=== PATIENT | female | born 1970 | race Caucasian/White ===

== ENCOUNTER 2023-01-06 11:44 | Outpatient (OUT) | payer OTHER, SELFPAY ==
--- NOTE | 2023-01-06 11:52 | US_ITS ---
[place] [id number] Patient Name: DIANE MARSHALL MRN: [id number] date: 1970 Sex: F Assigned Patient Location: [facility] Current Patient Location: [facility] Accession/Order Number: [id number] Exam Date: 01/06/2023 11:52 Report Date: 01/06/2023 14:22 At the request of: ANH CANO Procedure: US venous doppler LE BI EXAMINATION: US venous doppler LE BI HISTORY: Edema R60.9 COMPARISON: No relevant comparison available. FINDINGS: REGION: Bilateral lower extremities THROMBI: None. COMPRESSIBILITY: Normal compressibility. FLOW: Normal waveform and antegrade flow between 5 and 20 cm/s. OTHER: None. IMPRESSION: 1. No deep vein thrombus within the right or left lower extremity. Electronically authenticated by: BRYAN ARTHUR Date: 01/06/2023 14:22
== END 2023-01-06 11:45 ==
PROVIDERS: PCP Family Medicine; Visit Provider Family Medicine
DX: R60.9 Edema, unspecified (principal)
CPT/HCPCS: 93970

== ENCOUNTER 2023-01-17 08:28 | Outpatient (OUT) | payer OTHER, SELFPAY ==
--- NOTE | 2023-01-17 08:29 | VEIN_ITS ---
Patient: DIANE MARSHALL Exam Date: 01/17/2023 : 1970 Gender:F Ordering : DR Kevin Granger . Admission #: [id number] Family : Order #: [id number] CLICK HERE TO VIEW EXAM RADIOLOGY REPORT PROCEDURE: VC EXT VENOUS REFLUX DAVID LMTD COMPARISON: None. INDICATIONS: Edema R60.0 TECHNIQUE: Duplex imaging of the lower extremity to assess the deep and superficial venous system for the presence of deep or superficial venous incompetence and to document the location and severity of disease. The study includes evaluation of the great saphenous vein (GSV), anterior accessory saphenous vein (AASV) and small saphenous vein (SSV). Patient scanned in reverse Trendelenburg and standing. FINDINGS: RIGHT LOWER EXTREMITY: Saphenofemoral Junction Reflux: Yes 8.0mm 1.0 sec GSV: Diam (mm) Reflux/ Time (sec) Proximal Thigh 7.2 No Mid Thigh 2.4 No Distal Thigh 2.8 No Prox Calf 2.1 Yes 0.4 Mid Calf 3.1 Yes 0.2 Saphenopopliteal Junction Reflux: 2.1mm No SSV: Proximal Calf 1.4 Yes 0.2 Mid Calf 2.5 Yes 0.8 AASV: Proximal Thigh 4.5 Yes 1.0 Mid Thigh 3.3 No Distal Thigh Thrombi: No acute or chronic thrombus. Compressibility: Normal. Flow: No significant deep venous reflux. Childcare Aide: Mid medial lower leg 3.6 mm with 4.1s reflux. Prox medial lower leg 2.9 mm, 1.6s reflux. Mid posterior lower leg 1.9 mm with 4.3s reflux. Tech Note: Large varicosity off of prox/mid thigh GSV that decompresses GSV measures 5.4 mm with 0.2s reflux. Medial knee varicose vein measures 4.5 mm with 1.1s reflux. Mid medial calf varicose vein measures 2.8 mm with 0.3s reflux. LEFT LOWER EXTREMITY: Saphenofemoral Junction Reflux: Yes 9.6 mm 0.6 sec GSV: Diam (mm) Reflux/Time (sec) Proximal Thigh 5.1 No Mid Thigh N/A Distal Thigh N/A Prox Calf 3.4 Yes 3.7 Mid Calf 3.1 Yes 0.7 Saphenopopliteal Junction Relux: 3.3 mm No SSV: Proximal Calf 3.0 No Mid Calf 3.4 Yes 3.1 AASV: Not present Proximal Thigh Mid Thigh Distal Thigh Thrombi: No acute or chronic thrombus. Compressibility: Normal. Flow: Mild deep venous reflux. Childcare Aide: Dist medial lower leg 4.9 mm with 4.9s reflux. Mid medial lower leg 3.9mm, 0.8s reflux. Prox medial lower leg 4.0 mm with 0.7s reflux. Tech Note: AASV and GSV previously treated. Incompetent varicose vein proximal medial calf measures 4.7 mm with 4.0s reflux. Mid medial lower leg varicosity measures 4.8 mm with 4.9s reflux. Varicose vein distal anterior lower leg measures 2.3 mm with 0.6s reflux. CONCLUSION: 1. Mild venous insufficiency right great saphenous vein with minimal dilatation 2. Mild right and moderate left small saphenous vein venous insufficiency without dilatation 3. Mild venous insufficiency right anterior accessory saphenous vein 4. Moderate venous insufficiency remit of the left great saphenous vein 5. Bilateral incompetent perforating veins 6. Bilateral incompetent varicose veins Dictated by: Edwar Quinn MD on 01/17/2023 at 11:06 Approved by: Edwar Quinn MD on 01/17/2023 at 11:08
== END 2023-01-17 08:29 ==
PROVIDERS: PCP Family Medicine; Visit Provider Family Medicine
DX: R60.0 Localized edema (principal); M79.604 Pain in right leg; M79.605 Pain in left leg
CPT/HCPCS: 93970

== ENCOUNTER 2023-01-18 06:56 | Outpatient (RCR) | payer OTHER, SELFPAY | END 2023-03-11 16:06 | disposition home or self-care (01) | LOC: PT 06:56 | PROVIDERS: PCP Family Medicine; Visit Provider Family Medicine | DX: M79.605 Pain in left leg (principal); M79.604 Pain in right leg | CPT/HCPCS: 97110; 97112; 97140; 97163 ==

== ENCOUNTER 2023-05-24 09:57 | Outpatient (OUT) | payer OTHER, SELFPAY ==
[2023-05-24 10:16] LABS: Basophils Absolute Auto 0.1 10^3/uL (0.0-0.1); Basophils Percent Auto 0.9 % (0.2-2.0); Eosinophils Absolute Auto 0.1 10^3/uL (0.0-0.7); Eosinophils Percent Auto 1.5 % (0.9-7.0); Hematocrit 37.6 % (36.0-48.0); Hemoglobin 11.8 g/dL (12.0-16.0); Immature Granulocytes Abs Auto 0.01 10^3/uL (0.00-0.03); Immature Granulocytes Pct Auto 0.2 % (0.0-0.5); Lymphocytes Absolute Auto 2.2 10^3/uL (1.2-3.8); Lymphocytes Percent Auto 40.5 % (20.5-60.0); Mean Corpuscular HGB Conc 31.4 g/dL (29.9-35.2); Mean Corpuscular Hemoglobin 28.4 pg (26.7-34.0); Mean Corpuscular Volume 90.4 fL (81.0-99.0); Mean Platelet Volume 10.1 fL (9.5-13.5); Monocytes Absolute Auto 0.5 10^3/uL (0.3-0.8); Monocytes Percent Auto 9.9 % (1.7-12.0); Neutrophils Absolute Auto 2.6 10^3/uL (1.4-6.5); Platelet Count 257 10^3/uL (150-450); Red Blood Count 4.16 10^6/uL (4.20-5.40); Red Cell Distribution Width 13.5 % (11.0-15.0); White Blood Count 5.5 10^3/uL (4.0-11.0)
[2023-05-24 11:46] LABS: Alanine Aminotransferase 20 U/L (14-59); Albumin Globulin Ratio 0.9; Albumin Level 3.3 g/dL (3.4-5.0); Alkaline Phosphatase 68 U/L (46-116); Anion Gap 10.3; Aspartate Amino Transferase 15 U/L (15-37); BUN Creatinine Ratio 13.1; Bilirubin Total 0.4 mg/dL (0.2-1.0); Calcium 8.2 mg/dL (8.5-10.1); Carbon Dioxide 27.8 mmol/L (21.0-32.0); Chloride 107 mmol/L (98-107); Estimated GFR (African America >60 (>=60); Estimated GFR (Non-African Ame >60 (>=60); Free T3 2.11 pg/mL (2.18-3.98); Globulin 3.6 g/dL; Glucose 86 mg/dL (74-106); Potassium 4.1 mmol/L (3.5-5.1); Sodium 141 mmol/L (136-145); Thyroid Stimulating Hormone 0.053 uIU/mL (0.358-3.740); Total Protein 6.9 g/dL (6.4-8.2)
[2023-05-24 12:05] LABS: Estimated Average Glucose 117 mg/dL; Glycohemoglobin A1C 5.7 % (4.5-6.2)
== END 2023-05-24 09:58 | disposition home or self-care (01) ==
LOC: LAB 09:58
PROVIDERS: PCP Family Medicine; Visit Provider Family Medicine
DX: G43.909 Migraine, unspecified, not intractable, without status migrainosus (principal); R73.09 Other abnormal glucose; D64.9 Anemia, unspecified; E55.9 Vitamin D deficiency, unspecified
CPT/HCPCS: 36415; 80053; 82306; 83036; 83540; 84436; 84443; 84481; 85025

== ENCOUNTER 2024-11-17 08:57 | Outpatient (OUT) | payer OTHER, SELFPAY ==
--- OUTSIDE RECORDS SUMMARY | 2024-11-17 09:01 | XMS_ITS | CCD ---
Author Organization [facility] Care Team Providers Care Supervisor Parking Lot Name Role Phone MAXIME, AHMAD Admitting Unavailable MAXIME, AHMAD Attending Unavailable RACHAEL, DR KAMARA Primary Care Unavailable MAXIME, ALEJA Consulting Unavailable RACHAEL, DR KAMARA Admitting Unavailable HOY, DR KAMARA Attending Unavailable HOY, DR KAMARA Primary Care Unavailable RACHAEL, DR KAMARA Consulting Unavailable ZIEBER, DR BRYAN Man Consulting Unavailable RACHAEL, DR KAMARA Admitting Unavailable RACHAEL, DR KAMARA Attending Unavailable RACHAEL, DR KAMARA Primary Care Unavailable RACHAEL, DR KAMARA Consulting Unavailable MAXIME, AHMAD Admitting Unavailable MAXIME, AHMAD Attending Unavailable RACHAEL, DR KAMARA Primary Care Unavailable MAXIME, ALEJA Consulting Unavailable MD Anh Granger Primary Care Provider DO Onel Hatch Attending Provider MD Anh Granger Primary Care Provider DO Onel Hatch Attending Provider Anh Granger MD Primary Care Provider [phone] MD Anh Granger Primary Care Provider DO Abdoulaye Esqueda Attending Provider MD Anh Granger Primary Care Provider DO Abdoulaye Esqueda Attending Provider DO Onel Hatch Attending Provider MD Anh Granger Primary Care Provider DO Abdoulaye Esqueda Attending Provider Anh Granger MD Primary Care Provider Onel Hatch DO Attending Provider [phone] Anh Granger Primary Care Unavailable Onel Hatch Admitting Unavailable Onel Hatch Attending Unavailable Anh Granger Primary Care Unavailable Abdoulaye Esqueda Admitting Unavailable Abdoulaye Esqueda Attending Unavailable Onel Hatch Admitting Unavailable Onel Hatch Attending Unavailable Anh Granger Primary Care Unavailable ONEL HATCH W Attending Unavailable ONEL HATCH W Attending Unavailable Allergies Allergy Classification Reported Allergen(s) Allergy Type Date of Onset Reaction(s) Facility (1 source) fentaNYL Drug Allergy 12-15-2015 [facility] (11 sources) fentaNYL Drug Allergy 05-01-2014 [facility] (11 sources) Povidone-Iodine Drug Allergy 07-19-2014 [facility] are Medications Current Medications Medication Drug Class(es) Dates Sig (Normalized) Sig (Original) amitriptyline hydrochloride 100 mg oral tablet (8 sources) Tricyclic Antidepressant take 1 tablet by mouth at bedtime amitriptyline (Elavil) 100 MG tablet Take 100 mg by mouth at bedtime Active aspirin 81 mg chewable tablet (11 sources) Platelet Aggregation Inhibitor, Nonsteroidal Anti-inflammatory Drug aspirin 81 MG chewable tablet Active 168 hr buprenorphine 0.01 mg/hr transdermal system (14 sources) Partial Opioid Agonist Start: 09-07-2023 apply 1 dose transdermal route every week Butrans 10 MCG/HR Place 1 patch on the skin 1 (one) time per week 09/07/2023 Active Start: 12-30-2020 apply 15 ug transder mal route every week Buprenorphine 15 mcg/hour Patch Weekly Active 1 PATCH TRANSDERML every week December 30, 2020 12:00am diclofenac sodium 75 mg delayed release oral tablet (2 sources) Nonsteroidal Anti-inflammatory Drug Start: 08-30-2024 take 1 tablet by mouth twice daily as needed diclofenac (Voltaren) 75 MG EC tablet Take 75 mg by mouth 2 (two) times a day as needed 08/30/2024 Active gabapentin 600 mg oral tablet (17 sources) Anti-epileptic Agent Start: 12-30-2020 take 2 tablets by mouth once daily at bedtime Gabapentin (Neurontin) 600 mg Tablet Active 600 MG PO Daily at bedtime December 30, 2020 12:00am 2 at HS for 30 days gabapentin (Neur ontin) 400 MG capsule Active levothyroxine sodium 0.2 mg oral tablet (20 sources) l-Thyroxine Start: 12-07-2023 End: 11-13-2025 take 1 tablet by mouth before mealtime levothyroxine (Synthroid) 200 MCG tablet Indications: Status post total thyroidectomy Take 1 tablet (200 mcg) by mouth in the morning. Take before meals. 30 tablet 11 11/13/2024 11/13/2025 Active Start: 03-16-2023 take 1 tablet by jama th before mealtime levothyroxine (Synthroid) 200 MCG tablet Indications: History of total thyroidectomy (CMS/HCC) Take 1 tablet (200 mcg) by mouth in the morning. Take before meals. 30 tablet 5 03/16/2023 Active Start: 03-16-2023 take 1 tablet by jama th before mealtime levothyroxine (Synthroid) 75 MCG tablet Indications: History of total thyroidectomy (CMS/HCC) Take 1 tablet (75 mcg) by mouth in the morning. Take before meals. 30 tablet 5 03/16/2023 Active Start: 01-05-2021 Levothyroxine 200 mcg tablet Active 275 MCG PO Daily January 05, 2021 12:00am Start: 01-05-2021 take 275 ug by mouth once cely y Levothyroxine Active 275 MCG PO Daily January 05, 2021 12:00am Start: 12-30-2020 End: 01-05-2021 take 1 tablet by mouth once daily Levothyroxine (Synthroid) 125 mcg Tablet Discontinued 125 MCG PO Daily December 30, 2020 12:00am January 05, 2021 3:40pm levothyroxine (S ynthroid, Levoxyl) 200 MCG tablet Take by mouth Daily before meals. Takes with 75mcg 0 Active levothyroxine (S ynthroid, Levoxyl) 75 MCG tablet Take by mouth Daily before meals. Takes with 200mcg 0 Active lisinopril 10 mg oral tablet (8 sources) Angiotensin Converting Enzyme Inhibitor Start: 09-05-2023 take 1 tablet by mouth once daily lisinopril 10 MG tablet Take 10 mg by mouth Daily 09/05/2023 Active 72 hr scopolamine 0.0139 mg/hr transdermal system (11 sources) Anticholinergic Start: 02-09-2023 scopolamine (Transderm-Scop) 1 mg/72 hr patch 72 hour patch 02/09/2023 Active Completed/Discontinued Medications Medication Drug Class(es) Dates Sig (Normalized) Sig (Original) cholecalciferol 0.125 mg oral tablet (6 sources) Vitamin D Start: 12-30-2020 End: 01-05-2021 take 1 tablet by mouth once daily Cholecalciferol (Vitamin D3) 125 mcg (5,000 unit) Tablet Discontinued 125 MCG PO Daily December 30, 2020 12:00am January 05, 2021 3:39pm citalopram 40 mg oral tablet (6 sources) Serotonin Reuptake Inhibitor Start: 12-30-2020 End: 01-05-2021 take 1 tablet by mouth once daily Citalopram (Celexa) 40 mg Tablet Discontinued 40 MG PO Daily December 30, 2020 12:00am January 05, 2021 3:39pm ferrous sulfate 325 mg oral tablet (6 sources) Start: 12-30-2020 End: 01-05-2021 take 1 tablet by mouth twice daily Ferrous Sulfate 325 mg (65 mg iron) Tablet Discontinued 325 MG PO Twice daily December 30, 2020 12:00am January 05, 2021 3:39pm fluocinonide 0.0005 mg/mg topical gel (6 sources) Corticosteroid Start: 12-30-2020 End: 01-05-2021 Fluocinonide 0.05 % Gel Discontinued 1 APPLIC TOPICAL Twice daily December 30, 2020 12:00am January 05, 2021 3:39pm ibuprofen 800 mg oral tablet (6 sources) Nonsteroidal Anti-inflammatory Drug Start: 12-30-2020 End: 01-05-2021 take 1 tablet by mouth every six hours Ibuprofen 800 mg Tablet Discontinued 800 MG PO Q6H December 30, 2020 12:00am January 05, 2021 3:40pm ondansetron 4 mg oral tablet (6 sources) Serotonin-3 Receptor Antagonist Start: 12-30-2020 End: 01-05-2021 take 1 tablet by mouth every six hours as needed for nausea Ondansetron Hcl (Zofran) 4 mg Tablet Discontinued 4 MG PO Q6H as needed for Nausea December 30, 2020 12:00am January 05, 2021 3:40pm Problems Active Problems Problem Classification Problem Date Documented Date Episodic/Chronic Cancer of thyroid (20 sources) Malignant neoplasm of thyroid gland; 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 EHR Cmte Complications of surgical procedures or medical care (13 sources) Postprocedural hypothyroidism; Translations: [History of total thyroidectomy] Onset: 01-01-2021 Resolved: 03-16-2023 Chronic Deficiency and other anemia (12 sources) Anemia; Translations: [Anemia, unspecified] 01-14-2021 Episodic Comment on above: Problem List clean-u p per request of Phys. EHR Cmte Headache; including migraine (1 source) Migraine without aura, not intractable, without status migrainosus; Translations: [MIGRAINE W/O AURA NOT INTRCT W/O SE] Onset: 01-02-2021 Chronic Menstrual disorders (1 source) Excessive and frequent menstruation with irregular cycle; Translations: [EXCESS AND FREQ MEN W/IRREG CYCLE] Onset: 01-02-2021 Chronic Thyroid disorders (20 sources) Hypothyroidism, unspecified; Translations: [Nontoxic multinodular goiter] Onset: 05-06-2014 Resolved: 03-16-2023 Chronic Past or Other Problems Problem Classification Problem Date Documented Date Episodic/Chronic Abdominal pain (11 sources) Flank pain; Translations: [Unspecified abdominal pain] Onset: 03-16-2023 Resolved: 03-16-2023 03-16-2023 Episodic Allergic reactions (11 sources) Eczema; Translations: [Dermatitis, unspecified] Onset: 03-16-2023 Resolved: 03-16-2023 03-16-2023 Episodic Deficiency and other anemia (1 source) Anemia, unspecified; Translations: [ANEMIA UNSPECIFIED] Onset: 01-02-2021 Episodic Fracture of upper limb (11 sources) Closed fracture of metacarpal bone; Translations: [Unspecified fracture of unspecified metacarpal bone, initial encounter for closed fracture] Onset: 04-09-2014 Resolved: 03-16-2023 03-16-2023 Episodic Genitourinary symptoms and ill-defined conditions (11 sources) Incontinence; Translations: [Unspecified urinary incontinence] Onset: 03-16-2023 Resolved: 03-16-2023 03-16-2023 Chronic Joint disorders and dislocations; trauma-related (11 sources) Tear of meniscus of knee; Translations: [Unspecified tear of unspecified meniscus, current injury, unspecified knee, initial encounter] Onset: 03-16-2023 Resolved: 03-16-2023 03-16-2023 Episodic Mood disorders (11 sources) Depressive disorder; Translations: [Depressive disorder] Onset: 03-16-2023 Resolved: 03-16-2023 03-16-2023 Chronic Nutritional deficiencies (12 sources) Vitamin D deficiency, unspecified; Translations: [Vitamin D deficiency] Onset: 01-02-2021 Resolved: 03-16-2023 03-16-2023 Chronic Other connective tissue disease (11 sources) Impingement syndrome of shoulder region; Translations: [Impingement syndrome of unspecified shoulder] Onset: 03-16-2023 Resolved: 03-16-2023 03-16-2023 Episodic Other connective tissue disease (11 sources) Muscle pain; Translations: [Myalgia, unspecified site] Onset: 03-16-2023 Resolved: 03-16-2023 03-16-2023 Episodic Other diseases of bladder and urethra (11 sources) Neurogenic bladder; Translations: [Neuromuscular dysfunction of bladder, unspecified] Onset: 05-28-2014 Resolved: 03-16-2023 03-16-2023 Chronic Other fractures (11 sources) Closed fracture of one rib; Translations: [Fracture of one rib, unspecified side, initial encounter for closed fracture] Onset: 03-16-2023 Resolved: 03-16-2023 03-16-2023 Episodic Other fractures (11 sources) Closed fracture thoracic vertebra; Translations: [Unspecified fracture of unspecified thoracic vertebra, initial encounter for closed fracture] Onset: 05-06-2014 Resolved: 03-16-2023 03-16-2023 Episodic Pulmonary heart disease (19 sources) Infarction of lung due to embolus; Translations: [Other pulmonary embolism without acute cor pulmonale] Onset: 03-01-2014 Resolved: 03-16-2023 03-16-2023 Episodic Residual codes; unclassified (1 source) Edema, unspecified; Translations: [EDEMA UNSPECIFIED] Onset: 01-02-2021 Episodic Residual codes; unclassified (3 sources) History of total thyroidectomy; Translations: [Other specified postprocedural states] Onset: 03-16-2023 Resolved: 03-16-2023 03-16-2023 Episodic Spondylosis; intervertebral disc disorders; other back problems (11 sources) Lumbar spondylosis with myelopathy; Translations: [Other spondylosis with myelopathy, lumbar region] Onset: 03-16-2023 Resolved: 03-16-2023 03-16-2023 Chronic Spondylosis; intervertebral disc disorders; other back problems (11 sources) Sacroiliac joint pain; Translations: [Sacrococcygeal disorders, not elsewhere classified] Onset: 03-16-2023 Resolved: 03-16-2023 03-16-2023 Episodic Results Test Name Value Interpretation Reference Range Facility Thyroid Stimulating Hormoneo n 11-05-2024 TSH Qn 0.74 m[IU]/L Normal 0.45-5.33 [facility] Comment on above: Order Comment: FASTI NG NON FASTING Result Comment: PERF ORMED BY: [facility] [address] [place] [address] PATHOLOGIST TALENT DEVELOPMENT DIRECTOR MANAV ESPINAL M.D. Performed By: #### T 3T, TSH3, T4T #### [facility] [address] Thyrotropin [Units/volume] i n Serum or PlasmaOrdered By: Onel Hatch on 11-05-2024 TSH Qn Thyrotropin [Units/volume] in Serum or Plasma 0.45-5.33 [facility] Thyroxine (T4) Totalon 11-05 T4 [Mass/Vol] 11.03 ug/dL Normal 5.39-11.82 [facility] Comment on above: Order Comment: FASTI NG NON FASTING Performed By: #### T 3T, TSH3, T4T #### [facility] [address] Thyroxine (T4) [Mass/volume] in Serum or PlasmaOrdered By: Onel Hatch on 11-05-2024 T4 [Mass/Vol] Thyroxine (T4) [Mass/volume] in Serum or Plasma 5.39-11.82 [facility] Triiodothyronine (T3) Totalo n 11-05-2024 Triiodothyronine (T3) Total 1.05 ng/mL Normal 0.87-1.78 [facility] Comment on above: Order Comment: FASTI NG NON FASTING Performed By: #### T 3T, TSH3, T4T #### [facility] [address] Triiodothyronine (T3) [Mass/ volume] in Serum or PlasmaOrdered By: Onel Hatch on 11-05-2024 T3 [Mass/Vol] Triiodothyronine (T3 ) [Mass/volume] in Serum or Plasma 0.87-1.78 [facility] Thyroglobulinon 05-19-2024 ANTITHYROGLOBULIN AB 20.3 High 0.0 - 0.9 [facility] Comment on above: Thyroglobulin Antibo dy measured by [employer] Method[employer] It should be noted that the presence of thyroglobulin antibodies may not be pathogenic nor diagnostic, especially at very low levels. The assay manager primary has found that four percent of individuals without evidence of thyroid disease or autoimmunity will have positive TgAb levels up to 4 IU/mL. Interpretation and review of laboratory results Abnormal [facility] THYROGLOBULIN, TG-MARISSA 4.2 ng/mL . [facility] Comment on above: This test was develo ped and its performance characteristics determined by [employer]. It has not been cleared or approved by the Food and Drug Administration. Reference Range: Pubertal Children and Adults: <40 According to the National Academy of Clinical Biochemistry, the reference interval for Thyroglobulin (TG) should be related to euthyroid patients and not for patients who underwent thyroidectomy. TG reference intervals for these patients depend on the residual mass of the thyroid tissue left after surgery. Establishing a post-operative baseline is recommended. The assay quantitation limit is 2.0 ng/mL. Performed at: [employer] [address] [id number] Cage Maker Machine: Jl Weems PhD, Phone: [phone] Performed at: [employer] [address] [place] [id number] Cage Maker Machine: Alvin Suazo MD, Phone: [phone] [facility] Thyroglobulin, Quant + Tg Ab on 04-26-2024 Antithyroglobulin Ab 20.3 High 0.0-0.9 [facility] Comment on above: Result Comment: Thyr oglobulin Antibody measured by Dara Johann Methodology It should be noted that the presence of thyroglobulin antibodies may not be pathogenic nor diagnostic, especially at very low levels. The assay manager primary has found that four percent of individuals without evidence of thyroid disease or autoimmunity will have positive TgAb levels up to 4 IU/mL. Performed By: #### L C T4, THYGLOB #### [facility] , Thyroglobulin, TG-MARISSA 4.2 ng/mL Normal . [facility] Comment on above: Result Comment: This test was developed and its performance characteristics determined by [employer]. It has not been cleared or approved by the Food and Drug Administration. Reference Range: Pubertal Children and Adults: <40 According to the National Academy of Clinical Biochemistry, the reference interval for Thyroglobulin (TG) should be related to euthyroid patients and not for patients who underwent thyroidectomy. TG reference intervals for these patients depend on the residual mass of the thyroid tissue left after surgery. Establishing a post-operative baseline is recommended. The assay quantitation limit is 2.0 ng/mL. Performed at: [employer] [address] [id number] Cage Maker Machine: Jl Weems PhD, Phone: [phone] Performed at: [employer] [address] [place] [id number] Cage Maker Machine: Alvin Suazo MD, Phone: [phone] PERFORMED BY: [address] [place] [address] PATHOLOGIST TALENT DEVELOPMENT DIRECTOR ANDRE WATTS M.D. Performed By: #### L C T4, THYGLOB #### [facility] , Thyrotropin [Units/volume] i n Serum or PlasmaOrdered By: Abdoulaye Esqueda on 04-26-2024 TSH Qn 1.64 m[IU]/L Normal 0.45-5.33 [facility] Comment on above: Result Comment: PERF ORMED BY: [address] [place] [address] PATHOLOGIST TALENT DEVELOPMENT DIRECTOR ANDRE WATTS M.D. Performed By: #### T 4T, TSH3, T3T #### [facility] [address] [place] [address] [place] #### THYGLOB #### [facility] , Thyroxine (T4) [Mass/volume] in Serum or PlasmaOrdered By: Abdoulaye Esqueda on 04-26-2024 T4 [Mass/Vol] 11.41 ug/dL Normal 5.39-11.82 [facility] Comment on above: Performed By: #### T 4T, TSH3, T3T #### [facility] [address] [place] [address] [place] #### THYGLOB #### [facility] , Triiodothyronine (T3) Totalo n 04-26-2024 Triiodothyronine (T3) Total 0.71 ng/mL Low 0.87-1.78 [facility] Comment on above: Performed By: #### T 4T, TSH3, T3T #### [facility] [address] [place] [address] #### THYGLOB #### [facility] , Triiodothyronine (T3) [Mass/ volume] in Serum or PlasmaOrdered By: Abdoulaye Esqueda on 04-26-2024 T3 [Mass/Vol] 0.71 ng/mL Low 0.87-1.78 [facility] Thyroxine (T4)on T4 [Mass/Vol] 11.5 ug/dL Normal 4.5-12.0 [facility] Comment on above: Result Comment: Perf ormed at: - [facility] [address] [id number] Cage Maker Machine: Jl Weems PhD, Phone: [phone] Performed By: #### L C T4, THYGLOB #### [facility] , Thyroglobulin, Quant + Tg Ab on 11-21-2023 Antithyroglobulin Ab 23.1 High 0.0-0.9 [facility] Comment on above: Result Comment: Thyr oglobulin Antibody measured by Dara Bellerose Methodology It should be noted that the presence of thyroglobulin antibodies may not be pathogenic nor diagnostic, especially at very low levels. The assay manager primary has found that four percent of individuals without evidence of thyroid disease or autoimmunity will have positive TgAb levels up to 4 IU/mL. Performed By: #### L C T4, THYGLOB #### [facility] , Thyroglobulin, TG-MARISSA 2.5 ng/mL Normal . [facility] Comment on above: Result Comment: This test was developed and its performance characteristics determined by [employer]. It has not been cleared or approved by the Food and Drug Administration. Reference Range: Pubertal Children and Adults: <40 According to the National Academy of Clinical Biochemistry, the reference interval for Thyroglobulin (TG) should be related to euthyroid patients and not for patients who underwent thyroidectomy. TG reference intervals for these patients depend on the residual mass of the thyroid tissue left after surgery. Establishing a post-operative baseline is recommended. The assay quantitation limit is 2.0 ng/mL. Performed at: [employer] [address] [id number] Cage Maker Machine: Jl Weems PhD, Phone: [phone] Performed at: [employer] [address] [place] [id number] Cage Maker Machine: Alvin Suazo MD, Phone: [phone] PERFORMED BY: [place] [address] PATHOLOGIST TALENT DEVELOPMENT DIRECTOR ANDRE WATTS M.D. Performed By: #### L C T4, THYGLOB #### [facility] , Thyrotropin [Units/volume] i n Serum or PlasmaOrdered By: Onel Hatch on 11-21-2023 TSH Qn 0.33 m[IU]/L Low 0.45-5.33 [facility] Comment on above: Result Comment: PERF ORMED BY: [place] [address] PATHOLOGIST TALENT DEVELOPMENT DIRECTOR ANDRE WATTS M.D. Performed By: #### T 3T, TSH3 #### [address] Triiodothyronine (T3) Totalo n 11-21-2023 Triiodothyronine (T3) Total 1.10 ng/mL Normal 0.87-1.78 [facility] Comment on above: Performed By: #### T 3T, TSH3 #### [facility] [address] Triiodothyronine (T3) [Mass/ volume] in Serum or PlasmaOrdered By: Onel Hatch on 11-21-2023 T3 [Mass/Vol] 1.10 ng/mL 0.87-1.78 [facility] TSH Qnon 09-14-2023 Interpretation and review of laboratory results Abnormal [facility] T4 [Mass/Vol] 13.2 ug/dL High 4.5 - 12.0 ug/dL [facility] Comment on above: Performed at: [employer] [address] [id number] Cage Maker Machine: Jl Weems PhD, Phone: [phone] [facility] Thyroglobulin Antibodyon ANTITHYROGLOBULIN AB 24.3 High 0.0 - 0.9 [facility] Comment on above: Thyroglobulin Antibo dy measured by [employer] It should be noted that the presence of thyroglobulin antibodies may not be pathogenic nor diagnostic, especially at very low levels. The assay manager primary has found that four percent of individuals without evidence of thyroid disease or autoimmunity will have positive TgAb levels up to 4 IU/mL. Performed at: [employer] [address] [id number] Cage Maker Machine: Jl Weems PhD, Phone: [phone] Interpretation and review of laboratory results Abnormal [facility] No Panel InformationOrdered By: Abdoulaye Esqueda on 09-13-2023 Free Thyroxine (T4) Direct 13.2 ug/dL 4.5-12.0 [facility] Comment on above: Performed at: [employer] [address] [id number] Director: Jl Weems PhD, Phone: [phone] Serum or plasma thyroglobuli n antibody assay (units/volume)Ordered By: Abdoulaye Esqueda on 09-13-2023 Thyroglobulin Ab Qn 24.3 [IU]/mL 0.0-0.9 [facility] Comment on above: Thyroglobulin Antibo dy measured by Dara CoulterMethodologyIt should be noted that the presence of thyroglobulinantibodies may not be pathogenic nor diagnostic, especiallyat very low levels. The assay manager primary has found thatfour percent of individuals without evidence of thyroiddisease or autoimmunity will have positive TgAb levels upto 4 IU/mL.Performed at: [employer] [id number] Director: Jl Weems PhD, Phone: [phone] Thyrotropin [Units/volume] i n Serum or PlasmaOrdered By: Abdoulaye Esqueda on 09-13-2023 TSH Qn 0.02 m[IU]/L 0.45-5.33 [facility] Triiodothyronine (T3) [Mass/ volume] in Serum or PlasmaOrdered By: Abdoulaye Esqueda on 09-13-2023 T3 [Mass/Vol] 0.71 ng/mL 0.87-1.78 [facility] Thyrotropin [Units/volume] i n Serum or PlasmaOrdered By: Onel Hatch on 03-10-2023 TSH Qn 0.01 m[IU]/L 0.45-5.33 [facility] Thyroxine (T4) [Mass/volume] in Serum or PlasmaOrdered By: Onel Hatch on 03-10-2023 T4 [Mass/Vol] 13.03 ug/dL 5.39-11.82 [facility] Triiodothyronine (T3) [Mass/ volume] in Serum or PlasmaOrdered By: Onel Hatch on 03-10-2023 T3 [Mass/Vol] 1.08 ng/mL 0.87-1.78 [facility] No Panel InformationOrdered By: Onel Hatch on 09-08-2022 Total Triiodothyronine 1.32 ng/mL 0.87-1.78 [facility] TSH DL <= 0.005 mIU/L QnOrde red By: Onel Hatch on 09-08-2022 TSH Qn 0.01 m[IU]/L 0.45-5.33 [facility] Thyroxine (T4) free [Mass/vo lume] in Serum or PlasmaOrdered By: Onel Hatch on 09-08-2022 Free T4 [Mass/Vol] 1.32 ng/dL 0.61-1.12 [facility] NECK [facility] W CONon CT NECK ST W CON EXAMINATION: CT NECK ST W CON HISTORY: Malignant tumor of thyroid gland ; 46 pound weight loss, complete thyroidectomy secondary to thyroid cancer in 2020 COMPARISON: Ultrasound thyroid 06/16/2020 TECHNIQUE: Axial, Coronal, and Sagittal CT images created with IV contrast. Dose reduction techniques were achieved by using automated exposure control and/or adjustment of mA and/or kV according to patient size and/or use of iterative reconstruction technique. FINDINGS: NASOPHARYNX: No asymmetry of the fossae of Rosenmuller and torus tubarius. ORAL CAVITY: No visible mass. OROPHARYNX: No asymmetry of the facial and lingual tonsils. HYPOPHARYNX: No mass or other visible lesion. LARYNX: No mass or asymmetry of the vocal cords. SINUSES: Mucosal thickening within left maxillary sinus; ostiomeatal complex is mildly narrowed. NECK GLADS: No visible abnormality of the parotid, submandibular, and thyroid glands. LYMPH NODES: No pathological-appearing or enlarged lymph nodes. VASCULATURE: No suspicious abnormality. BONES: C5-C6 and C6-C7 moderate degenerative disc disease with posterior disc-osteophyte complexes suspected cause mild-moderate central canal and foraminal narrowing. OTHER: No additional imaging findings. IMPRESSION: 1. No residual thyroid tissue. 2. No mass or lymphadenopathy. 3. Left maxillary mild chronic sinusitis. 4. Degenerative disc disease of the cervical spine. Electronically authenticated by: BRYAN ARTHUR Date: 2021-09-02 08:56 Normal [facility] US THYROIDon 09-02-2021 US THYROID EXAMINATION: US THYR OID HISTORY: Malignant tumor of thyroid gland ; thyroidectomy 2020 COMPARISON: Ultrasound thyroid 06/16/2020, CT neck soft tissue 09/02/2021 FINDINGS: RIGHT LOBE: Small 10 x 6 x 6 mm hypoechoic area within the inferior medial aspect of the right thyroid bed; post thyroidectomy changes versus residual thyroid tissue. LEFT LOBE: Thyroidectomy. No suspicious tissue. IMPRESSION: 1. Small amount nonspecific tissue within the right thyroid bed which is not appreciable on today's CT study; consider follow-up ultrasound evaluation in 3 months to document stability. 2. A few scattered lymph nodes, nonspecific. No overtly suspicious findings. Electronically authenticated by: BRYAN ARTHUR Date: 2021-09-02 09:02 Normal [facility] THYROGLOBULINon 01-08-2021 Thyroglobulin 7.5 ng/mL Normal [facility] Comment on above: Result Comment: This test was developed and its performance characteristics determined by [facility]. It has not been cleared or approved by the Food and Drug Administration. Reference Range: Pubertal Children and Adults: <40 According to the National Academy of Clinical Biochemistry, the reference interval for Thyroglobulin (TG) should be related to euthyroid patients and not for patients who underwent thyroidectomy. TG reference intervals for these patients depend on the residual mass of the thyroid tissue left after surgery. Establishing a post-operative baseline is recommended. The assay quantitation limit is 2.0 ng/mL. Performed By: #### T GRIA #### [facility] [address] [place] [address] Ilana Lambert FSHon 01-02-2021 FSH 3.8 mIU/mL Normal [facility] Comment on above: Result Comment: Adul t Female: Follicular phase 3.5 - 12.5 Ovulation phase 4.7 - 21.5 Luteal phase 1.7 - 7.7 Postmenopausal 25.8 - 134.8 Performed By: #### L BCFSH #### [facility] [address] [place], [place] [id number] Ilana Lambert THYROGLOBULIN ABon Thyroglobulin Antibody 29.0 IU/mL Critically high 0.0-0.9 [facility] Comment on above: Result Comment: Thyr oglobulin Antibody measured by [employer] Methodology Performed By: #### T HYGAB #### [facility] [address] [place], [place] [id number] Ilana Lambert CBC AUTO DIFFon 01-01-2021 BASO # 0.0 103/ul Normal 0.0-0.1 [facility] Comment on above: Performed By: #### F T4 #### [facility] [address] [place], [place] [id number] Ilana Petra Basophils/100 WBC (Bld) 0.4 % Normal 0.2-2.0 [facility] Comment on above: Performed By: #### F T4 #### [facility] [address] [place], [place] [id number] Ilana Petra EO # 0.1 103/ul Normal 0.0-0.7 [facility] Comment on above: Performed By: #### F T4 #### [facility] [address] [place] [address] Ilana Petra Eosinophils/100 WBC (Bld) 1.1 % Normal 0.9-7.0 [facility] Comment on above: Performed By: #### F T4 #### [facility] [address] [place] [address] Ilana Petra Erythrocyte distribution width (RBC) [Ratio] 12.0 % Normal 11.0-15.0 [facility] Comment on above: Performed By: #### F T4 #### [facility] [address] [place] [address] Ilana Petra Hematocrit (Bld) [Volume fraction] 39.1 % Normal 36.0-48.0 [facility] Comment on above: Performed By: #### F T4 #### [facility] [address] [place], [place] [id number] Ilana Petra Hemoglobin (Bld) [Mass/Vol] 13.0 g/dL Normal 12.0-16.0 [facility] Comment on above: Performed By: #### F T4 #### [facility] [address] [place] [address] Ilana Petra IG # 0.03 10e3/ul Normal 0.00-0.03 [facility] Comment on above: Performed By: #### F T4 #### [facility] [address] [place] [address] Ilana Petra IG % 0.3 % Normal 0.0-0.5 [facility] Comment on above: Performed By: #### F T4 #### [facility] [address] [place] [address] Ilana Petra LYMPH # 2.2 103/ul Normal 1.2-3.8 [facility] Comment on above: Performed By: #### F T4 #### [facility] [address] [place], [place] [id number] Ilana Petra Lymphocytes/100 WBC (Bld) 24.5 % Normal 20.5-60.0 [facility] Comment on above: Performed By: #### F T4 #### [facility] [address] [place], [place] [phone] Ilana Petra MANUAL DIFF REQ NO Normal [facility] Comment on above: Performed By: #### F T4 #### [facility] [address] [place] [address] Ilanayonny Lambert MCH (RBC) [Entitic mass] 30.0 pg Normal 26.7-34.0 [facility] Comment on above: Performed By: #### F T4 #### [facility] [address] [place] [address] Ilanayonny Yeageren MCHC (RBC) [Mass/Vol] 33.2 g/dL Normal 29.9-35.2 [facility] Comment on above: Performed By: #### F T4 #### [facility] [address] [place], [place] [phone] Ilana Petra MCV (RBC) [Entitic vol] 90.3 fL Normal 81.0-99.0 [facility] Comment on above: Performed By: #### F T4 #### [facility] [address] [place], [place] [phone] Ilana Petra MONO # 0.6 103/ul Normal 0.3-0.8 [facility] Comment on above: Performed By: #### F T4 #### [facility] [address] [place] [address] Ilana Petra Monocytes/100 WBC (Bld) 7.2 % Normal 1.7-12.0 [facility] Comment on above: Performed By: #### F T4 #### [facility] [address] [place] [address] Ilana Petra NEUT # 5.9 103/ul Normal 1.4-6.5 [facility] Comment on above: Performed By: #### F T4 #### [facility] [address] [place], [place] [address] Ilana Petra Neutrophils/100 WBC (Bld) 66.5 % Normal 43.0-75.0 [facility] Comment on above: Performed By: #### F T4 #### [facility] [address] [place] [phone] Ilana Petra Platelet mean volume (Bld) [Entitic vol] 9.7 fL Normal 9.5-13.5 [facility] Comment on above: Performed By: #### F T4 #### [facility] [address] [place] [address] Ilana Petra PLT 239 103/ul Normal 150-450 [facility] Comment on above: Performed By: #### F T4 #### [facility] [address] [place] [address] Ilana Petra RBC 4.33 106/ul Normal 4.20-5.40 [facility] Comment on above: Performed By: #### F T4 #### [facility] [address] [place] [address] Ilana Petra WBC 8.9 103/ul Normal 4.0-11.0 [facility] Comment on above: Performed By: #### F T4 #### [facility] [address] [place] [address] Ilana Petra FREE T3on 01-01-2021 FREE T3 1.09 pg/mlL Critically low 2.77-5.27 [facility] Comment on above: Performed By: #### F T4 #### [facility] [address] [place] [address] Ilana Petra FREE T4on 01-01-2021 Free T4 [Mass/Vol] 1.50 ng/dL Normal 0.78-2.19 [facility] [place] Comment on above: Performed By: #### F T4 #### [facility] [address] [place] [address] Ilana Petra IRONon 01-01-2021 Iron [Mass/Vol] 101.0 ug/dL Normal 37.0-170.0 [facility] Comment on above: Performed By: #### F T4 #### [facility] [address] [place], [place] [address] Ilana Lambert PROF 14(COMP METB)on 021 Albumin [Mass/Vol] 3.3 g/dL Critically low 3.5-5.0 [facility] Comment on above: Performed By: #### C MP #### [facility] [address] [place], [place] [phone] Ilana Petra Albumin/Globulin [Mass ratio] 0.9 {ratio} Normal [facility] Comment on above: Performed By: #### C MP #### [facility] [address] [place], [place] [phone] Ilana Petra ALP [Catalytic activity/Vol] 55 U/L Normal 38-126 [facility] Comment on above: Performed By: #### C MP #### [facility] [address] [place], [place] [address] Ilana Petra ALT [Catalytic activity/Vol] 18 U/L Normal 9-52 [facility] Comment on above: Performed By: #### C MP #### [facility] [address] [place] [address] Ilana Petra Anion gap [Moles/Vol] 8.8 mmol/L Normal [facility] Comment on above: Performed By: #### C MP #### [facility] [address] [place], [place] [address] Ilana Petra AST [Catalytic activity/Vol] 13 U/L Critically low 14-36 [facility] Comment on above: Performed By: #### C MP #### [facility] [address] [place] [address] Ilana Petra Bilirubin [Mass/Vol] 0.5 mg/dL Normal 0.2-1.3 [facility] Comment on above: Performed By: #### C MP #### [facility] [address] [place], [place] [address] Ilana Petra Calcium [Mass/Vol] 8.4 mg/dL Normal 8.4-10.2 [facility] Comment on above: Performed By: #### C MP #### [facility] [address] [place] [phone] Ilana Petra Chloride [Moles/Vol] 104 mmol/L Normal 98-107 [facility] Comment on above: Performed By: #### C MP #### [facility] [address] [place] [address] Ilana Petra CO2 [Moles/Vol] 29.8 mmol/L Normal 22.0-30.[address] [facility] Comment on above: Performed By: #### C MP #### [facility] [address] [place] [address] Ilana Petra Creatinine [Mass/Vol] 0.88 mg/dL Normal 0.52-1.04 [facility] Comment on above: Performed By: #### C MP #### [facility] [address] [place] [address] Ilana Petra EGFR-AF ZIMBABWEAN >60 Normal >=[address] [facility] Comment on above: Performed By: #### C MP #### [facility] [address] [place] [address] Ilana Petra EGFR-NON AF ZIMBABWEAN >60 Normal >=60 [facility] Comment on above: Performed By: #### C MP #### [facility] [address] [place] [phone] Ilana Petra Globulin (S) [Mass/Vol] 3.8 g/dL Normal [facility] Comment on above: Performed By: #### C MP #### [facility] [address] [place] [address] Ilana Petra Glucose [Mass/Vol] 90 mg/dL Normal 74-106 [facility] [place] Comment on above: Performed By: #### C MP #### [facility] [address] [place] [phone] Ilana Petra Potassium [Moles/Vol] 3.6 mmol/L Normal 3.4-5.0 [facility] Comment on above: Performed By: #### C MP #### [facility] [address] [place] [address] Ilana Petra Protein [Mass/Vol] 7.1 g/dL Normal 6.1-8.2 [facility] Comment on above: Performed By: #### C MP #### [facility] [address] [place] [address] Ilana Petra Sodium [Moles/Vol] 139 mmol/L Normal 137-145 [facility] [place] Comment on above: Performed By: #### C MP #### [facility] [address] [place], [place] [phone] Ilana Petra Urea nitrogen [Mass/Vol] 11.0 mg/dL Normal 7.0-17.0 [facility] Comment on above: Performed By: #### C MP #### [facility] [address] [place] [address] Ilana Petra Urea nitrogen/Creatinine [Mass ratio] 12.5 mg/mg Normal [facility] Comment on above: Performed By: #### C MP #### [facility] [address] [place] [address] Ilana Petra TSHon 01-01-2021 TSH 3.552 uIU/mL Normal 0.470-4.680 [facility] Comment on above: Performed By: #### F T4 #### [facility] [address] [place] [address] Ilana Petra TSH RANGE SEE BELOW Normal [facility] Comment on above: Result Comment: <0.3 4 UIU/ml HYPERTHYROID 0.34-5.60 UIU/ml EUTHYROID >5.60 UIU/ml HYPOTHYROID Performed By: #### F T4 #### [facility] [address] [place] [address] Ilana Petra VITAMIN D 25 OHon 01-01-2021 VIT D 25-OH 30.8 ng/mL Normal [facility] Comment on above: Performed By: #### F T4 #### [facility] [address] [place] [address] Ilana Petra VIT D RANGES SEE BELOW Normal [facility] Comment on above: Result Comment: <20 ng/mL Vit D deficient 20 - <30 ng/mL Vit D insufficient 30 - 100 ng/mL Vit D sufficient >100 ng/mL Potential Toxicity Performed By: #### F T4 #### [facility] [address] [place] [address] Ilana Lambert FREE T3on 10-03-2020 FREE T3 2.27 pg/mlL Critically low 2.77-5.27 [facility] Comment on above: Performed By: #### F T3, TSH #### [facility] [address] [place] [address] Ilana Lambert FREE T4on 10-03-2020 Free T4 [Mass/Vol] 1.27 ng/dL Normal 0.78-2.19 [facility] [place] Comment on above: Performed By: #### F T4 #### [facility] [address] [place] [address] Ilana Lambert TSHon 10-03-2020 TSH 17.604 uIU/mL Critically high 0.470-4.680 [facility] Comment on above: Performed By: #### F T3, TSH #### [facility] [address] [place] [address] [facility] RANGE SEE BELOW Normal [facility] Comment on above: Result Comment: <0.3 4 UIU/ml HYPERTHYROID 0.34-5.60 UIU/ml EUTHYROID >5.60 UIU/ml HYPOTHYROID Performed By: #### F T3, TSH #### [facility] [address] [place], [place] [phone] Ilana Lambert Provider Letteron 04-28-2020 Provider Letter (Inserted Image. Wilma ble to display) April 28, 2020 CONRAD AGUILAR [address] [place] [id number] CONRAD AGUILAR 1970 Dear Conrad , You missed your scheduled appointment on: [phone] the purpose of this letter is to inform you of our *No Show Policy*. Our appointment slots fill rapidly and when we have a no show appointment that time is lost. We could have used that time slot to care for a patient who needed to see one of our providers. Therefore, we ask that you call 24 hours in advance to cancel your appointment. After your second no show within a twelve (12) month period, you will be assessed a $30 charge. This policy is in place so that we can meet the needs of all of our patients and we do appreciate your understanding. Sincerely, [facility]/Dr Garcia [facility] Coding Summary.on 03-06-2020 Coding Summary. CODING DATE: 020 FINAL [facility] STATUS: Home (Routine DC) PAYOR: Medicaid EAPG DESCRIPTION 0999 UNASSIGNED ADMIT DX: REASON FOR VISIT DX: Z01.812 Encounter for preprocedural laboratory examination FINAL DX: PRINCIPAL: Z01.812 Encounter for preprocedural laboratory examination SECONDARY: Z11.59 Encounter for screening for other viral diseases PYMT PROC EAPG STAT DESCRIPTION DOCTOR NAME DATE NOTE: The code number assigned matches the documented diagnosis and / or procedure in the patient's chart. However, the narrative phrase printed from the coding software may appear abbreviated, or result in slightly different terminology. Coded By: Teri Mercado CphT Date Saved: 03/06/2020 11:33 am [facility] Formson 02-20-2020 Forms [id number]#1.00CD:12 7 [facility] Physician Orderon 02-13-2020 Physician Order [id number]#1.00CD:1 27 [facility] ECG 12-Leadon 01-29-2020 ECG 12-Lead [id number]#1.00CD:127 [facility] Lab Reportson 01-29-2020 Lab Reports [id number]#1.00CD:12 7 [facility] Lab Reports [id number]#1.00CD:12 7 [facility] RAD - MISCon 01-29-2020 RAD - MISC [id number]:12 7 [facility] Operative Reporton 0 Operative Report [id number]:127 Normal [facility] Reference Lab Reporton 01-23 Reference Lab Report [id number]#1.00CD:12 7 Normal [facility] Reminderson 10-29-2019 Reminders - From: Dolores Coronel MA To: EU - Clinical; Sent: 10/19/2019 14:42:45 EDT Show up: 10/26/2019 14:42:00 EDT Subject: Ambulatory Reminder Due Date/Time: 11/02/2019 14:42:00 EDT Reminder/Recall Cytology done 10/19/19 Results neg Normal [facility] 5 [facility] Department of Radiology [address] [place] [phone] Patient Name: CONRAD AGUILAR : 1970 Sex: F Age: Race: White Pt. 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 AP,Lateral,L5-S1 spot and Bilateral Oblique views were obtained. COMPARISON: Intraoperative fluoroscopy January 26, 2014. FINDINGS: Bones: Status post posterior spinal fusion T10-L2 for compression fracture of the T12 vertebral body. Comparison is limited given the differences in technique, however, no significant change in alignment is identified. Disk spaces: Moderate disc height loss present at L3-4 and mild disc height loss at L4-5. Facet joints: Mild hypertrophic facet changes noted at L4-5 and L5-S1. Alignment: Lumbar lordosis is maintained. Levoconvex lumbar curvature measures approximately 8 degrees from L2 to L4. No pathologic motion is seen on flexion or extension. Range of motion is limited. IVC filter redemonstrated. IMPRESSION: * Status post T10-L2 posterior spinal fusion for compression fracture of the T12 vertebral body. No apparent hardware complication is identified. No pathologic motion is seen on flexion or extension. * Mild degenerative changes of the lower lumbar spine as described above. Approved by:Antoni Cintron on 06/14/2018 8:09 PM EST. I, Jeovanny Mercer, have reviewed the images and report and concur with these findings. Electronically signed by:Jeovanny Mercer. Transcribed by: [email or web address], User Resident: ONEL CINTRON Electronically Signed by: JEOVANNY MERCER @ 06/15/2018 05:58 PM I personally read this/these film(s) with this resident Normal [facility] Comment on above: Order Comment: , Harriete ws (X-RAY, LUMBAR SPINE): AP, Lateral, L5- S1 Spot, Flexion, Extension , Views (X-RAY, LUMBAR SPINE): AP, Lateral, L5-S1 Spot, Flexion, Extension , , , Ordering Provider - WU CALLOWAY MD , Vital Signs Date Time Vital Sign Value Performing Clinician Faci lity 11-13-2024 09:06-0400 Body height 172.7 cm Onel Smallcek DO Work Phone: [facility] 11-13-2024 09:06-0400 Body mass index (BMI) [Ratio] 26.46 kg/m2 Onel Stacicek DO Work Phone: [facility] 11-13-2024 09:06-0400 Body weight 78.93 kg Onel Stacicek DO Work Phone: [facility] 05-08-2024 09:07-0400 Body height 172.7 cm Onel Smallcek DO Work Phone: [facility] 05-08-2024 09:07-0400 Body mass index (BMI) [Ratio] 26.46 kg/m2 Onel Stacicek DO Work Phone: [facility] 05-08-2024 09:07-0400 Body weight 78.93 kg Onel Smallcek DO Work Phone: [facility] Healthcare Encounters Encounter Date Encounter Type Care Provider Facility Start: 11-13-2024 End: 11-13-2024 Bamboo flowsheet Onel Magali Smallwalker DO Work Phone: [facility] Start: 11-13-2024 End: 11-13-2024 Bamboo flowsheet Onel Magali Smallwalker DO Work Phone: [facility] Start: 11-13-2024 End: 11-13-2024 Office outpatient visit 25 minutes Onel Hatch DO Work Phone: [facility] Comment on above: Status post total th yroidectomy (Primary Dx); Malignant neoplasm of thyroid gland (CMS/HCC) Start: 11-13-2024 End: 11-13-2024 ambulatory ONEL HATCH Not Available Start: 11-05-2024 End: 11-05-2024 Patient encounter procedure Anh Granger MD Work Phone: [facility] [place] Work Phone: Start: 11-05-2024 End: 11-05-2024 ambulatory Anh Granger MD Work Phone: [facility] Work Phone: Start: 05-08-2024 End: 05-08-2024 Bamboo flowsheet Onel Hatch DO Work Phone: [facility] Start: 05-08-2024 End: 05-08-2024 Bamboo flowsheet Onel Hatch DO Work Phone: [facility] Start: 05-08-2024 End: 05-08-2024 Office outpatient visit 25 minutes Onel Hatch DO Work Phone: [facility] Comment on above: Malignant neoplasm o f thyroid gland (CMS/HCC) (Primary Dx) Start: 05-08-2024 End: 05-08-2024 ambulatory ONEL Magali ANNELShital Not Available Start: 04-26-2024 End: 05-19-2024 External Result Encounter Abdoulaye Esqueda DO Work Phone: [facility] External Department Unsolicited Start: 04-26-2024 End: 05-19-2024 External Result Encounter Abdoulaye Esqueda DO Work Phone: [facility] External Department Unsolicited Start: 04-26-2024 End: 04-26-2024 Patient encounter procedure MD Anh Granger Work Phone: [facility] [place] Work Phone: Start: 04-26-2024 End: 04-26-2024 ambulatory MD Anh Granger Work Phone: [facility] Work Phone: Start: 11-21-2023 End: 11-21-2023 Patient encounter procedure MD Anh Granger Work Phone: [facility] [place] Work Phone: Start: 11-21-2023 End: 11-21-2023 ambulatory MD Anh Granger Work Phone: [facility] Work Phone: Start: 09-13-2023 External Result Encounter Abdoulaye Guo hDeeraj DO Work Phone: [facility] External Department Unsolicited Start: 09-13-2023 External Result Encounter Abdoulaye Guo Dheeraj DO Work Phone: [facility] External Department Unsolicited Start: 09-13-2023 End: 09-13-2023 ambulatory MD Anh Granger Work Phone: [facility] Work Phone: Start: 09-13-2023 End: 09-13-2023 Patient encounter procedure MD Anh Granger Work Phone: [facility] [place] Work Phone: Start: 03-10-2023 End: 03-10-2023 ambulatory MD Anh Granger Work Phone: [facility] Work Phone: Start: 03-10-2023 End: 03-10-2023 Patient encounter procedure MD Anh Granger Work Phone: [facility] [place] Work Phone: Start: 09-08-2022 End: 09-08-2022 ambulatory MD Anh Granger Work Phone: [facility] Work Phone: Start: 09-08-2022 End: 09-08-2022 Patient encounter procedure MD Anh Granger Work Phone: [facility] [place] Work Phone: Start: 09-02-2021 End: 09-03-[address] ANH GRANGER Facility:[facility]1 Start: 01-01-2021 End: 01-02-[address] ANH GRANGER Facility:[facility] Start: 10-03-2020 End: 10-04-2020 ambulatory ALEJA SWARTZ Facility:[facility] Procedures Date Procedure Procedure Detail Performing Clinician Start: 04-26-2024 Assay of thyroglobulin Abdoulaye Esqueda DO Work Phone: Start: 09-13-2023 Assay of thyroxine total Abdoulaye Campbell ch DO Work Phone: Start: 09-13-2023 Thyroglobulin antibody Abdoulaye Esqueda DO Work Phone: History of thyroidectomy Status post total thyroidectomy Onel Hatch DO Work Phone: Plan of Treatment Date Care Activity Detail Author Start: 10-28-2025 End: 11-13-2025 Thyroglobulin Thyroglobulin Lab Routine Malignant neoplasm of thyroid gland (CMS/HCC) Expected: 10/28/2025 (Approximate), Expires: 11/13/2025 [facility] Comment on above: Expected: 10/28/2025 (Approximate), Expires: 11/13/2025 Start: 10-28-2025 End: 11-13-2025 Thyrotropin [Units/volume] in Serum or Plasma [facility] Comment on above: Expected: 10/28/2025 (Approximate), Expires: 11/13/2025 Start: 10-28-2025 End: 11-13-2025 Triiodothyronine (T3) [Mass/volume] in Serum or Plasma T3 Lab Routine Malignant neoplasm of thyroid gland (CMS/HCC) Expected: 10/28/2025 (Approximate), Expires: 11/13/2025 [facility] Comment on above: Expected: 10/28/2025 (Approximate), Expires: 11/13/2025 Start: 05-15-2025 End: 11-13-2025 Thyroglobulin Thyroglobulin Lab Routine Malignant neoplasm of thyroid gland (CMS/HCC) Expected: 05/15/2025 (Approximate), Expires: 11/13/2025 [facility] Comment on above: Expected: 05/15/2025 (Approximate), Expires: 11/13/2025 Start: 05-15-2025 End: 11-13-2025 Thyrotropin [Units/volume] in Serum or Plasma [facility] Work Phone: Comment on above: Expected: 05/15/2025 (Approximate), Expires: 11/13/2025 Start: 05-15-2025 End: 11-13-2025 Triiodothyronine (T3) [Mass/volume] in Serum or Plasma T3 Lab Routine Malignant neoplasm of thyroid gland (CMS/HCC) Expected: 05/15/2025 (Approximate), Expires: 11/13/2025 [facility] Comment on above: Expected: 05/15/2025 (Approximate), Expires: 11/13/2025 Start: 04-01-2025 Influenza vaccination Influenz a Vaccine (Season Ended) [facility] Start: 11-13-2024 End: 11-13-2024 Patient encounter procedure [facility] Comment on above: Arrived Start: 11-05-2024 End: 05-08-2025 Thyrotropin [Units/volume] in Serum or Plasma [facility] Work Phone: Comment on above: Expected: 11/05/2024 (Approximate), Expires: 05/08/2025 Start: 11-05-2024 End: 05-08-2025 Triiodothyronine (T3) [Mass/volume] in Serum or Plasma T3 Lab Routine Malignant neoplasm of thyroid gland (CMS/HCC) Expected: 11/05/2024 (Approximate), Expires: 05/08/2025 [facility] Comment on above: Expected: 11/05/2024 (Approximate), Expires: 05/08/2025 Start: 05-08-2024 End: 05-08-2024 Patient encounter procedure [facility] Comment on above: Arrived Start: 04-26-2024 [facility] Start: 04-01-2024 Influenza vaccination Influenza Vacc ine (#1) [facility] Start: 11-21-2023 Thyroxine measurement [facility] Start: 09-20-2023 End: 09-20-2023 Patient encounter procedure 09/20/2023 8:30 AM EST Office Visit [facility] [address] [place] [address] Onel Hatch, [address] [place] [address] [facility] Start: 09-13-2023 Thyroxine measurement [facility] Start: 04-01-2023 Influenza vaccination Influenza Vacc ine (#1) [facility] Start: 2008 Screening for malign ant neoplasm of breast Mammogram [facility] Start: 1998 Screening for malign ant neoplasm of cervix [facility] Start: 1989 Screening for malign ant neoplasm of cervix Pap Smear [facility] Start: 1968 Screening for malign ant neoplasm of colon [facility] Thyroglobulin Ab [Units/volume] in Serum or Plasma [facility] Thyroglobulin Ab [Units/volume] in Serum or Plasma [facility] Thyroglobulin Ab [Units/volume] in Serum or Plasma [facility] Thyroglobulin Ab [Units/volume] in Serum or Plasma [facility] Thyrotropin [Units/v olume] in Serum or Plasma TSH Lab Routine 09/13/2023 9:13 AM EST [facility] Work Phone: Thyrotropin [Units/v olume] in Serum or Plasma TSH Lab Routine 04/26/2024 9:20 AM EDT [facility] Work Phone: Triiodothyronine (T3 ) [Mass/volume] in Serum or Plasma T3 Lab Routine 09/13/2023 9:13 AM EST [facility] Payers Date Payer Category Payer Self-pay [id number] 2014 Medicaid [employer] [place] [employer] [id number] 2014-Present [address] [place] [address] [id number] 2014 Medicaid (Managed Care) [facility] MEDICAID [id number] 1968 Unknown [id number] 1968 Unknown [id number] 593 1968 Unknown [id number] 593 1968 Unknown [id number] 593 1968 Unknown [id number] 1259 1968 Unknown [id number] 1259 1959 Unknown [id number] Unknown [id number] 531 Unknown [id number] 531 Unknown [id number] 531 Social History Date Type Detail Facility Start: 01-05-2021 End: 03-16-2023 Tobacco smoking status NHIS Never smoked tobacco (finding) [facility] Start: 1970 Sex Assigned At Female F [facility] Start: 03-16-2023 Tobacco use and exposure Smokeless tobacco non-user [facility] Start: 03-17-2023 End: 11-13-2024 Alcohol intake Ex-drinker (finding) [facility] Start: 03-17-2023 End: 11-13-2024 History of Social function [facility] Start: 03-17-2023 End: 11-13-2024 Tobacco use panel [facility] Start: 03-17-2023 Alcohol Comment caffeine intak e : 1-2 cups per day [facility] Start: 1970 Sex Assigned At Not on file [facility] Start: 11-06-2024 Sex Female (finding) [facility] History of Present illness Narrative 11-13-2024 Onel Hatch, DO - 11/13/2024 9:15 AM EDT Note Date & Type Note Facility 11-13-2024 History of Presen t illness Narrative Subjective Patient ID: HPI Patient presents today for follow-up. He is status post total thyroidectomy for a well-contained small papillary thyroid cancer. Recent lab work is within normal limits, her TSH is 0.76. She has a thyroglobulin antibody. I do not have a recent thyroglobulin. Review of Systems ROS The specialty specific review of systems is noncontributory except for that recorded in the intake questionnaire and /or described in the history of present illness. Objective ENT Physical Exam Physical Exam Constitutional: Appearance: Normal appearance. HENT: Head: Atraumatic. Ears: External ear shows no abnormality Bilateral ear canals are clear Tympanic membranes intact, no evidence of middle ear fluid or other pathology. Nose: External nose appears to be normal Nares patent. Septal deviation to the right No evidence of polyp, mass or pus bilaterally. Oral Cavity: No evidence of trismus Lips appear normal Dental good Tongue of normal size and configuration, floor of mouth mucosa clear. Buccal mucosa shows no evidence of ulceration, mass or other abnormality Hard palate soft palate mucosa intact with no evidence of mass, ulceration or other abnormality Uvula of normal size and configuration Oropharynx: Tonsils Posterior pharyngeal wall Neck: No evidence of palpable abnormality Thyroid without evidence of thyromegaly or mass. No cervical lymphadenopathy present. Cardiovascular: Rate and Rhythm: Normal rate and regular rhythm. . Skin: General: Skin is warm and dry. Neurological: General: No focal deficit present. Mental Status: alert and oriented to person, place, and time. THYROID ULTRASOUND EXAMINATION Indication: Thyroid nodule After informed consent was obtained the patient was placed supine on the examining table. Patient was asked to extend the neck. Topical ultrasound jelly was used. Bilateral neck ultrasound interrogation including the lower jugular chains and central compartment show no abnormal tissue deposits, no pathologic lymph nodes, etcetera. Assessment/Plan Conrad was seen today for thyroid cancer. Diagnoses and all orders for this visit: Status post total thyroidectomy (Primary) Comments: I will renew the patient's Synthroid, recheck lab work in 6 months and then see her back in 1 year with lab work and an ultrasound Malignant neoplasm of thyroid gland ([facility]/HCC) Comments: There is no biochemical clinical or ultrasound evidence of recurrence. Orders: - TSH; Future - T3; Future - T4; Future - Thyroglobulin; Future - TSH - T3 - T4 - Thyroglobulin - TSH; Future - T3; Future - T4; Future - Thyroglobulin; Future - TSH - T3 - T4 - Thyroglobulin documented in this encounter [facility] History of Present illness Narrative 05-08-2024 Onel Hatch DO - 05/08/2024 9:15 AM EDT Note Date & Type Note Facility 05-08-2024 History of Presen t illness Narrative Subjective Patient ID: HPI Patient presents today for follow-up. She is status post total thyroidectomy 2020 for a well contained papillary thyroid cancer. Continues to do well. I do not have a thyroglobulin back yet. She does have a thyroglobulin antibody however. Remainder of her lab work is within normal limits. She has no complaints. Review of Systems ROS The specialty specific review of systems is noncontributory except for that recorded in the intake questionnaire and /or described in the history of present illness. Objective ENT Physical Exam Physical Exam Constitutional: Appearance: Normal appearance. HENT: Head: Atraumatic. Ears: External ear shows no abnormality Bilateral ear canals are clear Tympanic membranes intact, no evidence of middle ear fluid or other pathology. Nose: External nose appears to be normal Nares patent. Septal deviation to the right No evidence of polyp, mass or pus bilaterally. Oral Cavity: No evidence of trismus Lips appear normal Dental good Tongue of normal size and configuration, floor of mouth mucosa clear. Buccal mucosa shows no evidence of ulceration, mass or other abnormality Hard palate soft palate mucosa intact with no evidence of mass, ulceration or other abnormality Uvula of normal size and configuration Oropharynx: Tonsils small Posterior pharyngeal wall normal Neck: No evidence of palpable abnormality Thyroid without evidence of thyromegaly or mass. No cervical lymphadenopathy present. Cardiovascular: Rate and Rhythm: Normal rate and regular rhythm. . Skin: General: Skin is warm and dry. Neurological: General: No focal deficit present. Mental Status: alert and oriented to person, place, and time. Assessment/Plan Conrad was seen today for thyroid cancer. Diagnoses and all orders for this visit: Malignant neoplasm of thyroid gland (CMS/HCC) Comments: There is no clinical or biochemical evidence of recurrent disease. Orders: - levothyroxine (Synthroid, Levoxyl) 200 MCG tablet; Take 1 tablet (200 mcg) by mouth in the morning. Take before meals. I will see her back in 6 months with lab work and perform a surveillance ultrasound at that time. documented in this encounter [facility] Evaluation note Note Date & Type Note Facility Evaluation note [facility] Evaluation note Note Date & Type Note Facility Evaluation note Diagnosis Malignant neoplasm of thyroid gland (CMS/HCC)- Primary Malignant neoplasm of thyroid gland documented in this encounter [facility] Evaluation note Note Date & Type Note Facility Evaluation note Diagnosis Status post total thyroidectomy- Primary Other postprocedural status Malignant neoplasm of thyroid gland (CMS/HCC) Malignant neoplasm of thyroid gland documented in this encounter [facility] Summary Purpose Family History No Family History Records Found Relationship Condition Age at Onset Recorded Date/T eyad Not Specified No pertinent family history Unknown Advance Directives No Advanced Directives Records Found Advance Directive Response Recorded Date/ Time Advance Directives No July 9:54am Advance Directive Response Recorded Date/ Time Advance Directives No July 10:54am Chief Complaint and Reason for Visit Chief Complaint labs Chief Complaint E89.0 Chief Complaint C73 E89.0 Chief Complaint C73 E89.0 C73 E89.0 Chief Complaint C73 Chief Complaint Admit Date c73 November 05, 2024 9:18 am Additional Source Comments INFORMATION SOURCE (unrecogn ized section and content) DATE CREATED AUTHOR 05/09/2019 [facility] DATE CREATED AUTHOR AUTHOR'S ORGANIZ ATION 04/29/2020 [facility] DATE CREATED AUTHOR AUTHOR'S ORGANIZ ATION 09/05/2021 [facility] DATE CREATED AUTHOR AUTHOR'S ORGANIZ ATION 11/06/2024 [facility] DATE CREATED AUTHOR AUTHOR'S ORGANIZ ATION 11/14/2024 [facility] EPIC Care Teams (unrecognized sec tion and content) Team Status: Active Member Role Status Dates Anh Granger MD Primary Care Provider Active Team Status: Inactive Member Role Status Dates Anh Granger MD Primary Care Provider Active Onel Hatch DO Attending Provider Active Supervisor Parking Lot Relationship Specialty Start Date End Date Anh Granger MD [address] [place] [address] PCP - General Family Medicine 03/16/23 Team Status: Inactive Member Role Status Dates Anh Granger MD Primary Care Provider Active Start: September 13, 2023 End: September 13, 2023 Abdoulaye Esqueda DO Attending Provider Active S tart: September 13, 2023 End: September 13, 2023 Supervisor Parking Lot Relationship Specialty Start Date End Date Anh Granger MD [address] [place] [address] PCP - General Family Medicine 03/16/23 Team Status: Inactive Member Role Status Dates Anh Grangre MD Primary Care Provider Active Start: November 21, 2023 End: November 21, 2023 Onel Hatch DO Attending Provider Active S tart: November 21, 2023 End: November 21, 2023 Team Status: Inactive Member Role Status Dates Anh Granger MD Primary Care Provider Active Start: April 26, 2024 End: April 26, 2024 Abdoulaye Esqueda DO Attending Provider Active S tart: April 26, 2024 End: April 26, 2024 Supervisor Parking Lot Relationship Specialty Start Date End Date Anh Granger MD [address] [place] [address] PCP - General Family Medicine 03/16/23 Supervisor Parking Lot Relationship Specialty Start Date End Date Anh Granger MD [address] [facility] [place] [address] PCP - General Family Medicine 03/16/23 Supervisor Parking Lot Relationship Specialty Start Date End Date Anh Granger MD [address] [facility] [place] [address] PCP - General Family Medicine 03/16/23 Team Status: Inactive Member Role Status Dates Anh Granger MD Primary Care Provider Active Start: November 05, 2024 End: November 05, 2024 Onel Hatch DO Attending Provider Active S tart: November 05, 2024 End: November 05, 2024 Supervisor Parking Lot Relationship Specialty Start Date End Date Anh Granger MD [address] [place] [address] PCP - General Family Medicine 03/16/23 Goals (unrecognized section and content) Goals may be documented in a n alternate sectionGoals may be documented in an alternate sectionGoals may be documented in an alternate sectionGoals may be documented in an alternate sectionGoals may be documented in an alternate sectionGoals may be documented in an alternate section Reason for Visit (unrecogniz ed section and content) Reason Comments Thyroid Cancer 6 month patrice with perez nath Reason Comments Thyroid Cancer 6 month US FOR RECORDS PERTAINING TO PATIENTS WHO ARE OR HAVE BEEN ENROLLED IN A CHEMICAL DEPENDENCY/SUBSTANCEABUSE PROGRAM, SOME INFORMATION MAY BE OMITTED. This clinical summary was aggregated from multiple sources. Caution should be exercised in using it in the provision of clinical care. This summary normalizes information from multiple sources, and as a consequence, information in this document may materially change the coding, format and clinical context of patient data. In addition, data may be omitted in some cases. CLINICAL DECISIONS SHOULD BE BASED ON THE PRIMARY CLINICAL RECORDS. [facility] [employer] [facility]. provides no warranty or guarantee of the accuracy or completeness of information in this document.
[2024-11-17 09:23] LABS: Basophils Absolute Auto 0.1 10^3/uL (0.0-0.1); Eosinophils Absolute Auto 0.1 10^3/uL (0.0-0.7); Eosinophils Percent Auto 1.9 % (0.9-7.0); Hemoglobin 9.9 g/dL (12.0-16.0); Immature Granulocytes Abs Auto 0.03 10^3/uL (0.00-0.03); Immature Granulocytes Pct Auto 0.4 % (0.0-0.5); Lymphocytes Absolute Auto 2.6 10^3/uL (1.2-3.8); Lymphocytes Percent Auto 36.5 % (20.5-60.0); Mean Corpuscular HGB Conc 30.9 g/dL (29.9-35.2); Mean Corpuscular Hemoglobin 24.8 pg (26.7-34.0); Mean Platelet Volume 9.8 fL (9.5-13.5); Monocytes Absolute Auto 0.7 10^3/uL (0.3-0.8); Neutrophils Absolute Auto 3.7 10^3/uL (1.4-6.5); Neutrophils Percent Auto 51.2 % (43.0-75.0); Platelet Count 356 10^3/uL (150-450); Red Cell Distribution Width 14.3 % (11.0-15.0); White Blood Count 7.2 10^3/uL (4.0-11.0)
[2024-11-17 09:41] LABS: Estimated Average Glucose 108 mg/dL; Glycohemoglobin A1C 5.4 % (4.5-6.2)
[2024-11-17 10:10] LABS: Alanine Aminotransferase 21 U/L (14-59); Albumin Globulin Ratio 0.9; Albumin Level 3.4 g/dL (3.4-5.0); Alkaline Phosphatase 59 U/L (46-116); Anion Gap 10.8; Aspartate Amino Transferase 18 U/L (15-37); BUN Creatinine Ratio 21.6; Bilirubin Total 0.3 mg/dL (0.2-1.0); Calcium 8.6 mg/dL (8.5-10.1); Carbon Dioxide 30.3 mmol/L (21.0-32.0); Chloride 104 mmol/L (98-107); Chol HDL Ratio 2.3; Cholesterol 187 mg/dL (<=200); Estimated GFR (African America >60 (>=60 mL/min/1.73m^2); Estimated GFR (Non-African Ame >60 (>=60 mL/min/1.73m^2); Free T3 1.69 pg/mL (2.18-3.98); Globulin 3.6 g/dL; Glucose 105 mg/dL (74-106); HDL Cholesterol 82 mg/dL (40-60); Potassium 4.1 mmol/L (3.5-5.1); Sodium 141 mmol/L (136-145); Thyroid Stimulating Hormone 2.577 uIU/mL (0.358-3.740); Triglycerides 54 mg/dL (<=150); VLDL CHOLESTEROL 10.8 mg/dL
[2024-11-19 12:08] LABS: Insulin 10.7 uIU/mL (2.6-24.9)
[2024-11-26 18:11] LABS: Summary Report (Summary) FINAL (.)
== END 2024-11-17 08:58 | disposition home or self-care (01) ==
LOC: LAB 08:59
PROVIDERS: PCP Family Medicine; Visit Provider Family Medicine
DX: Z00.00 Encounter for general adult medical examination without abnormal findings (principal); G62.9 Polyneuropathy, unspecified
CPT/HCPCS: 36415; 80053; 80061; 80326; 80331; 80334; 80337; 80338; 80341; 80344; 80347; 80348; 80353; 80354; 80355; 80357; 80358; 80359; 80360; 80361; 80364; 80365; 80366; 80367; 80368; 80370; 80371; 80372; 80373; 80377; 82570; 83036; 83525; 83540; 83992; 84436; 84443; 84481; 85025

== ENCOUNTER 2024-12-14 08:34 | Outpatient (OUT) | payer OTHER, SELFPAY ==
--- OUTSIDE RECORDS SUMMARY | 2024-12-14 08:32 | XMS_ITS | CCD ---
Author Organization [facility] Care Team Providers Care Video Control Operator Name Role Phone MAXIME, AHMAD Admitting Unavailable MAXIME, AHMAD Attending Unavailable RACHAEL, DR KAMARA Primary Care Unavailable MAXIME, AHBETSYD Consulting Unavailable RACHAEL, DR KAMARA Admitting Unavailable HOY, DR KAMARA Attending Unavailable ENRIKEY, DR KAMARA Primary Care Unavailable RACHAEL, DR [...] Provider Anh Granger MD Primary Care Provider MD Anh Granger Primary Care Provider DO Abdoulaye Esqueda Attending Provider MD Anh Granger Primary Care Provider DO Abdoulaye Esqueda Attending Provider DO Oenl Hatch Attending Provider MD Anh Granger Primary Care Provider DO Abdoulaye Esqueda Attending Provider Anh Granger MD Primary Care Provider [phone] Onel Hatch DO Attending Provider Anh Granger Primary Care Unavailable Onel Hatch Admitting Unavailable Onel Hatch Attending Unavailable Anh Granger Primary Care Unavailable Abdoulaye Esqueda Admitting Unavailable Abdoulaye Esqueda Attending Unavailable Onel Hatch Admitting Unavailable Onel Hatch Attending Unavailable Anh Granger Primary Care Unavailable ONEL HATCH W Attending Unavailable ONEL HATCH W Attending Unavailable Carter PARKER Attending Unavailable Anh Granger Referring Unavailable Allergies Allergy Classification Reported Allergen(s) Allergy Type Date of Onset Reaction(s) Facility (1 source) fentaNYL Drug Allergy 6 [facility] Repository (11 sources) fentaNYL Drug Allergy 4 Hives [facility] (11 sources) Povidone-Iodine Drug Allergy 4 Rash [facility] (1 source) No Known Medication Allergies; Translations: [No Known Medication Allergies] Propensity to adverse reactions (disorder) [facility] Repository Medications Current Medications Medication Drug Class(es) Dates [...] Test Name Value Interpretation Reference Range Facility Ambulatory Visit Summaryon 0 12-05-2024 Ambulatory Visit Summary Ambulatory Visit Summary CONRAD AGUILAR :1970 Visit Date:12/05/2024 Ambulatory Visit Instructions Your Care Team Attending Physician - Carter PARKER MD Primary Care Physician - Anh Granger MD Referring Physician - Anh Granger MD This Is Your Medications List Contact prescribing physician if questions or concerns buprenorphine (buprenorphine 10 mcg/hr transdermal film, extended release) ferrous sulfate (ferrous sulfate 325 mg oral enteric coated tablet) gabapentin (Neurontin 600 mg Tab) levothyroxine (Synthroid 200 mcg (0.2 mg) Tab) liothyronine (liothyronine 5 mcg Tab) lisinopril (lisinopril 10 mg Tab) Procedures Performed Arthroscopy of knee, Colonoscopy, EGD - esophagogastroduodenoscop y, History of lumbar spine surgery, IVC - [...] you for choosing us for your care. Normal [facility] Thyroid Stimulating Hormoneo n 11-05-2024 TSH Qn 0.74 m[IU]/L Normal 0.45-5.33 [facility] Comment on above: Order Comment: FASTI NG NON FASTING Result Comment: PERF ORMED BY: [place] [address] PATHOLOGIST WALLPAPER [employer] MANAV ESPINAL M.D. Performed By: #### T 3T, TSH3, T4T #### [address] Thyrotropin [Units/volume] i n Serum or PlasmaOrdered By: Onel Hatch on 11-05-2024 TSH Qn Thyrotropin [Units/volume] in Serum or Plasma 0.45-5.33 [facility] Thyroxine (T4) Totalon 11-05 T4 [Mass/Vol] 11.03 ug/dL Normal 5.39-11.82 [facility] Comment on above: Order Comment: FASTI NG NON FASTING Performed By: #### T 3T, TSH3, T4T #### [facility] [address] Thyroxine (T4) [Mass/volume] in Serum or PlasmaOrdered By: Onel Hatch on 11-05-2024 T4 [Mass/Vol] Thyroxine (T4) [Mass/volume] in Serum or Plasma 5.39-11.82 [facility] Triiodothyronine (T3) Totalo n 11-05-2024 Triiodothyronine (T3) Total 1.05 ng/mL Normal 0.87-1.78 [facility] Comment on above: Order Comment: FASTI NG NON FASTING Performed By: #### T 3T, TSH3, T4T #### [facility] [address] [id number] [facility] [[email or web address]] Triiodothyronine (T3) [Mass/ volume] in Serum or PlasmaOrdered By: Onel Hatch on 11-05-2024 T3 [Mass/Vol] Triiodothyronine (T3 ) [Mass/volume] in Serum or Plasma 0.87-1.78 [facility] Thyroglobulinon 05-19-2024 ANTITHYROGLOBULIN AB 20.3 High 0.0 - 0.9 [facility] Comment on above: Thyroglobulin Antibo dy measured by Dara Johann Methodology It should be noted that the presence of thyroglobulin antibodies may not be pathogenic nor diagnostic, especially at very low levels. The assay arresting gear operator has found that four percent of individuals without evidence of thyroid disease or autoimmunity will have positive TgAb levels up to 4 IU/mL. Interpretation and review of laboratory results Abnormal [facility] THYROGLOBULIN, TG-MARISSA 4.2 ng/mL . [facility] Comment on above: This test was develo edna and its performance characteristics determined by [employer]. It has not been cleared or approved [...] quantitation limit is 2.0 ng/mL. Performed at: [facility] [address] [id number] Oenologist: Jl Weems PhD, Phone: [phone] Performed at: [facility] [address] [place] [id number] Oenologist: Alvin Suazo MD, Phone: [phone] [facility] Thyroglobulin, Quant + Tg Ab on 04-26-2024 Antithyroglobulin Ab 20.3 High 0.0-0.9 [facility] Comment on above: Result Comment: Thyr oglobulin Antibody measured by [employer] Methodology It should be noted that the presence of thyroglobulin antibodies may not be pathogenic nor diagnostic, especially at very low levels. The assay arresting gear operator has found that four percent of individuals without evidence of thyroid disease or autoimmunity will have positive TgAb levels up to 4 IU/mL. Performed By: #### L C T4, THYGLOB #### [facility] , Thyroglobulin, TG-MARISSA 4.2 ng/mL Normal . [facility] Comment on above: Result Comment: This test was developed and its performance characteristics determined by [employer]. It has not been cleared or approved [...] quantitation limit is 2.0 ng/mL. Performed at: [facility] [address] [id number] Oenologist: Jl Weems PhD, Phone: [phone] Performed at: [facility] [address] [place] [id number] Oenologist: Alvin Suazo MD, Phone: [phone] PERFORMED BY: [address] [place] [address] PATHOLOGIST WALLP[employer]ER [employer] ANDRE WATTS M.D. Performed By: #### L C T4, THYGLOB #### [facility] , Thyrotropin [Units/volume] i n Serum or PlasmaOrdered By: Abdoulaye Esqueda on 04-26-2024 TSH Qn 1.64 m[IU]/L Normal 0.45-5.33 [facility] Comment on above: Result Comment: PERF ORMED BY: [place] [address] PATHOLOGIST W[employer] ANDRE WATTS M.D. Performed By: #### T 4T, TSH3, T3T #### [facility] [address] [place] [address] #### THYGLOB #### [facility] , Thyroxine (T4) [Mass/volume] in Serum or PlasmaOrdered By: Abdoulaye Esqueda on 04-26-2024 T4 [Mass/Vol] 11.41 ug/dL Normal 5.39-11.82 [facility] Comment on above: Performed By: #### T 4T, TSH3, T3T #### [facility] [address] [place] [address] #### THYGLOB #### [facility] , Triiodothyronine (T3) Totalo n 04-26-2024 Triiodothyronine (T3) Total 0.71 ng/mL Low 0.87-1.78 [facility] Comment on above: Performed By: #### T 4T, TSH3, T3T #### [facility] [address] [place] [address] [place] #### THYGLOB #### [facility] , Triiodothyronine (T3) [Mass/ volume] in Serum or PlasmaOrdered By: Abdoulaye Esqueda on 04-26-2024 T3 [Mass/Vol] 0.71 ng/mL Low 0.87-1.78 [facility] Thyroxine (T4)on T4 [Mass/Vol] 11.5 ug/dL Normal 4.5-12.0 [facility] Comment on above: Result Comment: Perf ormed at: [facility] [employer] [id number] Oenologist: Jl Weems PhD, Phone: [phone] Performed By: #### L C T4, THYGLOB #### [facility] , Thyroglobulin, Quant + Tg Ab on 11-21-2023 Antithyroglobulin Ab 23.1 High 0.0-0.9 [facility] Comment on above: Result Comment: Thyr oglobulin Antibody measured by [employer] Methodology It should be noted that the presence of thyroglobulin antibodies may not be pathogenic nor diagnostic, especially at very low levels. The assay arresting gear operator has found that four percent of individuals without evidence of thyroid disease or autoimmunity will have positive TgAb levels up to 4 IU/mL. Performed By: #### L C T4, THYGLOB #### [facility] , Thyroglobulin, TG-MARISSA 2.5 ng/mL Normal . [facility] Comment on above: Result Comment: This test was developed and its performance characteristics determined by [employer]. It has not been cleared or approved [...] quantitation limit is 2.0 ng/mL. Performed at: [facility] [address] [id number] Oenologist: Jl Weems PhD, Phone: [phone] Performed at: [facility] [address] [place] [id number] Oenologist: Alvin Suazo MD, Phone: [phone] PERFORMED BY: [place] [address] [place] [address] PATHOLOGIST WALLP[employer]ER [employer] ANDRE WATTS M.D. Performed By: #### L C T4, THYGLOB #### [facility] , Thyrotropin [Units/volume] i n Serum or PlasmaOrdered By: Onel Hatch on 11-21-2023 TSH Qn 0.33 m[IU]/L Low 0.45-5.33 [facility] Comment on above: Result Comment: PERF ORMED BY: [place] [address] PATHOLOGIST WALLPAPER [employer] ANDRE WATTS M.D. Performed By: #### T 3T, TSH3 #### [facility] [address] Triiodothyronine (T3) Totalo n 11-21-2023 Triiodothyronine (T3) Total 1.10 ng/mL Normal 0.87-1.78 [facility] Comment on above: Performed By: #### T 3T, TSH3 #### [facility] [address] [place] [address] Triiodothyronine (T3) [Mass/ volume] in Serum or PlasmaOrdered By: Onel Hatch on 11-21-2023 T3 [Mass/Vol] 1.10 ng/mL 0.87-1.78 [facility] TSH Qnon 09-14-2023 Interpretation and review of laboratory results Abnormal [facility] T4 [Mass/Vol] 13.2 ug/dL High 4.5 - 12.0 ug/dL [facility] Comment on above: Performed at: [facility] [id number] Oenologist: Jl Weems PhD, Phone: [phone] [facility] Thyroglobulin Antibodyon ANTITHYROGLOBULIN AB 24.3 High 0.0 - 0.9 [facility] Comment on above: Thyroglobulin Antibo dy measured by Dara Johann Methodology It should be noted that the presence of thyroglobulin antibodies may not be pathogenic nor diagnostic, especially at very low levels. The assay arresting gear operator has found that four percent of individuals without evidence of thyroid disease or autoimmunity will have positive TgAb levels up to 4 IU/mL. Performed at: [facility] [address] [id number] Oenologist: Jl Weems PhD, Phone: [phone] Interpretation and review of laboratory results Abnormal [facility] No Panel InformationOrdered By: Abdoulaye Esqueda on 09-13-2023 Free Thyroxine (T4) Direct 13.2 ug/dL 4.5-12.0 [facility] Comment on above: Performed at: [facility] [address] [id number] Director: Jl Weems PhD, Phone: [phone] Serum or plasma thyroglobuli n antibody assay (units/volume)Ordered By: Abdoulaye Esqueda on 09-13-2023 Thyroglobulin Ab Qn 24.3 [IU]/mL 0.0-0.9 [facility] Comment on above: Thyroglobulin Antibo dy measured by [employer] GroupMethodologyIt should be noted that the presence of thyroglobulinantibodies may not be pathogenic nor diagnostic, especiallyat very low levels. The assay arresting gear operator has found thatfour percent of individuals without evidence of thyroiddisease or autoimmunity will have positive TgAb levels upto 4 IU/mL.Performed at: [facility] [address] [id number] Director: Jl Weems PhD, Phone: [phone] Thyrotropin [Units/volume] i n Serum or PlasmaOrdered By: Abdoulaye Esqueda on 09-13-2023 TSH Qn 0.02 m[IU]/L 0.45-5.33 [facility] Triiodothyronine (T3) [Mass/ volume] in Serum or PlasmaOrdered By: Abdoulaye Esqueda on 09-13-2023 T3 [Mass/Vol] 0.71 ng/mL 0.87-1.78 [facility] Thyrotropin [Units/volume] i n Serum or PlasmaOrdered By: Onel Hatch on 03-10-2023 TSH Qn 0.01 m[IU]/L 0.45-5.33 [facility] Thyroxine (T4) [Mass/volume] in Serum or PlasmaOrdered By: Onel Hatch on 03-10-2023 T4 [Mass/Vol] 13.03 ug/dL 5.39-11.82 [facility] Triiodothyronine (T3) [Mass/ volume] in Serum or PlasmaOrdered By: Onel Hatch on 03-10-2023 T3 [Mass/Vol] 1.08 ng/mL 0.87-1.78 [facility] No Panel InformationOrdered By: Onel Hatch on 09-08-2022 Total Triiodothyronine 1.32 ng/mL 0.87-1.78 [facility] TSH DL <= 0.005 mIU/L QnOrde red By: Onel Hatch on 09-08-2022 TSH Qn 0.01 m[IU]/L 0.45-5.33 [facility] Thyroxine (T4) free [Mass/vo lume] in Serum or PlasmaOrdered By: Onel Hatch on 09-08-2022 Free T4 [Mass/Vol] 1.32 ng/dL 0.61-1.12 [facility] CT NECK [facility] W CONon CT NECK [...] by: BRYAN ARTHUR Date: 2021-09-02 08:56 Normal [facility] US THYROIDon 09-02-2021 US THYROID EXAMINATION: US [...] BRYAN ARTHUR Date: 2021-09-02 09:02 Normal [facility] THYROGLOBULINon 01-08-2021 Thyroglobulin 7.5 ng/mL Normal [facility] Comment on above: Result Comment: This test was developed and its performance characteristics determined by [employer]. It has not been cleared or approved [...] ng/mL. Performed By: #### T GRIA #### [facility] Laboratory [address] [address] Ilana Lambert FSHon 01-02-2021 FSH 3.8 mIU/mL Normal [facility] Comment on above: Result Comment: Adul t Female: Follicular phase 3.5 - 12.5 Ovulation phase 4.7 - 21.5 Luteal phase 1.7 - 7.7 Postmenopausal 25.8 - 134.8 Performed By: #### L BCFS #### [facility] Laboratory [address] [id number] Ilanayonny Lambert THYROGLOBULIN ABon Thyroglobulin Antibody 29.0 IU/mL Critically high 0.0-0.9 [facility] Comment on above: Result Comment: Thyr oglobulin Antibody measured by Dara Johann Methodology Performed By: #### T HYGAB #### [facility] Laboratory [address] [place], [place] [id number] Ilana Petra CBC AUTO DIFFon 01-01-2021 BASO # 0.0 103/ul Normal 0.0-0.1 [facility] Comment on above: Performed By: #### F T4 #### [facility] Laboratory [address] [place] [address] Ilana Petra Basophils/100 WBC (Bld) 0.4 % Normal 0.2-2.0 [facility] Comment on above: Performed By: #### F T4 #### [facility] Laboratory [address] [place] [address] Ilana Petra EO # 0.1 103/ul Normal 0.0-0.7 [facility] Comment on above: Performed By: #### F T4 #### [facility] [address] [place] [address] Ilana Petra Eosinophils/100 WBC (Bld) 1.1 % Normal 0.9-7.0 [facility] Comment on above: Performed By: #### F T4 #### [facility] Laboratory [address] [place] [address] Ilana Petra Erythrocyte distribution width (RBC) [Ratio] 12.0 % Normal 11.0-15.0 [facility] Comment on above: Performed By: #### F T4 #### [facility] Laboratory [address] [place] [address] Ilana Petra Hematocrit (Bld) [Volume fraction] 39.1 % Normal 36.0-48.0 [facility] Comment on above: Performed By: #### F T4 #### [facility] [address] [place], [place] [id number] Ilana Petra Hemoglobin (Bld) [Mass/Vol] 13.0 g/dL Normal 12.0-16.0 [facility] Comment on above: Performed By: #### F T4 #### [facility] [address] [place] [address] Ilanayonny Lambert IG # 0.03 10e3/ul Normal 0.00-0.03 [facility] Comment on above: Performed By: #### F T4 #### [facility] [address] [place] [address] Ilanayonny Lambert IG % 0.3 % Normal 0.0-0.5 [facility] Comment on above: Performed By: #### F T4 #### [facility] [address] [place] [address] Ilana Petra LYMPH # 2.2 103/ul Normal 1.2-3.8 [facility] Comment on above: Performed By: #### F T4 #### [facility] [address] [place] [address] Ilana Lambert Lymphocytes/100 WBC (Bld) 24.5 % Normal 20.5-60.0 [facility] Comment on above: Performed By: #### F T4 #### [facility] [address] [place] [address] Ilana Lambert MANUAL DIFF REQ NO Normal [facility] Comment on above: Performed By: #### F T4 #### [facility] [address] [place] [address] Ilanayonny Lambert MCH (RBC) [Entitic mass] 30.0 pg Normal 26.7-34.0 [facility] Comment on above: Performed By: #### F T4 #### [facility] [address] [place] [address] Ilana Petra MCHC (RBC) [Mass/Vol] 33.2 g/dL Normal 29.9-35.2 [facility] Comment on above: Performed By: #### F T4 #### [facility] [address] [place] [address] Ilanayonny Lambert MCV (RBC) [Entitic vol] 90.3 fL Normal 81.0-99.0 [facility] Comment on above: Performed By: #### F T4 #### [facility] Laboratory [address] [place] [address] Ilana Petra MONO # 0.6 103/ul Normal 0.3-0.8 [facility] Comment on above: Performed By: #### F T4 #### [facility] Laboratory [address] [place], [place] [id number] Ilana Petra Monocytes/100 WBC (Bld) 7.2 % Normal 1.7-12.0 [facility] Comment on above: Performed By: #### F T4 #### [facility] Laboratory [address] [place], [place] [address] Ilana Petra NEUT # 5.9 103/ul Normal 1.4-6.5 [facility] Comment on above: Performed By: #### F T4 #### [facility] Laboratory [address] [place], [place] [address] Ilana Petra Neutrophils/100 WBC (Bld) 66.5 % Normal 43.0-75.0 [facility] Comment on above: Performed By: #### F T4 #### [facility] Laboratory [address] [place], [place] [address] Ilanayonny Yeageren Platelet mean volume (Bld) [Entitic vol] 9.7 fL Normal 9.5-13.5 [facility] Comment on above: Performed By: #### F T4 #### [facility] [address] [place], [place] [address] Ilana Petra PLT 239 103/ul Normal 150-450 [facility] Comment on above: Performed By: #### F T4 #### [facility] Laboratory [address] [place], [place] [address] Ilana Petra RBC 4.33 106/ul Normal 4.20-5.40 [facility] Comment on above: Performed By: #### F T4 #### [facility] Laboratory [address] [place], [place] [address] Ilana Petra WBC 8.9 103/ul Normal 4.0-11.0 [facility] Comment on above: Performed By: #### F T4 #### [facility] Laboratory [address] [place], [place] [address] Ilana Eptra FREE T3on 01-01-2021 FREE T3 1.09 pg/mlL Critically low 2.77-5.27 [facility] Comment on above: Performed By: #### F T4 #### [facility] Laboratory [address] [place], [place] [address] Ilana Petra FREE T4on 01-01-2021 Free T4 [Mass/Vol] 1.50 ng/dL Normal 0.78-2.19 [facility] Comment on above: Performed By: #### F T4 #### [facility] [address] [place], [place] [address] Ilana Petra IRONon 01-01-2021 Iron [Mass/Vol] 101.0 ug/dL Normal 37.0-170.0 [facility] Comment on above: Performed By: #### F T4 #### [facility] Laboratory [address] [place], [place] [address] Ilana Lambert PROF 14(COMP METB)on 021 Albumin [Mass/Vol] 3.3 g/dL Critically low 3.5-5.0 [facility] Comment on above: Performed By: #### C MP #### [facility] Laboratory [address] [place], [place] [address] Ilana Petra Albumin/Globulin [Mass ratio] 0.9 {ratio} Normal [facility] Comment on above: Performed By: #### C MP #### [facility] Laboratory [address] [place], [place] [address] Ilana Petra ALP [Catalytic activity/Vol] 55 U/L Normal 38-126 [facility] Comment on above: Performed By: #### C MP #### [facility] [address] [place], [place] [address] Ilana Petra ALT [Catalytic activity/Vol] 18 U/L Normal 9-52 [facility] Comment on above: Performed By: #### C MP #### [facility] Laboratory [address] [place], [place] [address] Ilana Petra Anion gap [Moles/Vol] 8.8 mmol/L Normal [facility] Comment on above: Performed By: #### C MP #### [facility] Laboratory [address] [place] [address] Ilana Petra AST [Catalytic activity/Vol] 13 U/L Critically low 14-36 [facility] Comment on above: Performed By: #### C MP #### [facility] [address] [id number] Ilana Petra Bilirubin [Mass/Vol] 0.5 mg/dL Normal 0.2-1.3 [facility] Comment on above: Performed By: #### C MP #### [facility] [address] [address] Ilana Petra Calcium [Mass/Vol] 8.4 mg/dL Normal 8.4-10.2 [facility] Comment on above: Performed By: #### C MP #### [facility] Laboratory [address] [address] Ilana Petra Chloride [Moles/Vol] 104 mmol/L Normal 98-107 [facility] Comment on above: Performed By: #### C MP #### [facility] Laboratory [address] [place] [address] Ilana Petra CO2 [Moles/Vol] 29.8 mmol/L Normal 22.0-30.0 The [facility] Comment on above: Performed By: #### C MP #### [facility] [address] [id number] Ilana Petra Creatinine [Mass/Vol] 0.88 mg/dL Normal 0.52-1.04 [facility] Comment on above: Performed By: #### C MP #### [facility] [address] [address] Ilana Petra EGFR-AF WALLISIAN >60 Normal >=60 [facility] Comment on above: Performed By: #### C MP #### [facility] [address] [id number] Ilana Petra EGFR-NON AF WALLISIAN >60 Normal >=60 The [facility] Comment on above: Performed By: #### C MP #### [facility] [address] [id number] Ilana Petra Globulin (S) [Mass/Vol] 3.8 g/dL Normal The [facility] Comment on above: Performed By: #### C MP #### [facility] [address] [phone] Ilana Petra Glucose [Mass/Vol] 90 mg/dL Normal 74-106 The [facility] Comment on above: Performed By: #### C MP #### [facility] [address] [phone] Ilana Petra Potassium [Moles/Vol] 3.6 mmol/L Normal 3.4-5.0 [facility] Comment on above: Performed By: #### C MP #### [facility] [address] [phone] Ilana Petra Protein [Mass/Vol] 7.1 g/dL Normal 6.1-8.2 The [facility] Comment on above: Performed By: #### C MP #### [facility] [address] [place] [address] Ilana Petra Sodium [Moles/Vol] 139 mmol/L Normal 137-145 The [facility] Comment on above: Performed By: #### C MP #### [facility] [address] [place] [address] Ilana Petra Urea nitrogen [Mass/Vol] 11.0 mg/dL Normal 7.0-17.0 [facility] Comment on above: Performed By: #### C MP #### [facility] [address] [place], [place] [phone] Ilana Petra Urea nitrogen/Creatinine [Mass ratio] 12.5 mg/mg Normal [facility] Comment on above: Performed By: #### C MP #### [facility] [address] [place], [place] [phone] Ilana Petra TSHon 01-01-2021 TSH 3.552 uIU/mL Normal 0.470-4.680 The [facility] Comment on above: Performed By: #### F T4 #### [facility] [address] [place], [place] [phone] Ilana Petra TSH RANGE SEE BELOW Normal [facility] Comment on above: Result Comment: <0.3 4 UIU/ml HYPERTHYROID 0.34-5.60 UIU/ml EUTHYROID >5.60 UIU/ml HYPOTHYROID Performed By: #### F T4 #### [facility] [address] [phone] Ilana Yeageren VITAMIN D 25 OHon 01-01-2021 VIT D 25-OH 30.8 ng/mL Normal [facility] Comment on above: Performed By: #### F T4 #### [facility] [address] [place], [place] [phone] Ilana Petra VIT D RANGES SEE BELOW Normal [facility] Comment on above: Result Comment: <20 ng/mL Vit D deficient 20 - <30 ng/mL Vit D insufficient 30 - 100 ng/mL Vit D sufficient >100 ng/mL Potential Toxicity Performed By: #### F T4 #### [facility] [address] [phone] Ilana Petra FREE T3on 10-03-2020 FREE T3 2.27 pg/mlL Critically low 2.77-5.27 The [facility] Comment on above: Performed By: #### F T3, TSH #### [facility] [address] [place], [place] [phone] Ilana Petra FREE T4on 10-03-2020 Free T4 [Mass/Vol] 1.27 ng/dL Normal 0.78-2.19 [facility] Comment on above: Performed By: #### F T4 #### [facility] [address] [place], [place] [phone] Ilana Petra TSHon 10-03-2020 TSH 17.604 uIU/mL Critically high 0.470-4.680 [facility] Comment on above: Performed By: #### F T3, TSH #### [facility] [address] [place], [place] [phone] Ilana Petra TSH RANGE SEE BELOW Normal The [facility] Comment on above: Result Comment: <0.3 4 UIU/ml HYPERTHYROID 0.34-5.60 UIU/ml EUTHYROID >5.60 UIU/ml HYPOTHYROID Performed By: #### F T3, TSH #### [facility] [address] [place], [place] [phone] Ilana Petra LUMBAR SPINE 4 OR 5 [facility] LUMBAR SPINE 4 OR 5 [facility] Department of Radiology [address] [place] [phone] Patient Name: CONRAD AGUILAR : 1970 [...] 5 [facility] LUMBAR SPINE 4 OR 5 [facility] 06/14/2018 1:48 PM EST SIGNS AND SYMPTOMS: [...] findings. Electronically signed by:Jeovanny Mercer. Transcribed by: [email or web address], User Resident: ONEL CINTRON Electronically Signed by: JEOVANNY MERCER @ 06/15/2018 05:58 PM I personally read this/these film(s) with this resident Normal [facility] Comment on above: Order Comment: , Nathanael ws (X-RAY, LUMBAR SPINE): AP, Lateral, L5- S1 Spot, Flexion, Extension , Views (X-RAY, LUMBAR SPINE): AP, Lateral, L5-S1 Spot, Flexion, Extension , , , Ordering Provider - WU CALLOWAY MD , Vital Signs Date Time Vital Sign Value Performing Clinician Brook paulson 11-13-2024 09:06-0400 Body height 172.7 cm Onel Staciwalker DO Work Phone: [facility] 11-13-2024 09:06-0400 Body mass index (BMI) [Ratio] 26.46 kg/m2 Onel Hatch DO Work Phone: [facility] 11-13-2024 09:06-0400 Body weight 78.93 kg Onel Hatch DO Work Phone: [facility] 05-08-2024 09:07-0400 Body height 172.7 cm Onel Hatch DO Work Phone: [facility] 05-08-2024 09:07-0400 Body mass index (BMI) [Ratio] 26.46 kg/m2 Onel Hatch DO Work Phone: [facility] 05-08-2024 09:07-0400 Body weight 78.93 kg Onel Hatch DO Work Phone: [facility] Healthcare Encounters Encounter Date Encounter Type Care Provider Facility Start: 12-05-2024 End: 12-05-2024 ambulatory Carter PARKER Facility:[facility] Start: 11-20-2024 ambulatory Carter PARKER [facility] Start: 11-13-2024 End: 11-13-2024 Bamboo flowsheet Onel Smalltheodoradoron DO Work Phone: [facility] Start: 11-13-2024 End: 11-13-2024 Bamboo flowsheet Onel Hatch DO Work Phone: [facility] Start: 11-13-2024 End: 11-13-2024 Office outpatient visit 25 minutes Onel Magali Hatch DO [facility] Comment on above: Status post total th yroidectomy (Primary Dx); Malignant neoplasm of thyroid gland (CMS/HCC) Start: 11-13-2024 End: 11-13-2024 ambulatory ONEL HATCH Not Available Start: 11-05-2024 End: 11-05-2024 Patient encounter procedure Anh Granger MD Work Phone: [facility] [place] Work Phone: Start: 11-05-2024 End: 11-05-2024 ambulatory Anh Granger MD Work Phone: [facility] Work Phone: Start: 05-08-2024 End: 05-08-2024 Bamboo flowsheet Onel Hatch DO Work Phone: [facility] Start: 05-08-2024 End: 05-08-2024 Bamboo flowsheet Onel Hatch DO Work Phone: [facility] Start: 05-08-2024 End: 05-08-2024 Office outpatient visit 25 minutes Onel Hatch DO Work Phone: [facility] Comment on above: Malignant neoplasm o f thyroid gland (CMS/HCC) (Primary Dx) Start: 05-08-2024 End: 05-08-2024 ambulatory ONEL HATCH Not Available Start: 04-26-2024 End: 05-19-2024 External Result Encounter Abdoulaye Esqueda DO Work Phone: [facility] Unsolicited Start: 04-26-2024 End: 05-19-2024 External Result Encounter Abdoulaye Esqueda DO Work Phone: [facility] Unsolicited Start: 04-26-2024 End: 04-26-2024 Patient encounter procedure MD Anh Granger Work Phone: [facility] [place] Work Phone: Start: 04-26-2024 End: 04-26-2024 ambulatory MD Anh Granger Work Phone: [facility] Work Phone: Start: 11-21-2023 End: 11-21-2023 Patient encounter procedure MD Anh Granger Work Phone: [facility] [place] Work Phone: Start: 11-21-2023 End: 11-21-2023 ambulatory MD Anh Granger Work Phone: [facility] Work Phone: Start: 09-13-2023 External Result Encounter Abdoulaye Esqueda DO Work Phone: [facility] Unsolicited Start: 09-13-2023 External Result Encounter Abdoulaye Guo Dheeraj DO Work Phone: [facility] External [facility] Unsolicited Start: 09-13-2023 End: 09-13-2023 ambulatory MD Anh Granger Work Phone: [facility] Work Phone: Start: 09-13-2023 End: 09-13-2023 Patient encounter procedure MD Anh Granger Work Phone: [facility] [place] Work Phone: Start: 03-10-2023 End: 03-10-2023 ambulatory MD Anh Granger Work Phone: [facility] Work Phone: Start: 03-10-2023 End: 03-10-2023 Patient encounter procedure MD Anh Granger Work Phone: [facility] [place] Work Phone: Start: 09-08-2022 End: 09-08-2022 ambulatory MD Anh Granger Work Phone: [facility] Work Phone: Start: 09-08-2022 End: 09-08-2022 Patient encounter procedure MD Anh Granger Work Phone: [facility] [place] Work Phone: Start: 09-02-2021 End: 09-03-[address] ANH GRANGER Facility:[facility] Start: 01-01-2021 End: 01-02-[address] ANH GRANGER Facility:[facility] Start: 10-03-2020 End: 10-04-2020 ambulatory ALEJA SWARTZ Facility:[facility] Procedures Date Procedure Procedure Detail Performing Clinician Start: 04-26-2024 Assay of thyroglobulin Abdoulaye Esqueda DO Work Phone: Start: 02-13-2024 Assay of thyroxine total Abdoulaye Campbell ch DO Work Phone: Start: 09-13-2023 Thyroglobulin antibody Abdoulaye Esqueda DO Work Phone: History of thyroidectomy Status post total thyroidectomy Onel Hatch DO Work Phone: Plan of Treatment Date Care Activity Detail Author Start: 10-28-2025 End: 11-13-2025 Thyroglobulin Thyroglobulin Lab Routine Malignant neoplasm of thyroid gland (CMS/HCC) Expected: 10/28/2025 (Approximate), Expires: 11/13/2025 [facility] Comment on above: Expected: 10/28/2025 (Approximate), Expires: 11/13/2025 Start: 10-28-2025 End: 11-13-2025 Thyrotropin [Units/volume] in Serum or Plasma [facility] Comment on above: Expected: 10/28/2025 (Approximate), Expires: 11/13/2025 Start: 10-28-2025 End: 11-13-2025 Triiodothyronine (T3) [Mass/volume] in Serum or Plasma T3 Lab Routine Malignant neoplasm of thyroid gland (CMS/HCC) Expected: 10/28/2025 (Approximate), Expires: 11/13/2025 [facility] Comment on above: Expected: 10/28/2025 (Approximate), Expires: 11/13/2025 Start: 05-15-2025 End: 11-13-2025 Thyroglobulin Thyroglobulin Lab Routine Malignant neoplasm of thyroid gland (CMS/HCC) Expected: 05/15/2025 (Approximate), Expires: 11/13/2025 [facility] Comment on above: Expected: 05/15/2025 (Approximate), Expires: 11/13/2025 Start: 05-15-2025 End: 11-13-2025 Thyrotropin [Units/volume] in Serum or Plasma [facility] Work Phone: Comment on above: Expected: 05/15/2025 (Approximate), Expires: 11/13/2025 Start: 05-15-2025 End: 11-13-2025 Triiodothyronine (T3) [Mass/volume] in Serum or Plasma T3 Lab Routine Malignant neoplasm of thyroid gland (CMS/HCC) Expected: 05/15/2025 (Approximate), Expires: 11/13/2025 [facility] Comment on above: Expected: 05/15/2025 (Approximate), Expires: 11/13/2025 Start: 04-01-2025 Influenza vaccination Influenz a Vaccine (Season Ended) [facility] Start: 11-13-2024 End: 11-13-2024 Patient encounter procedure [facility] Comment on above: Arrived Start: 11-05-2024 End: 05-08-2025 Thyrotropin [Units/volume] in Serum or Plasma [facility] Work Phone: Comment on above: Expected: 11/05/2024 (Approximate), Expires: 05/08/2025 Start: 11-05-2024 End: 05-08-2025 Triiodothyronine (T3) [Mass/volume] in Serum or Plasma T3 Lab Routine Malignant neoplasm of thyroid gland (CMS/HCC) Expected: 11/05/2024 (Approximate), Expires: 05/08/2025 [facility] Comment on above: Expected: 11/05/2024 (Approximate), Expires: 05/08/2025 Start: 05-08-2024 End: 05-08-2024 [facility] Comment on above: Arrived Start: 04-26-2024 [facility] Start: 04-01-2024 Influenza vaccination Influenza Vacc ine (#1) [facility] Start: 11-21-2023 Thyroxine measurement [facility] Start: 09-20-2023 End: 09-20-2023 Patient encounter procedure 09/20/2023 8:30 AM EST [facility] [address] [place] [id number] Onel Hatch DO [address] [place] [address] [facility] Start: 09-13-2023 Thyroxine measurement [facility] Start: 04-01-2023 Influenza vaccination Influenza Vacc ine (#1) [facility] Start: 2008 Screening for malign ant neoplasm of breast Mammogram [facility] Start: 1998 Screening for malign ant neoplasm of cervix [facility] Start: 1989 Screening for malign ant neoplasm of cervix Pap Smear [facility] Start: 1968 Screening for malign ant neoplasm of colon [facility] Thyroglobulin Ab [Units/volume] in Serum or Plasma [facility] Thyroglobulin Ab [Units/volume] in Serum or Plasma [facility] Thyroglobulin Ab [Units/volume] in Serum or Plasma [facility] Thyroglobulin Ab [Units/volume] in Serum or Plasma [facility] Thyrotropin [Units/v olume] in Serum or Plasma TSH Lab Routine 09/13/2023 9:13 AM EST [facility] Work Phone: Thyrotropin [Units/v olume] in Serum or Plasma TSH Lab Routine 04/26/2024 9:20 AM EDT [facility] Work Phone: Triiodothyronine (T3 ) [Mass/volume] in Serum or Plasma T3 Lab Routine 09/13/2023 9:13 AM EST [facility] Payers Date Payer Category Payer Self-pay [id number] 2014 Medicaid [facility] MEDICAID [place] MEDICA[place] [id number] 2014-Present [address] [place] [id number] 2014 Medicaid (Managed Care) [facility] MEDICAID [id number] 1968 Unknown [id number] 1968 Unknown [id number] 593 1968 Unknown [id number] 593 1968 Unknown [id number] 593 1968 Unknown [id number] 1259 1968 Unknown [id number] 1259 1968 Unknown [id number] 727 1959 Unknown [id number] Unknown [id number] 531 Unknown [id number] 531 Unknown [id number] 531 Social History Date Type Detail Facility Start: 01-05-2021 End: 03-16-2023 Tobacco smoking status [facility] Never smoked tobacco (finding) [facility] Start: 1970 Sex Assigned At Female [facility] Start: 03-16-2023 Tobacco use and exposure Smokeless tobacco non-user [facility] Start: 03-17-2023 End: 11-13-2024 Alcohol intake Ex-drinker (finding) [facility] Start: 03-17-2023 End: 11-13-2024 History of Social function [facility] Start: 03-17-2023 End: 11-13-2024 Tobacco use panel [facility] Start: 03-17-2023 Alcohol Comment caffeine intak e : 1-2 cups per day [facility] Start: 1970 Sex Assigned At Not on file N [facility] Start: 11-06-2024 Sex Female (finding) [facility] Clinical Note 12-05-2024 Note Date & Type Note Facility 12-05-2024 Note General Surgery Offi ce/Clinic Note Chief Complaint consultation for anemia HPI [...] Tab, 10 mg= 1 tab(s), Oral, Daily N (more content not included)... [facility] Comment on above: Result Comment: Elec tronically Signed By: ELENA DOTY, Carter Brandon.juvenal\Date and Time Signed: 12/05/24 16:14 EDT History of Present illness Narrative 11-13-2024 Onel [...] an ultrasound Malignant neoplasm of thyroid gland (CMS/HCC) Comments: There is no biochemical clinical or [...] at that time. documented in this encounter [facility] Evaluation note Note Date & Type Note Facility Evaluation note [facility]: Evaluation note Note Date & Type Note Facility Evaluation note Diagnosis Malignant neoplasm of thyroid gland (CMS/HCC)- Primary Malignant neoplasm of thyroid gland documented in this encounter [facility] Evaluation note Note Date & Type Note Facility Evaluation note Diagnosis Status post total thyroidectomy- Primary Other postprocedural status Malignant neoplasm of thyroid gland (CMS/HCC) Malignant neoplasm of thyroid gland documented in this encounter [facility] Summary Purpose Family History No Family [...] Chief Complaint C73 Chief Complaint Admit Date c7November 05, 2024 9:18 am Additional Source Comments INFORMATION SOURCE (unrecogn ized section and content) DATE CREATED AUTHOR 05/09/2019 The [facility] DATE CREATED AUTHOR AUTHOR'S ORGANIZ ATION 09/05/2021 [facility] DATE CREATED AUTHOR AUTHOR'S ORGANIZ ATION 11/06/2024 [facility] DATE CREATED AUTHOR AUTHOR'S ORGANIZ ATION 11/14/2024 [facility] EPIC DATE CREATED AUTHOR AUTHOR'S ORGANIZ ATION 12/06/2024 [facility] Care Teams (unrecognized sec tion and content) Team Status: Active Member Role Status Dates Anh Granger MD Primary Care Provider Active Team Status: Inactive Member Role Status Dates Anh Granger MD Primary Care Provider Active Onel Hatch DO Attending Provider Active Video Control Operator Relationship Specialty Start Date End Date Anh Granger MD [address] [place] [phone] PCP - General Family Medicine 03/16/23 Team Status: Inactive Member Role Status Dates Anh Granger MD Primary Care Provider Active Start: September 13, 2023 End: September 13, 2023 Abdoulaye Esqueda DO Attending Provider Active S tart: September 13, 2023 End: September 13, 2023 Video Control Operator Relationship Specialty Start Date End Date Anh Granger MD [address] [place] [phone] PCP - General Family Medicine 03/16/23 Team [...] April 26, 2024 End: April 26, 2024 Video Control Operator Relationship Specialty Start Date End Date Anh Granger MD [address] [place] [phone] PCP - General Family Medicine 03/16/23 Video Control Operator Relationship Specialty Start Date End Date Anh Granger MD [address] [place] [address] PCP - General Family Medicine 03/16/23 Video Control Operator Relationship Specialty Start Date End Date Anh Granger MD [address] [place] [phone] PCP - General Family Medicine 03/16/23 Team Status: Inactive Member Role Status Dates Anh Granger MD Primary Care Provider Active Start: November 05, 2024 End: November 05, 2024 Onel Hatch DO Attending Provider Active S tart: November 05, 2024 End: November 05, 2024 Video Control Operator Relationship Specialty Start Date End Date Anh Granger MD [address] [place] [address] PCP - General Family Medicine 03/16/23 Goals [...] Thyroid Cancer 6 month patrice with perez bs Reason Comments Thyroid Cancer 6 month US [...] BE BASED ON THE PRIMARY CLINICAL RECORDS. [facility] [employer] [facility] provides no warranty or guarantee of the accuracy or completeness of information in this document.
--- OUTSIDE RECORDS SUMMARY | 2024-12-14 08:52 | XMS_ITS | CCD ---
Author Organization [facility] Care Team Providers Care Supervisor Blood Donor Recruiters Name Role Phone MAXIME, AHMAD Admitting Unavailable [...] Care Provider DO Onel Hatch Attending Provider [phone] MD Anh Granger Primary Care Provider DO Onel Hatch Attending Provider [phone] Anh Granger MD Primary Care Provider MD Anh Granger Primary Care Provider DO Abdoulaye Esqueda Attending Provider MD Anh Granger Primary Care Provider DO Abdoulaye Esqueda Attending Provider DO Onel Hatch Attending Provider MD Anh Granger Primary Care Provider DO Abdoulaye Esqueda Attending Provider Anh Granger MD Primary Care Provider [phone] Onel Hatch DO Attending Provider [phone] Anh Granger Primary Care Unavailable Onel Hatch [...] (1 source) fentaNYL Drug Allergy 6 [facility] Repository (11 sources) fentaNYL Drug Allergy 4 Hives [facility] (11 sources) Povidone-Iodine Drug Allergy 4 Rash [facility] (1 source) No Known Medication Allergies; Translations: [No Known Medication Allergies] Propensity to adverse reactions (disorder) [facility] Repository Medications Current Medications Medication Drug Class(es) [...] for choosing us for your care. Normal [facility] Thyroid Stimulating Hormoneo n 11-05-2024 TSH Qn 0.74 m[IU]/L Normal 0.45-5.33 [facility] Comment on above: Order Comment: FASTI NG NON FASTING Result Comment: PERF ORMED BY: [place] [address] PATHOLOGIST CAMPAIGN COORDINATOR MANAV ESPINAL M.D. Performed By: #### T 3T, TSH3, T4T #### [address] Thyrotropin [Units/volume] i n Serum or PlasmaOrdered By: Onel Hatch on 11-05-2024 TSH Qn Thyrotropin [Units/volume] in Serum or Plasma 0.45-5.33 [facility] Thyroxine (T4) Totalon 11-05 T4 [Mass/Vol] 11.03 ug/dL Normal 5.39-11.82 [facility] Comment on above: Order Comment: FASTI NG NON FASTING Performed By: #### T 3T, TSH3, T4T #### [facility] [address] Thyroxine (T4) [Mass/volume] in Serum or PlasmaOrdered By: Onel Hatch on 11-05-2024 T4 [Mass/Vol] Thyroxine (T4) [Mass/volume] in Serum or Plasma 5.39-11.82 [facility] Triiodothyronine (T3) Totalo n 11-05-2024 Triiodothyronine (T3) Total 1.05 ng/mL Normal 0.87-1.78 [facility] Comment on above: Order Comment: FASTI NG NON FASTING Performed By: #### T 3T, TSH3, T4T #### [facility] [address] [id number] [facility] Triiodothyronine (T3) [Mass/ volume] in Serum or PlasmaOrdered By: Onel aHtch on 11-05-2024 T3 [Mass/Vol] Triiodothyronine (T3 ) [Mass/volume] in Serum or Plasma 0.87-1.78 [facility] Thyroglobulinon 05-19-2024 ANTITHYROGLOBULIN AB 20.3 High 0.0 - 0.9 [facility] Comment on above: Thyroglobulin Antibo dy measured by Dara Johann Methodology It should be noted that the presence of thyroglobulin antibodies may not be pathogenic nor diagnostic, especially at very low levels. The assay steam and power supervisor has found that four percent of individuals without evidence of thyroid disease or autoimmunity will have positive TgAb levels up to 4 IU/mL. Interpretation and review of laboratory results Abnormal [facility] THYROGLOBULIN, TG-MARISSA 4.2 ng/mL . [facility] Comment on above: This test was develo edna and its performance characteristics determined by [employer]. It has not been cleared or approved [...] quantitation limit is 2.0 ng/mL. Performed at: [facility] [address] [id number] [employer] Employee: Jl Weems PhD, Phone: [phone] Performed at: [facility] [address] [place] [id number] [employer] Employee: Alvin Suazo MD, Phone: [phone] [facility] Thyroglobulin, Quant + Tg Ab on 04-26-2024 Antithyroglobulin Ab 20.3 High 0.0-0.9 [facility] Comment on above: Result Comment: Thyr oglobulin Antibody measured by [employer] Method[employer] It should be noted that the presence of thyroglobulin antibodies may not be pathogenic nor diagnostic, especially at very low levels. The assay steam and power supervisor has found that four percent of individuals without evidence of thyroid disease or autoimmunity will have positive TgAb levels up to 4 IU/mL. Performed By: #### L C T4, THYGLOB #### [facility] , Thyroglobulin, TG-MARISSA 4.2 ng/mL Normal . [facility] Comment on above: Result Comment: This test was developed and its performance characteristics determined by [employer]. It has not been cleared or approved [...] quantitation limit is 2.0 ng/mL. Performed at: [facility] [address] [id number] [employer] Employee: Jl Weems PhD, Phone: [phone] Performed at: [facility] [address] [place] [id number] [employer] Employee: Alvin Suazo MD, Phone: [phone] PERFORMED BY: [address] [place] [address] PATHOLOGIST CAMPAIGN COORDINATOR ANDRE WATTS M.D. Performed By: #### L C T4, THYGLOB #### [facility] , Thyrotropin [Units/volume] i n Serum or PlasmaOrdered By: Abdoulaye Esqueda on 04-26-2024 TSH Qn 1.64 m[IU]/L Normal 0.45-5.33 [facility] Comment on above: Result Comment: PERF ORMED BY: [place] [address] PATHOLOGIST CAMPAIGN COORDINATOR ANDRE WATTS M.D. Performed By: #### T 4T, TSH3, T3T #### [facility] [address] [place] [address] #### THYGLOB #### [facility] , Thyroxine (T4) [Mass/volume] in Serum or PlasmaOrdered By: Abdoulaye Esqueda on 04-26-2024 T4 [Mass/Vol] 11.41 ug/dL Normal 5.39-11.82 [facility] Comment on above: Performed By: #### T 4T, TSH3, T3T #### [facility] [address] [place] [address] #### THYGLOB #### [facility] , Triiodothyronine (T3) Totalo n 04-26-2024 Triiodothyronine (T3) Total 0.71 ng/mL Low 0.87-1.78 [facility] Comment on above: Performed By: #### T 4T, TSH3, T3T #### [facility] [address] [place] [address] [place] #### THYGLOB #### [facility] , Triiodothyronine (T3) [Mass/ volume] in Serum or PlasmaOrdered By: Abdoulaye Esqueda on 04-26-2024 T3 [Mass/Vol] 0.71 ng/mL Low 0.87-1.78 [facility] Thyroxine (T4)on T4 [Mass/Vol] 11.5 ug/dL Normal 4.5-12.0 [facility] Comment on above: Result Comment: Perf ormed at: [facility] [employer] [id number] [employer] Employee: Jl Weems PhD, Phone: [phone] Performed By: #### L C T4, THYGLOB #### [facility] , Thyroglobulin, Quant + Tg Ab on 11-21-2023 Antithyroglobulin Ab 23.1 High 0.0-0.9 [facility] Comment on above: Result Comment: Thyr oglobulin Antibody measured by [employer] It should be noted that the presence of thyroglobulin antibodies may not be pathogenic nor diagnostic, especially at very low levels. The assay steam and power supervisor has found that four percent of individuals without evidence of thyroid disease or autoimmunity will have positive TgAb levels up to 4 IU/mL. Performed By: #### L C T4, THYGLOB #### [facility] , Thyroglobulin, TG-MARISSA 2.5 ng/mL Normal . [facility] Comment on above: Result Comment: This test was developed and its performance characteristics determined by [employer]. It has not been cleared or approved [...] quantitation limit is 2.0 ng/mL. Performed at: [facility] [address] [id number] [employer] Employee: Jl Weems PhD, Phone: [phone] Performed at: [facility] [address] [place] [id number] [employer] Employee: Alvin Suazo MD, Phone: [phone] PERFORMED BY: [place] [address] [place] [address] PATHOLOGIST CAMPAIGN COORDINATOR ANDRE WATTS M.D. Performed By: #### L C T4, THYGLOB #### [facility] , Thyrotropin [Units/volume] i n Serum or PlasmaOrdered By: Onel Hatch on 11-21-2023 TSH Qn 0.33 m[IU]/L Low 0.45-5.33 [facility] Comment on above: Result Comment: PERF ORMED BY: [place] [address] PATHOLOGIST CAMPAIGN COORDINATOR ANDRE WATTS M.D. Performed By: #### T 3T, TSH3 #### [facility] [address] Triiodothyronine (T3) Totalo n 11-21-2023 Triiodothyronine (T3) Total 1.10 ng/mL Normal 0.87-1.78 [facility] Comment on above: Performed By: #### T 3T, TSH3 #### [facility] [address] [place] [address] Triiodothyronine (T3) [Mass/ volume] in Serum or PlasmaOrdered By: Onel Hatch on 11-21-2023 T3 [Mass/Vol] 1.10 ng/mL 0.87-1.78 [facility] TSH Qnon 09-14-2023 Interpretation and review of laboratory results Abnormal [facility] T4 [Mass/Vol] 13.2 ug/dL High 4.5 - 12.0 ug/dL [facility] Comment on above: Performed at: [facility] [id number] [employer] Employee: Jl Weems PhD, Phone: [phone] [facility] Thyroglobulin Antibodyon ANTITHYROGLOBULIN AB 24.3 High 0.0 - 0.9 [facility] Comment on above: Thyroglobulin Antibo dy measured by Dara Johann Methodology It should be noted that the presence of thyroglobulin antibodies may not be pathogenic nor diagnostic, especially at very low levels. The assay steam and power supervisor has found that four percent of individuals without evidence of thyroid disease or autoimmunity will have positive TgAb levels up to 4 IU/mL. Performed at: [facility] [address] [id number] [employer] Employee: Jl Weems PhD, Phone: [phone] Interpretation and review of laboratory results Abnormal [facility] No Panel InformationOrdered By: Abdoulaye Esqueda on 09-13-2023 Free Thyroxine (T4) Direct 13.2 ug/dL 4.5-12.0 [facility] Comment on above: Performed at: [facility] [address] [id number] Director: Jl Weems PhD, Phone: [phone] Serum or plasma thyroglobuli n antibody assay (units/volume)Ordered By: Abdoulaye Esqueda on 09-13-2023 Thyroglobulin Ab Qn 24.3 [IU]/mL 0.0-0.9 [facility] Comment on above: Thyroglobulin Antibo dy measured by [employer]ologyIt should be noted that the presence of thyroglobulinantibodies may not be pathogenic nor diagnostic, especiallyat very low levels. The assay steam and power supervisor has found thatfour percent of individuals without evidence of thyroiddisease or autoimmunity will have positive TgAb levels upto 4 IU/mL.Performed at: [facility] [address] [id number] Director: Jl Weems PhD, Phone: [phone] Thyrotropin [Units/volume] i n Serum or PlasmaOrdered By: Abdoulaye Esqueda on 09-13-2023 TSH Qn 0.02 m[IU]/L 0.45-5.33 [facility] Triiodothyronine (T3) [Mass/ volume] in Serum or PlasmaOrdered By: Abdoulaye Esqueda on 09-13-2023 T3 [Mass/Vol] 0.71 ng/mL 0.87-1.78 [facility] Thyrotropin [Units/volume] i n Serum or PlasmaOrdered By: Onel Hatch on 03-10-2023 TSH Qn 0.01 m[IU]/L 0.45-5.33 [facility] Thyroxine (T4) [Mass/volume] in Serum or PlasmaOrdered By: Onel Hatch on 03-10-2023 T4 [Mass/Vol] 13.03 ug/dL 5.39-11.82 [facility] Triiodothyronine (T3) [Mass/ volume] in Serum or PlasmaOrdered By: Onel Hatch on 03-10-2023 T3 [Mass/Vol] 1.08 ng/mL 0.87-1.78 [facility] No Panel InformationOrdered By: Onel Hatch on 09-08-2022 Total Triiodothyronine 1.32 ng/mL 0.87-1.78 [facility] TSH DL <= 0.005 mIU/L QnOrde red By: Onel Hatch on 09-08-2022 TSH Qn 0.01 m[IU]/L 0.45-5.33 [facility] Thyroxine (T4) free [Mass/vo lume] in Serum or PlasmaOrdered By: Onel Hatch on 09-08-2022 Free T4 [Mass/Vol] 1.32 ng/dL 0.61-1.12 [facility] [address] NECK [facility] W CONon CT NECK [...] BRYAN ARTHUR Date: 2021-09-02 08:56 Normal [facility] US THYROIDon 09-02-2021 US THYROID EXAMINATION: US [...] BRYAN ARTHUR Date: 2021-09-02 09:02 Normal [facility] THYROGLOBULINon 01-08-2021 Thyroglobulin 7.5 ng/mL Normal [facility] Comment on above: Result Comment: This test was developed and its performance characteristics determined by [employer]. It has not been cleared or approved [...] ng/mL. Performed By: #### T GRIA #### [facility] [address] [address] Ilana Lambert FSHon 01-02-2021 FSH 3.8 mIU/mL Normal [facility] Comment on above: Result Comment: Adul t Female: Follicular phase 3.5 - 12.5 Ovulation phase 4.7 - 21.5 Luteal phase 1.7 - 7.7 Postmenopausal 25.8 - 134.8 Performed By: #### L BCFS #### [facility] [address] [id number] Ilanayonny Lambert THYROGLOBULIN ABon Thyroglobulin Antibody 29.0 IU/mL Critically high 0.0-0.9 [facility] Comment on above: Result Comment: Thyr oglobulin Antibody measured by Dara Johann Methodology Performed By: #### T HYGAB #### [facility] [address] [place], [place] [id number] Ilana Petra CBC AUTO DIFFon 01-01-2021 BASO # 0.0 103/ul Normal 0.0-0.1 [facility] Comment on above: Performed By: #### F T4 #### [facility] [address] [place] [address] Ilana Petra Basophils/100 WBC (Bld) 0.4 % Normal 0.2-2.0 [facility] Comment on above: Performed By: #### F T4 #### [facility] [address] [place] [address] Ilana Petra EO # 0.1 103/ul Normal 0.0-0.7 [facility] Comment on above: Performed By: #### F T4 #### [facility] [address] [place] [address] Ilana Petra Eosinophils/100 WBC (Bld) 1.1 % Normal 0.9-7.0 [facility] Comment on above: Performed By: #### F T4 #### [facility] [address] [place] [address] Ilana Petra Erythrocyte distribution width (RBC) [Ratio] 12.0 % Normal 11.0-15.0 [facility] Comment on above: Performed By: #### F T4 #### [facility] [address] [place] [address] Ilana Petra Hematocrit (Bld) [Volume fraction] 39.1 % Normal 36.0-48.0 [facility] Comment on above: Performed By: #### F T4 #### [facility] [address] [place], [place] [id number] Ilana Petra Hemoglobin (Bld) [Mass/Vol] 13.0 g/dL Normal 12.0-16.0 [facility] Comment on above: Performed By: #### F T4 #### [facility] [address] [place] [address] Ilanayonny Lambert IG # 0.03 10e3/ul Normal 0.00-0.03 [facility] Comment on above: Performed By: #### F T4 #### [facility] [address] [place] [address] Ilanayonny Lambert IG % 0.3 % Normal 0.0-0.5 [facility] Comment on above: Performed By: #### F T4 #### [facility] [address] [place] [address] Ilana Petra LYMPH # 2.2 103/ul Normal 1.2-3.8 [facility] Comment on above: Performed By: #### F T4 #### [facility] [address] [place] [address] Ilana Lambert Lymphocytes/100 WBC (Bld) 24.5 % Normal 20.5-60.0 [facility] Comment on above: Performed By: #### F T4 #### [facility] [address] [place] [address] Ilana Lambert MANUAL DIFF REQ NO Normal [facility] Comment on above: Performed By: #### F T4 #### [facility] [address] [place] [address] Ilanayonny Lambert MCH (RBC) [Entitic mass] 30.0 pg Normal 26.7-34.0 [facility] Comment on above: Performed By: #### F T4 #### [facility] [address] [place] [address] Ilana Petra MCHC (RBC) [Mass/Vol] 33.2 g/dL Normal 29.9-35.2 [facility] Comment on above: Performed By: #### F T4 #### [facility] [address] [place] [address] Ilanayonny Lambert MCV (RBC) [Entitic vol] 90.3 fL Normal 81.0-99.0 [facility] Comment on above: Performed By: #### F T4 #### [facility] [address] [place] [address] Ilana Petra MONO # 0.6 103/ul Normal 0.3-0.8 [facility] Comment on above: Performed By: #### F T4 #### [facility] [address] [place], [place] [id number] Ilana Petra Monocytes/100 WBC (Bld) 7.2 % Normal 1.7-12.0 [facility] Comment on above: Performed By: #### F T4 #### [facility] [address] [place], [place] [address] Ilana Petra NEUT # 5.9 103/ul Normal 1.4-6.5 [facility] Comment on above: Performed By: #### F T4 #### [facility] [address] [place], [place] [address] Ilana Petra Neutrophils/100 WBC (Bld) 66.5 % Normal 43.0-75.0 [facility] Comment on above: Performed By: #### F T4 #### [facility] [address] [place], [place] [address] Ilanayonny Yeageren Platelet mean volume (Bld) [Entitic vol] 9.7 fL Normal 9.5-13.5 [facility] Comment on above: Performed By: #### F T4 #### [facility] [address] [place], [place] [address] Ilana Petra PLT 239 103/ul Normal 150-450 [facility] Comment on above: Performed By: #### F T4 #### [facility] [address] [place], [place] [address] Ilana Petra RBC 4.33 106/ul Normal 4.20-5.40 [facility] Comment on above: Performed By: #### F T4 #### [facility] [address] [place], [place] [address] Ilana Petra WBC 8.9 103/ul Normal 4.0-11.0 [facility] Comment on above: Performed By: #### F T4 #### [facility] [address] [place], [place] [address] Ilana Petra FREE T3on 01-01-2021 FREE T3 1.09 pg/mlL Critically low 2.77-5.27 [facility] Comment on above: Performed By: #### F T4 #### [facility] [address] [place], [place] [address] Ilana Petra FREE T4on 01-01-2021 Free T4 [Mass/Vol] 1.50 ng/dL Normal 0.78-2.19 [facility] Comment on above: Performed By: #### F T4 #### [facility] [address] [place], [place] [address] Ilana Petra IRONon 01-01-2021 Iron [Mass/Vol] 101.0 ug/dL Normal 37.0-170.0 [facility] Comment on above: Performed By: #### F T4 #### [facility] [address] [place], [place] [address] Ilana Lambert PROF 14(COMP METB)on 021 Albumin [Mass/Vol] 3.3 g/dL Critically low 3.5-5.0 [facility] Comment on above: Performed By: #### C MP #### [facility] [address] [place], [place] [address] Ilana Petra Albumin/Globulin [Mass ratio] 0.9 {ratio} Normal [facility] Comment on above: Performed By: #### C MP #### [facility] [address] [place], [place] [address] Ilana Petra ALP [Catalytic activity/Vol] 55 U/L Normal 38-126 [facility] Comment on above: Performed By: #### C MP #### [facility] [address] [place], [place] [address] Ilana Petra ALT [Catalytic activity/Vol] 18 U/L Normal 9-52 [facility] Comment on above: Performed By: #### C MP #### [facility] [address] [place], [place] [address] Ilana Petra Anion gap [Moles/Vol] 8.8 mmol/L Normal [facility] Comment on above: Performed By: #### C MP #### [facility] [address] [place] [address] Ilana Petra AST [Catalytic activity/Vol] 13 U/L Critically low 14-36 [facility] Comment on above: Performed By: #### C MP #### [facility] [address] [id number] Ilana Petra Bilirubin [Mass/Vol] 0.5 mg/dL Normal 0.2-1.3 [facility] Comment on above: Performed By: #### C MP #### [facility] [address] [address] Ilana Petra Calcium [Mass/Vol] 8.4 mg/dL Normal 8.4-10.2 [facility] Comment on above: Performed By: #### C MP #### [facility] [address] [address] Ilana Petra Chloride [Moles/Vol] 104 mmol/L Normal 98-107 [facility] Comment on above: Performed By: #### C MP #### [facility] [address] [address] Ilana Petra CO2 [Moles/Vol] 29.8 mmol/L Normal 22.0-30.0 [facility] Comment on above: Performed By: #### C MP #### [facility] [address] [id number] Ilana Petra Creatinine [Mass/Vol] 0.88 mg/dL Normal 0.52-1.04 [facility] Comment on above: Performed By: #### C MP #### [facility] [address] [address] Ilana Petra EGFR-AF KOSOVAN >60 Normal >=60 [facility] Comment on above: Performed By: #### C MP #### [facility] [address] [id number] Ilana Petra EGFR-NON AF KOSOVAN >60 Normal >=60 [facility] Comment on above: Performed By: #### C MP #### [facility] [address] [phone] Ilana Petra Globulin (S) [Mass/Vol] 3.8 g/dL Normal [facility] Comment on above: Performed By: #### C MP #### [facility] [address] [phone] Ilana Petra Glucose [Mass/Vol] 90 mg/dL Normal 74-106 [facility] Comment on above: Performed By: #### C MP #### [facility] [address] [phone] Ilana Petra Potassium [Moles/Vol] 3.6 mmol/L Normal 3.4-5.0 [facility] Comment on above: Performed By: #### C MP #### [facility] [address] [phone] Ilana Petra Protein [Mass/Vol] 7.1 g/dL Normal 6.1-8.2 [facility] Comment on above: Performed By: #### C MP #### [facility] [address] [place] [address] Ilana Petra Sodium [Moles/Vol] 139 mmol/L Normal 137-145 [facility] Comment on above: Performed By: #### C MP #### [facility] [address] [place] [address] Ilana Petra Urea nitrogen [Mass/Vol] 11.0 mg/dL Normal 7.0-17.0 [facility] Comment on above: Performed By: #### C MP #### [facility] [address] [place], [place] [address] Ilana Petra Urea nitrogen/Creatinine [Mass ratio] 12.5 mg/mg Normal [facility] Comment on above: Performed By: #### C MP #### [facility] [address] [place], [place] [address] Ilana Petra TSHon 01-01-2021 TSH 3.552 uIU/mL Normal 0.470-4.680 [facility] Comment on above: Performed By: #### F T4 #### [facility] [address] [place], [place] [id number] Ilana Petra TSH RANGE SEE BELOW Normal [facility] Comment on above: Result Comment: <0.3 4 UIU/ml HYPERTHYROID 0.34-5.60 UIU/ml EUTHYROID >5.60 UIU/ml HYPOTHYROID Performed By: #### F T4 #### [facility] [address] [id number] Ilana Yeageren VITAMIN D 25 OHon 01-01-2021 VIT D 25-OH 30.8 ng/mL Normal [facility] Comment on above: Performed By: #### F T4 #### [facility] [address] [place], [place] [id number] Ilana Petra VIT D RANGES SEE BELOW Normal [facility] Comment on above: Result Comment: <20 ng/mL Vit D deficient 20 - <30 ng/mL Vit D insufficient 30 - 100 ng/mL Vit D sufficient >100 ng/mL Potential Toxicity Performed By: #### F T4 #### [facility] [address] [id number] Ilana Petra FREE T3on 10-03-2020 FREE T3 2.27 pg/mlL Critically low 2.77-5.27 [facility] Comment on above: Performed By: #### F T3, TSH #### [facility] [address] [place], [place] [id number] Ilana Petra FREE T4on 10-03-2020 Free T4 [Mass/Vol] 1.27 ng/dL Normal 0.78-2.19 [facility] Comment on above: Performed By: #### F T4 #### [facility] [address] [place], [place] [address] Ilana Petra TSHon 10-03-2020 TSH 17.604 uIU/mL Critically high 0.470-4.680 [facility] Comment on above: Performed By: #### F T3, TSH #### [facility] [address] [place], [place] [id number] Ilana Petra TSH RANGE SEE BELOW Normal [facility] Comment on above: Result Comment: <0.3 4 UIU/ml HYPERTHYROID 0.34-5.60 UIU/ml EUTHYROID >5.60 UIU/ml HYPOTHYROID Performed By: #### F T3, TSH #### [facility] [address] [place], [place] [id number] Ilana Petra LUMBAR SPINE 4 OR 5 [facility] LUMBAR SPINE 4 OR 5 [facility] Department of Radiology [address] [place] [id number] Patient Name: CONRAD AGUILAR : 1970 [...] findings. Electronically signed by:Jeovanny Mercer. Transcribed by: [email or web address], User Resident: ONEL CINTRON Electronically Signed by: JEOVANNY MERCER @ 06/15/2018 05:58 PM I personally read this/these film(s) with this resident Normal [facility] Comment on above: Order Comment: , Nathanael ws (X-RAY, LUMBAR SPINE): AP, Lateral, L5- S1 Spot, Flexion, Extension , Views (X-RAY, LUMBAR SPINE): AP, Lateral, L5-S1 Spot, Flexion, Extension , , , Ordering Provider - WU CALLOWAY MD , Vital Signs Date Time Vital Sign Value Performing Clinician Brook paulson 11-13-2024 09:06-0400 Body height 172.7 cm Onel Staciwalker DO Work Phone: [facility] 11-13-2024 09:06-0400 Body mass index (BMI) [Ratio] 26.46 kg/m2 Onel Hatch DO Work Phone: [facility] 11-13-2024 09:06-0400 Body weight 78.93 kg Onel Hatch DO Work Phone: [facility] 05-08-2024 09:07-0400 Body height 172.7 cm Onel Hatch DO Work Phone: [facility] 05-08-2024 09:07-0400 Body mass index (BMI) [Ratio] 26.46 kg/m2 Onel Hatch DO Work Phone: [facility] 05-08-2024 09:07-0400 Body weight 78.93 kg Onel Hatch DO Work Phone: [facility] Healthcare Encounters Encounter Date Encounter Type Care Provider Facility Start: 12-05-2024 End: 12-05-2024 ambulatory Carter PARKER Facility:[facility] Start: 11-20-2024 ambulatory Carter PARKER Facility:[facility] Start: 11-13-2024 End: 11-13-2024 Bamboo flowsheet Onel Smalltheodoradoron DO Work Phone: [facility] Start: 11-13-2024 End: 11-13-2024 Bamboo flowsheet Onel Hatch DO Work Phone: [facility] Start: 11-13-2024 End: 11-13-2024 Office outpatient visit 25 minutes Onel Magali Hatch DO [facility] Comment on above: Status post total th yroidectomy (Primary Dx); Malignant neoplasm of thyroid gland (CMS/HCC) Start: 11-13-2024 End: 11-13-2024 ambulatory ONEL HATCH Not Available Start: 11-05-2024 End: 11-05-2024 Patient encounter procedure Anh Granger MD Work Phone: [facility] [place] Work Phone: Start: 11-05-2024 End: 11-05-2024 ambulatory Anh Granger MD Work Phone: [facility] Work Phone: Start: 05-08-2024 End: 05-08-2024 [...] encounter procedure MD Anh Granger Work Phone: [facility] [place] Work Phone: Start: 04-26-2024 End: 04-26-2024 ambulatory MD Anh Granger Work Phone: [facility] Work Phone: Start: 11-21-2023 End: 11-21-2023 Patient encounter procedure MD Anh Granger Work Phone: [facility] [place] Work Phone: Start: 11-21-2023 End: 11-21-2023 ambulatory MD Anh Granger Work Phone: [facility] Work Phone: Start: 09-13-2023 External Result Encounter Abdoulaye Esuqeda DO Work Phone: [facility] Unsolicited Start: 09-13-2023 External Result Encounter Abdoulaye Guo Dheeraj DO Work Phone: [facility] Unsolicited Start: 09-13-2023 End: 09-13-2023 ambulatory MD Anh Granger Work Phone: [facility] Work Phone: Start: 09-13-2023 End: 09-13-2023 Patient encounter procedure MD Anh Granger Work Phone: [facility] [place] Work Phone: Start: 03-10-2023 End: 03-10-2023 ambulatory MD Anh Granger Work Phone: [facility] Work Phone: Start: 03-10-2023 End: 03-10-2023 Patient encounter procedure MD Anh Granger Work Phone: [facility] [place] Work Phone: Start: 09-08-2022 End: 09-08-2022 ambulatory MD Anh Granger Work Phone: [facility] Work Phone: Start: 09-08-2022 End: 09-08-2022 Patient encounter procedure MD Anh Granger Work Phone: [facility] [place] Work Phone: Start: 09-02-2021 End: 09-03-2021 ambulatory [...] gland (CMS/HCC) Expected: 10/28/2025 (Approximate), Expires: 11/13/2025 [facility] Comment on above: Expected: 10/28/2025 (Approximate), Expires: 11/13/2025 Start: 10-28-2025 End: 11-13-2025 Thyrotropin [Units/volume] in Serum or Plasma [facility] Comment on above: Expected: 10/28/2025 (Approximate), Expires: 11/13/2025 Start: 10-28-2025 End: 11-13-2025 Triiodothyronine (T3) [Mass/volume] in Serum or Plasma T3 Lab Routine Malignant neoplasm of thyroid gland (CMS/HCC) Expected: 10/28/2025 (Approximate), Expires: 11/13/2025 [facility] Comment on above: Expected: 10/28/2025 (Approximate), Expires: 11/13/2025 Start: 05-15-2025 End: 11-13-2025 Thyroglobulin Thyroglobulin Lab Routine Malignant neoplasm of thyroid gland (CMS/HCC) Expected: 05/15/2025 (Approximate), Expires: 11/13/2025 [facility] Comment on above: Expected: 05/15/2025 (Approximate), Expires: 11/13/2025 Start: 05-15-2025 End: 11-13-2025 Thyrotropin [Units/volume] in Serum or Plasma [facility] Work Phone: Comment on above: Expected: 05/15/2025 (Approximate), Expires: 11/13/2025 Start: 05-15-2025 End: 11-13-2025 Triiodothyronine (T3) [Mass/volume] in Serum or Plasma T3 Lab Routine Malignant neoplasm of thyroid gland (CMS/HCC) Expected: 05/15/2025 (Approximate), Expires: 11/13/2025 [facility] Comment on above: Expected: 05/15/2025 (Approximate), Expires: 11/13/2025 Start: 04-01-2025 Influenza vaccination Influenz a Vaccine (Season Ended) [facility] Start: 11-13-2024 End: 11-13-2024 Patient encounter procedure [facility] Comment on above: Arrived Start: 11-05-2024 End: 05-08-2025 Thyrotropin [Units/volume] in Serum or Plasma [facility] Work Phone: Comment on above: Expected: 11/05/2024 (Approximate), Expires: 05/08/2025 Start: 11-05-2024 End: 05-08-2025 Triiodothyronine (T3) [Mass/volume] in Serum or Plasma T3 Lab Routine Malignant neoplasm of thyroid gland (CMS/HCC) Expected: 11/05/2024 (Approximate), Expires: 05/08/2025 [facility] Comment on above: Expected: 11/05/2024 (Approximate), Expires: 05/08/2025 Start: 05-08-2024 End: 05-08-2024 [facility] Comment on above: Arrived Start: 04-26-2024 [facility] Start: 04-01-2024 Influenza vaccination Influenza Vacc ine (#1) [facility] Start: 11-21-2023 Thyroxine measurement F [facility] Start: 09-20-2023 End: 09-20-2023 Patient encounter procedure 09/20/2023 8:30 AM EST [facility] [address] [place] [id number] Onel Hatch DO [address] [place] [address] [facility] Start: 09-13-2023 Thyroxine measurement F [facility] Start: 04-01-2023 Influenza vaccination Influenza Vacc ine (#1) [facility] Start: 2008 Screening for malign ant neoplasm of breast Mammogram [facility] Start: 1998 Screening for malign ant neoplasm of cervix [facility] Start: 1989 Screening for malign ant neoplasm of cervix Pap Smear [facility] Start: 1970 Screening for malign ant neoplasm of colon [facility] Thyroglobulin Ab [Units/volume] in Serum or Plasma [facility] Thyroglobulin Ab [Units/volume] in Serum or Plasma [facility] Thyroglobulin Ab [Units/volume] in Serum or Plasma [facility] Thyroglobulin Ab [Units/volume] in Serum or Plasma [facility] Thyrotropin [Units/v olume] in Serum or Plasma TSH Lab Routine 09/13/2023 9:13 AM EST [facility] Work Phone: Thyrotropin [Units/v olume] in Serum or Plasma TSH Lab Routine 04/26/2024 9:20 AM EDT [facility] Work Phone: Triiodothyronine (T3 ) [Mass/volume] in Serum or Plasma T3 Lab Routine 09/13/2023 9:13 AM EST [facility] Payers Date Payer Category Payer Self-pay [id number] 2014 Medicaid [facility] MEDICAID [employer] MEDICA[place] [id number] 2014-Present [address] [place] [id number] [id number] 2014 Medicaid (Managed Care) [facility] MEDICAID [id number] 1970 Unknown [id number] 593 1968 Unknown [id number]. 593 1968 Unknown [id number]. 593 1968 Unknown [id number]. 593 1968 Unknown [id number]. 1259 1968 Unknown [id number]. 1259 1968 Unknown [id number] [id number]. 727 1959 Unknown [id number] Unknown [id number] 531 Unknown [id number] 531 Unknown [id number] 531 Social History Date Type Detail Facility Start: 01-05-2021 End: 03-16-2023 Tobacco smoking status [facility] Never smoked tobacco (finding) [facility] Start: 1970 Sex Assigned At Female F [facility] Start: 03-16-2023 Tobacco use and exposure Smokeless tobacco non-user [facility] Start: 03-17-2023 End: 11-13-2024 Alcohol intake Ex-drinker (finding) [facility] Start: 03-17-2023 End: 11-13-2024 History of Social function [facility] Start: 03-17-2023 End: 11-13-2024 Tobacco use panel [facility] Start: 03-17-2023 Alcohol Comment caffeine intak e : 1-2 cups per day [facility] Start: 1970 Sex Assigned At Not on file [facility] Start: 11-06-2024 Sex Female (finding) [facility] Clinical Note 12-05-2024 Note Date & Type [...] Oral, Daily N (more content not included)... [facility] Comment on above: Result Comment: Elec tronically [...] Note Facility Evaluation note [facility] Work Phone: Evaluation note Note Date [...] DATE CREATED AUTHOR 05/09/2019 [facility] DATE CREATED AUTHOR AUTHOR'S ORGANIZ ATION 09/05/2021 [facility] DATE CREATED AUTHOR AUTHOR'S ORGANIZ ATION 11/06/2024 The [facility] y[facility] DATE CREATED AUTHOR AUTHOR'S ORGANIZ ATION 11/14/2024 [facility] EPIC DATE CREATED AUTHOR AUTHOR'S ORGANIZ ATION 12/06/[address] [facility] Care Teams (unrecognized sec tion and content) Team Status: Active Member Role Status Dates Anh Granger MD Primary Care Provider Active Team Status: Inactive Member Role Status Dates Anh Granger MD Primary Care Provider Active Onel Hatch DO Attending Provider Active Supervisor Blood Donor Recruiters Relationship Specialty Start Date End Date Anh Granger MD [address] [place] [address] PCP - General Family Medicine 03/16/23 Team Status: Inactive Member Role Status Dates Anh Granger MD Primary Care Provider Active Start: September 13, 2023 End: September 13, 2023 Abdoulaye Esqueda DO Attending Provider Active S tart: September 13, 2023 End: September 13, 2023 Supervisor Blood [employer] Recruiters Relationship Specialty Start Date End Date Anh Granger MD [address] [place] [address] PCP - General Family Medicine 03/16/23 Team [...] 26, 2024 End: April 26, 2024 Supervisor Blood [employer] Recruiters Relationship Specialty Start Date End Date Anh Granger MD [address] [place] [address] PCP - General Family Medicine 03/16/23 Supervisor Blood [employer] Relationship Specialty Start Date End Date Anh Granger MD [address] [place] [address] PCP - General Family Medicine 03/16/23 Supervisor Blood [employer] Recruiters Relationship Specialty Start Date End Date Anh Granger MD [address] [place] [address] PCP - General Family Medicine 03/16/23 Team Status: Inactive Member Role Status Dates Anh Granger MD Primary Care Provider Active Start: November 05, 2024 End: November 05, 2024 Onel Hatch DO Attending Provider Active S tart: November 05, 2024 End: November 05, 2024 Supervisor Blood [employer]or Recruiters Relationship Specialty Start Date End Date Anh Granger MD [address] [place] [address] PCP - General Family Medicine 03/16/23 Goals [...] BE BASED ON THE PRIMARY CLINICAL RECORDS. [email or web address]. provides no warranty or guarantee of the accuracy or completeness of information in this document.
[2024-12-14 09:03] LABS: Basophils Percent Auto 0.8 % (0.2-2.0); Eosinophils Absolute Auto 0.1 10^3/uL (0.0-0.7); Eosinophils Percent Auto 1.5 % (0.9-7.0); Hematocrit 32.9 % (36.0-48.0); Hemoglobin 10.3 g/dL (12.0-16.0); Immature Granulocytes Abs Auto 0.01 10^3/uL (0.00-0.03); Immature Granulocytes Pct Auto 0.2 % (0.0-0.5); Lymphocytes Absolute Auto 2.2 10^3/uL (1.2-3.8); Lymphocytes Percent Auto 42.8 % (20.5-60.0); Mean Corpuscular HGB Conc 31.3 g/dL (29.9-35.2); Mean Corpuscular Hemoglobin 25.4 pg (26.7-34.0); Mean Corpuscular Volume 81.2 fL (81.0-99.0); Mean Platelet Volume 10.4 fL (9.5-13.5); Monocytes Absolute Auto 0.5 10^3/uL (0.3-0.8); Monocytes Percent Auto 10.2 % (1.7-12.0); Neutrophils Absolute Auto 2.3 10^3/uL (1.4-6.5); Neutrophils Percent Auto 44.5 % (43.0-75.0); Platelet Count 308 10^3/uL (150-450); Red Blood Count 4.05 10^6/uL (4.20-5.40); White Blood Count 5.2 10^3/uL (4.0-11.0)
[2024-12-14 09:05] LABS: Estimated Average Glucose 126 mg/dL
--- NOTE | 2024-12-14 09:21 | MM_ITS ---
Patient Name: DIANE MARSHALL MR#: [id number] : 1970 Exam Date: 12/14/2024 Ordering Doctor: DR ANH CANO . RADIOLOGY REPORT PROCEDURE: MM TOMOSYNTHESIS SCREENING BI COMPARISON: MG MAMM SCREEN DAVID W CAD, 01/16/2019. MG MAMM SCREEN DAVID W CAD, 05/24/2017. INDICATIONS: Screening Calculator Name NCI Breast Cancer Risk Assessment Tool 5 Year Breast Cancer Risk 2.20% Lifetime Breast Cancer Risk 13.60% Personal Breast Cancer No Personal Ovarian Cancer No Treatments None Family Cancers Sister with breast cancer at age 58; Father with bladder & lung cancer at age 75. LOCATION: [facility] BREAST COMPOSITION: There are scattered areas of fibroglandular density. FINDINGS: DIAGNOSTIC CATEGORY 2--BENIGN FINDING: RECOMMENDATIONS: ROUTINE MAMMOGRAM AND CLINICAL EVALUATION IN 12 MONTHS. PLEASE NOTE: A NORMAL MAMMOGRAM DOES NOT EXCLUDE THE POSSIBILITY OF BREAST CANCER. A CLINICALLY SUSPICIOUS PALPABLE LUMP SHOULD BE BIOPSIED. RIGHT BREAST: No significant suspicious finding. LEFT BREAST: No significant suspicious finding. Similar focal asymmetries are noted. There are a few punctate benign-appearing calcifications. Dictated by: Artur Smiley MD on 12/14/2024 at 16:23 Approved by: Artur Smiley MD on 12/14/2024 at 16:30
[2024-12-14 11:46] LABS: Alanine Aminotransferase 24 U/L (14-59); Albumin Globulin Ratio 0.9; Albumin Level 3.3 g/dL (3.4-5.0); Alkaline Phosphatase 54 U/L (46-116); Anion Gap 9.8; Aspartate Amino Transferase 22 U/L (15-37); BUN Creatinine Ratio 17.2; Bilirubin Total 0.4 mg/dL (0.2-1.0); Calcium 8.4 mg/dL (8.5-10.1); Carbon Dioxide 29.5 mmol/L (21.0-32.0); Chloride 106 mmol/L (98-107); Estimated GFR (African America >60 (>=60 mL/min/1.73m^2); Estimated GFR (Non-African Ame >60 (>=60 mL/min/1.73m^2); Globulin 3.6 g/dL; Glucose 106 mg/dL (74-106); Potassium 4.3 mmol/L (3.5-5.1); Sodium 141 mmol/L (136-145); Total Protein 6.9 g/dL (6.4-8.2)
== END 2024-12-14 08:35 | disposition home or self-care (01) ==
PROVIDERS: PCP Family Medicine; Visit Provider Family Medicine
DX: Z00.00 Encounter for general adult medical examination without abnormal findings (principal); Z12.31 Encounter for screening mammogram for malignant neoplasm of breast; D64.9 Anemia, unspecified; Z80.3 Family history of malignant neoplasm of breast; Z80.52 Family history of malignant neoplasm of bladder; Z80.1 Family history of malignant neoplasm of trachea, bronchus and lung
CPT/HCPCS: 36415; 77063; 77067; 80053; 80061; 82728; 83036; 83525; 83540; 84436; 84443; 84481; 85025

== ENCOUNTER 2024-12-21 12:41 | Outpatient (OUT) | payer OTHER, SELFPAY ==
--- OUTSIDE RECORDS SUMMARY | 2024-11-29 10:52 | XMS_ITS ---
Author Organization [facility] [place] Address [address] [place] [address] Care Team Providers Care Program/Music Director Name Role Phone MIKE CANO MD Primary Care Provider Mike Cano Unavailable [phone] REASON FOR VISIT Appeal Medications Medication SIG (Take, Route, Fr equency, Duration) Notes Start Date End Date Status Buprenorphine 10 MCG/HR 1 patch to skin Transdermal dx M47.816 weekly for 28 days 11/30/2024 Active Encounters Encounter Location Date Provider Diagnosis [facility] [address] [place] [address] 11/29/2024 Mike Elkin Hip pain M25.559 Assessments Encounter Date Diagnosis (ICD Code) Assessment Notes Treatment Notes Treatment Clinical Notes Section Notes 11/29/2024 Hip pain (ICD-10 - M25.559) Plan Of Treatment Medication Medication Name Sig Start Date Stop Date Notes Buprenorphine 10 MCG/HR 1 patch to skin Transdermal dx M47.816 weekly for 28 days 11/30/2024 Progress Notes * Conrad MARSHALL LDOB:[birth year] (54 yo F)Acc No.[id number]:11/29/2024 Patient: Jerzy CAICEDOConrad :1970 A ge:54 Y S ex:Female Address:[address] [place] [address], [address] * Refills Refill Buprenorphine Patch Weekly, 10 MCG/HR, Transdermal dx M47.816, 4, 1 patch to skin, weekly, 28 days, Refills=0 * true * Date: Generated for Lara drew/Juliette/Gamaitting on: 0 12/21/2024 12:43 PM EDT
--- OUTSIDE RECORDS SUMMARY | 2024-12-05 15:26 | XMS_ITS ---
Author Name Auto Generated Organization [facility] Care Team Providers Care Shrink Pit Operator Name Role Phone ONEL HATCH Attending Unavailable ONEL HATCH Attending Unavailable Carter PARKER Attending Unavailable Kevin Granger Referring Unavailable Abdoulaye Esqueda Attending Unavailable Abdoulaye Esqueda Admitting Unavailable Kevin Granger Primary Care Unavailable Kevin Granger Primary Care Unavailable Onel Hatch Attending Unavailable Onel Hatch Admitting Unavailable PROBLEMS DATE TYPE CONDITION / CODE ATTENDING STATUS ISREAL RCE 04/26/2024 Unknown Malignant neopla sm of thyroid gland / C73(ICD-10) Abdoulaye Esqueda [facility] PROCEDURES No Procedure Records Found RESULTS AMBULATORY VISIT SUMMARY Observed: 12/05 3:26 PM Status: F Source: [facility] Ambulatory Visit Summary CONRAD AGUILAR :1970 Visit Date:12/05/2024 Ambulatory Visit Instructions Your Care Team Attending Physician - Carter PARKER MD Primary Care Physician - Kevin Granger MD Referring Physician - Kevin Granger MD This Is Your Medications List Contact prescribing physician if questions or concerns buprenorphine (buprenorphine 10 mcg/hr transdermal film, extended release) ferrous sulfate (ferrous sulfate 325 mg oral enteric coated tablet) gabapentin (Neurontin 600 mg Tab) levothyroxine (Synthroid 200 mcg (0.2 mg) Tab) liothyronine (liothyronine 5 mcg Tab) lisinopril (lisinopril 10 mg Tab) Procedures Performed Arthroscopy of knee, Colonoscopy, EGD - esophagogastroduodenoscopy, History of lumbar spine surgery, IVC - Insertion of inferior vena caval filter, Thyroidectomy, Tubal ligation. Discharge Vitals Heart Rate (Peripheral) 72 Respiratory Rate 16 Blood Pressure 124/80 Height 172.7 cm Height 68 in Weight 90.9 kg Weight 200.4 lb BMI 30.48 Medications What How Much When Instructions Unchanged buprenorphine (buprenorphine 10 mcg/ hr transdermal film, extended release) Topical Every week Contact prescribing physician if questions or concerns Unchanged ferrous sulfate (ferrous sulfate 325 mg oral enteric coated tablet) 1 Tablets By Mouth 2 times a day Contact prescribing physician if questions or concerns Unchanged gabapentin (Neurontin 600 mg Tab) 1 Tablets By Mouth 2 times a day Contact prescribing physician if questions or concerns Unchanged levothyroxine (Synthroid 200 mcg (0.2 mg) Tab) 1 Tablets By Mouth Every day Contact prescribing physician if questions or concerns Unchanged liothyronine (liothyronine 5 mcg Tab) 2 Tablets By Mouth Every day Contact prescribing physician if questions or concerns Unchanged lisinopril (lisinopril 10 mg Tab) 1 Tablets By Mouth Every day Contact prescribing physician if questions or concerns Allergies No Known Allergies No Known Medication Allergies Problems Ongoing - Any problem that you are currently receiving treatment for. BMI 30.0-30.9,adult Depression Eczema Follicular thyroid carcinoma Hypertension Hypothyroidism Iron deficiency anemia Migraine Obesity due to excess calories Peripheral neuropathy Pulmonary embolism and infarction Restless legs Spondylosis, lumbar, with myelopathy Vitamin D deficiency Historical - Any problem that you are no longer receiving treatment for. Acute cystitis Autoimmune thyroiditis Chronic cystitis Incomplete bladder emptying Microscopic hematuria Mixed stress and urge incontinence Nocturia Shingles Weak urinary stream Patient Survey You may receive a survey via text or e-mail asking about your office visit. Please share your experience with us by completing your survey. We appreciate your feedback and thank you for choosing us for your care. GENERAL SURGERY OFFICE/CLINI C NOTE Observed: 12/05/2024 3:26 PM Status: F Source: [facility] General Surgery Office/Clini c Note Chief Complaint consultation for anemia HPI Staff 54 year old female presents on consultation from Dr. Granger for anemia. Labs completed 11/17 with H/H 9.9 and 32.0, iron 21. Patient reports several year history of anemia. She had a work-up with hematology approximately 5-10 years ago. Verbalized EGD and colonoscopy were completed as part of this work-up and were unremarkable. Denies abdominal or rectal pain. No rectal bleeding or change in bowel habits. Denies nausea or vomiting. No unexplained weight loss. History of Present Illness 54 yo female with h/o htn, hypothyroidism, post surgical, follicular thyroid carcinoma, migraines, peripheral neuropathy, PE after trauma, lumbar spondylosis, referred for iron deficiency anemia; denies change in bms or blood in stools, no melena or GERD, no wt loss; no abd complaints; abd operations significant for tubal ligation; colonoscopy reportedly 9 years ago, with sigmoid diverticulosis;no EGD found; on baby asa daily, no NSAID use; no tobacco use; no fmhx of GI malignancy or IBD. Review of Systems PHQ Score Initial Depression Screen Score: 0 SCORE ROS - Provider Constitutional: no fever, no sweats, no weight loss. Eyes: yes glasses, no blurred vision, no visual loss. ENMT: no dentures, no hoarseness, no swallowing difficulties, no hearing loss, no ear infection(s), no nose bleeds. Cardiovascular: normal blood pressure, no chest pain, regular heartbeat, no heart murmur. Respiratory: no shortness of breath, no cough, no asthma, no wheezing. Gastrointestinal: no nausea, no vomiting, no diarrhea, no constipation, no blood in stool, no change in bowel habits, no abdominal pain, no hepatitis. Genitourinary: no kidney stones, no urine infection, no dysuria. Musculoskeletal: no pain, no weakness. Skin: no changing moles, no rash, no skin lumps. Neurologic: no seizures, no epilepsy, no headache. Psychiatric: no emotional or psychiatric problem. Heme/Lymph: no bleeding problems, no anemia, no blood clots, no transfusions. Allergy/Immunologic: no swollen lymph nodes/glands, no IV drug abuse. Other: Additional ROS info: Except as noted in the above Review of Systems and in the History of Present Illness, all other systems have been reviewed and are negative or noncontributory. Physical Exam Vitals & Measurements HR: 72(Peripheral) RR: 16 BP: 124/80 HT: 68 in HT: 172.7 cm WT: 200.4 lb WT: 90.9 kg BMI: 30.48 HEENT: normal conjunctiva, sclera clear, no scleral icterus, EOM intact, PERRLA, oral mucosa moist without lesions. Neck: trachea midline, no mass, symmetric, no thyromegaly or nodules, no adenopathy Respiratory: lungs CTA, respirations non labored. Cardiovascular: regular rate and rhythm, no murmur, no pedal edema or varicosities. Gastrointestinal: obese, soft, non distended, no tenderness, no masses, no palpable hernias, diastasis recti no, no hepatosplenomegaly; normal bs Lymphatic: no cervical adenopathy, no supraclavicular adenopathy. Musculoskeletal: normal gait, digits and nails without infection, nodes, cyanosis, clubbing. Skin: no rashes, no lesions, no ulcers, no subcutaneous nodules, induration. Psychiatric/Neuro: oriented to time, place, person, judgement normal, affect appropriate for age, insight intact, no focal deficits. Tests: labs reviewed, review of old records completed , Discussed surgical options, risks, and possible complications with patient. Assessment/Plan 1. Screening for malignant neoplasm of colon (Z12.11: Encounter for screening for malignant neoplasm of colon) plan EGD and colonoscopy under anesthesia for further evaluation, informed consent obtained. 2. Iron deficiency anemia (D50.9: Iron deficiency anemia, unspecified) see # 1; will refer back to hematology for evaluation, possible iron infusion. Follow-up No qualifying data available Problem List/Past Medical History Ongoing BMI 30.0-30.9,adult Depression Eczema Follicular thyroid carcinoma Hypertension Hypothyroidism Iron deficiency anemia Migraine Obesity due to excess calories Peripheral neuropathy Pulmonary embolism and infarction Restless legs Screening for malignant neoplasm of colon Spondylosis, lumbar, with myelopathy Vitamin D deficiency Historical Acute cystitis Autoimmune thyroiditis Chronic cystitis Incomplete bladder emptying Microscopic hematuria Mixed stress and urge incontinence Nocturia Shingles Weak urinary stream Procedure/Surgical History Arthroscopy of knee, Colonoscopy, EGD - esophagogastroduodenoscopy, History of lumbar spine surgery, IVC - Insertion of inferior vena caval filter, Thyroidectomy, Tubal ligation. Medications buprenorphine 10 mcg/hr transdermal film, extended release, Topical, qWeek ferrous sulfate 325 mg oral enteric coated tablet, 325 mg= 1 tab(s), Oral, BID liothyronine 5 mcg Tab, 10 mcg= 2 tab(s), Oral, Daily lisinopril 10 mg Tab, 10 mg= 1 tab(s), Oral, Daily Neurontin 600 mg Tab, 600 mg= 1 tab(s), Oral, BID Synthroid 200 mcg (0.2 mg) Tab, 200 mcg= 1 tab(s), Oral, Daily Allergies No Known Allergies No Known Medication Allergies Social History Alcohol - Denies Alcohol Use, 12/05/2024 Substance Abuse - Denies Substance Abuse, 12/05/2024 Tobacco Never (less than 100 in lifetime) Tobacco Use:. Never Smokeless Tobacco Use:., 12/05/2024 Family History Arthritis: Mother. Diabetes mellitus type 2: Sister and Brother. Hypertension: Mother, Father, Sister and Brother. Migraine: Sister. Primary malignant neoplasm of bladder: Father. Primary malignant neoplasm of lung: Mother. Seizure: Sister. Immunizations Vaccine Date Status SARSCoV2 mRNA(thwdsdaij-bfeb-uwsmir) vac 10/29/2021 Recorded SARS-CoV-2 (COVID-19) mRNA BNT-162b2 vax 03/16/2021 Recorded SARS-CoV-2 (COVID-19) mRNA BNT-162b2 vax 02/16/2021 Recorded Result Comment: Electronical ly Signed By: ELENA DOTY, Carter Ornelas\Date and Time Signed: 12/05/24 16:14 EDT THYROXINE (T4) TOTAL Collected: 11/05/2024 9:28 AM S tatus: F Source: [facility] Order Comment: FASTING NON FASTING TYPE CODE TESTS RESULT OUT OF RANGE REFERENCE UNITS LAB T4T Thyroxine (T4) Total 11.03 Normal 5.39-11.82 ug/dL Performed By: #### T4T, T3T, TSH3 #### [facility] [address] [place] [address] TRIIODOTHYRONINE (T3) TOTAL Collected: 11/05/2024 9:2 8 AM Status: F Source: [facility] Order Comment: FASTING NON FASTING TYPE CODE TESTS RESULT OUT OF RANGE REFERENCE UNITS LAB T3T Triiodothyronine (T3) Total 1.05 Normal 0.87-1.78 ng/mL Performed By: #### T4T, T3T, TSH3 #### [facility] [address] [place] [address] THYROID STIMULATING HORMONE Collected: 11/05/2024 9:2 8 AM Status: F Source: [facility] Order Comment: FASTING NON FASTING TYPE CODE TESTS RESULT OUT OF RANGE REFERENCE UNITS LAB TSH3 Thyroid Stimulating Hormone 0.74 Normal 0.45-5.33 u[iU]/mL Result Comment: PERFORMED BY : [place] [address] PATHOLOGIST MACHINERY REPAIR MAINTENANCE SUPERVISOR MANAV ESPINAL M.D. Performed By: #### T4T, T3T, TSH3 #### [facility] [address] [place] [address] THYROXINE (T4) TOTAL Collected: 04/26/2024 9:20 AM S tatus: F Source: [facility] TYPE CODE TESTS RESULT OUT OF RANGE REFERENCE UNITS LAB T4T Thyroxine (T4) Total 11.41 Normal 5.39-11.82 ug/dL Performed By: #### THYGLOB # ### [facility] , #### TSH3, T3T, T4T #### [facility] [address] [place] [address] TRIIODOTHYRONINE (T3) TOTAL Collected: 04/26/2024 9:2 0 AM Status: F Source: [facility] TYPE CODE TESTS RESULT OUT OF RANGE REFERENCE UNITS LAB T3T Triiodothyronine (T3) Total 0.71 Low 0.87-1.78 ng/mL Performed By: #### THYGLOB # ### [facility] , #### TSH3, T3T, T4T #### [facility] [address] [place], [place] [id number] [facility] THYROID STIMULATING HORMONE Collected: 04/26/2024 9:2 0 AM Status: F Source: [facility] TYPE CODE TESTS RESULT OUT OF RANGE REFERENCE UNITS LAB TSH3 Thyroid Stimulating Hormone 1.64 Normal 0.45-5.33 u[iU]/mL Result Comment: PERFORMED BY : [place] [id number] PATHOLOGIST MACHINERY REPAIR MAINTENANCE SUPERVISOR ANDRE WATTS M.D. Performed By: #### THYGLOB # ### [facility] , #### TSH3, T3T, T4T #### [address] THYROGLOBULIN, QUANT + TG AB Collected: 04/26/2024 9: 20 AM Status: F Source: [facility] TYPE CODE TESTS RESULT OUT OF RANGE REFERENCE UNITS LAB THYGLOB AB Antithyroglobulin Ab 20.3 High 0.0-0.9 Result Comment: Thyroglobuli n Antibody measured by [employer] Methodology It should be noted that the presence of thyroglobulin antibodies may not be pathogenic nor diagnostic, especially at very low levels. The assay biological engineer has found that four percent of individuals without evidence of thyroid disease or autoimmunity will have positive TgAb levels up to 4 IU/mL. LAB TG-MARISSA Thyroglobulin, TG-MARISSA 4.2 . ng/mL Result Comment: This test wa s developed and its performance characteristics determined by [employer]. It has not been cleared or approved [...] quantitation limit is 2.0 ng/mL. Performed at: [address] [id number] Darklight Inspector: Jl Weems PhD, Phone: [phone] Performed at: [facility] [address] [place] [id number] Darklight Inspector: Alvin Suazo MD, Phone: [phone] PERFORMED BY: [place] [address] PATHOLOGIST MACHINERY REPAIR MAINTENANCE SUPERVISOR ANDRE WATTS M.D. Performed By: #### THYGLOB # ### [facility] , #### TSH3, T3T, T4T #### [address] ALLERGIES DATE TYPE / CODE NAME / CODE REACTION SEVERITY SOURCE 01/14/2021 Drug Allergy/[id number] [id number](SNOMED CT) No Known Allergies/[id number]( RXNORM) Unknown [facility] [id number](SN OMED CT) No Known Allergies [facility] [id number](SN OMED CT) No Known Medication Allergies [facility] ENCOUNTERS ADMIT/DISCHARGE ACCOUNT NUMBER ADMITTING ENCOUNTER CLASS LOCATION SOURCE 12/05/2024/12/06/19 [id number] [facility] [facility] 1 [facility] 11/20/2024 [id number] [place] [facility] 11/13/2024/11/14/19 [id number] Ambulatory Building:[facility] 11/05/2024/11/06/19 25 [id number] [facility] 05/08/2024/05/08/20 24 [id number] Ambulatory Building:[facility] EPIC 04/26/2024/04/26/20 24 [id number] [facility]aye [facility]qu[facility] PAYERS ENCOUNTER GUARANTOR PAYER SUBSCRIBER SOURCE 12/05/2024 CONRAD LOPEZB[facility] ~~(4 1 (HP) Primary Insurance:[facility] Number: [id number] Date:[id number] [address]QX: CONRAD MOMIN [facility] 11/13/2024 CONRAD LOPEZB: [place] [address]Ptd: (HP) Primary Insurance:[employer] [employer] MEDICAIDPolicy Number: [id number] Date:2014-10-30 CONRAD LOPEZB: [id number] [place] [address] [facility] EPIC 11/05/2024 Conrad [address] [place] [address]Cxz: (HP) [place] Insurance:[place] Medicaid[place] Number: [id number] Date:[id number] [address]Att[place] [address]TH: Conrad Wood JeffDOB: [id number] [place] [address]Qha: (HP) [facility] 11/05/2024 Secondary Insurance:Self PayPolicy Number: Effective Date:2024-11-05 [facility] 05/08/2024 ANDREYMarisol Wood JESSICAB: [place] [address]Aro: (HP) [facility] Insurance:[facility] MEDICAIDPolicy Number: [id number] Date:2014-10-30 JANNIEYASMEEN Wood JEFFDOB: [id number] [place] [address] [facility] EPIC 04/26/2024 [address] [place] [address]Xem: (HP) [place] Insurance:[place] MedicaidPolicy Number: [id number] Date:[id number]Att[place] [address]XJ: Jannieyasmeen Wood JeffDOB: [id number] [place] [address]Fco: (HP) [facility] 04/26/2024 Secondary Insurance:Self PayPolicy Number: Effective Date:2024-04-[address] [facility]
--- OUTSIDE RECORDS SUMMARY | 2024-12-13 06:21 | XMS_ITS ---
Author Organization [facility] [place] Address [address] [place] [address] Care Team Providers Care Plumber Apprentice Name Role Phone MIKE CANO MD Primary Care Provider Mike Cano Unavailable [phone] Results Component Value Reference Range Notes FERRITIN Reviewed date:12/16/2024 10:27:53 PM Interpretation: Performing Lab: Notes/Report: [facility] , Ferritin 33.0 8.0-252.0 ng/mL Performing Lab: see note ML - [facility] LB IRON Reviewed date:12/16/2024 10:27:53 PM Interpretation: Performing Lab: Notes/Report: [facility] , Iron 30.0 50.0-170.0 ug/dL Performing Lab: see note ML - [facility] LB REASON FOR VISIT labs need ordered Problems Problem Type SNOMED Code ICD Code Onset Dates Problem Status W/U Status Risk Notes Problem Anemia (D64.9) Active confirmed Encounters Encounter Location Date Provider Diagnosis [facility] [address] [place] [address] 12/13/2024 Mike Elkin Anemia D64.9 Assessments Encounter Date Diagnosis (ICD Code) Assessment Notes Treatment Notes Treatment Clinical Notes Section Notes 12/13/2024 Anemia (ICD-10 - D64.9) Plan Of Treatment Pending Test Test Name Order Date CMP - Comprehensive Metabolic Panel 11/29 CBC W/AUTO DIFF 12/13/2024 Progress Notes * Conrad MARSHALL LDOB:[birth year] (54 yo F)Acc No.[id number]:12/13/2024 Patient: Conrad LUCERO :1970 A ge:54 Y S ex:Female Address:[address] [place] [id number] Subjective: * Chief Complaints: * L abs need ordered * Medical History: * Surgical History: * Hospitalization/Major Diagno stic Procedure: * Medications: Objective: * Vitals: * Physical Examination: Assessment: * Assessment: 1. A nemia - D64.9 (Primary) Plan: * Treatment: * Procedure Codes: * true * Date: Generated for Lara drew/Juliette/Gamaitting on: 0 12/21/2024 12:43 PM EDT
--- OUTSIDE RECORDS SUMMARY | 2024-12-16 18:24 | XMS_ITS ---
Author Organization [facility] in [employer] Address [address] [place] [address] Care Team Providers Care Sweatband Drummer Name Role Phone MIKE CANO MD Primary Care Provider [phone] Mike Cano Unavailable [phone] REASON FOR VISIT anemia Encounters Encounter Location Date Provider Diagnosis [facility] [address] [place] [address] 12/16/2024 Mike Cano Plan Of Treatment No Information Progress Notes * Conrad MARSHALL LDOB:[birth year] (54 yo F)Acc No.[id number]:12/16/2024 Patient: Jerzy CAICEDOConrad :1970 A ge:54 Y S ex:Female Address:[address] [place] [address], [phone] * true * Date: Generated for Shashanki ng/Famelchorg/eTransmitting on: 0 12/21/2024 12:43 PM EDT
--- OUTSIDE RECORDS SUMMARY | 2024-12-21 12:43 | XMS_ITS | Encounter Summary ---
Author Organization [facility] Address [address] [place] [address] Care Team Providers Care Java Software Developer Name Role Phone Kevin Granger MD Primary Care Provider [phone] Encounter Details Date Type Department Care Team (Late st Contact Info) Description 09/13/2023 Orders Only [facility] [place] [address] [place] [address] Onel Hatch W, DO [address] [address] Malignant neoplasm of thyroid gland (CMS/HCC) ; History of total thyroidectomy (CMS/HCC) Social History Tobacco Use Types Packs/Day Years Used Date Smoking Tobacco: Never Smokeless Tobacco: Never Alcohol Use Standard Drinks/Week Comments Not Currently 0 (1 standard drink = 0.6 oz pure alcohol) caffeine intake : 1-2 cups per day Comments Unknown Sex and Gender Information Value Date Recorded Sex Assigned at Not on file Legal Sex Female 11:07 PM EDT Gender Identity Not on file Sexual Orientation Not on file documented as of this encounter Plan of Treatment Scheduled Orders Name Type Priority Associated Diagnoses Orde r Schedule T4 Lab Routine Malignant neoplasm of thyroid gland (CMS/HCC) History of total thyroidectomy (CMS/HCC) Expected: 09/13/2023 (Approximate), Expires: 09/13/2024 T3 Lab Routine Malignant neoplasm of thyroid gland (CMS/HCC) History of total thyroidectomy (CMS/HCC) Expected: 09/13/2023 (Approximate), Expires: 09/13/2024 TSH Lab Routine Malignant neoplasm of thyroid gland (CMS/HCC) History of total thyroidectomy (CMS/HCC) Expected: 09/13/2023 (Approximate), Expires: 09/13/2024 Thyroglobulin Lab Routine Malignant neoplasm of thyroid gland (CMS/HCC) History of total thyroidectomy (CMS/HCC) Expected: 09/13/2023 (Approximate), Expires: 09/13/2024 documented as of this encounter Visit Diagnoses Diagnosis Malignant neoplasm of thyroid gland (CMS/HCC) Malignant neoplasm of thyroid gland History of total thyroidectomy documented in this encounter Care Teams Java Software Developer Relationship Specialty Start Date End Date Kevin Granger MD PCP - General Family Medicine 03/16/23 documented as of this encounter
--- OUTSIDE RECORDS SUMMARY | 2024-12-21 12:43 | XMS_ITS | Patient Health Record ---
Author Organization [facility] Address [address] [place] [address] Care Team Providers Care Vehicle Fuel Systems Converter Name Role Phone Elsie Santamary Primary Care Provider Reason For Referral No Information Medications Medication SIG (Take, Route, Fr equency, Duration) Notes Start Date End Date Status Ibuprofen 800 MG 1 tablet with food o r milk as needed Orally Three times a day 03/31/2022 Active Plan Of Treatment No Information Insurance Providers Payer Name Payer Address Payer Phone Subscriber Number Group Number Insured Name Patient Relationship to Insured Coverage Start Date Coverage End Date [employer] [place] Medicaid [address] [place] [address] [id number] DIANE MARSHALL Self - patient is the insured 3 [employer] [address] [place] [address] [phone] [id number] DIANE MARSHALL Self - patient is the insured 3 zDENTAL [employer] rmed [address] [address] [place] [address] [id number] DIANE MARSHALL Self - patient is the insured 2 3 zDental MEDICAID CF after [employer] [address] [place] [address] [phone] [id number] DIANE MARSHALL Self - patient is the insured 2 3 Dental [employer] [address] [address] [place] [address] [id number] DIANE MARSHALL Self - patient is the insured 3 Dental Wrap [facility] [employer] [address] [place] [address] [id number] DIANE MARSHALL Self - patient is the insured 3
--- OUTSIDE RECORDS SUMMARY | 2024-12-21 12:44 | XMS_ITS | Encounter Summary ---
Author Organization [facility] Address [address] [place] [address] Care Team Providers Care Packaging Line Operator Name Role Phone Kevin Granger MD Primary Care Provider [phone] Reason for Visit * Reason Comments Med Refill Encounter Details Date Type Department Care Team (Late st Contact Info) Description 06/18/2024 Refill [facility] [place] [address] [place] [address] Onel Hatch, DO [address] [place] [address] Malignant neoplasm of thyroid gland (CMS/HCC) Social History Tobacco Use Types Packs/Day [...] as of this encounter Plan of Treatment Not on file documented as of this encounter Visit Diagnoses Diagnosis Malignant neoplasm of thyroid gland (CMS/HCC) Malignant neoplasm of thyroid gland documented in this encounter Care Teams Packaging Line Operator Relationship Specialty Start Date End Date Kevin Granger MD PCP - General Family Medicine 03/16/23 documented as of this encounter
--- OUTSIDE RECORDS SUMMARY | 2024-12-21 12:44 | XMS_ITS | Encounter Summary ---
Author Organization [facility] Address [address] [place] [address] Care Team Providers Care Pedicurist Name Role Phone Kevin Granger MD Primary Care Provider [phone] Encounter Details Date Type Department Care Team (Late st Contact Info) Description 03/16/2023 Orders Only [facility] [place] [address] [facility] [place] [phone] Layla Armendariz MA Social History Tobacco Use Types Packs/Day Years Used Date Smoking Tobacco: Never Smokeless Tobacco: Never Alcohol Use Standard Drinks/Week Comments Not Currently 0 (1 standard drink = 0.6 oz pur e alcohol) Comments Unknown Sex and Gender Information Value Date Recorded Sex Assigned at Not on file Legal Sex Female 11:07 PM EDT Gender Identity Not on file Sexual Orientation Not on file documented as of this encounter Plan of Treatment Not on file documented as of this encounter Visit Diagnoses Not on filedocumented in this encounter Care Teams Pedicurist Relationship Specialty Start Date End Date Kevin Granger MD PCP - General Family Medicine 03/16/23 documented as of this encounter
--- OUTSIDE RECORDS SUMMARY | 2024-12-21 12:44 | XMS_ITS | Clinical Summary ---
Author Organization [facility] Address [address] [place] [address] Care Team Providers Care Parachute Inspector Name Role Phone Kevin Granger MD Primary Care Provider [phone] Allergies Active Allergy Reactions Criticality Noted Date Comments Fentanyl Hives Medium 05/01/2014 Povidone Iodine Rash Low 07/19/2014 Medications aspirin 81 MG chewable tablet Acti ve gabapentin (Neurontin) 400 MG capsule Active scopolamine (Transderm-Scop) 1 mg/72 hr patch 72 hour patch 3 Active amitriptyline (Elavil) 100 MG tablet Take 100 mg by mouth at bedtime Active Butrans 10 MCG/HR Place 1 patch on the skin 1 (one) time per week 4 Active lisinopril 10 MG tablet Take 10 mg by mouth Daily 4 Active levothyroxine (Synthroid, Levoxyl) 200 MCG tabletIndications: Malignant neoplasm of thyroid gland (CMS/HCC) TAKE 1 TABLET BY MOUTH IN THE MORNING BEFORE MEALS 90 tablet 1 4 Active diclofenac (Voltaren) 75 MG EC tablet Take 75 mg by mouth 2 (two) times a day as needed 5 Active levothyroxine (Synthroid) 200 MCG tabletIndications: Status post total thyroidectomy Take 1 tablet (200 mcg) by mouth in the morning. Take before meals. 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 Carcinoma of thyroid 03/16/2023 023 Closed fracture of one rib 03/16/2023 0 03/16/2023 Depressive disorder 03/16/2023 03/16/20 23 Eczema 03/16/2023 03/16/2023 Flank pain 03/16/2023 03/16/2023 History of total thyroidectomy 03/16/2023 03/16/2023 Impingement syndrome of shoulder region 03/16/2023 03/16/2023 Multinodular goiter 03/16/2023 03/16/20 23 Muscle pain 03/16/2023 03/16/2023 Incontinence 03/16/2023 03/16/2023 Nontoxic single thyroid nodule 03/16/2023 03/16/2023 Sacroiliac joint pain 03/16/20232022 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 03/16/2023 Tear of meniscus of knee 03/16/2023 Vitamin D deficiency 03/16/2023 023 Neurogenic bladder 05/28/2014 Closed fracture of thoracic vertebra 05/06/2014 03/16/2023 Overview (03/16/2023): T12 Hypothyroidism 05/06/2014 03/16/2023 Closed fracture of metacarpal bone 04/09/2014 03/16/2023 Pulmonary embolism with infarction 03/01/2014 03/16/2023 Encounters Date Type Department Care Team Description 11/13/2024 9:15 AM EDT Office Visit [facility] [address] [place] [address] Onel Hatch, DO Status post total thyroidectomy (Primary Dx); Malignant neoplasm of thyroid gland (CMS/HCC) 11/13/2024 Bamboo flowsheet [facility] [place] [address] [place] [address] Onel Hatch, DO 11/13/2024 Travel from Last 3 Months Family History Medical History Relation Name Comments Asthma Child Cancer Father Diabetes Father Cancer Maternal Grandmother Diabetes Paternal Grandfather Heart disease Paternal Grandfather Asthma Sibling Diabetes Sibling Relation Name Status Comments Child Alive Father Maternal Grandmother Paternal Grandfather Sibling Alive Social History Tobacco Use Types Packs/Day Years Used Date Smoking Tobacco: Never Smokeless Tobacco: Never Tobacco Cessation:Counseling Given: Not Answered Alcohol Use Standard Drinks/Week Comments Not Currently 0 (1 standard drink = 0.6 oz pure alcohol) caffeine intake : 1-2 cups per day Comments Unknown Sex and Gender Information Value Date Recorded Sex Assigned at Not on file Legal Sex Female 11:07 PM EDT Gender Identity Not on file Sexual Orientation Not on file Last Filed Vital Signs Vital Sign Reading Time Taken Comments Blood Pressure - - Pulse - - Temperature - - Respiratory Rate - - Oxygen Saturation - - Inhaled Oxygen Concentration - - Weight 78.9 kg (174 lb) 11/13/2024 9:06 AM EDT Height 172.7 cm (5' 8 ) 11/13/2024 9:06 AM EDT Body Mass Index 26.46 11/13/2024 9:06 AM EDT Plan of Treatment Health Maintenance Due Date Last Done Comments CT Colonography 1968 Colonoscopy 1968 Colorectal Cancer Screening 1968 FIT-DNA 1968 FIT 1968 FOBT 1968 Sigmoidoscopy 1968 Pap Smear 1989 Cervical Cancer Screening 1998 HPV/Cotest 1998 Mammogram 2008 Influenza Vaccine (Season Ended) 2025 Procedures Procedure Name Priority Date/Time Associated Diagnosis Comments TSH Routine 11/05/2024 9:28 AM EDT Malignant neoplasm of thyroid gland (CMS/HCC) T3, TOTAL Routine 11/05/2024 9:28 AM EDT Malignant neoplasm of thyroid gland (CMS/HCC) T4 (THYROXINE), TOTAL Routine 11/05/2024 9:28 AM EDT Malignant neoplasm of thyroid gland (CMS/HCC) from Last 3 Months Results * T3 (11/05/2024 9:28 AM EDT) TRIIODOTHYRONINE (T3) TOTAL 1.05 0.87 - 1.78 ng/mL 11/05/2024 11:43 AM EDT [facility] Other Topography unknown / Unknown 11/05/2024 9:28 AM EDT 11/05/2024 9:28 AM EDT [facility] - 11/05/2024 6:26 PM EDT FASTING NON FASTING Onel Hatch DO LAB BLOOD ORDERABLES Final Result Performing Organization Address City/[facility]/ZIP Co de Phone Number [address] [address], [place] [phone] * TSH (11/05/2024 9:28 AM EDT) THYROID STIMULATING HORMONE 0.74 0.45 - 5.33 u[iU]/mL 11/05/2024 11:36 AM EDT [facility] Other Topography unknown / Unknown 11/05/2024 9:28 AM EDT 11/05/2024 9:28 AM EDT [facility] - 11/05/2024 6:26 PM EDT FASTING NON FASTING Onel Hatch DO LAB BLOOD ORDERABLES Final Result Performing Organization Address City/[facility]/ZIP Co de Phone Number [address] [address], [address] [address] * T4 (11/05/2024 9:28 AM EDT) THYROXINE (T4) TOTAL 11.03 5.39 - 11.82 ug/dL 11/05/2024 6:26 PM EDT [facility] Other Topography unknown / Unknown 11/05/2024 9:28 AM EDT 11/05/2024 9:28 AM EDT [facility] - 11/05/2024 6:26 PM EDT FASTING NON FASTING Onel W Murcek DO LAB BLOOD ORDERABLES Final Result [facility] [address] [place] [address], [facility] [address] [place] [address] from Last 3 Months Insurance [employer] Care Teams Parachute Inspector Relationship Specialty Start Date End Date Kevin Granger MD PCP - General Family Medicine 03/16/23
--- OUTSIDE RECORDS SUMMARY | 2024-12-21 12:44 | XMS_ITS | Clinical Summary ---
Author Organization [facility] Address [id number] [address] [place] [address] Care Team Providers Care Buckle Frame Shaper Name Role Phone Unavailable Primary Care Provider Unavailabl e Social History Tobacco Use Types Packs/Day Years Used Date Smoking Tobacco: Never Assessed Childcare Answer Date Recorded Childcare Unknown 01/10/2019 Employment Answer Date Recorded Employment Unknown 01/10/2019 Comments Unknown Sex and Gender Information Value Date Recorded Sex Assigned at Not on file Legal Sex Female 11:29 AM EDT Gender Identity Not on file Sexual Orientation Not on file Plan of Treatment Health Maintenance Due Date Last Done Comments Depression Screening 1980 Tobacco Screening 1980 Adult BMI Screening 1986 DTaP,Tdap and Td Vaccines (1 - Tdap) 1987 Pap Smear 1989 Zoster (Shingles) Vaccine (1 of 2) 2018 COVID-19 Vaccine (2 - season) 2024 Influenza Vaccine 04/01/2025 Medical Devices Not on file Insurance [employer]
--- OUTSIDE RECORDS SUMMARY | 2024-12-21 12:44 | XMS_ITS | Patient Health Record ---
Author Organization [facility] in [place] Address [address] [place] [address] Care Team Providers Care Chief Concierge Name Role Phone MIKE CANO MD Primary Care Provider ANH CANO Unavailable [phone] Mike Cano Unavailable [phone] Allergies No Known Allergies Results Component Value Reference Range Notes INSULIN Reviewed date:11/19/2024 02:10:32 PM Interpretation: Performing Lab: Notes/Report: [facility] , Insulin 10.7 2.6-24.9 uIU/mL Performed at: - [facility] [address] [id number] Cylinder Inspector And Tester: Jl Weems PhD, Phone: [phone] Performing Lab: see note - [facility] LB Compliance Drug Analysis, Ur Reviewed date:11/26/2024 07:28:07 PM Interpretation: Performing Lab: Notes/Report: Specimen Comment: ToxAssure, ToxAssure FLEX or MAT drug testing: Specimen Comment: -Technical component - Data analysis performed at Specimen Comment: [address] [facility], [place] [address]. [facility] , Summary Report (Summary) FINAL . == TOXASSURE COMP DRUG ANALYSIS,UR == Test Result Flag Units Drug Present not Declared for Prescription Verification Gabapentin PRESENT UNEXPECTED Acetaminophen PRESENT UNEXPECTED Drug Absent but Declared for Prescription Verification Buprenorphine Not Detected UNEXPECTED ng/mg creat Transdermal buprenorphine, as indicated in the declared medication list, is not always detected even when used as directed. == Test Result Flag Units Ref Range Creatinine 106 mg/dL >=20 == Declared Medications: The flagging and interpretation on this report are based on the following declared medications. Unexpected results may arise from inaccuracies in the declared medications. Note: The testing scope of this panel does not include small to moderate amounts of these reported medications: Buprenorphine Patch (Butrans) == For clinical consultation, please call . == Performed at: [facility] [address] [id number] Cylinder Inspector And Tester: Gisselle Love, Phone: [phone] Performing Lab: see note LC - [facility] LB CBC AUTO DIFF Reviewed date:12/16/2024 10:27:52 PM Interpretation: Performing Lab: Notes/Report: [facility] , White Blood Count 5.2 4.0-11.0 10 3/uL Red Blood Count 4.05 4.20-5.40 10 6/uL Hemoglobin 10.3 12.0-16.0 g/dL Hematocrit 32.9 36.0-48.0 % Mean Corpuscular Volume 81.2 81.0-99.0 fL Mean Corpuscular Hemoglobin 25.4 26.7-34.0 pg Mean Corpuscular HGB Conc 31.3 29.9-35.2 g/dL Red Cell Distribution Width 17.0 11.0-15.0 % Platelet Count 308 150-450 10 3/uL Mean Platelet Volume 10.4 9.5-13.5 fL Neutrophils Percent Auto 44.5 43.0-75.0 % Lymphocytes Percent Auto 42.8 20.5-60.0 % Monocytes Percent Auto 10.2 1.7-12.0 % Eosinophils Percent Auto 1.5 0.9-7.0 % Basophils Percent Auto 0.8 0.2-2.0 % Immature Granulocytes Pct Auto 0.2 0.0-0.5 % Neutrophils Absolute Auto 2.3 1.4-6.5 10 3/uL Lymphocytes Absolute Auto 2.2 1.2-3.8 10 3/uL Monocytes Absolute Auto 0.5 0.3-0.8 10 3/uL Eosinophils Absolute Auto 0.1 0.0-0.7 10 3/uL Basophils Absolute Auto 0.0 0.0-0.1 10 3/uL Immature Granulocytes Abs Auto 0.01 0.00-0.03 10 3/uL Performing Lab: see note ML - [facility] LB GLYCOHEMOGLOBIN A1C Reviewed date:12/16/2024 10:27:52 PM Interpretation: Performing Lab: Notes/Report: [facility] , Glycohemoglobin A1C 6.0 4.5-6.2 % ADA RECOMMENDED LIMIT 4.0 - 6.0 ADA THERAPEUTIC TARGET < 7.0 ACTION SUGGESTED > 7.0 Estimated Average Glucose 126 Performing Lab: see note ML - [facility] LB MM tomosynthesis screening B I Reviewed date:12/16/2024 10:27:53 PM Interpretation: Performing Lab: Notes/Report: Source Facility: [place] [address] [address] [place] [id number] Mammography Report Signed Patient: CONRAD MARSHALL MR#: [id number] : 1970 Acct:[id number] Age/Sex: 54 / F ADM Date: 12/14/24 Loc: MAMMO Attending Dr: Anh Cano M.D. Ordering Physician: Anh Cano M.D. Results: Date of Service: 12/14/24 Follow Up: Procedure(s): MM tomosynthesis screening BI Accession Number(s): [id number] cc: Anh Cano M.D. Patient Name: CONRAD MARSHALL MR#: [id number] : 1970 Exam Date: 12/14/2024 Ordering Doctor: DR ANH CANO . RADIOLOGY REPORT PROCEDURE: MM TOMOSYNTHESIS SCREENING BI COMPARISON: MG MAMM SCREEN DAVID W CAD, 01/16/2019. MG MAMM SCREEN DAVID W CAD, 05/24/2017. INDICATIONS: Screening Calculator Name NCI Breast Cancer Risk Assessment Tool 5 Year Breast Cancer Risk 2.20% Lifetime Breast Cancer Risk 13.60% Personal Breast Cancer No Personal Ovarian Cancer No Treatments None Family Cancers Sister with breast cancer at age 58; Father with bladder lung cancer at age 75. LOCATION: [facility] BREAST COMPOSITION: There are scattered areas of fibroglandular density. FINDINGS: DIAGNOSTIC CATEGORY 2--BENIGN FINDING: RECOMMENDATIONS: ROUTINE MAMMOGRAM AND CLINICAL EVALUATION IN 12 MONTHS. PLEASE NOTE: A NORMAL MAMMOGRAM DOES NOT EXCLUDE THE POSSIBILITY OF BREAST CANCER. A CLINICALLY SUSPICIOUS PALPABLE LUMP SHOULD BE BIOPSIED. RIGHT BREAST: No significant suspicious finding. LEFT BREAST: No significant suspicious finding. Similar focal asymmetries are noted. There are a few punctate benign-appearing calcifications. Dictated by: Artur Smiley MD on 12/14/2024 at 16:23 Approved by: Artur Smiley MD on 12/14/2024 at 16:30 Dictated By: Artur Smiley M.D. 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 Ordering Physician: Anh Cano M.D. Results: Date of Service: 12/14/24 Follow Up: Procedure(s): MM tomosynthesis screening BI Accession Number(s): [id number] cc: Anh Cano M.D. Patient Name: CONRAD MARSHALL MR#: [id number] : 1970 Exam Date: 12/14/2024 Ordering Doctor: DR ANH CANO . RADIOLOGY REPORT PROCEDURE: MM TOMOSYNTHESIS SCREENING BI COMPARISON: MG MAMM SCREEN DAVID W CAD, 01/16/2019. MG MAMM SCREEN DAVID W CAD, 05/24/2017. INDICATIONS: Screening Calculator Name NCI Breast Cancer Risk Assessment Tool 5 Year Breast Cancer Risk 2.20% Lifetime Breast Canc er Risk 13.60% Personal Breast Canc er No Personal Ovarian Cancer No Treatments None Family Cancers Siste r with breast cancer at age 58; Father with bladder lung cancer at age 75. LOCATION: [facility] BREAST COMPOSITION: There are scattered areas of fibroglandular density. FINDINGS: DIAGNOSTIC CATEGORY 2--BENIGN FINDING: RECOMMENDATIONS: ROUTINE MAMMOGRAM AN D CLINICAL EVALUATION IN 12 MONTHS. PLEASE NOTE: A LIZ L MAMMOGRAM DOES NOT EXCLUDE THE POSSIBILITY OF BREAST CANCER. A CLINICALLY SUSPICIOUS PALPABLE LUMP SHOULD BE BIOPSIED. RIGHT BREAST: No significant suspicious finding. LEFT BREAST: No significant suspicious finding. Similar focal asymmetries are noted. There are a few punctate benign-appearing calcifications. Dictated by: Artur Smiley MD on 12/14/2024 at 16:23 Approved by: Artur Smiley MD on 12/14/2024 at 16:30 Dictated By: Artur Smiley M.D. 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 Reviewed date:11/17/2024 01:04:00 PM Interpretation: Performing Lab: Notes/Report: [facility] , Thyroid Stimulating Hormone 2.577 0.358-3.740 uIU/mL Performing Lab: see note ML - [facility] LB T4 Reviewed date:11/17/2024 01:04:00 PM Interpretation: Performing Lab: Notes/Report: [facility] , T4 Thyroxine 8.20 4.80-13.90 ug/dL Performing Lab: see note - [facility] LB PROF 14(COMP METB) Reviewed date:11/17/2024 01:04:00 PM Interpretation: Performing Lab: Notes/Report: [facility] , Sodium 141 136-145 mmol/L Potassium 4.1 3.5-5.1 mmol/L Chloride 104 98-107 mmol/L Carbon Dioxide 30.3 21.0-32.0 mmol/L Anion Gap 10.8 Glucose 105 74-106 mg/dL Blood Urea Nitrogen 16.0 7.0-18.0 mg/dL Creatinine 0.74 0.55-1.02 mg/dL Estimated GFR ( Regla >60 >=60 mL/min/1.73m 2 Estimated GFR (Non- Carmina >60 >=60 mL/min/1.73m 2 BUN Creatinine Ratio 21.6 Calcium 8.6 8.5-10.1 mg/dL Bilirubin Total 0.3 0.2-1.0 mg/dL Aspartate Amino Transferase 18 15-37 U/L Alanine Aminotransferase 21 14-59 U/L Alkaline Phosphatase 59 46-116 U/L Total Protein 7.0 6.4-8.2 g/dL Albumin Level 3.4 3.4-5.0 g/dL Globulin 3.6 Albumin Globulin Ratio 0.9 Performing Lab: see note ML - [facility] LB LIPID PROFILE Reviewed date:11/17/2024 01:04:00 PM Interpretation: Performing Lab: Notes/Report: [facility] , Triglycerides 54 <=150 mg/dL Cholesterol 187 <=200 mg/dL HDL Cholesterol 82 40-60 mg/dL > or =60 mg/dl - LOW CARDIOVASCULAR RISK <40 mg/dl - HIGH CARDIOVASCULAR RISK LDL Cholesterol Calculated 95.0 <100 mg/dl OPTIMAL 100-129 mg/dl NEAR OR ABOVE OPTIMAL 130-159 mg/dl BORDERLINE HIGH 160-189 mg/dl HIGH >190 mg/dl VERY HIGH VLDL CHOLESTEROL 10.8 Chol HDL Ratio 2.3 3.3 - 4.4 LOW RISK 4.4 - 7.1 AVERAGE RISK 7.1 - 11.0 MODERATE RISK >11.0 HIGH RISK Performing Lab: see note - [facility] IRON Reviewed date:11/17/2024 01:04:00 PM Interpretation: Performing Lab: Notes/Report: [facility] , Iron 21.0 50.0-170.0 ug/dL Performing Lab: see note - [facility] GLYCOHEMOGLOBIN A1C Reviewed date:11/17/2024 01:04:00 PM Interpretation: Performing Lab: Notes/Report: [facility] , Glycohemoglobin A1C 5.4 4.5-6.2 % ADA RECOMMENDED LIMIT 4.0 - 6.0 ADA THERAPEUTIC TARGET < 7.0 ACTION SUGGESTED > 7.0 Estimated Average Glucose 108 Performing Lab: see note - [facility] FREE T3 Reviewed date:11/17/2024 01:04:00 PM Interpretation: Performing Lab: Notes/Report: [facility] Free T3 1.69 2.18-3.98 pg/mL Performing Lab: see note - [facility] CBC AUTO DIFF Reviewed date:11/17/2024 01:04:00 PM Interpretation: Performing Lab: Notes/Report: [facility] , White Blood Count 7.2 4.0-11.0 10 3/uL Red Blood Count 4.00 4.20-5.40 10 6/uL Hemoglobin 9.9 12.0-16.0 g/dL Hematocrit 32.0 36.0-48.0 % Mean Corpuscular Volume 80.0 81.0-99.0 fL Mean Corpuscular Hemoglobin 24.8 26.7-34.0 pg Mean Corpuscular HGB Conc 30.9 29.9-35.2 g/dL Red Cell Distribution Width 14.3 11.0-15.0 % Platelet Count 356 150-450 10 3/uL Mean Platelet Volume 9.8 9.5-13.5 fL Neutrophils Percent Auto 51.2 43.0-75.0 % Lymphocytes Percent Auto 36.5 20.5-60.0 % Monocytes Percent Auto 9.0 1.7-12.0 % Eosinophils Percent Auto 1.9 0.9-7.0 % Basophils Percent Auto 1.0 0.2-2.0 % Immature Granulocytes Pct Auto 0.4 0.0-0.5 % Neutrophils Absolute Auto 3.7 1.4-6.5 10 3/uL Lymphocytes Absolute Auto 2.6 1.2-3.8 10 3/uL Monocytes Absolute Auto 0.7 0.3-0.8 10 3/uL Eosinophils Absolute Auto 0.1 0.0-0.7 10 3/uL Basophils Absolute Auto 0.1 0.0-0.1 10 3/uL Immature Granulocytes Abs Auto 0.03 0.00-0.03 10 3/uL Performing Lab: see note ML - [facility] LB IRON Reviewed date:12/16/2024 10:27:53 PM Interpretation: Performing Lab: Notes/Report: [facility] , Iron 30.0 50.0-170.0 ug/dL Performing Lab: see note ML - [facility] LB FERRITIN Reviewed date:12/16/2024 10:27:53 PM Interpretation: Performing Lab: Notes/Report: [facility] , Ferritin 33.0 8.0-252.0 ng/mL Performing Lab: see note ML - [facility] LB PROF 14(COMP METB) Reviewed date:12/16/2024 10:27:52 PM Interpretation: Performing Lab: Notes/Report: [facility] , Sodium 141 136-145 mmol/L Potassium 4.3 3.5-5.1 mmol/L Chloride 106 98-107 mmol/L Carbon Dioxide 29.5 21.0-32.0 mmol/L Anion Gap 9.8 Glucose 106 74-106 mg/dL Blood Urea Nitrogen 15.0 7.0-18.0 mg/dL Creatinine 0.87 0.55-1.02 mg/dL Estimated GFR ( Regla >60 >=60 mL/min/1.73m 2 Estimated GFR (Non- Carmina >60 >=60 mL/min/1.73m 2 BUN Creatinine Ratio 17.2 Calcium 8.4 8.5-10.1 mg/dL Bilirubin Total 0.4 0.2-1.0 mg/dL Aspartate Amino Transferase 22 15-37 U/L Alanine Aminotransferase 24 14-59 U/L Alkaline Phosphatase 54 46-116 U/L Total Protein 6.9 6.4-8.2 g/dL Albumin Level 3.3 3.4-5.0 g/dL Globulin 3.6 Albumin Globulin Ratio 0.9 Performing Lab: see note ML - [facility] LB Reason For Referral Diagnosis 1 Hypothyroidism (E03. 9) Referral Organization [facility] Referring Provider First Name Mike Referring Provider Last Name Frenchsammie Referring Provider Speciality Family Med vidal Referred Provider Carter Enrique Referred Provider Specialty General Surg cosme Referral Priority Routine Medications Medication SIG (Take, Route, Frequency, Duration) Notes Start Date End Date Status Ferrous Sulfate 325 (65 Fe) MG 1 tablet Orally bid for 30 days 11/19/2024 Active Diclofenac Sodium 75 MG 1 tablet as need ed Orally Twice a day for 30 days 05/14/2024 Active Buprenorphine 10 MCG/HR 1 patch to skin Transdermal dx M47.816 weekly for 28 days 11/30/2024 Active Compression Stocking Below Knee 20-30mmHg - Use one pair daily for 90 days 01/18/2023 Active Levothyroxine Sodium 200 MCG Oral for 90 Days Active Gabapentin 600 MG 1 in amd and two at hs Orally dx M47.816 bid for 30 days 11/25/2022 Active Ondansetron HCl 4 MG 1 tablet Orally fallon ry 6 hours as needed for 30 days Active Lisinopril 10 MG 1 tablet Orally Once a day for 30 days 05/25/2023 Active Liothyronine Sodium 5 MCG 2 tablet on an empty stomach Orally Once a day for 30 days 11/19/2024 Active Social History Tobacco Use: Social History Observation Description Date Details (start date - stop date) Never Smoker NA - NA Tobacco Use/Smoking Question Answer Notes Patient is a nonsmoker Alcohol Screen (Audit-C) Question Answer Notes Did you have a drink contain ing alcohol in the past year? Yes How many drinks did you have on a typical day when you were drinking in the past year? 1 or 2 drinks (0 point) How often did you have a dri nk containing alcohol in the past year? Less than monthly (1 point) Points 1 Interpretation Negative AUDIT-C (Standard) Question Answer Notes Did you have a drink containing alcohol in the p ast year? No Points 0 Interpretation Negative Problems Problem Type SNOMED Code ICD Code Onset Dates Problem Status W/U Status Risk Notes Problem 24918451 Essential (primary) hypertension (I10) Active confirmed Problem Hypothyroidism (20908411) Hypothyroidism (E03.9) Active confirmed Problem Restless legs (09575804) Restless leg (G25.81) Active confirmed Problem Anemia (259918849) Anemia (D64.9) Active confirmed Problem Peripheral neuropathy (909050782) Peripheral neuropathy (G62.9) Active confirmed Problem Migraine (35125126) Migraine (G43.909) Active confirmed Vital Signs Blood pressure diastolic 80 mm Hg 11/15/2024 Height 68 in 11/15/2024 Blood pressure systolic 126 mm Hg 11/15/2024 Weight 199.0 lbs 11/15/2024 BMI 30.25 kg/m2 11/15/2024 Encounters Encounter Location Date Provider Diagnosis [facility] [address] [place] [address] 12/29/2023 ANH HOY Restless leg G25.81 [facility] [address] [place] [address] 01/27/2024 ANH HOY Restless leg G25.81 [facility] [address] [place] [address] 02/24/2024 Mike Hoy Restless leg G25.81 [facility] [address] [place] [place] [address] 03/22/2024 Mike Hoy Restless leg G25.81 [facility] [address] [place] [place] [address] 04/23/2024 Mike Hoy Restless leg G25.81 [facility] [address] [place] [place] [address] 05/29/2024 Mike Hoy Essential (primary) hypertension I10 [facility] [address] [facility] [place] [address] 06/20/2024 Mike Hoy Hip pain M25.559 [facility] [address] [facility] [place] [address] 07/23/2024 Mike Hoy Hip pain M25.559 [facility] [address] [place] [place] [address] 2024 Mike Hoy Hip pain M25.559 [facility] [address] [place] [place] [address] 09/10/2024 Mike Hoy [facility] [address] [place] [address] 09/18/2024 Mike Hoy Hip pain M25.559 [facility] [address] [facility] [place] [address] 10/15/2024 Mike Hoy Hip pain M25.559 [facility] [address] [place] [facility] [place] [address] 10/29/2024 Mike Hoy [facility] [address] [place] [address] 10/30/2024 Mike Hoy [facility] [address] [place] [address] 11/15/2024 Mike Hoy [facility] [address] [place] [address] 11/15/2024 Mike Hoy [facility] [address] [place] [place] [address] 11/17/2024 Mike Hoy Hypothyroidism E03.9 and Anemia D64.9 [facility] [address] [place] [address] 11/23/2024 Mike Hoy [facility] [address] [place] [place] [address] 11/26/2024 Mike Hoy [facility] [address] [place] [place] [address] 11/26/2024 Mike Hoy [facility] [address] [place] [place] [address] 11/29/2024 Mike Hoy Hip pain M25.559 [facility] [address] [place] [address] 12/13/2024 Mike Hoy Anemia D64.9 [facility] [address] [place] [address] 12/16/2024 Mike Hoy [facility] [address] [place] [address] 05/14/2024 Mike Cano Hip pain M25.559 [facility] [address] [place] [address] 11/15/2024 Mike Cano Well adult Z00.00 an d Peripheral neuropathy G62.9 Assessments Encounter Date Diagnosis (ICD Code) Assessment Notes Treatment Notes Treatment Clinical Notes Section Notes 12/29/2023 Restless leg (ICD-10 - G25.81) 01/27/2024 Restless leg (ICD-10 - G25.81) 02/24/2024 Restless leg (ICD-10 - G25.81) 03/22/2024 Restless leg (ICD-10 - G25.81) 04/23/2024 Restless leg (ICD-10 - G25.81) 05/29/2024 Essential (primary) hypertension (ICD-10 - I10) 06/20/2024 Hip pain (ICD-10 - M25.559) 07/23/2024 Hip pain (ICD-10 - M25.559) 2024 Hip pain (ICD-10 - M25.559) 09/18/2024 Hip pain (ICD-10 - M25.559) 10/15/2024 Hip pain (ICD-10 - M25.559) 11/17/2024 Hypothyroidism (ICD-10 - E03.9) 11/17/2024 Anemia (ICD-10 - D64.9) 11/29/2024 Hip pain (ICD-10 - M25.559) 12/13/2024 Anemia (ICD-10 - D64.9) 05/14/2024 Hip pain (ICD-10 - M25.559) 11/15/2024 Well adult (ICD-10 - Z00.00) 11/15/2024 Peripheral neuropathy (ICD-10 - G62.9) needs random drug screens this will be neg - due to hold up in meds random drugs screen every 3 months Plan Of Treatment Pending Test Test Name Order Date CMP (COMPLETE METABOLIC PANEL) 3 HEMOGLOBIN A1C (GLYCO) 05/23/2023 HEMOGLOBIN A1C (GLYCO) 11/15/2024 IRON, TOTAL 11/15/2024 IRON, TOTAL 05/23/2023 LIPID PANEL (CHOL/TRIG/HDL/LDL) 11/16/19 25 CBC WITH DIFF 05/23/2023 VITAMIN D, 25 LEVEL (TOTAL) 05/23/2023 US Lower Extremity LT 01/06/2023 US Lower Extremity RT 01/06/2023 DRUG SCREEN, ABUSE, UR 11/15/2024 Sleep study - Diagnostic Polysonogram Insulin Level 11/15/2024 CMP - Comprehensive Metabolic Panel 11/29 CBC W/AUTO DIFF 12/13/2024 STOOL OCCULT BLOOD 11/15/2024 VC VENOUS REFLUX DAVID LMT 01/12/2023 THYROID PANEL (T4/TSH/FREE T3) 5 THYROID PANEL (T4/TSH/FREE T3) 5 THYROID PANEL (T4/TSH/FREE T3) 3 MM screening mammo BI 11/15/2024 CMP (COMP MET MCDONALD) w/eGFR CKD-EPI 2024 CBC WITH DIFF 11/15/2024 Insurance Providers Payer Name Payer Address Payer Phone Subscriber Number Group Number Insured Name Patient Relationship to Insured Coverage Start Date Coverage End Date [employer] [place] [employer] [address] [place] [address] [id number] Conrad Marshall Self - patient is the insured Medications Administered Medication Instructions Date of Administration Dosage Notes Ketorolac Tromethamine 05/23/2023 60 mg 60 Orphenadrine Citrate 05/23/2023 60 mg 60 Promethazine, 25 mg 05/23/2023 1 mL 25 Medical (General) History Medical History History ICD Code Sigmoid diverticulosis K57.30 Menometrorrhagia N92.1 Thyroid cancer C73 Vitamin D deficiency E55.9 Migraine G43.909 Shingles B02.9 Arthritis M19.90 Cystitis with hematuria N30.91 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
== END 2024-12-21 12:42 | disposition home or self-care (01) ==
LOC: PST 12:41
PROVIDERS: PCP Family Medicine; Visit Provider Surgery
DX: Z01.818 Encounter for other preprocedural examination (principal); D50.9 Iron deficiency anemia, unspecified; Z12.11 Encounter for screening for malignant neoplasm of colon

== ENCOUNTER 2024-12-26 06:28 | Day surgery (SDC) | payer OTHER, SELFPAY ==
--- NOTE | 2024-12-26 | OP_ITS ---
OPERATION DATE: 12/26/2024 PREOPERATIVE DIAGNOSIS: Iron deficiency anemia, colorectal screening. POSTOPERATIVE DIAGNOSIS: Normal EGD and normal colonoscopy to cecum. PROCEDURE: EGD and colonoscopy to cecum. SURGEON: Carter Enrique M.D. ANESTHESIA: Monitored anesthesia care. ESTIMATED BLOOD LOSS: Zero. INDICATIONS AND CONSENT: Patient is a 54-year-old female with history of iron deficiency anemia, who now presents for endoscopic evaluation, colorectal screening and EGD evaluation for the anemia. Indications, risks, benefits, alternatives of proceeding with EGD and colonoscopy were explained extensively to the patient, including the risks of bleeding, aspiration, esophageal/gastric/duodenal or colonic perforation or anesthetic complications. All of her questions were answered. Informed consent was obtained. PROCEDURE: Patient brought to the operating room, placed in the left lateral decubitus position. Monitored anesthesia care was provided. Bite block was placed in the patient?s mouth. Scope was inserted into the oropharynx. Under direct visualization, it was advanced into the esophagus, past the cricopharyngeus, down to the stomach. The stomach was insufflated with air. The pylorus was traversed down to the descending portion of the duodenum. There was no evidence of duodenitis or ulceration. There was no scarring within the pyloric channel. Scope was pulled back into the stomach and retroflexed. There was no significant hiatal hernia. The GE junction was noted at approximately 37 cm. There was no distal esophagitis or Parks?s changes. Remainder of the esophagus was unremarkable. The scope was then withdrawn. Patient tolerated procedure well, was positioned for colonoscopy. Rectal exam was performed, which showed no masses or blood. The scope was then inserted into the anal canal. Under direct visualization, it was advanced. With the aid of abdominal compression, it was advanced to the cecum where cecal markings were clearly identified. Upon withdrawal of the scope, mucosal surfaces were carefully examined. There were no mass lesions or polyps. No inflammatory changes or ulcerations. No significant diverticulosis. The scope was retroflexed in the anal canal. There was no significant hemorrhoidal disease. The scope was then withdrawn. The patient tolerated procedure well, was sent to recovery room in good condition. CC: Kevin Granger M.D. [facility] INSANED[facility]ino
--- OUTSIDE RECORDS SUMMARY | 2024-12-26 06:31 | XMS_ITS | CCD ---
Author Organization [facility] Care Team Providers Care Metal Hanging Helper Name Role Phone MAXIME, AHMAD Admitting Unavailable [...] Care Provider DO Abdoulaye Esqueda Attending Provider [phone] MD Anh Granger Primary Care Provider DO Abdoulaye Esqueda Attending Provider DO Onel Hatch Attending Provider [phone] MD Anh Granger Primary Care Provider DO [...] (1 source) fentaNYL Drug Allergy 6 [facility] Repository (11 sources) fentaNYL Drug Allergy 4 Hives [facility] (11 sources) Povidone-Iodine Drug Allergy 4 Rash [facility] (1 source) No Known Medication Allergies; Translations: [No Known Medication Allergies] Propensity to adverse reactions (disorder) [facility] Repository Medications Current Medications Medication Drug Class(es) [...] care. Normal [facility] Thyroid Stimulating Hormoneo n 11-05-2024 TSH Qn 0.74 m[IU]/L Normal 0.45-5.33 [facility] Comment on above: Order Comment: FASTI NG NON FASTING Result Comment: PERF ORMED BY: [place] [address] PATHOLOGIST EXCELLENCE COACH MANAV ESPINAL M.D. Performed By: #### T 3T, TSH3, T4T #### [address] Thyrotropin [Units/volume] i n Serum or PlasmaOrdered By: Onel Hatch on 11-05-2024 TSH Qn Thyrotropin [Units/volume] in Serum or Plasma 0.45-5.33 [facility] Thyroxine (T4) Totalon 11-05 T4 [Mass/Vol] 11.03 ug/dL Normal 5.39-11.82 [facility] Comment on above: Order Comment: FASTI NG NON FASTING Performed By: #### T 3T, TSH3, T4T #### [facility] [address] Thyroxine (T4) [Mass/volume] in Serum or PlasmaOrdered By: Onel Hatch on 11-05-2024 T4 [Mass/Vol] Thyroxine (T4) [Mass/volume] in Serum or Plasma 5.39-11.82 [facility] Triiodothyronine (T3) Totalo n 11-05-2024 Triiodothyronine (T3) Total 1.05 ng/mL Normal 0.87-1.78 [facility] Comment on above: Order Comment: FASTI NG NON FASTING Performed By: #### T 3T, TSH3, T4T #### [facility] [address] [id number] [facility] Triiodothyronine (T3) [Mass/ volume] in Serum or PlasmaOrdered By: Onel Hatch on 11-05-2024 T3 [Mass/Vol] Triiodothyronine (T3 ) [Mass/volume] in Serum or Plasma 0.87-1.78 [facility] Thyroglobulinon 05-19-2024 ANTITHYROGLOBULIN AB 20.3 High 0.0 - 0.9 [facility] Comment on above: Thyroglobulin Antibo dy measured by Dara Johann Methodology It should be noted that the presence of thyroglobulin antibodies may not be pathogenic nor diagnostic, especially at very low levels. The assay etl software engineer has found that four percent of individuals without evidence of thyroid disease or autoimmunity will have positive TgAb levels up to 4 IU/mL. Interpretation and review of laboratory results Abnormal [facility] THYROGLOBULIN, TG-MARISSA 4.2 ng/mL . [facility] Comment on above: This test was develo edna and its performance characteristics determined by [employer]. It has not been cleared or approved [...] quantitation limit is 2.0 ng/mL. Performed at: [facility] [address] [id number] Non Emergency Services Ambulance Driver: Jl Weems PhD, Phone: [phone] Performed at: [facility] [address] [place] [id number] Non Emergency Services Ambulance Driver: Alvin Suazo MD, Phone: [phone] [facility] Thyroglobulin, Quant + Tg Ab on 04-26-2024 Antithyroglobulin Ab 20.3 High 0.0-0.9 [facility] Comment on above: Result Comment: Thyr oglobulin Antibody measured by [employer] It should be noted that the presence of thyroglobulin antibodies may not be pathogenic nor diagnostic, especially at very low levels. The assay etl software engineer has found that four percent of individuals without evidence of thyroid disease or autoimmunity will have positive TgAb levels up to 4 IU/mL. Performed By: #### L C T4, THYGLOB #### [facility] , Thyroglobulin, TG-MARISSA 4.2 ng/mL Normal . [facility] Comment on above: Result Comment: This test was developed and its performance characteristics determined by [employer]. It has not been cleared or approved [...] quantitation limit is 2.0 ng/mL. Performed at: [facility] [address] [id number] Non Emergency Services Ambulance Driver: Jl Weems PhD, Phone: [phone] Performed at: [facility] [address] [place] [id number] Non Emergency Services Ambulance Driver: Alvin Suazo MD, Phone: [phone] PERFORMED BY: [address] [place] [address] PATHOLOGIST EXCELLENCE COACH ANDRE WATTS M.D. Performed By: #### L C T4, THYGLOB #### [facility] , Thyrotropin [Units/volume] i n Serum or PlasmaOrdered By: Abdoulaye Esqueda on 04-26-2024 TSH Qn 1.64 m[IU]/L Normal 0.45-5.33 [facility] Comment on above: Result Comment: PERF ORMED BY: [place] [address] PATHOLOGIST EXCELLENCE COACH ANDRE WATTS M.D. Performed By: #### T 4T, TSH3, T3T #### [facility] [address] [place] [address] #### THYGLOB #### [facility] , Thyroxine (T4) [Mass/volume] in Serum or PlasmaOrdered By: Abdoulaye Esqueda on 04-26-2024 T4 [Mass/Vol] 11.41 ug/dL Normal 5.39-11.82 [facility] Comment on above: Performed By: #### T 4T, TSH3, T3T #### [facility] [address] [place] [address] #### THYGLOB #### [facility] , Triiodothyronine (T3) Totalo n 04-26-2024 Triiodothyronine (T3) Total 0.71 ng/mL Low 0.87-1.78 [facility] Comment on above: Performed By: #### T 4T, TSH3, T3T #### [facility] [address] [place] [address] [place] #### THYGLOB #### [facility] , Triiodothyronine (T3) [Mass/ volume] in Serum or PlasmaOrdered By: Abdoulaye Esqueda on 04-26-2024 T3 [Mass/Vol] 0.71 ng/mL Low 0.87-1.78 [facility] Thyroxine (T4)on T4 [Mass/Vol] 11.5 ug/dL Normal 4.5-12.0 [facility] Comment on above: Result Comment: Perf ormed at: [facility] [id number] Non Emergency Services Ambulance Driver: Jl Weems PhD, Phone: [phone] Performed By: #### L C T4, THYGLOB #### [facility] , Thyroglobulin, Quant + Tg Ab on 11-21-2023 Antithyroglobulin Ab 23.1 High 0.0-0.9 [facility] Comment on above: Result Comment: Thyr oglobulin Antibody measured by [employer] It should be noted that the presence of thyroglobulin antibodies may not be pathogenic nor diagnostic, especially at very low levels. The assay etl software engineer has found that four percent of individuals without evidence of thyroid disease or autoimmunity will have positive TgAb levels up to 4 IU/mL. Performed By: #### L C T4, THYGLOB #### [facility] , Thyroglobulin, TG-MARISSA 2.5 ng/mL Normal . [facility] Comment on above: Result Comment: This test was developed and its performance characteristics determined by [employer]. It has not been cleared or approved [...] quantitation limit is 2.0 ng/mL. Performed at: [facility] [address] [id number] Non Emergency Services Ambulance Driver: Jl Weems PhD, Phone: [phone] Performed at: [facility] [address] [place] [id number] Non Emergency Services Ambulance Driver: Alvin Suazo MD, Phone: [phone] PERFORMED BY: [place] [address] [place] [address] PATHOLOGIST EXCELLENCE COACH ANDRE WATTS M.D. Performed By: #### L C T4, THYGLOB #### [facility] , Thyrotropin [Units/volume] i n Serum or PlasmaOrdered By: Onel Hatch on 11-21-2023 TSH Qn 0.33 m[IU]/L Low 0.45-5.33 [facility] Comment on above: Result Comment: PERF ORMED BY: [place] [address] PATHOLOGIST EXCELLENCE COACH ANDRE WATTS M.D. Performed By: #### T 3T, TSH3 #### [facility] [address] Triiodothyronine (T3) Totalo n 11-21-2023 Triiodothyronine (T3) Total 1.10 ng/mL Normal 0.87-1.78 [facility] Comment on above: Performed By: #### T 3T, TSH3 #### [facility] [address] [place] [address] Triiodothyronine (T3) [Mass/ volume] in Serum or PlasmaOrdered By: Onel Hatch on 11-21-2023 T3 [Mass/Vol] 1.10 ng/mL 0.87-1.78 [facility] TSH Qnon 09-14-2023 Interpretation and review of laboratory results Abnormal [facility] T4 [Mass/Vol] 13.2 ug/dL High 4.5 - 12.0 ug/dL [facility] Comment on above: Performed at: [facility] [id number] Non Emergency Services Ambulance Driver: Jl Weems PhD, Phone: [phone] [facility] Thyroglobulin Antibodyon ANTITHYROGLOBULIN AB 24.3 High 0.0 - 0.9 [facility] Comment on above: Thyroglobulin Antibo dy measured by Dara Johann Methodology It should be noted that the presence of thyroglobulin antibodies may not be pathogenic nor diagnostic, especially at very low levels. The assay etl software engineer has found that four percent of individuals without evidence of thyroid disease or autoimmunity will have positive TgAb levels up to 4 IU/mL. Performed at: [facility] [address] [id number] Non Emergency Services Ambulance Driver: Jl Weems PhD, Phone: [phone] Interpretation and review of laboratory results Abnormal [facility] No Panel InformationOrdered By: Abdoulaye Esqueda on 09-13-2023 Free Thyroxine (T4) Direct 13.2 ug/dL 4.5-12.0 [facility] Comment on above: Performed at: [employer] [facility] [address] [id number] Director: Jl Weems PhD, Phone: [phone] Serum or plasma thyroglobuli n antibody assay (units/volume)Ordered By: Abdoulaye Esqueda on 09-13-2023 Thyroglobulin Ab Qn 24.3 [IU]/mL 0.0-0.9 [facility] Comment on above: Thyroglobulin Antibo dy measured by [employer] YardMethodologyIt should be noted that the presence of thyroglobulinantibodies may not be pathogenic nor diagnostic, especiallyat very low levels. The assay etl software engineer has found thatfour percent of individuals without evidence of thyroiddisease or autoimmunity will have positive TgAb levels upto 4 IU/mL.Performed at: [employer] [facility] [address] [id number] Director: Jl Weems PhD, Phone: [phone] Thyrotropin [Units/volume] i n Serum or PlasmaOrdered By: Abdoulaye Esqueda on 09-13-2023 TSH Qn 0.02 m[IU]/L 0.45-5.33 [facility] Triiodothyronine (T3) [Mass/ volume] in Serum or PlasmaOrdered By: Abdoulaye Esqueda on 09-13-2023 T3 [Mass/Vol] 0.71 ng/mL 0.87-1.78 [facility] Thyrotropin [Units/volume] i n Serum or PlasmaOrdered By: Onel Hatch on 03-10-2023 TSH Qn 0.01 m[IU]/L 0.45-5.33 [facility] Thyroxine (T4) [Mass/volume] in Serum or PlasmaOrdered By: Onel Hatch on 03-10-2023 T4 [Mass/Vol] 13.03 ug/dL 5.39-11.82 [facility] Triiodothyronine (T3) [Mass/ volume] in Serum or PlasmaOrdered By: Onel Hatch on 03-10-2023 T3 [Mass/Vol] 1.08 ng/mL 0.87-1.78 [facility] No Panel InformationOrdered By: Onel Hatch on 09-08-2022 Total Triiodothyronine 1.32 ng/mL 0.87-1.78 [facility] TSH DL <= 0.005 mIU/L QnOrde red By: Onel Hatch on 09-08-2022 TSH Qn 0.01 m[IU]/L 0.45-5.33 [facility] Thyroxine (T4) free [Mass/vo lume] in Serum or PlasmaOrdered By: Onel Hatch on 09-08-2022 Free T4 [Mass/Vol] 1.32 ng/dL 0.61-1.12 [facility] [address] NECK [facility] W CONon CT [...] BRYAN ARTHUR Date: 2021-09-02 08:56 Normal [facility] US THYROIDon 09-02-2021 US THYROID EXAMINATION: [...] BRYAN ARTHUR Date: 2021-09-02 09:02 Normal [facility] THYROGLOBULINon 01-08-2021 Thyroglobulin 7.5 ng/mL Normal [facility] Comment on above: Result Comment: This test was developed and its performance characteristics determined by [employer]. It has not been cleared or approved [...] ng/mL. Performed By: #### T GRIA #### [facility] [address] [address] Ilana Lambert FSHon 01-02-2021 FSH 3.8 mIU/mL Normal [facility] Comment on above: Result Comment: Adul t Female: Follicular phase 3.5 - 12.5 Ovulation phase 4.7 - 21.5 Luteal phase 1.7 - 7.7 Postmenopausal 25.8 - 134.8 Performed By: #### L BCFS #### [facility] [address] [id number] Ilanayonny Lambert THYROGLOBULIN ABon Thyroglobulin Antibody 29.0 IU/mL Critically high 0.0-0.9 [facility] Comment on above: Result Comment: Thyr oglobulin Antibody measured by Dara Johann Methodology Performed By: #### T HYGAB #### [facility] [address] [place], [place] [id number] Ilana Petra CBC AUTO DIFFon 01-01-2021 BASO # 0.0 103/ul Normal 0.0-0.1 [facility] Comment on above: Performed By: #### F T4 #### [facility] [address] [place] [address] Ilana Petra Basophils/100 WBC (Bld) 0.4 % Normal 0.2-2.0 [facility] Comment on above: Performed By: #### F T4 #### [facility] [address] [place] [address] Ilana Petra EO # 0.1 103/ul Normal 0.0-0.7 [facility] Comment on above: Performed By: #### F T4 #### [facility] [address] [place] [address] Ilana Petra Eosinophils/100 WBC (Bld) 1.1 % Normal 0.9-7.0 [facility] Comment on above: Performed By: #### F T4 #### [facility] [address] [place] [address] Ilana Petra Erythrocyte distribution width (RBC) [Ratio] 12.0 % Normal 11.0-15.0 [facility] Comment on above: Performed By: #### F T4 #### [facility] [address] [place] [address] Ilana Petra Hematocrit (Bld) [Volume fraction] 39.1 % Normal 36.0-48.0 [facility] Comment on above: Performed By: #### F T4 #### [facility] [address] [place], [place] [id number] Ilana Petra Hemoglobin (Bld) [Mass/Vol] 13.0 g/dL Normal 12.0-16.0 [facility] Comment on above: Performed By: #### F T4 #### [facility] [address] [place] [address] Ilanayonny Lambert IG # 0.03 10e3/ul Normal 0.00-0.03 [facility] Comment on above: Performed By: #### F T4 #### [facility] [address] [place] [address] Lianayonny Lambert IG % 0.3 % Normal 0.0-0.5 [facility] Comment on above: Performed By: #### F T4 #### [facility] [address] [place] [address] Ilana Petra LYMPH # 2.2 103/ul Normal 1.2-3.8 [facility] Comment on above: Performed By: #### F T4 #### [facility] [address] [place] [address] Ilana Lambert Lymphocytes/100 WBC (Bld) 24.5 % Normal 20.5-60.0 [facility] Comment on above: Performed By: #### F T4 #### [facility] [address] [place] [address] Ilana Lambert MANUAL DIFF REQ NO Normal [facility] Comment on above: Performed By: #### F T4 #### [facility] [address] [place] [address] Ilanayonny Lambert MCH (RBC) [Entitic mass] 30.0 pg Normal 26.7-34.0 [facility] Comment on above: Performed By: #### F T4 #### [facility] [address] [place] [address] Ilana Petra MCHC (RBC) [Mass/Vol] 33.2 g/dL Normal 29.9-35.2 [facility] Comment on above: Performed By: #### F T4 #### [facility] [address] [place] [address] Ilanayonny Lambert MCV (RBC) [Entitic vol] 90.3 fL Normal 81.0-99.0 [facility] Comment on above: Performed By: #### F T4 #### [facility] [address] [place] [address] Ilana Petra MONO # 0.6 103/ul Normal 0.3-0.8 [facility] Comment on above: Performed By: #### F T4 #### [facility] [address] [place], [place] [address] Ilana Petra Monocytes/100 WBC (Bld) 7.2 % Normal 1.7-12.0 [facility] Comment on above: Performed By: #### F T4 #### [facility] [address] [place], [place] [address] Ilana Petra NEUT # 5.9 103/ul Normal 1.4-6.5 [facility] Comment on above: Performed By: #### F T4 #### [facility] [address] [place], [place] [address] Ilana Petra Neutrophils/100 WBC (Bld) 66.5 % Normal 43.0-75.0 [facility] Comment on above: Performed By: #### F T4 #### [facility] [address] [place], [place] [id number] Ilanayonny Yeageren Platelet mean volume (Bld) [Entitic vol] 9.7 fL Normal 9.5-13.5 [facility] Comment on above: Performed By: #### F T4 #### [facility] [address] [place], [place] [address] Ilana Petra PLT 239 103/ul Normal 150-450 [facility] Comment on above: Performed By: #### F T4 #### [facility] [address] [place], [place] [address] Ilana Petra RBC 4.33 106/ul Normal 4.20-5.40 [facility] Comment on above: Performed By: #### F T4 #### [facility] [address] [place], [place] [address] Ilana Petra WBC 8.9 103/ul Normal 4.0-11.0 [facility] Comment on above: Performed By: #### F T4 #### [facility] [address] [place], [place] [address] Ilana Petra FREE T3on 01-01-2021 FREE T3 1.09 pg/mlL Critically low 2.77-5.27 [facility] Comment on above: Performed By: #### F T4 #### [facility] [address] [place], [place] [address] Ilana Petra FREE T4on 01-01-2021 Free T4 [Mass/Vol] 1.50 ng/dL Normal 0.78-2.19 [facility] Comment on above: Performed By: #### F T4 #### [facility] [address] [place], [place] [address] Ilana Petra IRONon 01-01-2021 Iron [Mass/Vol] 101.0 ug/dL Normal 37.0-170.0 [facility] Comment on above: Performed By: #### F T4 #### [facility] [address] [place], [place] [address] Ilana Lambert PROF 14(COMP METB)on 021 Albumin [Mass/Vol] 3.3 g/dL Critically low 3.5-5.0 [facility] Comment on above: Performed By: #### C MP #### [facility] [address] [place], [place] [address] Ilana Petra Albumin/Globulin [Mass ratio] 0.9 {ratio} Normal [facility] Comment on above: Performed By: #### C MP #### [facility] [address] [place], [place] [address] Ilana Petra ALP [Catalytic activity/Vol] 55 U/L Normal 38-126 [facility] Comment on above: Performed By: #### C MP #### [facility] [address] [place], [place] [address] Ilana Petra ALT [Catalytic activity/Vol] 18 U/L Normal 9-52 [facility] Comment on above: Performed By: #### C MP #### [facility] [address] [place], [place] [address] Ilana Petra Anion gap [Moles/Vol] 8.8 mmol/L Normal [facility] Comment on above: Performed By: #### C MP #### [facility] [address] [place] [address] Ilana Petra AST [Catalytic activity/Vol] 13 U/L Critically low 14-36 [facility] Comment on above: Performed By: #### C MP #### [facility] [address] [id number] Ilana Petra Bilirubin [Mass/Vol] 0.5 mg/dL Normal 0.2-1.3 [facility] Comment on above: Performed By: #### C MP #### [facility] [address] [address] Ilana Petra Calcium [Mass/Vol] 8.4 mg/dL Normal 8.4-10.2 [facility] Comment on above: Performed By: #### C MP #### [facility] [address] [address] Ilana Petra Chloride [Moles/Vol] 104 mmol/L Normal 98-107 [facility] Comment on above: Performed By: #### C MP #### [facility] [address] [address] Ilana Petra CO2 [Moles/Vol] 29.8 mmol/L Normal 22.0-30.0 [facility] Comment on above: Performed By: #### C MP #### [facility] [address] [id number] Ilana Petra Creatinine [Mass/Vol] 0.88 mg/dL Normal 0.52-1.04 [facility] Comment on above: Performed By: #### C MP #### [facility] [address] [address] Ilana Petra EGFR-AF CITIZEN OF [place] >60 Normal >=60 [facility] Comment on above: Performed By: #### C MP #### [facility] [address] [id number] Ilana Petra EGFR-NON AF CITIZEN OF [place] >60 Normal >=60 [facility] Comment on above: Performed By: #### C MP #### [facility] [address] [id number] Ilana Petra Globulin (S) [Mass/Vol] 3.8 g/dL Normal [facility] Comment on above: Performed By: #### C MP #### [facility] [address] [id number] Ilana Petra Glucose [Mass/Vol] 90 mg/dL Normal 74-[address] [facility] Comment on above: Performed By: #### C MP #### [facility] [address] [id number] Ilana Petra Potassium [Moles/Vol] 3.6 mmol/L Normal 3.4-5.0 [facility] Comment on above: Performed By: #### C MP #### [facility] [address] [id number] Ilana Petra Protein [Mass/Vol] 7.1 g/dL Normal 6.1-8.[address] [facility] Comment on above: Performed By: #### C MP #### [facility] [address] [place] [address] Ilana Petra Sodium [Moles/Vol] 139 mmol/L Normal 137-[address] [facility] Comment on above: Performed By: #### C MP #### [facility] [address] [place] [address] Ilana Petra Urea nitrogen [Mass/Vol] 11.0 mg/dL Normal 7.0-17.0 [facility] Comment on above: Performed By: #### C MP #### [facility] [address] [place], [place] [address] Ilana Petra Urea nitrogen/Creatinine [Mass ratio] 12.5 mg/mg Normal [facility] Comment on above: Performed By: #### C MP #### [facility] [address] [place], [place] [address] Ilana Petra TSHon 01-01-2021 TSH 3.552 uIU/mL Normal 0.470-4.680 [facility] Comment on above: Performed By: #### F T4 #### [facility] [address] [place], [place] [address] Ilana Petra TSH RANGE SEE BELOW Normal [facility] Comment on above: Result Comment: <0.3 4 UIU/ml HYPERTHYROID 0.34-5.60 UIU/ml EUTHYROID >5.60 UIU/ml HYPOTHYROID Performed By: #### F T4 #### [facility] [address] [id number] Ilana Yeageren VITAMIN D 25 OHon 01-01-2021 VIT D 25-OH 30.8 ng/mL Normal [facility] Comment on above: Performed By: #### F T4 #### [facility] [address] [place], [place] [address] Ilana Petra VIT D RANGES SEE BELOW Normal [facility] Comment on above: Result Comment: <20 ng/mL Vit D deficient 20 - <30 ng/mL Vit D insufficient 30 - 100 ng/mL Vit D sufficient >100 ng/mL Potential Toxicity Performed By: #### F T4 #### [facility] [address] [id number] Ilana Petra FREE T3on 10-03-2020 FREE T3 2.27 pg/mlL Critically low 2.77-5.27 [facility] Comment on above: Performed By: #### F T3, TSH #### [facility] [address] [place], [place] [id number] Ilana Petra FREE T4on 10-03-2020 Free T4 [Mass/Vol] 1.27 ng/dL Normal 0.78-2.19 [facility] Comment on above: Performed By: #### F T4 #### [facility] [address] [place], [place] [id number] Ilana Petra TSHon 10-03-2020 TSH 17.604 uIU/mL Critically high 0.470-4.680 [facility] Comment on above: Performed By: #### F T3, TSH #### [facility] [address] [place], [place] [id number] Ilana Petra TSH RANGE SEE BELOW Normal [facility] Comment on above: Result Comment: <0.3 4 UIU/ml HYPERTHYROID 0.34-5.60 UIU/ml EUTHYROID >5.60 UIU/ml HYPOTHYROID Performed By: #### F T3, TSH #### [facility] [address] [place], [place] [id number] Ilana Petra LUMBAR SPINE 4 OR 5 [facility] LUMBAR SPINE 4 OR 5 [facility] Department of Radiology [address] [place] [phone] Patient Name: CONRAD AGUILAR : 1970 [...] findings. Electronically signed by:Jeovanny Mercer. Transcribed by: [email or web address], User Resident: ONEL CINTRON Electronically Signed by: JEOVANNY MERCER @ 06/15/2018 05:58 PM I personally read this/these film(s) with this resident Normal [facility] Comment on above: Order Comment: , Nathanael ws (X-RAY, LUMBAR SPINE): AP, Lateral, L5- S1 Spot, Flexion, Extension , Views (X-RAY, LUMBAR SPINE): AP, Lateral, L5-S1 Spot, Flexion, Extension , , , Ordering Provider - WU CALLOWAY MD , Vital Signs Date Time Vital Sign Value Performing Clinician Brook paulson 11-13-2024 09:06-0400 Body height 172.7 cm Onel Staciwalker DO Work Phone: [facility] 11-13-2024 09:06-0400 Body mass index (BMI) [Ratio] 26.46 kg/m2 Onel Hatch DO Work Phone: [facility] 11-13-2024 09:06-0400 Body weight 78.93 kg Onel Hatch DO Work Phone: [facility] 05-08-2024 09:07-0400 Body height 172.7 cm Onel Hatch DO Work Phone: [facility] 05-08-2024 09:07-0400 Body mass index (BMI) [Ratio] 26.46 kg/m2 Onel Hatch DO Work Phone: [facility] 05-08-2024 09:07-0400 Body weight 78.93 kg Onel Hatch DO Work Phone: [facility] Healthcare Encounters Encounter Date Encounter Type Care Provider Facility Start: 12-05-2024 End: 12-05-2024 ambulatory Carter PARKER Facility:[facility] Start: 11-20-2024 ambulatory Carter PARKER Facility:[facility] Start: 11-13-2024 End: 11-13-2024 Bamboo flowsheet Onel Smalltheodoradoron DO Work Phone: [facility] Start: 11-13-2024 End: 11-13-2024 Bamboo flowsheet Onel Hatch DO Work Phone: [facility] Start: 11-13-2024 End: 11-13-2024 Office outpatient visit 25 minutes Onel Magali Hatch DO [facility] Comment on above: Status post total th yroidectomy (Primary Dx); Malignant neoplasm of thyroid gland (CMS/HCC) Start: 11-13-2024 End: 11-13-2024 ambulatory ONEL HATCH Not Available Start: 11-05-2024 End: 11-05-2024 Patient encounter procedure Anh Granger MD Work Phone: [facility] Work Phone: Start: 11-05-2024 End: 11-05-2024 ambulatory Anh Granger MD Work Phone: [facility] Work Phone: Start: 05-08-2024 End: 05-08-2024 [...] encounter procedure MD Anh Granger Work Phone: [facility] Work Phone: Start: 04-26-2024 End: 04-26-2024 ambulatory MD Anh Granger Work Phone: [facility] Work Phone: Start: 11-21-2023 End: 11-21-2023 Patient encounter procedure MD Anh Granger Work Phone: [facility] Work Phone: Start: 11-21-2023 End: 11-21-2023 ambulatory MD Anh Granger Work Phone: [facility] Work Phone: Start: 09-13-2023 External Result Encounter Abdoulaye Esqueda DO Work Phone: [facility] Unsolicited Start: 09-13-2023 External Result Encounter Abdoulaye Guo Dheeraj DO Work Phone: [facility] Unsolicited Start: 09-13-2023 End: 09-13-2023 ambulatory MD Anh Granger Work Phone: [facility] Work Phone: Start: 09-13-2023 End: 09-13-2023 Patient encounter procedure MD Anh Granger Work Phone: [facility] Work Phone: Start: 03-10-2023 End: 03-10-2023 ambulatory MD Anh Granger Work Phone: [facility] Work Phone: Start: 03-10-2023 End: 03-10-2023 Patient encounter procedure MD Anh Granger Work Phone: [facility] Work Phone: Start: 09-08-2022 End: 09-08-2022 ambulatory MD Anh Granger Work Phone: [facility] Work Phone: Start: 09-08-2022 End: 09-08-2022 Patient encounter procedure MD Anh Granger Work Phone: [facility] Work Phone: Start: 09-02-2021 End: 09-03-2021 ambulatory [...] gland (CMS/HCC) Expected: 10/28/2025 (Approximate), Expires: 11/13/2025 [facility] Comment on above: Expected: 10/28/2025 (Approximate), Expires: 11/13/2025 Start: 10-28-2025 End: 11-13-2025 Thyrotropin [Units/volume] in Serum or Plasma [facility] Comment on above: Expected: 10/28/2025 (Approximate), Expires: 11/13/2025 Start: 10-28-2025 End: 11-13-2025 Triiodothyronine (T3) [Mass/volume] in Serum or Plasma T3 Lab Routine Malignant neoplasm of thyroid gland (CMS/HCC) Expected: 10/28/2025 (Approximate), Expires: 11/13/2025 [facility] Comment on above: Expected: 10/28/2025 (Approximate), Expires: 11/13/2025 Start: 05-15-2025 End: 11-13-2025 Thyroglobulin Thyroglobulin Lab Routine Malignant neoplasm of thyroid gland (CMS/HCC) Expected: 05/15/2025 (Approximate), Expires: 11/13/2025 [facility] Comment on above: Expected: 05/15/2025 (Approximate), Expires: 11/13/2025 Start: 05-15-2025 End: 11-13-2025 Thyrotropin [Units/volume] in Serum or Plasma [facility] Work Phone: Comment on above: Expected: 05/15/2025 (Approximate), Expires: 11/13/2025 Start: 05-15-2025 End: 11-13-2025 Triiodothyronine (T3) [Mass/volume] in Serum or Plasma T3 Lab Routine Malignant neoplasm of thyroid gland (CMS/HCC) Expected: 05/15/2025 (Approximate), Expires: 11/13/2025 [facility] Comment on above: Expected: 05/15/2025 (Approximate), Expires: 11/13/2025 Start: 04-01-2025 Influenza vaccination Influenz a Vaccine (Season Ended) [facility] Start: 11-13-2024 End: 11-13-2024 Patient encounter procedure [facility] Comment on above: Arrived Start: 11-05-2024 End: 05-08-2025 Thyrotropin [Units/volume] in Serum or Plasma [facility] Work Phone: Comment on above: Expected: 11/05/2024 (Approximate), Expires: 05/08/2025 Start: 11-05-2024 End: 05-08-2025 Triiodothyronine (T3) [Mass/volume] in Serum or Plasma T3 Lab Routine Malignant neoplasm of thyroid gland (CMS/HCC) Expected: 11/05/2024 (Approximate), Expires: 05/08/2025 [facility] Comment on above: Expected: 11/05/2024 (Approximate), Expires: 05/08/2025 Start: 05-08-2024 End: 05-08-2024 [facility] Comment on above: Arrived Start: 04-26-2024 [facility] Start: 04-01-2024 Influenza vaccination Influenza Vacc ine (#1) [facility] Start: 11-21-2023 Thyroxine measurement F [facility] Start: 09-20-2023 End: 09-20-2023 Patient encounter procedure 09/20/2023 8:30 AM EST [facility] [address] [place] [id number] Onel Hatch DO [address] [place] [address] [facility] Start: 09-13-2023 Thyroxine measurement F [facility] Start: 04-01-2023 Influenza vaccination Influenza Vacc ine (#1) [facility] Start: 2008 Screening for malign ant neoplasm of breast Mammogram [facility] Start: 1998 Screening for malign ant neoplasm of cervix [facility] Start: 1989 Screening for malign ant neoplasm of cervix Pap Smear [facility] Start: 1968 Screening for malign ant neoplasm of colon [facility] Thyroglobulin Ab [Units/volume] in Serum or Plasma [facility] Thyroglobulin Ab [Units/volume] in Serum or Plasma [facility] Thyroglobulin Ab [Units/volume] in Serum or Plasma [facility] Thyroglobulin Ab [Units/volume] in Serum or Plasma [facility] Thyrotropin [Units/v olume] in Serum or Plasma TSH Lab Routine 09/13/2023 9:13 AM EST [facility] Work Phone: Thyrotropin [Units/v olume] in Serum or Plasma TSH Lab Routine 04/26/2024 9:20 AM EDT [facility] Work Phone: Triiodothyronine (T3 ) [Mass/volume] in Serum or Plasma T3 Lab Routine 09/13/2023 9:13 AM EST [facility] Payers Date Payer Category Payer Self-pay [id number] 2014 Medicaid [facility] MEDICAID [place] MEDICA[place] [id number] 2014-Present [address] [place] [id number] 2014 Medicaid (Managed Care) [facility] MEDICAID [id number] 1970 Unknown [id number] 1970 Unknown [id number] 593 1968 Unknown [id number] 593 1968 Unknown [id number] 593 1968 Unknown [id number] 1259 1968 Unknown [id number] 1259 1968 Unknown [id number] 727 1959 Unknown [id number] Unknown [id number] 531 Unknown [id number] 531 Unknown [id number] 531 Social History Date Type Detail Facility Start: 01-05-2021 End: 03-16-2023 Tobacco smoking status [facility] Never smoked tobacco (finding) [facility] Start: 1970 Sex Assigned At Female F [facility] Start: 03-16-2023 Tobacco use and exposure Smokeless tobacco non-user [facility] Start: 03-17-2023 End: 11-13-2024 Alcohol intake Ex-drinker (finding) [facility] Start: 03-17-2023 End: 11-13-2024 History of Social function [facility] Start: 03-17-2023 End: 11-13-2024 Tobacco use panel [facility] Start: 03-17-2023 Alcohol Comment caffeine intak e : 1-2 cups per day [facility] Start: 1970 Sex Assigned At Not on file [facility] Start: 11-06-2024 Sex Female (finding) [facility] Clinical Note 12-05-2024 Note Date & Type [...] not included)... [facility] Comment on above: Result Comment: Elec tronically [...] Note Facility [facility] note [facility]: Evaluation [facility] Note [...] and content) DATE CREATED AUTHOR 05/09/2019 [facility] DATE CREATED AUTHOR AUTHOR'S ORGANIZ ATION 09/05/2021 [facility] DATE CREATED AUTHOR AUTHOR'S ORGANIZ ATION 11/06/2024 [facility] DATE CREATED AUTHOR AUTHOR'S ORGANIZ ATION 11/14/2024 [facility] EPIC DATE CREATED AUTHOR AUTHOR'S ORGANIZ ATION 12/06/2024 [facility] Care Teams (unrecognized sec tion and content) Team Status: Active Member Role Status Dates Anh Granger MD Primary Care Provider Active Team Status: Inactive Member Role Status Dates Anh Granger MD Primary Care Provider Active Onel Hatch DO Attending Provider Active Metal Hanging Helper Relationship Specialty Start Date End Date Anh Granger MD [address] [place] [address] PCP - General Family Medicine 03/16/23 Team Status: Inactive Member Role Status Dates Anh Granger MD Primary Care Provider Active Start: September 13, 2023 End: September 13, 2023 Abdoulaye Esqueda DO Attending Provider Active S tart: September 13, 2023 End: September 13, 2023 Metal Hanging Helper Relationship Specialty Start Date End Date Anh Granger MD [address] [place] [address] PCP - General Family Medicine 03/16/23 Team [...] April 26, 2024 End: April 26, 2024 Metal Hanging Helper Relationship Specialty Start Date End Date Anh Granger MD [address] [place] [address] PCP - General Family Medicine 03/16/23 Metal Hanging Helper Relationship Specialty Start Date End Date Anh Granger MD [address] [place] [address] PCP - General Family Medicine 03/16/23 Metal Hanging Helper Relationship Specialty Start Date End Date Anh Granger MD [address] [place] [address] PCP - General Family Medicine 03/16/23 Team Status: Inactive Member Role Status Dates Anh Granger MD Primary Care Provider Active Start: November 05, 2024 End: November 05, 2024 Onel Hatch DO Attending Provider Active S tart: November 05, 2024 End: November 05, 2024 Metal Hanging Helper Relationship Specialty Start Date End Date Anh Granger MD [address] [place] [address] PCP - General Family Medicine 03/16/23 Goals [...] BE BASED ON THE PRIMARY CLINICAL RECORDS. [facility]. provides no warranty or guarantee of the accuracy or completeness of information in this document.
[2024-12-26 06:35] VITALS: BP 126/85; PULSE 75; TEMP 36.2; O2SAT 100; BMI 29.4
[2024-12-26 06:57] LABS: HCG Qualitative NEGATIVE (NEGATIVE); Internal Control Within Normal Limits
[2024-12-26] MEDS: 0.9 % SODIUM CHLORIDE 500 ML 50 ML IV (07:03)
[2024-12-26 07:56] VITALS: BP 112/66; PULSE 65; O2SAT 100
[2024-12-26 08:12] VITALS: BP 119/74; PULSE 58; O2SAT 100
== END 2024-12-26 08:36 | disposition home or self-care (01) ==
PROVIDERS: PCP Family Medicine; Visit Provider Surgery
PROC: (CPT 813; principal; 2024-12-26 07:30)
DX: D50.9 Iron deficiency anemia, unspecified (principal); Z12.11 Encounter for screening for malignant neoplasm of colon; I10 Essential (primary) hypertension; E03.9 Hypothyroidism, unspecified; G62.9 Polyneuropathy, unspecified; Z86.711 Personal history of pulmonary embolism; M47.816 Spondylosis without myelopathy or radiculopathy, lumbar region
CPT/HCPCS: 43235; 45378; 36415; 84703; J2704

== ENCOUNTER 2025-04-25 12:00 | Outpatient (OUT) | payer OTHER, SELFPAY ==
--- OUTSIDE RECORDS SUMMARY | 2025-04-25 12:03 | XMS_ITS | Encounter Summary ---
Author Organization [facility] Address [address] [place] [address] Care Team Providers Care Shake Cutter Name Role Phone Kevin Granger MD Primary Care Provider [phone] Encounter Details Date Type Department Care Team (Late st Contact Info) Description 09/13/2023 Orders Only [facility] [address] [place] [address] Onel Hatch, DO [address] [place] [address] Malignant neoplasm of thyroid gland (HCC); History of total thyroidectomy (CMS/HCC) Social History [...] Lab Routine Malignant neoplasm of thyroid gland (HCC) History of total thyroidectomy (CMS/HCC) Expected: 09/13/2023 (Approximate), Expires: 09/13/2024 T3 Lab Routine Malignant neoplasm of thyroid gland (HCC) History of total thyroidectomy (CMS/HCC) Expected: 09/13/2023 (Approximate), Expires: 09/13/2024 TSH Lab Routine Malignant neoplasm of thyroid gland (HCC) History of total thyroidectomy (CMS/HCC) Expected: 09/13/2023 (Approximate), Expires: 09/13/2024 Thyroglobulin Lab Routine Malignant neoplasm of thyroid gland (HCC) History of total thyroidectomy (CMS/HCC) Expected: 09/13/2023 (Approximate), Expires: 09/13/2024 documented as of this encounter Visit Diagnoses Diagnosis Malignant neoplasm of thyroid gland (HCC) Malignant neoplasm of thyroid gland History of total thyroidectomy documented in this encounter Care Teams Shake Cutter Relationship Specialty Start Date End Date Kevin Granger MD PCP - General Family Medicine 03/16/23 documented as of this encounter
--- OUTSIDE RECORDS SUMMARY | 2025-04-25 12:04 | XMS_ITS | Encounter Summary ---
Author Organization [facility] Address [address] [place] [address] Care Team Providers Care Student Services Representative Name Role Phone Kevin Granger MD Primary Care Provider [phone] Encounter Details Date Type Department Care Team (Late st Contact Info) Description 03/16/2023 Orders Only [facility] [address] [place] [phone] Layla Armendariz MA Social History Tobacco Use [...] on filedocumented in this encounter Care Teams Student Services Representative Relationship Specialty Start Date End Date Kevin Granger MD PCP - General Family Medicine 03/16/23 documented as of this encounter
--- OUTSIDE RECORDS SUMMARY | 2025-04-25 12:04 | XMS_ITS | Patient Health Record ---
Author Organization [facility] Address [address] [place] [address] Care Team Providers Care Adon Name Role Phone MIKE CANO MD Primary Care Provider Mike Cano Unavailable [phone] Allergies No Known Allergies Results Component Value Reference Range Notes CBC AUTO DIFF Reviewed date:11/17/2024 01:04:00 PM Interpretation: Performing Lab: Notes/Report: [facility] , White Blood Count 7.2 4.0-11.0 [...] 0.00-0.03 10 3/uL Performing Lab: see note - [facility] FREE T3 Reviewed date:11/17/2024 01:04:00 PM Interpretation: Performing Lab: Notes/Report: [facility] Free T3 1.69 2.18-3.98 pg/mL Performing Lab: see note [facility] GLYCOHEMOGLOBIN A1C Reviewed date:11/17/2024 01:04:00 PM Interpretation: Performing Lab: Notes/Report: [facility] , Glycohemoglobin A1C 5.4 4.5-6.2 % ADA RECOMMENDED LIMIT 4.0 - 6.0 ADA THERAPEUTIC TARGET < 7.0 ACTION SUGGESTED > 7.0 Estimated Average Glucose 108 Performing Lab: see note [facility] INSULIN Reviewed date:11/19/2024 02:10:32 PM Interpretation: Performing Lab: Notes/Report: [facility] , Insulin 10.7 2.6-24.9 uIU/mL Performed at: [facility] [address] [id number] Retail Marketing Coordinator: Jl Weems PhD, Phone: [phone] Performing Lab: see note - [facility] LB IRON Reviewed date:11/17/2024 01:04:00 PM Interpretation: Performing Lab: Notes/Report: [facility] , Iron 21.0 50.0-170.0 ug/dL Performing Lab: see note - [facility] LIPID PROFILE Reviewed date:11/17/2024 01:04:00 PM Interpretation: Performing Lab: Notes/Report: [facility] , Triglycerides 54 <=150 mg/dL Cholesterol [...] >11.0 HIGH RISK Performing Lab: see note ML - [facility] PROF 14(COMP METB) Reviewed date:11/17/2024 01:04:00 PM Interpretation: Performing Lab: Notes/Report: [facility] , Sodium 141 136-145 mmol/L Potassium [...] Performing Lab: see note ML - [facility] LB T4 Reviewed date:11/17/2024 01:04:00 PM Interpretation: Performing Lab: Notes/Report: [facility] , T4 Thyroxine 8.20 4.80-13.90 ug/dL Performing Lab: see note ML - [facility] LB TSH Reviewed date:11/17/2024 01:04:00 PM Interpretation: Performing Lab: Notes/Report: [facility] , Thyroid Stimulating Hormone 2.577 0.358-3.740 u IU/mL Performing Lab: see note ML - [facility] Compliance Drug Analysis, Ur Reviewed date:11/26/2024 07:28:07 PM Interpretation: Performing Lab: Notes/Report: Specimen Comment: ToxAssure, ToxAssure FLEX or MAT drug testing: Specimen Comment: -Technical component - Data analysis performed at Specimen Comment: [address] , [place] [address]. [facility] , Summary Report (Summary) FINAL . TOXASSURE COMP DRUG ANALYSIS,UR Test Result Flag Units Drug Present not Declared for Prescription Verification Gabapentin PRESENT UNEXPECTED Acetaminophen PRESENT UNEXPECTED Drug Absent but Declared for Prescription Verification Buprenorphine Not Detected UNEXPECTED ng/mg creat Transdermal buprenorphine, as indicated in the declared medication list, is not always detected even when used as directed. Test Result Flag Units Ref Range Creatinine 106 mg/dL >=20 Declared Medications: The flagging and interpretation on this report are based on the following declared medications. Unexpected results may arise from inaccuracies in the declared medications. Note: The testing scope of this panel does not include small to moderate amounts of these reported medications: Buprenorphine Patch (Butrans) For clinical consultation, please call . Performed at: [facility] [address] [place] [id number] Retail Marketing Coordinator: Gisselle Dodson [facility], Phone: [phone] Performing Lab: see note LC - [facility] LB HCG Qualitative* Reviewed date:12/26/2024 07:47:50 PM Interpretation: Performing Lab: Notes/Report: [facility] , HCG Qualitative NEGATIVE NEGATIVE Performing Lab: see note ML - [facility] LB PROF 14(COMP METB) Reviewed date:12/16/2024 10:27:52 PM Interpretation: Performing Lab: Notes/Report: [facility] , Sodium 141 136-145 mmol/L Potassium [...] Performing Lab: see note ML - [facility] LB GLYCOHEMOGLOBIN A1C Reviewed date:12/16/2024 10:27:52 PM Interpretation: Performing Lab: Notes/Report: [facility] , Glycohemoglobin A1C 6.0 4.5-6.2 % ADA RECOMMENDED LIMIT 4.0 - 6.0 ADA THERAPEUTIC TARGET < 7.0 ACTION SUGGESTED > 7.0 Estimated Average Glucose 126 Performing Lab: see note ML - [facility] LB CBC AUTO DIFF Reviewed date:12/16/2024 10:27:52 PM Interpretation: Performing Lab: Notes/Report: [facility] , White Blood Count 5.2 4.0-11.0 [...] Performing Lab: see note ML - [facility] LB IRON Reviewed date:12/16/2024 10:27:53 PM Interpretation: Performing Lab: Notes/Report: [facility] , Iron 30.0 50.0-170.0 ug/dL Performing Lab: see note ML - [facility] LB FERRITIN Reviewed date:12/16/2024 10:27:53 PM Interpretation: Performing Lab: Notes/Report: [facility] , Ferritin 33.0 8.0-252.0 ng/mL Performing Lab: see note ML - [facility] LB MM tomosynthesis screening B I Reviewed date:12/16/2024 10:27:53 PM Interpretation: Performing Lab: Notes/Report: Source Facility: [facility]-[address] [place] [address] [place] [address] Mammography Report Signed Patient: CONRAD MARSHALL MR#: [id number] : 1970 Acct:[id number] Age/Sex: 54 / F ADM Date: 12/14/24 Loc: MAMMO Attending Dr: Anh Cano M.D. Ordering Physician: Anh Cano M.D. Results: Date of Service: 12/14/24 Follow Up: Procedure(s): MM tomosynthesis screening BI Accession Number(s): [id number] cc: Anh Cano M.D. Patient Name: CONRAD MARSHALL MR#: [id number] : 1970 Exam Date: 12/14/2024 Ordering Doctor: [...] lung cancer at age 73. LOCATION: [facility] BREAST COMPOSITION: There are scattered areas [...] Smiley M.D. Signed By: 12/14/24 1631 DD/ 1630 TD/TT: Associate Director Of Nursing: Reason For Referral Diagnosis 1 Hypothyroidism (E03. 9) Referral Organization [facility] Referring Provider First Name Mike Referring Provider Last Name Elkin Referring Provider Speciality Family Med vidal Referred Provider Carter Enrique Referred Provider Specialty General Surg cosme Referral Priority Routine Medications Medication SIG (Take, Route, Frequency, Duration) Notes Start Date End Date Status Ondansetron 4 MG 1 tablet on the tong ue and allow to dissolve Orally qid 04/02/2025 Active Buprenorphine 10 MCG/HR 1 patch to skin Transdermal dx M47.816 weekly; Duration: 28 days 04/25/2025 Active Lisinopril 10 MG 1 tablet Orally Once a day; Duration: 30 days 05/25/2023 Active Liothyronine Sodium 5 MCG 2 tablet on an empty stomach Orally Once a day; Duration: 30 days 11/19/2024 Active Levothyroxine Sodium 200 MCG Oral; Duration: 90 Days Acti ve Gabapentin 600 MG 1 in amd and two at hs Orally dx M47.816 bid; Duration: 30 days Active Ferrous Sulfate 325 (65 Fe) MG 1 tablet Orally bid; Duration: 30 days 11/19/2024 Active Diclofenac Sodium 75 MG 1 tablet as need ed Orally Twice a day; Duration: 30 days 05/14/2024 Active Compression Stocking Below Knee 20-30mmHg - Use one pair daily; Duration: 90 days 01/18/2023 Active Butrans 10 MCG/HR 1 patch to skin Transdermal weekly; Duration: 28 days JUAN M JUAN M 03/01/2025 Active tiZANidine HCl 4 MG 2 tabs Orally qhs; Duration: 30 days 04/25/2025 Active Meloxicam 15 MG 1 tablet Orally Once a day; Duration: 30 days 04/25/2025 Active Ondansetron HCl 4 MG 1 tablet Orally fallon ry 6 hours as needed; Duration: 30 days Active Social History Tobacco Use: Social History [...] Problem Status W/U Status Risk Notes Problem Essential hypertension (16429738) Essential (primary) hypertension (I10) Active confirmed Problem Hypothyroidism (07300353) Hypothyroidism (E03.9) Active confirmed Problem Restless legs (21677130) Restless leg (G25.81) Active confirmed Problem Anemia (833705046) Anemia (D64.9) Active confirmed Problem Peripheral neuropathy (116830091) Peripheral neuropathy (G62.9) Active confirmed Problem Migraine (38620322) Migraine (G43.909) Active confirmed Problem Arthralgia of the pelvic region and thigh (209466155) Hip pain, acute, left (M25.552) Active confirmed Problem Arthralgia of the pelvic region and thigh (101112136) Hip pain, acute, right (M25.551) Active confirmed Vital Signs Blood pressure diastolic 94 mm Hg 04/25/2025 Height 68 in 04/25/2025 Blood pressure systolic 150 mm Hg 04/25/2025 Weight 182.0 lbs 04/25/2025 BMI 27.67 kg/m2 04/25/2025 Encounters Encounter Location Date Provider Diagnosis [facility] [address] [place] [address] 12/31/2024 Mike Hoy Hip pain M25.559 [facility] [address] [place] [address] 01/29/2025 Mike Hoy Hip pain M25.559 [facility] [address] [facility] [place] [address] 02/27/2025 Mike Hoy Hip pain M25.559 [facility] [address] [place] [address] 03/01/2025 Mike Hoy [facility] [address] [facility] [place] [address] 04/02/2025 Mike Hoy Hip pain M25.559 [facility] [address] [facility] [place] [address] 11/23/2024 Mike Hoy [facility] [address] [facility] [place] [address] 11/26/2024 Mike Hoy [facility] [address] [facility] [place] [address] 11/26/2024 Mike Hoy [facility] [address] [facility] [place] [place] [address] 11/29/2024 Mike Hoy Hip pain M25.559 [facility] [address] [facility] [place] [address] 12/13/2024 Mike Hoy Anemia D64.9 [facility] [address] [facility] [place] [address] 12/16/2024 Mike Hoy [facility] [address] [facility] [place] [address] 10/15/2024 Mike Hoy Hip pain M25.559 [facility] [address] [facility] [place] [address] 10/29/2024 Mike Hoy [facility] [address] [facility] [place] [address] 10/30/2024 Mike Hoy [facility] [address] [place] [address] 11/15/2024 Mike Hoy [facility] [address] [facility] [place] [place] [address] 11/15/2024 Mike Hoy [facility] [address] [place] [facility] [place] [address] 11/17/2024 Mike Hoy Hypothyroidism E03.9 and Anemia D64.9 [facility] [address] [place] [facility] [place] [address] 05/29/2024 Mike Hoy Essential (primary) hypertension I10 [facility] [address] [place] [facility] [place] [place] [address] 06/20/2024 Mike Hoy Hip pain M25.559 [facility] [address] [place] [place] [address] 07/23/2024 Mike Hoy Hip pain M25.559 [facility] [address] [place] [facility] [place] [address] 2024 Mike Hoy Hip pain M25.559 [place] [address] [place] [place] [address] 09/10/2024 Mike Hoy [place] [address] [place] [facility] [place] [address] 09/18/2024 Mike Hoy Hip pain M25.559 [place] [address] [place] [place] [address] 05/14/2024 Mike Hoy Hip pain M25.559 [place] [address] [place] [place] [address] 11/15/2024 Mike Hoy Well adult Z00.00 an d Peripheral neuropathy G62.9 [place] [address] [place] [facility] [place] [address] 04/25/2025 Mike Hoy Peripheral neuropath y G62.9 ; Hip pain, acute, left M25.552 and Hip pain, acute, right M25.551 Assessments Encounter Date Diagnosis (ICD Code) Assessment Notes Treatment Notes Treatment Clinical Notes Section Notes 05/29/2024 Essential (primary) hypertension (ICD-10 - I10) 06/20/2024 Hip pain (ICD-10 - M25.559) 07/23/2024 Hip pain (ICD-10 - M25.559) 2024 Hip pain (ICD-10 - M25.559) 09/18/2024 Hip pain (ICD-10 - M25.559) 10/15/2024 Hip pain (ICD-10 - M25.559) 11/17/2024 Hypothyroidism (ICD-10 - E03.9) 11/17/2024 Anemia (ICD-10 - D64.9) 11/29/2024 Hip pain (ICD-10 - M25.559) 12/13/2024 Anemia (ICD-10 - D64.9) 12/31/2024 Hip pain (ICD-10 - M25.559) 01/29/2025 Hip pain (ICD-10 - M25.559) 02/27/2025 Hip pain (ICD-10 - M25.559) 04/02/2025 Hip pain (ICD-10 - M25.559) 05/14/2024 Hip pain (ICD-10 - M25.559) 11/15/2024 Well adult (ICD-10 - Z00.00) 11/15/2024 Peripheral neuropathy (ICD-10 - G62.9) needs random drug screens this will be neg - due to hold up in meds random drugs screen every 3 months 04/25/2025 Peripheral neuropathy (ICD-10 - G62.9) 04/25/2025 Hip pain, acute, left (ICD-10 - M25.552) 04/25/2025 Hip pain, acute, right (ICD-10 - M25.551) Plan Of Treatment Pending Test Test Name Order Date CMP (COMPLETE METABOLIC PANEL) HEMOGLOBIN A1C (GLYCO) 05/23/2023 HEMOGLOBIN A1C (GLYCO) [...] W/AUTO DIFF 12/13/2024 STOOL OCCULT BLOOD 11/15/2024 CBC AUTO DIFF 04/25/2025 FERRITIN 04/25/2025 IRON 04/25/2025 VC VENOUS REFLUX DAVID LMT 01/12/2023 XR HIP LT 2 3V W PELVIS 04/25/2025 XR LSPINE MIN 4 VIEWS 04/25/2025 THYROID PANEL (T4/TSH/FREE T3) 5 THYROID PANEL (T4/TSH/FREE T3) THYROID PANEL (T4/TSH/FREE T3) 5 THYROID PANEL (T4/TSH/FREE T3) 3 XR HIP RT 2 3V W PELVIS 04/25/2025 MM screening mammo BI 11/15/2024 CMP (COMP MET MCDONALD) w/eGFR CKD-EPI 2024 CBC WITH DIFF 11/15/2024 Insurance Providers Payer Name Payer Address Payer Phone Subscriber Number Group Number Insured Name Patient Relationship to Insured Coverage Start Date Coverage End Date [employer] [place] [employer] [address] [place] [address] [id number] Conrad Marshall Self - patient is the insured Medications Administered Medication Instructions Date of Administration Dosage Notes Ketorolac Tromethamine 05/23/2023 60 mg 60 Ketorolac Tromethamine 04/25/2025 60 mg Orphenadrine Citrate 05/23/2023 60 mg 60 Orphenadrine Citrate 04/25/2025 60 mg Promethazine, 25 mg 05/23/2023 1 mL 25 Triamcinolone 40 mg/ml 04/25/2025 120 mg Medical (General) History Medical History History ICD [...] E06.3 Depressed F32.9 Surgical History Surgery Date(Month/Year) Thyroidectomy Back Surgery 2013 Right Knee scope Green tree filter placement Colonscopy and EGD- Dr Enrique 12/26/2024
--- OUTSIDE RECORDS SUMMARY | 2025-04-25 12:04 | XMS_ITS | Clinical Summary ---
[facility] Address [facility] [id number] [address] [place] [address] Care Team Providers Care Janitor Name Role Phone Unavailable Primary Care Provider [...] 2) 2018 COVID-19 Vaccine (2 - season) 2025 Influenza Vaccine 04/01/2025 Medical Devices Not on file Insurance [employer]
--- OUTSIDE RECORDS SUMMARY | 2025-04-25 12:04 | XMS_ITS | Encounter Summary ---
Author Organization [facility] Address [address] [place] [address] Care Team Providers Care Service Line Coordinator Name Role Phone Kevin Granger MD Primary Care Provider [phone] Reason for Visit * Reason Comments Med Refill Encounter Details Date Type Department Care Team (Late st Contact Info) Description 06/18/2024 Refill PRAMOD Diaz Otolaryngology [address] [place] [id number] Onel Hatch, DO [address] [place] [address] Malignant neoplasm of thyroid gland (HCC) Social History Tobacco Use Types Packs/Day Years [...] gland (HCC) Malignant neoplasm of thyroid gland documented in this encounter Care Teams Service Line Coordinator Relationship Specialty Start Date End Date Kevin Granger MD PCP - General Family Medicine 03/16/23 documented as of this encounter
--- OUTSIDE RECORDS SUMMARY | 2025-04-25 12:04 | XMS_ITS | Clinical Summary ---
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
--- OUTSIDE RECORDS SUMMARY | 2025-04-25 12:10 | XMS_ITS | CCD ---
Author Organization [facility] Care Team Providers Care Shoes Hand Sewer Name Role Phone MAXIME, AHMAD Admitting Unavailable [...] Attending Provider DO Onel Hatch Attending Provider [phone] MD Anh Granger Primary Care Provider DO Abdoulaye Esqueda Attending Provider [phone] Anh Granger MD Primary Care Provider [phone] Onel Hatch DO Attending Provider Anh Granger Primary Care Unavailable Onel Hatch Admitting Unavailable Onel Hatch Attending Unavailable Anh Granger Primary Care Unavailable Abdoulaye Esqueda Admitting Unavailable Abdoulaye Esqueda Attending Unavailable Onel Hatch Admitting Unavailable Onel Hatch Attending Unavailable Anh Granger Primary Care Unavailable ONEL HATCH W Attending Unavailable ONEL HATCH W Attending Unavailable Anh Granger Referring Unavailable NILCarter Wood Attending Unavailable NILL, Carter Man Attending Unavailable Allergies Allergy Classification Reported Allergen(s) Allergy Type Date of Onset Reaction(s) Facility (1 source) [facility] Drug Allergy 6 [facility] Repository (11 sources) [facility]enta[facility] Drug Allergy 4 Hives [facility] (11 sources) Povidone-Iodine Drug Allergy 4 Rash [facility] (1 source) No Known Medication Allergies; Translations: [No Known Medication Allergies] Propensity to adverse reactions (disorder) [facility] Repository Medications Current Medications Medication Drug [...] Test Name Value Interpretation Reference Range Facility Reminderson 12-28-2024 Reminders Reminders From: Barbara Sykes LPN To: N - Clinical; Sent: 12/28/2024 08:08:15 EDT Show up: 11/26/2034 07:00:00 EDT Subject: colonoscopy recall Due Date/Time: 12/26/2034 07:00:00 EDT Reminder/Recall Patient due for screening colonoscopy 12/26/2034. Normal [facility] Ambulatory Visit Summaryon 0 12-05-2024 Ambulatory Visit [...] for choosing us for your care. Normal [facility] Thyroid Stimulating Hormoneo n 11-05-2024 TSH Qn 0.74 m[IU]/L Normal 0.45-5.33 [facility] Comment on above: Order Comment: FASTI NG NON FASTING Result Comment: PERF ORMED BY: [facility] [address] [place] [address] PATHOLOGIST SWIMMING POOL SERVICE TECHNICIAN MANAV ESPINAL M.D. Performed By: #### T 3T, TSH3, T4T #### [address] Thyrotropin [Units/volume] i n Serum or PlasmaOrdered By: Onel Hatch on 11-05-2024 TSH Qn Thyrotropin [Units/volume] in Serum or Plasma 0.45-5.33 [facility] Thyroxine (T4) Totalon 11-05 T4 [Mass/Vol] 11.03 ug/dL Normal 5.39-11.82 [facility] Comment on above: Order Comment: FASTI NG NON FASTING Performed By: #### T 3T, TSH3, T4T #### [address] Thyroxine (T4) [Mass/volume] in Serum or PlasmaOrdered By: Onel Hatch on 11-05-2024 T4 [Mass/Vol] Thyroxine (T4) [Mass/volume] in Serum or Plasma 5.39-11.82 [facility] Triiodothyronine (T3) Totalo n 11-05-2024 Triiodothyronine (T3) Total 1.05 ng/mL Normal 0.87-1.78 [facility] Comment on above: Order Comment: FASTI NG NON FASTING Performed By: #### T 3T, TSH3, T4T #### [address] Triiodothyronine (T3) [Mass/ volume] in Serum or PlasmaOrdered By: Onel Hatch on 11-05-2024 T3 [Mass/Vol] Triiodothyronine (T3 ) [Mass/volume] in Serum or Plasma 0.87-1.78 [facility] Thyroglobulinon 05-19-2024 ANTITHYROGLOBULIN AB 20.3 High 0.0 - 0.9 [facility] Comment on above: Thyroglobulin Antibo dy measured by Dara Doyle Methodology It should be noted that the presence of thyroglobulin antibodies may not be pathogenic nor diagnostic, especially at very low levels. The assay mail carrier has found that four percent of individuals without evidence of thyroid disease or autoimmunity will have positive TgAb levels up to 4 IU/mL. Interpretation and review of laboratory results Abnormal [facility] THYROGLOBULIN, TG-MARISSA 4.2 ng/mL . [facility] Comment on above: This test was develo ped and its performance characteristics determined by [employer]. It has not been cleared or approved [...] quantitation limit is 2.0 ng/mL. Performed at: [facility] [address] [id number] Wearing Apparel Shaker: Jl Weems PhD, Phone: [phone] Performed at: [facility] [address] [place] [id number] Wearing Apparel Shaker: Alvin Suazo MD, Phone: [phone] [facility] Thyroglobulin, Quant + Tg Ab on 04-26-2024 Antithyroglobulin Ab 20.3 High 0.0-0.9 [facility] Comment on above: Result Comment: Thyr oglobulin Antibody measured by [employer] Johann Methodology It should be noted that the presence of thyroglobulin antibodies may not be pathogenic nor diagnostic, especially at very low levels. The assay mail carrier has found that four percent of individuals without evidence of thyroid disease or autoimmunity will have positive TgAb levels up to 4 IU/mL. Performed By: #### L C T4, THYGLOB #### [facility] , Thyroglobulin, TG-MARISSA 4.2 ng/mL Normal . [facility] Comment on above: Result Comment: This test was developed and its performance characteristics determined by [employer]. It has not been cleared or approved [...] quantitation limit is 2.0 ng/mL. Performed at: [facility] [id number] Wearing Apparel Shaker: Jl Weems PhD, Phone: [phone] Performed at: [facility] [employer] [facility] [address] [place] [id number] Wearing Apparel Shaker: Alvin Suazo MD, Phone: [phone] PERFORMED BY: [place] [address] PATHOLOGIST SWIMMING POOL SERVICE TECHNICIAN ANDRE WATTS M.D. Performed By: #### L C T4, THYGLOB #### [facility] , Thyrotropin [Units/volume] i n Serum or PlasmaOrdered By: Abdoulaye Esqueda on 04-26-2024 TSH Qn 1.64 m[IU]/L Normal 0.45-5.33 [facility] Comment on above: Result Comment: PERF ORMED BY: [place] [address] PATHOLOGIST SWIMMING POOL SERVICE TECHNICIAN ANDRE WATTS M.D. Performed By: #### T 4T, TSH3, T3T #### [address] #### THYGLOB #### [facility] , Thyroxine (T4) [Mass/volume] in Serum or PlasmaOrdered By: Abdoulaye Esqueda on 04-26-2024 T4 [Mass/Vol] 11.41 ug/dL Normal 5.39-11.82 [facility] Comment on above: Performed By: #### T 4T, TSH3, T3T #### [facility] [address] [place] [address] #### THYGLOB #### [facility] , Triiodothyronine (T3) Totalo n 04-26-2024 Triiodothyronine (T3) Total 0.71 ng/mL Low 0.87-1.78 [facility] Comment on above: Performed By: #### T 4T, TSH3, T3T #### [place] [address] [id number] [facility] #### THYGLOB #### [facility] , Triiodothyronine (T3) [Mass/ volume] in Serum or PlasmaOrdered By: Abdoulaye Esqueda on 04-26-2024 T3 [Mass/Vol] 0.71 ng/mL Low 0.87-1.78 [facility] Thyroxine (T4)on T4 [Mass/Vol] 11.5 ug/dL Normal 4.5-12.0 [facility] Comment on above: Result Comment: Perf ormed at: [facility] [facility] [id number] Wearing Apparel Shaker: Jl Weems PhD, Phone: [phone] Performed By: #### L C T4, THYGLOB #### [facility] , Thyroglobulin, Quant + Tg Ab on 11-21-2023 Antithyroglobulin Ab 23.1 High 0.0-0.9 [facility] Comment on above: Result Comment: Thyr oglobulin Antibody measured by Dara Pole Star Methodology It should be noted that the presence of thyroglobulin antibodies may not be pathogenic nor diagnostic, especially at very low levels. The assay mail carrier has found that four percent of individuals without evidence of thyroid disease or autoimmunity will have positive TgAb levels up to 4 IU/mL. Performed By: #### L C T4, THYGLOB #### [facility] , Thyroglobulin, TG-MARISSA 2.5 ng/mL Normal . [facility] Comment on above: Result Comment: This test was developed and its performance characteristics determined by [employer]. It has not been cleared or approved [...] quantitation limit is 2.0 ng/mL. Performed at: [facility] [address] [id number] Wearing Apparel Shaker: Jl Weems PhD, Phone: [phone] Performed at: [facility] [employer] [address] [place] [id number] W[employer] Apparel Shaker: Alvin Suazo MD, Phone: [phone] PERFORMED BY: [place] [address] PATHOLOGIST SWIMMING POOL SERVICE TECHNICIAN ANDRE WATTS M.D. Performed By: #### L C T4, THYGLOB #### [facility] , Thyrotropin [Units/volume] i n Serum or PlasmaOrdered By: Onel Hatch on 11-21-2023 TSH Qn 0.33 m[IU]/L Low 0.45-5.33 [facility] Comment on above: Result Comment: PERF ORMED BY: [place] [address] PATHOLOGIST SWIMMING POOL SERVICE TECHNICIAN ANDRE WATTS M.D. Performed By: #### T 3T, TSH3 #### [facility] [address] [place] [address] Triiodothyronine (T3) Totalo n 11-21-2023 Triiodothyronine (T3) Total 1.10 ng/mL Normal 0.87-1.78 [facility] Comment on above: Performed By: #### T 3T, TSH3 #### [facility] [address] [place] [address] [place] Triiodothyronine (T3) [Mass/ volume] in Serum or PlasmaOrdered By: Onel Hatch on 11-21-2023 T3 [Mass/Vol] 1.10 ng/mL 0.87-1.78 [facility] TSH Qnon 09-14-2023 Interpretation and review of laboratory results Abnormal [facility] T4 [Mass/Vol] 13.2 ug/dL High 4.5 - 12.0 ug/dL [facility] Comment on above: Performed at: [facility] [address] [id number] Wearing Apparel Shaker: Jl Weems PhD, Phone: [phone] [facility] Thyroglobulin Antibodyon ANTITHYROGLOBULIN AB 24.3 High 0.0 - 0.9 [facility] Comment on above: Thyroglobulin Antibo dy measured by Dara Johann Methodology It should be noted that the presence of thyroglobulin antibodies may not be pathogenic nor diagnostic, especially at very low levels. The assay mail carrier has found that four percent of individuals without evidence of thyroid disease or autoimmunity will have positive TgAb levels up to 4 IU/mL. Performed at: [facility] [id number] [place], [place] [id number] Wearing Apparel Shaker: Jl Weems PhD, Phone: [phone] Interpretation and review of laboratory results Abnormal [facility] No Panel InformationOrdered By: Abdoulaye Esqueda on 09-13-2023 Free Thyroxine (T4) Direct 13.2 ug/dL 4.5-12.0 [facility] Comment on above: Performed at: [facility] [address] [id number] Director: Jl Weems PhD, Phone: [phone] Serum or plasma thyroglobuli n antibody assay (units/volume)Ordered By: Abdoulaye Esqueda on 09-13-2023 Thyroglobulin Ab Qn 24.3 [IU]/mL 0.0-0.9 [facility] Comment on above: Thyroglobulin Antibo dy measured by Dara CoulterMethodologyIt should be noted that the presence of thyroglobulinantibodies may not be pathogenic nor diagnostic, especiallyat very low levels. The assay mail carrier has found thatfour percent of individuals without evidence of thyroiddisease or autoimmunity will have positive TgAb levels upto 4 IU/mL.Performed at: [facility] [address] [id number] Director: Jl Weems PhD, Phone: [phone] Thyrotropin [Units/volume] i n Serum or PlasmaOrdered By: Abdoulaye Esqueda on 09-13-2023 TSH Qn 0.02 m[IU]/L 0.45-5.33 [facility] Triiodothyronine (T3) [Mass/ volume] in Serum or PlasmaOrdered By: Abdoulaye Esqueda on 09-13-2023 T3 [Mass/Vol] 0.71 ng/mL 0.87-1.78 [facility] Thyrotropin [Units/volume] i n Serum or PlasmaOrdered By: Onel Hatch on 03-10-2023 TSH Qn 0.01 m[IU]/L 0.45-5.33 [facility] Thyroxine (T4) [Mass/volume] in Serum or PlasmaOrdered By: Onel Hatch on 03-10-2023 T4 [Mass/Vol] 13.03 ug/dL 5.39-11.82 [facility] Triiodothyronine (T3) [Mass/ volume] in Serum or PlasmaOrdered By: Onel Hatch on 03-10-2023 T3 [Mass/Vol] 1.08 ng/mL 0.87-1.78 [facility] No Panel InformationOrdered By: Onel Hatch on 09-08-2022 Total Triiodothyronine 1.32 ng/mL 0.87-1.78 [facility] TSH DL <= 0.005 mIU/L QnOrde red By: Onel Hatch on 09-08-2022 TSH Qn 0.01 m[IU]/L 0.45-5.33 [facility] Thyroxine (T4) free [Mass/vo lume] in Serum or PlasmaOrdered By: Onel Hatch on 09-08-2022 Free T4 [Mass/Vol] 1.32 ng/dL 0.61-1.12 [facility] [address] NECK [facility] W CONon [address] W CON EXAMINATION: CT [...] BRYAN ARTHUR Date: 2021-09-02 08:56 Normal [facility] US THYROIDon 09-02-2021 US THYROID EXAMINATION: [...] BRYAN ARTHUR Date: 2021-09-02 09:02 Normal [facility] THYROGLOBULINon 01-08-2021 Thyroglobulin 7.5 ng/mL Normal [facility] Comment on above: Result Comment: This test was developed and its performance characteristics determined by [employer]. It has not been cleared or approved [...] is 2.0 ng/mL. Performed By: #### T ADILENE #### [facility] [address] [place] [address] Ilana Lambert FSHon 01-02-2021 FSH 3.8 mIU/mL Normal [facility] Comment on above: Result Comment: Adul t Female: Follicular phase 3.5 - 12.5 Ovulation phase 4.7 - 21.5 Luteal phase 1.7 - 7.7 Postmenopausal 25.8 - 134.8 Performed By: #### L BCFS #### [facility] [address] [place] [address] Ilana Lambert THYROGLOBULIN ABon Thyroglobulin Antibody 29.0 IU/mL Critically high 0.0-0.9 [facility] Comment on above: Result Comment: Thyr oglobulin Antibody measured by [employer] Method[employer] Performed By: #### T HYGAB #### [facility] [address] [place] [address] Ilana Petra CBC AUTO DIFFon 01-01-2021 BASO # 0.0 103/ul Normal 0.0-0.1 [facility] Comment on above: Performed By: #### F T4 #### [facility] [address] [place], [place] [id number] Ilana Lambert Basophils/100 WBC (Bld) 0.4 % Normal 0.2-2.0 [facility] Comment on above: Performed By: #### F T4 #### [facility] [address] [place], [place] [address] Ilanayonny Lambert EO # 0.1 103/ul Normal 0.0-0.7 [facility] Comment on above: Performed By: #### F T4 #### [facility] [address] [place], [place] [address] Ilana Lambert Eosinophils/100 WBC (Bld) 1.1 % Normal 0.9-7.0 [facility] Comment on above: Performed By: #### F T4 #### [facility] [address] [place], [place] [address] Ilanayonny Lambert Erythrocyte distribution width (RBC) [Ratio] 12.0 % Normal 11.0-15.0 [facility] Comment on above: Performed By: #### F T4 #### [facility] [address] [place] [address] Ilanayonny Lambert Hematocrit (Bld) [Volume fraction] 39.1 % Normal 36.0-48.0 [facility] Comment on above: Performed By: #### F T4 #### [facility] [address] [place] [address] Ilana Petra Hemoglobin (Bld) [Mass/Vol] 13.0 g/dL Normal 12.0-16.0 [facility] Comment on above: Performed By: #### F T4 #### [facility] [address] [place] [address] Ilana Petra IG # 0.03 10e3/ul Normal 0.00-0.03 [facility] Comment on above: Performed By: #### F T4 #### [facility] [address] [place] [address] Ilana Petra IG % 0.3 % Normal 0.0-0.5 [facility] Comment on above: Performed By: #### F T4 #### [facility] [address] [place] [address] Ilana Petra LYMPH # 2.2 103/ul Normal 1.2-3.8 [facility] Comment on above: Performed By: #### F T4 #### [facility] [address] [place] [address] Ilana Lambert Lymphocytes/100 WBC (Bld) 24.5 % Normal 20.5-60.0 [facility] Comment on above: Performed By: #### F T4 #### [facility] [address] [place] [address] Ilana Lambert MANUAL DIFF REQ NO Normal [facility] Comment on above: Performed By: #### F T4 #### [facility] [address] [place], [place] [address] Ilana Lambert MCH (RBC) [Entitic mass] 30.0 pg Normal 26.7-34.0 [facility] Comment on above: Performed By: #### F T4 #### [facility] [address] [place] [address] Ilanayonny Lambert MCHC (RBC) [Mass/Vol] 33.2 g/dL Normal 29.9-35.2 [facility] Comment on above: Performed By: #### F T4 #### [facility] [address] [place], [place] [address] Ilana Lambert MCV (RBC) [Entitic vol] 90.3 fL Normal 81.0-99.0 [facility] Comment on above: Performed By: #### F T4 #### [facility] [address] [place], [place] [address] Ilana Lambert MONO # 0.6 103/ul Normal 0.3-0.8 [facility] Comment on above: Performed By: #### F T4 #### [facility] [address] [place] [address] Ilana Lambert Monocytes/100 WBC (Bld) 7.2 % Normal 1.7-12.0 [facility] Comment on above: Performed By: #### F T4 #### [facility] [address] [place] [address] Ilana Yeageren NEUT # 5.9 103/ul Normal 1.4-6.5 [facility] Comment on above: Performed By: #### F T4 #### [facility] [address] [place] [address] Ilana Lambert Neutrophils/100 WBC (Bld) 66.5 % Normal 43.0-75.0 [facility] Comment on above: Performed By: #### F T4 #### [facility] [address] [place], [place] [address] Ilanayonny Lambert Platelet mean volume (Bld) [Entitic vol] 9.7 fL Normal 9.5-13.5 [facility] Comment on above: Performed By: #### F T4 #### [facility] [address] [place], [place] [address] Ilana Petra PLT 239 103/ul Normal 150-450 [facility] Comment on above: Performed By: #### F T4 #### [facility] [address] [place] [address] Ilana Petra RBC 4.33 106/ul Normal 4.20-5.40 [facility] Comment on above: Performed By: #### F T4 #### [facility] [address] [place], [place] [address] Ilana Petra WBC 8.9 103/ul Normal 4.0-11.0 [facility] Comment on above: Performed By: #### F T4 #### [facility] [address] [place], [place] [address] Ilana Petra FREE T3on 01-01-2021 FREE T3 1.09 pg/mlL Critically low 2.77-5.27 [facility] Comment on above: Performed By: #### F T4 #### [facility] [address] [place] [address] Ilana Petra FREE T4on 01-01-2021 Free T4 [Mass/Vol] 1.50 ng/dL Normal 0.78-2.19 [facility] Comment on above: Performed By: #### F T4 #### [facility] [address] [place], [place] [address] Ilana Petra IRONon 01-01-2021 Iron [Mass/Vol] 101.0 ug/dL Normal 37.0-170.0 [facility] Comment on above: Performed By: #### F T4 #### [facility] [address] [place], [place] [address] Ilana Lambert PROF 14(COMP METB)on 021 Albumin [Mass/Vol] 3.3 g/dL Critically low 3.5-5.0 [facility] Comment on above: Performed By: #### C MP #### [facility] [address] [place], [place] [address] Ilana Petra Albumin/Globulin [Mass ratio] 0.9 {ratio} Normal [facility] Comment on above: Performed By: #### C MP #### [facility] [address] [place], [place] [address] Ilana Petra ALP [Catalytic activity/Vol] 55 U/L Normal 38-126 [facility] Comment on above: Performed By: #### C MP #### [facility] [address] [place], [place] [address] Ilana Petra ALT [Catalytic activity/Vol] 18 U/L Normal 9-52 [facility] Comment on above: Performed By: #### C MP #### [facility] [address] [place], [place] [address] Ilana Petra Anion gap [Moles/Vol] 8.8 mmol/L Normal [facility] Comment on above: Performed By: #### C MP #### [facility] [address] [place], [place] [address] Ilana Petra AST [Catalytic activity/Vol] 13 U/L Critically low 14-36 [facility] Comment on above: Performed By: #### C MP #### [facility] [address] [place] [id number] Ilana Petra Bilirubin [Mass/Vol] 0.5 mg/dL Normal 0.2-1.3 [facility] Comment on above: Performed By: #### C MP #### [facility] [address] [place], [place] [address] Ilana Petra Calcium [Mass/Vol] 8.4 mg/dL Normal 8.4-10.2 [facility] Comment on above: Performed By: #### C MP #### [facility] [address] [id number] Ilana Petra Chloride [Moles/Vol] 104 mmol/L Normal 98-107 [facility] Comment on above: Performed By: #### C MP #### [facility] [address] [place], [place] [address] Ilana Petra CO2 [Moles/Vol] 29.8 mmol/L Normal 22.0-30.0 [facility] Comment on above: Performed By: #### C MP #### [facility] [address] [place], [place] [address] Ilana Petra Creatinine [Mass/Vol] 0.88 mg/dL Normal 0.52-1.04 [facility] Comment on above: Performed By: #### C MP #### [facility] [address] [place], [place] [address] Ilana Petra EGFR-AF VINCENTIAN >60 Normal >=60 [facility] Comment on above: Performed By: #### C MP #### [facility] [address] [id number] Ilana Petra EGFR-NON AF VINCENTIAN >60 Normal >=60 [facility] Comment on above: Performed By: #### C MP #### [facility] [address] [id number] Ilana Petra Globulin (S) [Mass/Vol] 3.8 g/dL Normal [facility] Comment on above: Performed By: #### C MP #### [facility] [address] [place] [address] Ilana Petra Glucose [Mass/Vol] 90 mg/dL Normal 74-106 [facility] Comment on above: Performed By: #### C MP #### [facility] [address] [place] [address] Ilana Petra Potassium [Moles/Vol] 3.6 mmol/L Normal 3.4-5.0 [facility] Comment on above: Performed By: #### C MP #### [facility] [address] [place] [address] Ilana Petra Protein [Mass/Vol] 7.1 g/dL Normal 6.1-8.2 [facility] Comment on above: Performed By: #### C MP #### [facility] [address] [place] [address] Ilana Petra Sodium [Moles/Vol] 139 mmol/L Normal 137-145 [facility] Comment on above: Performed By: #### C MP #### [facility] [address] [place] [address] Ilana Petra Urea nitrogen [Mass/Vol] 11.0 mg/dL Normal 7.0-17.0 [facility] Comment on above: Performed By: #### C MP #### [facility] [address] [place], [place] [address] Ilana Petra Urea nitrogen/Creatinine [Mass ratio] 12.5 mg/mg Normal [facility] Comment on above: Performed By: #### C MP #### [facility] [address] [place], [place] [address] Ilana Petra TSHon 01-01-2021 TSH 3.552 uIU/mL Normal 0.470-4.680 [facility] Comment on above: Performed By: #### F T4 #### [facility] [address] [place], [place] [address] Ilana Petra TSH RANGE SEE BELOW Normal [facility] Comment on above: Result Comment: <0.3 4 UIU/ml HYPERTHYROID 0.34-5.60 UIU/ml EUTHYROID >5.60 UIU/ml HYPOTHYROID Performed By: #### F T4 #### [facility] [address] [place], [place] [address] Ilana Petra VITAMIN D 25 OHon 01-01-2021 VIT D 25-OH 30.8 ng/mL Normal [facility] Comment on above: Performed By: #### F T4 #### [facility] [address] [place], [place] [address] Ilana Petra VIT D RANGES SEE BELOW Normal [facility] [facility] Comment on above: Result Comment: <20 ng/mL Vit D deficient 20 - <30 ng/mL Vit D insufficient 30 - 100 ng/mL Vit D sufficient >100 ng/mL Potential Toxicity Performed By: #### F T4 #### [facility] [address] [place], [place] [id number] Ilana Petra FREE T3on 10-03-2020 FREE T3 2.27 pg/mlL Critically low 2.77-5.27 [facility] Comment on above: Performed By: #### F T3, TSH #### [facility] [address] [place], [place] [id number] Ilana Petra FREE T4on 10-03-2020 Free T4 [Mass/Vol] 1.27 ng/dL Normal 0.78-2.19 [facility] Comment on above: Performed By: #### F T4 #### [facility] [address] [place], [place] [id number] Ilana Petra TSHon 10-03-2020 TSH 17.604 uIU/mL Critically high 0.470-4.680 [facility] Comment on above: Performed By: #### F T3, TSH #### [facility] [address] [place], [place] [address] Ilana Lambert TSH RANGE SEE BELOW Normal [facility] Comment on above: Result Comment: <0.3 4 UIU/ml HYPERTHYROID 0.34-5.60 UIU/ml EUTHYROID >5.60 UIU/ml HYPOTHYROID Performed By: #### F T3, TSH #### [facility] [address] [place] [id number] Ilana Lambert LUMBAR SPINE 4 OR 5 Son LUMBAR SPINE 4 OR 5 S [facility] Department of Radiology [address] [place] [phone] Patient Name: CONRAD AGUILAR : 1970 [...] findings. Electronically signed by:Jeovanny Mercer. Transcribed by: [email or web address], User Resident: ONEL CINTRON Electronically Signed by: JEOVANNY MERCER @ 06/15/2018 05:58 PM I personally read this/these film(s) with this resident Normal The [facility] Comment on above: Order Comment: , Nathanael ws (X-RAY, LUMBAR SPINE): AP, Lateral, L5- S1 Spot, Flexion, Extension , Views (X-RAY, LUMBAR SPINE): AP, Lateral, L5-S1 Spot, Flexion, Extension , , , Ordering Provider - [facility] MD , Vital Signs Date Time Vital Sign Value Performing Clinician Brook paulson 11-13-2024 09:06-0400 Body height 172.7 cm Onel Smallcek DO Work Phone: [facility] 11-13-2024 09:06-0400 Body mass index (BMI) [Ratio] 26.46 kg/m2 Onel Murcek DO Work Phone: [facility] [employer] 11-13-2024 09:06-0400 Body weight 78.93 kg Onel Smallcek DO Work Phone: [facility] 05-08-2024 09:07-0400 Body height 172.7 cm Onel Smallcek DO Work Phone: [facility] 05-08-2024 09:07-0400 Body mass index (BMI) [Ratio] 26.46 kg/m2 Onel Stacicek DO Work Phone: [facility] 05-08-2024 09:07-0400 Body weight 78.93 kg Onel Smallcek DO Work Phone: [facility] Healthcare Encounters Encounter Date Encounter Type Care Provider Facility Start: 12-26-2024 End: 12-26-2024 ambulatory Carter R RASHAUNL Facility:CD:[id number] Start: 12-05-2024 End: 12-05-2024 ambulatory Anh Hoy Facility:[facility] [place] Start: 11-20-2024 ambulatory Anh Hoy Facility:[facility] [place] Start: 11-13-2024 End: 11-13-2024 Bamboo flowsheet Onel De Los Santos Stacitheodorak DO [facility] Start: 11-13-2024 End: 11-13-2024 Bamboo flowsheet Onel De Los Santos Stacicek DO Work Phone: [facility] [place] Start: 11-13-2024 End: 11-13-2024 Office outpatient visit 25 minutes Onel De Los Santos Christopherk DO Work Phone: [facility] Comment on above: Status post total th yroidectomy (Primary Dx); Malignant neoplasm of thyroid gland (CMS/HCC) Start: 11-13-2024 End: 11-13-2024 ambulatory ONEL HATCH Not Available Start: 11-05-2024 End: 11-05-2024 Patient encounter procedure Anh Granger MD Work Phone: [facility] [place] Work Phone: Start: 11-05-2024 End: 11-05-2024 ambulatory Anh Granger MD Work Phone: [place] Work Phone: Start: 05-08-2024 End: 05-08-2024 Bamboo flowsheet Onel Hatch DO Work Phone: [facility] Start: 05-08-2024 End: 05-08-2024 Bamboo flowsheet Onel Hatch DO Work Phone: [facility] Start: 05-08-2024 End: 05-08-2024 Office outpatient visit 25 minutes Onel Hatch DO Work Phone: [facility] Comment on above: Malignant neoplasm o [...] encounter procedure MD Anh Granger Work Phone: [facility] [place] Work Phone: Start: 04-26-2024 End: 04-26-2024 ambulatory MD Anh Granger Work Phone: [facility] Work Phone: Start: 11-21-2023 End: 11-21-2023 Patient encounter procedure MD Anh Granger Work Phone: [facility] [place] Work Phone: Start: 11-21-2023 End: 11-21-2023 ambulatory MD Anh Granger Work Phone: [facility] Work Phone: Start: 09-13-2023 External Result Encounter Abdoulaye Esqueda DO Work Phone: [facility] Unsolicited Start: 09-13-2023 External Result Encounter Abdoulaye Esqueda DO Work Phone: [facility] Unsolicited Start: 09-13-2023 End: 09-13-2023 ambulatory MD Anh Granger Work Phone: [facility] Work Phone: Start: 09-13-2023 End: 09-13-2023 Patient encounter procedure MD Anh Granger Work Phone: [facility] [place] Work Phone: Start: 03-10-2023 End: 03-10-2023 ambulatory MD Anh Granger Work Phone: [facility] Work Phone: Start: 03-10-2023 End: 03-10-2023 Patient encounter procedure MD Anh Granger Work Phone: [facility] [place] Work Phone: Start: 09-08-2022 End: 09-08-2022 ambulatory MD Anh Granger Work Phone: [facility] Work Phone: Start: 09-08-2022 End: 09-08-2022 Patient encounter procedure MD Anh Granger Work Phone: [facility] [place] Work Phone: Start: 09-02-2021 End: 09-03-[address] ANH GRANGER Facility:[facility] Start: 01-01-2021 End: 01-02-[address] ANH GRANGER Facility:[facility] Start: 10-03-2020 End: 10-04-2020 ambulatory ALEJA MAXIME Facility:[facility] Procedures Date Procedure Procedure Detail Performing Clinician Start: 04-26-2024 Assay of thyroglobulin Abdoulaye Esqueda DO Work Phone: Start: 09-13-2023 Assay of thyroxine total Abdoulaye Campbell ch DO Work Phone: Start: 09-13-2023 Thyroglobulin antibody Abdoulaye Esqueda DO Work Phone: History of thyroidectomy Status post total thyroidectomy Onel Magali Mamie DO Work Phone: Plan of Treatment Date Care Activity Detail Author Start: 10-28-2025 End: 11-13-2025 Thyroglobulin Thyroglobulin Lab Routine Malignant neoplasm of thyroid gland (CMS/HCC) Expected: 10/28/2025 (Approximate), Expires: 11/13/2025 [facility] Comment on above: Expected: 10/28/2025 (Approximate), Expires: 11/13/2025 Start: 10-28-2025 End: 11-13-2025 Thyrotropin [Units/volume] in Serum or Plasma [facility] Comment on above: Expected: 10/28/2025 (Approximate), Expires: 11/13/2025 Start: 10-28-2025 End: 11-13-2025 Triiodothyronine (T3) [Mass/volume] in Serum or Plasma T3 Lab Routine Malignant neoplasm of thyroid gland (CMS/HCC) Expected: 10/28/2025 (Approximate), Expires: 11/13/2025 [facility] Comment on above: Expected: 10/28/2025 (Approximate), Expires: 11/13/2025 Start: 05-15-2025 End: 11-13-2025 Thyroglobulin Thyroglobulin Lab Routine Malignant neoplasm of thyroid gland (CMS/HCC) Expected: 05/15/2025 (Approximate), Expires: 11/13/2025 [facility] Comment on above: Expected: 05/15/2025 (Approximate), Expires: 11/13/2025 Start: 05-15-2025 End: 11-13-2025 Thyrotropin [Units/volume] in Serum or Plasma [facility] Work Phone: Comment on above: Expected: 05/15/2025 (Approximate), Expires: 11/13/2025 Start: 05-15-2025 End: 11-13-2025 Triiodothyronine (T3) [Mass/volume] in Serum or Plasma T3 Lab Routine Malignant neoplasm of thyroid gland (CMS/HCC) Expected: 05/15/2025 (Approximate), Expires: 11/13/2025 [facility] Comment on above: Expected: 05/15/2025 (Approximate), Expires: 11/13/2025 Start: 04-01-2025 Influenza vaccination Influenz a Vaccine (Season Ended) [facility] Start: 11-13-2024 End: 11-13-2024 Patient encounter procedure [facility] Comment on above: Arrived Start: 11-05-2024 End: 05-08-2025 Thyrotropin [Units/volume] in Serum or Plasma [facility] Work Phone: Comment on above: Expected: 11/05/2024 (Approximate), Expires: 05/08/2025 Start: 11-05-2024 End: 05-08-2025 Triiodothyronine (T3) [Mass/volume] in Serum or Plasma T3 Lab Routine Malignant neoplasm of thyroid gland (CMS/HCC) Expected: 11/05/2024 (Approximate), Expires: 05/08/2025 [facility] Comment on above: Expected: 11/05/2024 (Approximate), Expires: 05/08/2025 Start: 05-08-2024 End: 05-08-2024 Patient encounter procedure [facility] Comment on above: Arrived Start: 04-26-2024 [facility] Start: 04-01-2024 Influenza vaccination Influenza Vacc ine (#1) [facility] Start: 11-21-2023 Thyroxine measurement F [facility] Start: 09-20-2023 End: 09-20-2023 Patient encounter procedure 09/20/2023 8:30 AM EST Office Visit [facility] [place] [address] [place] [phone] Onel Hatch, [address] [place] [address] [facility] Start: 09-13-2023 Thyroxine measurement F [facility] Start: 04-01-2023 Influenza vaccination Influenza Vacc ine (#1) [facility] Start: 2008 Screening for malign ant neoplasm of breast Mammogram [facility] Start: 1998 Screening for malign ant neoplasm of cervix [facility] Start: 1989 Screening for malign ant neoplasm of cervix Pap Smear [facility] Start: 1968 Screening for malign ant neoplasm of colon [facility] Thyroglobulin Ab [Units/volume] in Serum or Plasma [facility] Thyroglobulin Ab [Units/volume] in Serum or Plasma [facility] Thyroglobulin Ab [Units/volume] in Serum or Plasma [facility] Thyroglobulin Ab [Units/volume] in Serum or Plasma [facility] Thyrotropin [Units/v olume] in Serum or Plasma TSH Lab Routine 09/13/2023 9:13 AM EST [facility] Work Phone: Thyrotropin [Units/v olume] in Serum or Plasma TSH Lab Routine 04/26/2024 9:20 AM EDT [facility] Work Phone: Triiodothyronine (T3 ) [Mass/volume] in Serum or Plasma T3 Lab Routine 09/13/2023 9:13 AM EST [facility] Payers Date Payer Category Payer Self-pay [id number] 2014 Medicaid [employer] [place] [employer] [id number] 2014-Present [address] [place] [id number] 2014 Medicaid (Managed Care) [employer] [id number] 1968 Unknown [id number]. 593 1970 Unknown [id number]. 593 1968 Unknown [id number] [id number]. 593 1968 Unknown [id number] [id number]. 593 1968 Unknown [id number] [id number]. 1259 1968 Unknown [id number] [id number]. 1259 1968 Unknown [id number] [id number]. 727 1968 Unknown [id number] [id number]. 727 1959 Unknown [id number] Unknown [id number] [id number]. 531 Unknown [id number] [id number]. 531 Unknown [id number]. 531 Social History Date Type Detail Facility Start: 01-05-2021 End: 03-16-2023 Tobacco smoking status NHIS Never smoked tobacco (finding) [facility] Start: 1970 Sex Assigned At Female F [facility] Start: 03-16-2023 Tobacco use and exposure Smokeless tobacco non-user [facility] Start: 03-17-2023 End: 11-13-2024 Alcohol intake Ex-drinker (finding) [facility] Start: 03-17-2023 End: 11-13-2024 History of Social function [facility] Start: 03-17-2023 End: 11-13-2024 Tobacco use panel [facility] Start: 03-17-2023 Alcohol Comment caffeine intak e : 1-2 cups per day [facility] Start: 1970 Sex Assigned At Not on file N [facility] Start: 11-06-2024 Sex Female (finding) [facility] Clinical Note 12-05-2024 Note Date & [...] Oral, Daily N (more content not included)... [facility] Comment on above: Result Comment: Elec tronically Signed By: ELENA DOTY, Carter Ornelas\Date and Time Signed: 12/05/24 16:14 EDT History [...] [facility] History of Present illness Narrative 10-08-2024 Onel Hatch DO - 05/08/2024 9:15 AM [...] Note Facility Evaluation note No assessment information availa [facility] Work Phone: Evaluation note Note Date & [...] section and content) DATE CREATED AUTHOR 05/09/2019 [facility] DATE CREATED AUTHOR AUTHOR'S ORGANIZ ATION 09/05/2021 [facility]ital DATE CREATED AUTHOR AUTHOR'S ORGANIZ ATION 11/06/2024 [facility] DATE CREATED AUTHOR AUTHOR'S ORGANIZ ATION 11/14/2024 [facility] EPIC DATE CREATED AUTHOR AUTHOR'S ORGANIZ ATION 01/22/2025 [facility] Care Teams (unrecognized sec tion and content) Team Status: Active Member Role Status Dates Anh Granger MD Primary Care Provider Active Team Status: Inactive Member Role Status Dates Anh Granger MD Primary Care Provider Active Onel Hatch DO Attending Provider Active Shoes Hand Sewer Relationship Specialty Start Date End Date Anh Granger MD [address] [place] [phone] PCP - General Family Medicine 8/16/23 Team Status: Inactive Member Role Status Dates Anh Granger MD Primary Care Provider Active Start: September 13, 2023 End: September 13, 2023 Abdoulaye Esqueda DO Attending Provider Active S tart: September 13, 2023 End: September 13, 2023 Shoes Hand Sewer Relationship Specialty Start Date End Date Anh Granger MD [address] [place] [address] PCP - General Family Medicine 03/16/23 Team [...] April 26, 2024 End: April 26, 2024 Shoes Hand Sewer Relationship Specialty Start Date End Date Anh Granger MD [address] [place] [address] PCP - General Family Medicine 03/16/23 Shoes Hand Sewer Relationship Specialty Start Date End Date Anh Granger MD [address] [place] [address] PCP - General Family Medicine 03/16/23 Shoes Hand Sewer Relationship Specialty Start Date End Date Anh Granger MD [address] [place] [address] PCP - General Family Medicine 03/16/23 Team Status: Inactive Member Role Status Dates Anh Granger MD Primary Care Provider Active Start: November 05, 2024 End: November 05, 2024 Onel Hatch DO Attending Provider Active S tart: November 05, 2024 End: November 05, 2024 Shoes Hand Sewer Relationship Specialty Start Date End Date Anh Granger MD [address] [facility] [place] [address] PCP - General Family Medicine 03/16/23 Goals [...] nath Reason Comments Thyroid Cancer 6 month FOR RECORDS PERTAINING TO PATIENTS WHO ARE [...] BE BASED ON THE PRIMARY CLINICAL RECORDS. [employer] provides no warranty or guarantee of the accuracy or completeness of information in this document.
--- NOTE | 2025-04-25 12:21 | XR_ITS ---
The [address] [address] Patient Name: DIANE MARSHALL MRN: [id number] date: 1970 Sex: F Assigned Patient Location: LAB Current Patient Location: LAB Accession/Order Number: [id number] Exam Date: 04/25/2025 12:45 Report Date: 04/25/2025 13:45 At the request of: ANH CANO MD Procedure: XR lumbar spine min 4V BILATERAL HIP - 2 views each: , Lumbar spine 4 views CLINICAL HISTORY: peripheral neuropathy COMPARISON: None FINDINGS: Lumbar spine: Partially visualized hardware fixation involving the lower thoracic spine as well as L1 and L2 without hardware complication. Vertebral body heights appear maintained. Scattered endplate and facet joint degenerative changes with moderate disc space narrowing L3-L4. SI joints also demonstrate degenerative change. IVC filter is in place. Right hip: Mild degenerative changes involving the hips without acute bony process. XR/XR hip BI w PEL 1V IMPRESSION: DEGENERATIVE CHANGES INVOLVING THE LUMBAR SPINE WITH MODERATE DISC SPACE NARROWING AT L3-L4. MILD DEGENERATIVE CHANGES INVOLVING THE HIPS.. Impression dictated by: Colten Carney Jr., D.O. 04/25/2025 1:45 PM Dictation Location: [place] [address] Electronically authenticated by: [id number] Y Date: 04/25/2025 13:45
--- NOTE | 2025-04-25 12:22 | XR_ITS ---
The [address] [address] Patient Name: DIANE MARSHALL MRN: [id number] date: 1970 Sex: F Assigned Patient Location: LAB Current Patient Location: LAB Accession/Order Number: [id number] Exam Date: 04/25/2025 12:45 Report Date: 04/25/2025 13:45 At the request of: ANH CANO MD Procedure: XR lumbar spine min 4V BILATERAL HIP - 2 views each: , Lumbar spine 4 views CLINICAL HISTORY: peripheral neuropathy COMPARISON: None FINDINGS: Lumbar spine: Partially visualized hardware fixation involving the lower thoracic spine as well as L1 and L2 without hardware complication. Vertebral body heights appear maintained. Scattered endplate and facet joint degenerative changes with moderate disc space narrowing L3-L4. SI joints also demonstrate degenerative change. IVC filter is in place. Right hip: Mild degenerative changes involving the hips without acute bony process. XR/XR lumbar spine min 4V IMPRESSION: DEGENERATIVE CHANGES INVOLVING THE LUMBAR SPINE WITH MODERATE DISC SPACE NARROWING AT L3-L4. MILD DEGENERATIVE CHANGES INVOLVING THE HIPS.. Impression dictated by: Colten Carney Jr., D.O. 04/25/2025 1:45 PM Dictation Location: [place] [address] Electronically authenticated by: [id number] Y Date: 04/25/2025 13:45
[2025-04-25 12:30] LABS: Hematocrit 36.4 % (36.0-48.0); Hemoglobin 11.5 g/dL (12.0-16.0); Immature Granulocytes Abs Auto 0.02 10^3/uL (0.00-0.03); Immature Granulocytes Pct Auto 0.4 % (0.0-0.5); Lymphocytes Absolute Auto 2.6 10^3/uL (1.2-3.8); Mean Corpuscular HGB Conc 31.6 g/dL (29.9-35.2); Mean Corpuscular Hemoglobin 26.4 pg (26.7-34.0); Mean Corpuscular Volume 83.5 fL (81.0-99.0); Platelet Count 286 10^3/uL (150-450); Red Blood Count 4.36 10^6/uL (4.20-5.40); White Blood Count 5.2 10^3/uL (4.0-11.0)
[2025-04-25 13:02] LABS: Iron 48.0 ug/dL (50.0-170.0)
[2025-04-25 13:17] LABS: Ferritin 17.0 ng/mL (8.0-252.0)
[2025-04-25 13:20] LABS: Free T3 2.69 pg/mL (2.18-3.98); Thyroid Stimulating Hormone 5.822 uIU/mL (0.358-3.740)
== END 2025-04-25 12:01 | disposition home or self-care (01) ==
LOC: LAB 12:01
PROVIDERS: PCP Family Medicine; Visit Provider Family Medicine
DX: G62.9 Polyneuropathy, unspecified (principal); R53.83 Other fatigue; D64.9 Anemia, unspecified; M51.369 Other intervertebral disc degeneration, lumbar region without mention of lumbar back pain or lower extremity pain
CPT/HCPCS: 36415; 72110; 73523; 82728; 83540; 84436; 84443; 84481; 85025

== ENCOUNTER 2025-05-07 08:57 | Outpatient (OUT) | payer OTHER, SELFPAY ==
--- OUTSIDE RECORDS SUMMARY | 2025-05-07 09:00 | XMS_ITS | Clinical Summary ---
[facility] tem Address [id number] [address] [place] [address] Care Team Providers Care Multiple Coil Winder Name Role Phone Unavailable Primary Care Provider [...]
--- OUTSIDE RECORDS SUMMARY | 2025-05-07 09:00 | XMS_ITS | Encounter Summary ---
Author Organization [facility] Address [address] [place] [address] Care Team Providers Care Hr Administrative Assistant Name Role Phone Kevin Granger MD Primary Care Provider [phone] Encounter Details Date Type Department Care Team (Late st Contact Info) Description 03/16/2023 Orders Only [facility] [address] [place] [phone] Layla Armendariz MA Social History Tobacco Use [...] on filedocumented in this encounter Care Teams Hr Administrative Assistant Relationship Specialty Start Date End Date Kevin Granger MD PCP - General Family Medicine 03/16/23 documented as of this encounter
--- OUTSIDE RECORDS SUMMARY | 2025-05-07 09:00 | XMS_ITS | Clinical Summary ---
Author Organization [facility] Address [address] [place] [address] Care Team Providers Care Seaman Officer Name Role Phone Kevin Granger MD Primary Care Provider [phone] Allergies Active Allergy Reactions Criticality Noted Date [...] 2025 Insurance [employer] Care Teams Seaman Officer Relationship Specialty Start Date End Date Kevin Granger MD PCP - General Family Medicine 03/16/23
--- OUTSIDE RECORDS SUMMARY | 2025-05-07 09:00 | XMS_ITS | Encounter Summary ---
Author Organization [facility] Address [address] [place] [address] Care Team Providers Care Ict Sales Representative Name Role Phone Kevin Granger MD Primary Care Provider [phone] Reason for Visit * Reason Comments Med Refill Encounter Details Date Type Department Care Team (Late st Contact Info) Description 06/18/2024 Refill [facility] [address] [place] [phone] Onel Hatch, DO [address] [place] [address] Malignant neoplasm of thyroid gland (HCC) Social [...] gland documented in this encounter Care Teams Ict Sales Representative Relationship Specialty Start Date End Date Kevin Granger MD PCP - General Family Medicine 03/16/23 documented as of this encounter
--- OUTSIDE RECORDS SUMMARY | 2025-05-07 09:03 | XMS_ITS | CCD ---
Author Organization [facility] Care Team Providers Care Ward Service Supervisor Name Role Phone MAXIME, AHMAD Admitting Unavailable MAXIME, AHMAD Attending Unavailable RACHAEL, DR KAMARA Primary Care Unavailable MAXIME, AHTIFFANY Consulting Unavailable RACHAEL, DR KAMARA Admitting Unavailable [...] Care Provider DO Abdoulaye Esqueda Attending Provider [phone] Anh Granger MD Primary Care Provider [phone] [...] Facility (1 source) [facility] Drug Allergy 6 [facility] Repository (11 sources) fenta[facility]L Drug Allergy 4 Hives [facility] (11 sources) Povidone-Iodine Drug Allergy 4 Rash [facility] (1 source) No Known Medication Allergies; Translations: [No Known Medication Allergies] Propensity to adverse reactions (disorder) [facility] Repository Medications Current Medications Medication Drug Class(es) [...] Patient due for screening colonoscopy 12/26/2034. Normal [facility] Ambulatory Visit Summaryon 0 12-05-2024 Ambulatory Visit [...] for choosing us for your care. Normal [facility] Thyroid Stimulating Hormoneo n 11-05-2024 TSH Qn 0.74 m[IU]/L Normal 0.45-5.33 [facility] Comment on above: Order Comment: FASTI NG NON FASTING Result Comment: PERF ORMED BY: [facility] [address] [place] [address] PATHOLOGIST AUDIT CLERK MANAV ESPINAL M.D. Performed By: #### T 3T, TSH3, T4T #### [address] Thyrotropin [Units/volume] i n Serum or PlasmaOrdered By: Onel Hatch on 11-05-2024 TSH Qn Thyrotropin [Units/volume] in Serum or Plasma 0.45-5.33 [facility] Thyroxine (T4) Totalon 11-05 T4 [Mass/Vol] 11.03 ug/dL Normal 5.39-11.82 [facility] Comment on above: Order Comment: FASTI NG NON FASTING Performed By: #### T 3T, TSH3, T4T #### [address] Thyroxine (T4) [Mass/volume] in Serum or PlasmaOrdered By: Onel Hatch on 11-05-2024 T4 [Mass/Vol] Thyroxine (T4) [Mass/volume] in Serum or Plasma 5.39-11.82 [facility] Triiodothyronine (T3) Totalo n 11-05-2024 Triiodothyronine (T3) Total 1.05 ng/mL Normal 0.87-1.78 [facility] Comment on above: Order Comment: FASTI NG NON FASTING Performed By: #### T 3T, TSH3, T4T #### [address] Triiodothyronine (T3) [Mass/ volume] in Serum or PlasmaOrdered By: Onel Hatch on 11-05-2024 T3 [Mass/Vol] Triiodothyronine (T3 ) [Mass/volume] in Serum or Plasma 0.87-1.78 [facility] Thyroglobulinon 05-19-2024 ANTITHYROGLOBULIN AB 20.3 High 0.0 - 0.9 [facility] Comment on above: Thyroglobulin Antibo dy measured by [facility] Methodology It should be noted that the presence of thyroglobulin antibodies may not be pathogenic nor diagnostic, especially at very low levels. The assay county administrator has found that four percent of individuals without evidence of thyroid disease or autoimmunity will have positive TgAb levels up to 4 IU/mL. Interpretation and review of laboratory results Abnormal [facility] THYROGLOBULIN, TG-MARISSA 4.2 ng/mL . [facility] Comment on above: This test was develo ped and its performance characteristics determined by [employer]. It has not been cleared or approved [...] quantitation limit is 2.0 ng/mL. Performed at: [facility] [address] [id number] Counter Stacker: Jl Weems PhD, Phone: [phone] Performed at: [facility] [employer] [address] [place] [id number] Counter Stacker: Alvin Suazo MD, Phone: [phone] [facility] Thyroglobulin, Quant + Tg Ab on 04-26-2024 Antithyroglobulin Ab 20.3 High 0.0-0.9 [facility] Comment on above: Result Comment: Thyr oglobulin Antibody measured by [email or web address] [place] Methodology It should be noted that the presence of thyroglobulin antibodies may not be pathogenic nor diagnostic, especially at very low levels. The assay county administrator has found that four percent of individuals without evidence of thyroid disease or autoimmunity will have positive TgAb levels up to 4 IU/mL. Performed By: #### L C T4, THYGLOB #### [facility] , Thyroglobulin, TG-MARISSA 4.2 ng/mL Normal . [facility] Comment on above: Result Comment: This test was developed and its performance characteristics determined by [employer]. It has not been cleared or approved [...] quantitation limit is 2.0 ng/mL. Performed at: [facility] [id number] Counter Stacker: Jl Weems PhD, Phone: [phone] Performed at: [facility] [employer] [address] [place] [id number] Counter Stacker: Alvin Suazo MD, Phone: [phone] PERFORMED BY: [place] [address] PATHOLOGIST AUDIT CLERK ANDRE WATTS M.D. Performed By: #### L C T4, THYGLOB #### [facility] , Thyrotropin [Units/volume] i n Serum or PlasmaOrdered By: Abdoulaye Esqueda on 04-26-2024 TSH Qn 1.64 m[IU]/L Normal 0.45-5.33 [facility] Comment on above: Result Comment: PERF ORMED BY: [place] [address] PATHOLOGIST AUDIT CLERK ANDRE WATTS M.D. Performed By: #### T 4T, TSH3, T3T #### [address] #### THYGLOB #### [facility] , Thyroxine (T4) [Mass/volume] in Serum or PlasmaOrdered By: Abdoulaye Esqueda on 04-26-2024 T4 [Mass/Vol] 11.41 ug/dL Normal 5.39-11.82 [facility] Comment on above: Performed By: #### T 4T, TSH3, T3T #### [facility] [address] [place] [address] #### THYGLOB #### [facility] , Triiodothyronine (T3) Totalo n 04-26-2024 Triiodothyronine (T3) Total 0.71 ng/mL Low 0.87-1.78 [facility] Comment on above: Performed By: #### T 4T, TSH3, T3T #### [facility] [address] [id number] [facility] #### THYGLOB #### [facility] , Triiodothyronine (T3) [Mass/ volume] in Serum or PlasmaOrdered By: Abdoulaye Esqueda on 04-26-2024 T3 [Mass/Vol] 0.71 ng/mL Low 0.87-1.78 [facility] Thyroxine (T4)on T4 [Mass/Vol] 11.5 ug/dL Normal 4.5-12.0 [facility] Comment on above: Result Comment: Perf ormed at: [facility] [id number] Counter Stacker: Jl Weems PhD, Phone: [phone] Performed By: #### L C T4, THYGLOB #### [facility] , Thyroglobulin, Quant + Tg Ab on 11-21-2023 Antithyroglobulin Ab 23.1 High 0.0-0.9 [facility] Comment on above: Result Comment: Thyr oglobulin Antibody measured by [facility] Methodology It should be noted that the presence of thyroglobulin antibodies may not be pathogenic nor diagnostic, especially at very low levels. The assay county administrator has found that four percent of individuals without evidence of thyroid disease or autoimmunity will have positive TgAb levels up to 4 IU/mL. Performed By: #### L C T4, THYGLOB #### [facility] , Thyroglobulin, TG-MARISSA 2.5 ng/mL Normal . [facility] Comment on above: Result Comment: This test was developed and its performance characteristics determined by [employer]. It has not been cleared or approved [...] quantitation limit is 2.0 ng/mL. Performed at: [facility] [address] [id number] Counter Stacker: Jl Weems PhD, Phone: [phone] Performed at: [facility] [employer] [address] [place] [id number] Counter Stacker: Alvin Suazo MD, Phone: [phone] PERFORMED BY: [place] [address] PATHOLOGIST AUDIT CLERK ANDRE WATTS M.D. Performed By: #### L C T4, THYGLOB #### [facility] , Thyrotropin [Units/volume] i n Serum or PlasmaOrdered By: Onel Hatch on 11-21-2023 TSH Qn 0.33 m[IU]/L Low 0.45-5.33 [facility] Comment on above: Result Comment: PERF ORMED BY: [place] [address] PATHOLOGIST AUDIT CLERK ANDRE WATTS M.D. Performed By: #### T 3T, TSH3 #### [facility] [address] [place] [address] Triiodothyronine (T3) Totalo n 11-21-2023 Triiodothyronine (T3) Total 1.10 ng/mL Normal 0.87-1.78 [facility] Comment on above: Performed By: #### T 3T, TSH3 #### [facility] [address] [place] [address] [place] Triiodothyronine (T3) [Mass/ volume] in Serum or PlasmaOrdered By: Onel Hatch on 11-21-2023 T3 [Mass/Vol] 1.10 ng/mL 0.87-1.78 [facility] TSH Qnon 09-14-2023 Interpretation and review of laboratory results Abnormal [facility] T4 [Mass/Vol] 13.2 ug/dL High 4.5 - 12.0 ug/dL [facility] Comment on above: Performed at: [facility] [address] [id number] Counter Stacker: Jl Weems PhD, Phone: [phone] [facility] Thyroglobulin Antibodyon ANTITHYROGLOBULIN AB 24.3 High 0.0 - 0.9 [facility] Comment on above: Thyroglobulin Antibo dy measured by [facility] Johann Methodology It should be noted that the presence of thyroglobulin antibodies may not be pathogenic nor diagnostic, especially at very low levels. The assay county administrator has found that four percent of individuals without evidence of thyroid disease or autoimmunity will have positive TgAb levels up to 4 IU/mL. Performed at: [facility] [id number] [place], [place] [id number] Counter Stacker: Jl Weems PhD, Phone: [phone] Interpretation and review of laboratory results Abnormal [facility] No Panel InformationOrdered By: Abdoulaye Esqueda on 09-13-2023 Free Thyroxine (T4) Direct 13.2 ug/dL 4.5-12.0 [facility] Comment on above: Performed at: [facility] [address] [id number] Director: Jl Weems PhD, Phone: [phone] Serum or plasma thyroglobuli n antibody assay (units/volume)Ordered By: Abdoulaye Esqueda on 09-13-2023 Thyroglobulin Ab Qn 24.3 [IU]/mL 0.0-0.9 [facility] Comment on above: Thyroglobulin Antibo dy measured by [employer]ara CoulterMethodologyIt should be noted that the presence of thyroglobulinantibodies may not be pathogenic nor diagnostic, especiallyat very low levels. The assay county administrator has found thatfour percent of individuals without evidence of thyroiddisease or autoimmunity will have positive TgAb levels upto 4 IU/mL.Performed at: [facility] [address] [id number] Director: Jl Weems PhD, Phone: [phone] Thyrotropin [Units/volume] i n Serum or PlasmaOrdered By: Abdoulaye Esqueda on 09-13-2023 TSH Qn 0.02 m[IU]/L 0.45-5.33 [facility] Triiodothyronine (T3) [Mass/ volume] in Serum or PlasmaOrdered By: Abdoulaye Esqueda on 09-13-2023 T3 [Mass/Vol] 0.71 ng/mL 0.87-1.78 [facility] Thyrotropin [Units/volume] i n Serum or PlasmaOrdered By: Onel Hatch on 03-10-2023 TSH Qn 0.01 m[IU]/L 0.45-5.33 [facility] Thyroxine (T4) [Mass/volume] in Serum or PlasmaOrdered By: Onel Hatch on 03-10-2023 T4 [Mass/Vol] 13.03 ug/dL 5.39-11.82 [facility] Triiodothyronine (T3) [Mass/ volume] in Serum or PlasmaOrdered By: Onel Hatch on 03-10-2023 T3 [Mass/Vol] 1.08 ng/mL 0.87-1.78 [facility] No Panel InformationOrdered By: Onel Hatch on 09-08-2022 Total Triiodothyronine 1.32 ng/mL 0.87-1.78 [facility] TSH DL <= 0.005 mIU/L QnOrde red By: Onel Hatch on 09-08-2022 TSH Qn 0.01 m[IU]/L 0.45-5.33 [facility] Thyroxine (T4) free [Mass/vo lume] in Serum or PlasmaOrdered By: Onel Hatch on 09-08-2022 Free T4 [Mass/Vol] 1.32 ng/dL 0.61-1.[address] [facility] [address] NECK [address] W CONon 2 CT [...] Date: 2021-09-02 08:56 Normal [facility] US THYROIDon 09-02-2021 US THYROID EXAMINATION: US [...] Date: 2021-09-02 09:02 Normal [facility] THYROGLOBULINon 01-08-2021 Thyroglobulin 7.5 ng/mL Normal [facility] Comment on above: Result Comment: This test was developed and its performance characteristics determined by [employer]. It has not been cleared or approved [...] ng/mL. Performed By: #### T ADILENE #### [facility] Laboratory [address] [place] [address] Ilana Lambert FSHon 01-02-2021 FSH 3.8 mIU/mL Normal [facility] Comment on above: Result Comment: Adul t Female: Follicular phase 3.5 - 12.5 Ovulation phase 4.7 - 21.5 Luteal phase 1.7 - 7.7 Postmenopausal 25.8 - 134.8 Performed By: #### L BCFS #### [facility] [address] [place] [address] Ilana Lambert THYROGLOBULIN ABon Thyroglobulin Antibody 29.0 IU/mL Critically high 0.0-0.9 [facility] Comment on above: Result Comment: Thyr oglobulin Antibody measured by [employer] Method[employer] Performed By: #### T HYGAB #### [facility] [address] [place] [address] Ilana Petra CBC AUTO DIFFon 01-01-2021 BASO # 0.0 103/ul Normal 0.0-0.1 [facility] Comment on above: Performed By: #### F T4 #### [facility] [address] [place], [place] [id number] Ilana Lambert Basophils/100 WBC (Bld) 0.4 % Normal 0.2-2.0 [facility] Comment on above: Performed By: #### F T4 #### [facility] [address] [place], [place] [id number] Ilanayonny Lambert EO # 0.1 103/ul Normal 0.0-0.7 [facility] Comment on above: Performed By: #### F T4 #### [facility] [address] [place], [place] [id number] Ilana Lambert Eosinophils/100 WBC (Bld) 1.1 % Normal 0.9-7.0 [facility] Comment on above: Performed By: #### F T4 #### [facility] [address] [place], [place] [id number] Ilanayonny Lambert Erythrocyte distribution width (RBC) [Ratio] 12.0 % Normal 11.0-15.0 [facility] Comment on above: Performed By: #### F T4 #### [facility] [address] [place] [address] Ilanayonny Lambert Hematocrit (Bld) [Volume fraction] 39.1 % Normal 36.0-48.0 [facility] Comment on above: Performed By: #### F T4 #### [facility] [address] [place] [address] Ilana Petra Hemoglobin (Bld) [Mass/Vol] 13.0 g/dL Normal 12.0-16.0 [facility] Comment on above: Performed By: #### F T4 #### [facility] [address] [place] [address] Ilana Petra IG # 0.03 10e3/ul Normal 0.00-0.03 [facility] Comment on above: Performed By: #### F T4 #### [facility] [address] [place] [address] Ilana Petra IG % 0.3 % Normal 0.0-0.5 [facility] Comment on above: Performed By: #### F T4 #### [facility] [address] [place] [address] Ilana Petra LYMPH # 2.2 103/ul Normal 1.2-3.8 [facility] Comment on above: Performed By: #### F T4 #### [facility] [address] [place] [address] Ilana Lambert Lymphocytes/100 WBC (Bld) 24.5 % Normal 20.5-60.0 [facility] Comment on above: Performed By: #### F T4 #### [facility] [address] [place] [address] Ilana Lambert MANUAL DIFF REQ NO Normal The [facility] Comment on above: Performed By: #### F T4 #### [facility] [address] [place], [place] [id number] Ilana Lambert MCH (RBC) [Entitic mass] 30.0 pg Normal 26.7-34.0 [facility] Comment on above: Performed By: #### F T4 #### [facility] [address] [place] [address] Ilanayonny Lambert MCHC (RBC) [Mass/Vol] 33.2 g/dL Normal 29.9-35.2 [facility] Comment on above: Performed By: #### F T4 #### [facility] [address] [place], [place] [address] Ilana Lambert MCV (RBC) [Entitic vol] 90.3 fL Normal 81.0-99.0 [facility] Comment on above: Performed By: #### F T4 #### [facility] [address] [place], [place] [address] Ilana Lambert MONO # 0.6 103/ul Normal 0.3-0.8 [facility] Comment on above: Performed By: #### F T4 #### [facility] [address] [place] [address] Ilana Lambert Monocytes/100 WBC (Bld) 7.2 % Normal 1.7-12.0 [facility] Comment on above: Performed By: #### F T4 #### [facility] [address] [place] [address] Ilana Yeageren NEUT # 5.9 103/ul Normal 1.4-6.5 [facility] Comment on above: Performed By: #### F T4 #### [facility] [address] [place] [address] Ilana Lambert Neutrophils/100 WBC (Bld) 66.5 % Normal 43.0-75.0 [facility] Comment on above: Performed By: #### F T4 #### [facility] [address] [place], [place] [address] Ilanayonny Lambert Platelet mean volume (Bld) [Entitic vol] 9.7 fL Normal 9.5-13.5 [facility] Comment on above: Performed By: #### F T4 #### [facility] [address] [place], [place] [address] Ilana Petra PLT 239 103/ul Normal 150-450 [facility] Comment on above: Performed By: #### F T4 #### [facility] [address] [place] [address] Ilana Petra RBC 4.33 106/ul Normal 4.20-5.40 [facility] Comment on above: Performed By: #### F T4 #### [facility] [address] [place], [place] [address] Ilana Petra WBC 8.9 103/ul Normal 4.0-11.0 [facility] Comment on above: Performed By: #### F T4 #### [facility] [address] [place], [place] [address] Ilana Petra FREE T3on 01-01-2021 FREE T3 1.09 pg/mlL Critically low 2.77-5.27 [facility] Comment on above: Performed By: #### F T4 #### [facility] [address] [place] [address] Ilana Petra FREE T4on 01-01-2021 Free T4 [Mass/Vol] 1.50 ng/dL Normal 0.78-2.19 [facility] Comment on above: Performed By: #### F T4 #### [facility] [address] [place], [place] [address] Ilana Petra IRONon 01-01-2021 Iron [Mass/Vol] 101.0 ug/dL Normal 37.0-170.0 [facility] Comment on above: Performed By: #### F T4 #### [facility] [address] [place], [place] [address] Ilana Lambert PROF 14(COMP METB)on 021 Albumin [Mass/Vol] 3.3 g/dL Critically low 3.5-5.0 [facility] [place] Comment on above: Performed By: #### C MP #### [facility] [address] [place], [place] [address] Ilana Petra Albumin/Globulin [Mass ratio] 0.9 {ratio} Normal [facility] Comment on above: Performed By: #### C MP #### [facility] [address] [place], [place] [address] Ilana Petra ALP [Catalytic activity/Vol] 55 U/L Normal 38-126 [facility] Comment on above: Performed By: #### C MP #### [facility] [address] [place], [place] [address] Ilana Petra ALT [Catalytic activity/Vol] 18 U/L Normal 9-52 [facility] Comment on above: Performed By: #### C MP #### [facility] [address] [place], [place] [address] Ilana Petra Anion gap [Moles/Vol] 8.8 mmol/L Normal [facility] Comment on above: Performed By: #### C MP #### [facility] [address] [place], [place] [address] Ilana Petra AST [Catalytic activity/Vol] 13 U/L Critically low 14-36 [facility] Comment on above: Performed By: #### C MP #### [facility] [address] [id number] Ilana Petra Bilirubin [Mass/Vol] 0.5 mg/dL Normal 0.2-1.3 [facility] Comment on above: Performed By: #### C MP #### [facility] [address] [place], [place] [address] Ilana Petra Calcium [Mass/Vol] 8.4 mg/dL Normal 8.4-10.2 [facility] Comment on above: Performed By: #### C MP #### [facility] [address] [phone] Ilana Petra Chloride [Moles/Vol] 104 mmol/L Normal 98-107 [facility] Comment on above: Performed By: #### C MP #### [facility] [address] [place], [place] [address] Ilana Petra CO2 [Moles/Vol] 29.8 mmol/L Normal 22.0-30.0 [facility] Comment on above: Performed By: #### C MP #### [facility] [address] [place], [place] [address] Ilana Petra Creatinine [Mass/Vol] 0.88 mg/dL Normal 0.52-1.04 [facility] Comment on above: Performed By: #### C MP #### [facility] [address] [place], [place] [address] Ilana Petra EGFR-AF DOMINICAN >60 Normal >=60 [facility] Comment on above: Performed By: #### C MP #### [facility] [address] [id number] Ilana Petra EGFR-NON AF DOMINICAN >60 Normal >=60 [facility] Comment on above: Performed By: #### C MP #### [facility] [address] [id number] Ilana Petra Globulin (S) [Mass/Vol] 3.8 g/dL Normal [facility] Comment on above: Performed By: #### C MP #### [facility] [address] [address] Ilana Petra Glucose [Mass/Vol] 90 mg/dL Normal 74-106 [facility] Comment on above: Performed By: #### C MP #### [facility] [address] [address] Ilana Petra Potassium [Moles/Vol] 3.6 mmol/L Normal 3.4-5.0 [facility] Comment on above: Performed By: #### C MP #### [facility] [address] [place] [address] Ilana Petra Protein [Mass/Vol] 7.1 g/dL Normal 6.1-8.2 [facility] Comment on above: Performed By: #### C MP #### [facility] [address] [place] [address] Ilana Petra Sodium [Moles/Vol] 139 mmol/L Normal 137-145 [facility] Comment on above: Performed By: #### C MP #### [facility] [address] [address] Ilana Petra Urea nitrogen [Mass/Vol] 11.0 mg/dL Normal 7.0-17.0 [facility] Comment on above: Performed By: #### C MP #### [facility] [address] [place], [place] [address] Ilana Petra Urea nitrogen/Creatinine [Mass ratio] 12.5 mg/mg Normal [facility] Comment on above: Performed By: #### C MP #### [facility] [address] [place], [place] [address] Ilana Petra TSHon 01-01-2021 TSH 3.552 uIU/mL Normal 0.470-4.680 [place] Comment on above: Performed By: #### F T4 #### [facility] [address] [address] [place], [place] [id number] Ilana Petra TSH RANGE SEE BELOW Normal [facility] Comment on above: Result Comment: <0.3 4 UIU/ml HYPERTHYROID 0.34-5.60 UIU/ml EUTHYROID >5.60 UIU/ml HYPOTHYROID Performed By: #### F T4 #### [facility] [address] [place], [place] [id number] Ilana Petra VITAMIN D 25 OHon 01-01-2021 VIT D 25-OH 30.8 ng/mL Normal [facility] Comment on above: Performed By: #### F T4 #### [facility] [address] [place], [place] [id number] Ilana Petra VIT D RANGES SEE BELOW Normal [facility] Comment on above: Result Comment: <20 ng/mL Vit D deficient 20 - <30 ng/mL Vit D insufficient 30 - 100 ng/mL Vit D sufficient >100 ng/mL Potential Toxicity Performed By: #### F T4 #### [facility] [address] [place], [place] [id number] Ilana Petra FREE T3on 10-03-2020 FREE T3 2.27 pg/mlL Critically low 2.77-5.27 [facility] Comment on above: Performed By: #### F T3, TSH #### [facility] [address] [place], [place] [id number] Ilana Petra FREE T4on 10-03-2020 Free T4 [Mass/Vol] 1.27 ng/dL Normal 0.78-2.19 [facility] Comment on above: Performed By: #### F T4 #### [facility] [address] [place], [place] [id number] Ilana Petra TSHon 10-03-2020 TSH 17.604 uIU/mL Critically high 0.470-4.680 [facility] Comment on above: Performed By: #### F T3, TSH #### [facility] [address] [place], [place] [address] Ilana Lambert TSH RANGE SEE BELOW Normal [facility] Comment on above: Result Comment: <0.3 4 UIU/ml HYPERTHYROID 0.34-5.60 UIU/ml EUTHYROID >5.60 UIU/ml HYPOTHYROID Performed By: #### F T3, TSH #### [facility] [address] [place] [id number] Ilana Lambert LUMBAR SPINE 4 OR 5 Son LUMBAR SPINE 4 OR 5 S [facility] Department of Radiology [address] [place] [phone] Patient Name: CONRAD AGUILAR : 1970 [...] findings. Electronically signed by:Jeovanny Mercer. Transcribed by: [email or web address], User Resident: ONEL ICNTRON Electronically Signed by: JEOVANNY MERCER @ 06/15/2018 05:58 PM I personally read this/these film(s) with this resident Normal [facility] Comment on above: Order Comment: , Nathanael ws (X-RAY, LUMBAR SPINE): AP, Lateral, L5- S1 Spot, Flexion, Extension , Views (X-RAY, LUMBAR SPINE): AP, Lateral, L5-S1 Spot, Flexion, Extension , , , Ordering Provider - [facility] MD , Vital Signs Date Time Vital Sign Value Performing Clinician Brook paulson 11-13-2024 09:06-0400 Body height 172.7 cm Onel Smallcek DO Work Phone: [facility] 11-13-2024 09:06-0400 Body mass index (BMI) [Ratio] 26.46 kg/m2 Onel Murcek DO Work Phone: [facility] [employer] 11-13-2024 09:06-0400 Body weight 78.93 kg Onel Smallcek DO Work Phone: [facility] 05-08-2024 09:07-0400 Body height 172.7 cm Onel Smallcek DO Work Phone: [facility] 05-08-2024 09:07-0400 Body mass index (BMI) [Ratio] 26.46 kg/m2 Onel Stacicek DO Work Phone: [facility] 05-08-2024 09:07-0400 Body weight 78.93 kg Onel Smallcek DO Work Phone: [facility] Healthcare Encounters Encounter Date Encounter Type Care Provider Facility Start: 12-26-2024 End: 12-26-2024 ambulatory Carter R RASHAUNL Facility:CD:[id number] Start: 12-05-2024 End: 12-05-2024 ambulatory Anh Hoy Facility:[facility] Start: 11-20-2024 ambulatory Anh Hoy Facility:[facility] Start: 11-13-2024 End: 11-13-2024 Bamboo flowsheet Onel De Los Santos Stacitheodorak DO [facility] Start: 11-13-2024 End: 11-13-2024 Bamboo flowsheet Onel De Los Santos Stacicek DO Work Phone: [facility] [place] [place] Start: 11-13-2024 End: 11-13-2024 Office outpatient visit 25 minutes Onel De Los Santos Christopherk DO Work Phone: [facility] Comment on above: Status post total th yroidectomy (Primary Dx); Malignant neoplasm of thyroid gland (CMS/HCC) Start: 11-13-2024 End: 11-13-2024 ambulatory ONEL HATCH Not Available Start: 11-05-2024 End: 11-05-2024 Patient encounter procedure Anh Granger MD Work Phone: [facility] Work Phone: Start: 11-05-2024 End: 11-05-2024 ambulatory Anh Granger MD Work Phone: [facility] Work Phone: Start: 05-08-2024 End: 05-08-2024 Bamboo [...] encounter procedure MD Anh Granger Work Phone: [facility] Work Phone: Start: 04-26-2024 End: 04-26-2024 ambulatory MD Anh Granger Work Phone: [facility] Work Phone: Start: 11-21-2023 End: 11-21-2023 Patient encounter procedure MD Anh Granger Work Phone: [facility] Work Phone: Start: 11-21-2023 End: 11-21-2023 ambulatory MD Anh Granger Work Phone: [facility] Work Phone: Start: 09-13-2023 External Result Encounter Abdoulaye Esqueda DO Work Phone: [facility] External [facility] Unsolicited Start: 09-13-2023 External Result Encounter Abdoulaye Esqueda DO Work Phone: [facility] External Department Unsolicited Start: 09-13-2023 End: 09-13-2023 ambulatory MD Anh Granger Work Phone: [facility] Work Phone: Start: 09-13-2023 End: 09-13-2023 Patient encounter procedure MD Anh Granger Work Phone: [facility] Work Phone: Start: 03-10-2023 End: 03-10-2023 ambulatory MD Anh Granger Work Phone: [facility] Work Phone: Start: 03-10-2023 End: 03-10-2023 Patient encounter procedure MD Anh Granger Work Phone: [facility] Work Phone: Start: 09-08-2022 End: 09-08-2022 ambulatory MD Anh Granger Work Phone: [facility] Work Phone: Start: 09-08-2022 End: 09-08-2022 Patient encounter procedure MD Anh Granger Work Phone: [facility] Work Phone: Start: 09-02-2021 End: 09-03-2021 ambulatory [...] gland (CMS/HCC) Expected: 10/28/2025 (Approximate), Expires: 11/13/2025 [facility] Comment on above: Expected: 10/28/2025 (Approximate), Expires: 11/13/2025 Start: 10-28-2025 End: 11-13-2025 Thyrotropin [Units/volume] in Serum or Plasma [facility] Comment on above: Expected: 10/28/2025 (Approximate), Expires: 11/13/2025 Start: 10-28-2025 End: 11-13-2025 Triiodothyronine (T3) [Mass/volume] in Serum or Plasma T3 Lab Routine Malignant neoplasm of thyroid gland (CMS/HCC) Expected: 10/28/2025 (Approximate), Expires: 11/13/2025 [facility] Comment on above: Expected: 10/28/2025 (Approximate), Expires: 11/13/2025 Start: 05-15-2025 End: 11-13-2025 Thyroglobulin Thyroglobulin Lab Routine Malignant neoplasm of thyroid gland (CMS/HCC) Expected: 05/15/2025 (Approximate), Expires: 11/13/2025 [facility] Comment on above: Expected: 05/15/2025 (Approximate), Expires: 11/13/2025 Start: 05-15-2025 End: 11-13-2025 Thyrotropin [Units/volume] in Serum or Plasma [facility] Work Phone: Comment on above: Expected: 05/15/2025 (Approximate), Expires: 11/13/2025 Start: 05-15-2025 End: 11-13-2025 Triiodothyronine (T3) [Mass/volume] in Serum or Plasma T3 Lab Routine Malignant neoplasm of thyroid gland (CMS/HCC) Expected: 05/15/2025 (Approximate), Expires: 11/13/2025 [facility] Comment on above: Expected: 05/15/2025 (Approximate), Expires: 11/13/2025 Start: 04-01-2025 Influenza vaccination Influenz a Vaccine (Season Ended) [facility] Start: 11-13-2024 End: 11-13-2024 Patient encounter procedure [facility] Comment on above: Arrived Start: 11-05-2024 End: 05-08-2025 Thyrotropin [Units/volume] in Serum or Plasma [facility] Work Phone: Comment on above: Expected: 11/05/2024 (Approximate), Expires: 05/08/2025 Start: 11-05-2024 End: 05-08-2025 Triiodothyronine (T3) [Mass/volume] in Serum or Plasma T3 Lab Routine Malignant neoplasm of thyroid gland (CMS/HCC) Expected: 11/05/2024 (Approximate), Expires: 05/08/2025 [facility] Comment on above: Expected: 11/05/2024 (Approximate), Expires: 05/08/2025 Start: 05-08-2024 End: 05-08-2024 Patient encounter procedure [facility] Comment on above: Arrived Start: 04-26-2024 [facility] Start: 04-01-2024 Influenza vaccination Influenza Vacc ine (#1) [facility] Start: 11-21-2023 Thyroxine measurement F [facility] Start: 09-20-2023 End: 09-20-2023 Patient encounter procedure 09/20/2023 8:30 AM EST Office Visit [facility] [place] [place] [address] [place] [phone] Onel Hatch, [address] [place] [address] [facility] Start: 09-13-2023 Thyroxine measurement F [facility] Start: 04-01-2023 Influenza vaccination Influenza Vacc ine (#1) [facility] Start: 2008 Screening for malign ant neoplasm of breast Mammogram [facility] Start: 1998 Screening for malign ant neoplasm of cervix [facility] Start: 1989 Screening for malign ant neoplasm of cervix Pap Smear [facility] Start: 1968 Screening for malign ant neoplasm of colon [facility] Thyroglobulin Ab [Units/volume] in Serum or Plasma [facility] Thyroglobulin Ab [Units/volume] in Serum or Plasma [facility] Thyroglobulin Ab [Units/volume] in Serum or Plasma [facility] Thyroglobulin Ab [Units/volume] in Serum or Plasma [facility] Thyrotropin [Units/v olume] in Serum or Plasma TSH Lab Routine 09/13/2023 9:13 AM EST [facility] Work Phone: Thyrotropin [Units/v olume] in Serum or Plasma TSH Lab Routine 04/26/2024 9:20 AM EDT [facility] Work Phone: Triiodothyronine (T3 ) [Mass/volume] in Serum or Plasma T3 Lab Routine 09/13/2023 9:13 AM EST [facility] Payers Date Payer Category Payer Self-pay [id number] 2014 Medicaid [employer] [place] [employer] [id number] 2014-Present [address] [place] [id number] 2014 Medicaid (Managed Care) [employer] [id number] 1970 Unknown [id number]. 593 1968 Unknown [id number] [id number]. 593 1968 Unknown [id number] [id number]. 593 1968 Unknown [id number] [id number]. 593 1968 Unknown [id number] [id number]. 1259 1968 Unknown [id number] 2.16.840.1.155419.3.579.2. 1259 1968 Unknown [id number] [id number]. 727 1968 Unknown [id number] [id number]. 727 1959 Unknown [id number] Unknown [id number]. 531 Unknown [id number] [id number]. 531 Unknown [id number]. 531 Social History Date Type Detail Facility Start: 01-05-2021 End: 03-16-2023 Tobacco smoking status NHIS Never smoked tobacco (finding) [facility] Start: 1970 Sex Assigned At Female F [facility] Start: 03-16-2023 Tobacco use and exposure Smokeless tobacco non-user [facility] Start: 03-17-2023 End: 11-13-2024 Alcohol intake Ex-drinker (finding) [facility] Start: 03-17-2023 End: 11-13-2024 History of Social function [facility] Start: 03-17-2023 End: 11-13-2024 Tobacco use panel [facility] Start: 03-17-2023 Alcohol Comment caffeine intak e : 1-2 cups per day [facility] Start: 1970 Sex Assigned At Not on file N [facility] Start: 11-06-2024 Sex Female (finding) [facility] Clinical Note 12-05-2024 Note Date & Type [...] Oral, Daily N (more content not included)... [facility] Comment on above: Result Comment: Elec tronically [...] Facility Evaluation note No assessment information availa [facility] Work Phone: Evaluation note Note Date & [...] section and content) DATE CREATED AUTHOR 05/09/2019 [facility] DATE CREATED AUTHOR AUTHOR'S ORGANIZ ATION 09/05/2021 [facility] DATE CREATED AUTHOR AUTHOR'S ORGANIZ ATION 11/06/2024 [facility] DATE CREATED AUTHOR AUTHOR'S ORGANIZ ATION 11/14/2024 [facility] EPIC DATE CREATED AUTHOR AUTHOR'S ORGANIZ ATION 01/22/2025 [facility] Care Teams (unrecognized sec tion and content) Team Status: Active Member Role Status Dates Anh Granger MD Primary Care Provider Active Team Status: Inactive Member Role Status Dates Anh Granger MD Primary Care Provider Active Onel Hatch DO Attending Provider Active Ward Service Supervisor Relationship Specialty Start Date End Date Anh Granger MD [address] [place] [phone] PCP - General Family Medicine 8/16/23 Team Status: Inactive Member Role Status Dates Anh Granger MD Primary Care Provider Active Start: September 13, 2023 End: September 13, 2023 Abdoulaye Esqueda DO Attending Provider Active S tart: September 13, 2023 End: September 13, 2023 Ward Service Supervisor Relationship Specialty Start Date End Date Anh Granger MD [address] [place] [phone] PCP - General Family Medicine 03/16/23 Team [...] April 26, 2024 End: April 26, 2024 Ward Service Supervisor Relationship Specialty Start Date End Date Anh Granger MD [address] [place] [phone] PCP - General Family Medicine 03/16/23 Ward Service Supervisor Relationship Specialty Start Date End Date Anh Granger MD [address] [place] [address] PCP - General Family Medicine 03/16/23 Ward Service Supervisor Relationship Specialty Start Date End Date Anh Granger MD [address] [place] [phone] PCP - General Family Medicine 03/16/23 Team Status: Inactive Member Role Status Dates Anh Granger MD Primary Care Provider Active Start: November 05, 2024 End: November 05, 2024 Onel Hatch DO Attending Provider Active S tart: November 05, 2024 End: November 05, 2024 Ward Service Supervisor Relationship Specialty Start Date End Date Anh Granger MD [address] [facility] [place] [address] PCP - General Family Medicine 03/16/23 Goals [...] content) Reason Comments Thyroid Cancer 6 month aptrice with perez nath Reason Comments Thyroid Cancer [...] BE BASED ON THE PRIMARY CLINICAL RECORDS. [employer] provides no warranty or guarantee of the accuracy or completeness of information in this document.
[2025-05-07 09:29] LABS: Hematocrit 35.0 % (36.0-48.0); Hemoglobin 11.0 g/dL (12.0-16.0); Immature Granulocytes Abs Auto 0.01 10^3/uL (0.00-0.03); Immature Granulocytes Pct Auto 0.2 % (0.0-0.5); Lymphocytes Absolute Auto 2.1 10^3/uL (1.2-3.8); Mean Corpuscular HGB Conc 31.4 g/dL (29.9-35.2); Mean Corpuscular Hemoglobin 26.0 pg (26.7-34.0); Mean Corpuscular Volume 82.7 fL (81.0-99.0); Platelet Count 277 10^3/uL (150-450); Red Blood Count 4.23 10^6/uL (4.20-5.40); White Blood Count 6.0 10^3/uL (4.0-11.0)
[2025-05-07 10:02] LABS: Free T3 2.18 pg/mL (2.18-3.98); Thyroid Stimulating Hormone 2.056 uIU/mL (0.358-3.740)
[2025-05-07 10:15] LABS: Iron 31.0 ug/dL (50.0-170.0)
[2025-05-07 10:36] LABS: Ferritin 13.0 ng/mL (8.0-252.0)
== END 2025-05-07 08:58 | disposition home or self-care (01) ==
LOC: LAB 08:58
PROVIDERS: PCP Family Medicine; Visit Provider Family Medicine
DX: D64.9 Anemia, unspecified (principal); E03.9 Hypothyroidism, unspecified
CPT/HCPCS: 36415; 82728; 83540; 84436; 84443; 84481; 85025

== ENCOUNTER 2025-06-10 09:26 | Outpatient (OUT) | payer OTHER, SELFPAY ==
--- OUTSIDE RECORDS SUMMARY | 2025-06-10 09:31 | XMS_ITS | CCD ---
Author Organization [facility] Care Team Providers Care Ham Doctor Name Role Phone MAXIME, AHMAD Admitting Unavailable [...] Care Provider DO Abdoulaye Esqueda Attending Provider [phone] Anh Granger MD Primary Care Provider [phone] Onel Hatch DO Attending Provider [phone] Anh Granger Primary Care Unavailable Onel Hatch Admitting Unavailable Onel Hatch Attending Unavailable Anh Granger Primary Care Unavailable Abdoulaye Esqueda Admitting Unavailable Abdoulaye Esqueda Attending Unavailable Onel Hatch Admitting Unavailable Onel Hatch Attending Unavailable Anh Granger Primary Care Unavailable ONEL HATCH W Attending Unavailable ONEL HATCH W Attending Unavailable Anh Granger Referring Unavailable NILLCarter R Attending Unavailable NILL, Carter Man Attending Unavailable Allergies Allergy ClassificationReported Allergen(s)Allergy TypeDate of OnsetReaction(s) Facility (1 source)[facility]enta[facility]LD[facility] Fintqtr31-64-4971[facility] (11 sources)fentaNYLDrug Zoiwmqj65-83-8144S[facility]ofFPC[facility] (11 sources)Povidone-IodineDrug Rgbsmnf89-12-1089QljsUQLO Healthcare (1 source)No Known Medication Allergies; Translations: [No Known Medication Allergies]Propensity to adverse reactions (disorder)[facility] Repository Medications Current Medications MedicationDrug Class(es)DatesSig (Normalized)Sig (Original)amitriptyline hydrochloride 100 mg oral tablet (8 sources)Tricyclic Antidepressanttake 1 tablet by mouth at bedtime amitriptyline (Elavil) 100 MG tablet Take 100 mg by mouth at bedtime Active aspirin 81 mg chewable tablet (11 sources)Platelet Aggregation Inhibitor, Nonsteroidal Anti-inflammatory Drug aspirin 81 MG chewable tablet Whywbg551 hr buprenorphine 0.01 mg/hr transdermal system (14 sources)Partial Opioid AgonistStart: 56-64-8281qcngc 1 dose transdermal route every weekButrans 10 MCG/HR Place 1 patch on the skin 1 (one) time per week 09/07/2023 ActiveStart: 30-58-3072zkopr 15 ug transdermal route every week Buprenorphine 15 mcg/hour Patch Weekly Active 1 PATCH TRANSDERML every week December 30, 2020 12:00amdiclofenac sodium 75 mg delayed release oral tablet (2 sources)Nonsteroidal Anti-inflammatory DrugStart: 53-18-3738kasq 1 tablet by mouth twice daily as neededdiclofenac (Voltaren) 75 MG EC tablet Take 75 mg by mouth 2 (two) times a day as needed 08/30/2024 Activegabapentin 600 mg oral tablet (17 sources)Anti-epileptic AgentStart: 64-94-0345vycl 2 tablets by mouth once daily at bedtimeGabapentin (Neurontin) 600 mg Tablet Active 600 MG PO Daily at bedtime December 30, 2020 12:00am 2 at HS for 30 daysgabapentin (Neurontin) 400 MG capsule Activelevothyroxine sodium 0.2 mg oral tablet (20 sources)l-ThyroxineStart: 12-07-2023 End: 37-82-8064vxqg 1 tablet by mouth before mealtimelevothyroxine (Synthroid) 200 MCG tablet Indications: Status post total thyroidectomy Take 1 tablet(200 mcg) by mouth in the morning. Take before meals. 30 tablet 11 11/13/2024 11/13/2025 ActiveStart: 56-60-6215ueng 1 tablet by mouth before mealtime levothyroxine (Synthroid) 200 MCG tablet Indications: History of total thyroidectomy (CMS/HCC) Take1 tablet (200 mcg) by mouth in the morning. Take before meals. 30 tablet 5 03/16/2023 ActiveStart: 64-90-0081nqhc 1 tablet by mouth before mealtimelevothyroxine (Synthroid) 75 MCG tablet Indications: History of total thyroidectomy (CMS/HCC) Take 1 tablet (75 mcg) by mouth in the morning. Take before meals. 30 tablet 5 03/16/2023 ActiveStart: 01-05-2021 Levothyroxine 200 mcg tablet Active 275 MCG PO Daily January 05, 2021 12:00am Start: 99-37-9389uesm 275 ug by mouth once dailyLevothyroxine Active 275 MCG PO Daily January 05, 2021 12:00amStart: 12-30-2020 End: 85-19-9724dkat 1 tablet by mouth once dailyLevothyroxine (Synthroid) 125 mcg Tablet Discontinued 125 MCG PO Daily December 30, 2020 12:00am January 05, 2021 3:40pmlevothyroxine (Synthroid, Levoxyl) 200 MCG tablet Take by mouth Daily before meals. Takes with 75mcg 0 Activelevothyroxine (Synthroid, Levoxyl) 75 MCG tablet Take by mouth Daily before meals. Takes with 200mcg 0 Activelisinopril 10 mg oral tablet (8 sources)Angiotensin Converting Enzyme InhibitorStart: 99-11-9051shhl 1 tablet by mouth once dailylisinopril 10 MG tablet Take 10 mg by mouth Daily 09/05/2023 Iobmxr30 hr scopolamine 0.0139 mg/hr transdermal system (11 sources)AnticholinergicStart: 27-68-8096xncyiwtnhre (Transderm-Scop) 1 mg/72 hr patch 72 hour patch 02/09/2023 Active Completed/Discontinued Medications MedicationDrug Class(es)DatesSig (Normalized)Sig (Original)cholecalciferol 0.125 mg oral tablet (6 sources)Vitamin DStart: 12-30-2020 End: 38-54-0449jcad 1 tablet by mouth once dailyCholecalciferol (Vitamin D3) 125 mcg (5,000 unit) Tablet Discontinued 125 MCG PO Daily December 30, 2020 12:00am January 05, 2021 3:39pmcitalopram 40 mg oral tablet (6 sources)Serotonin Reuptake InhibitorStart: 12-30-2020 End: 11-89-6552drzu 1 tablet by mouth once dailyCitalopram (Celexa) 40 mg Tablet Discontinued 40 MG PO Daily December 30, 2020 12:00am January 05, 2021 3:39pmferrous sulfate 325 mg oral tablet (6 sources)Start: 12-30-2020 End: 01-38-7503wktw 1 tablet by mouth twice dailyFerrous Sulfate 325 mg (65 mg iron) Tablet Discontinued 325 MG PO Twice daily December 30, 2020 12:00am January 05, 2021 3:39pmfluocinonide 0.0005 mg/mg topical gel (6 sources)CorticosteroidStart: 12-30-2020 End: 64-39-8438Deyctdprzioh 0.05 % Gel Discontinued 1 APPLIC TOPICAL Twice daily December 30, 2020 12:00am January 05, 2021 3:39pmibuprofen 800 mg oral tablet (6 sources)Nonsteroidal Anti-inflammatory DrugStart: 12-30-2020 End: 90-32-6430pvpk 1 tablet by mouth every six hoursIbuprofen 800 mg Tablet Discontinued 800 MG PO Q6H December 30, 2020 12:00am January 05, 2021 3:40pm ondansetron 4 mg oral tablet (6 sources)Serotonin-3 Receptor AntagonistStart: 12-30-2020 End: 00-43-3893dhop 1 tablet by mouth every six hours as needed for nausea Ondansetron Hcl (Zofran) 4 mg Tablet Discontinued 4 MG PO Q6H as needed for Nausea December 30, 2020 12:00am January 05, 2021 3:40pm Problems Active Problems Problem ClassificationProblemDateDocumented DateEpisodic/ChronicCancer of thyroid (20 sources)Malignant neoplasm of thyroid gland; 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 EHR CmteComplications of surgical procedures or medical care (13 sources)Postprocedural hypothyroidism; Translations: [History of total thyroidectomy]Onset: 01-01-2021 Resolved: 74-83-4280GlejicvUxyoatzpzg and other anemia (12 sources)Anemia; Translations: [Anemia, unspecified]54-54-5158PyayaccaChznlzq on above:Problem List clean-up per request of Phys. EHR CmteHeadache; including migraine (1 source)Migraine without aura, not intractable, without status migrainosus; Translations: [MIGRAINE W/O AURA NOT INTRCT W/O SE]Onset: 04-97-1810Yexkdte Menstrual disorders (1 source)Excessive and frequent menstruation with irregular cycle; Translations: [EXCESS AND FREQ MEN W/IRREG CYCLE]Onset: 57-74-0154ImnomthEgdxkar disorders (20 sources)Hypothyroidism, unspecified; Translations: [Nontoxic multinodular goiter]Onset: 05-06-2014 Resolved: 19-56-3512Czznheh Past or Other Problems Problem ClassificationProblemDateDocumented DateEpisodic/ChronicAbdominal pain (11 sources)Flank pain; Translations: [Unspecified abdominal pain]Onset: 03-16-2023 Resolved: 540379-87-1297NsmevnhpSwhanjuf reactions (11 sources)Eczema; Translations: [Dermatitis, unspecified]Onset: 03-16-2023 Resolved: 692711-55-8094TrnzdjrbNfrxvjppae and other anemia (1 source)Anemia, unspecified; Translations: [ANEMIA UNSPECIFIED]Onset: 44-42-7398OzeqdeuwGhnaabay of upper limb (11 sources)Closed fracture of metacarpal bone; Translations: [Unspecified fracture of unspecified metacarpal bone, initial encounter for closed fracture] Onset: 04-09-2014 Resolved: 745197-40-2440YfcqjndnFqscnyfmsonot symptoms and ill-defined conditions (11 sources)Incontinence; Translations: [Unspecified urinary incontinence]Onset: 03-16-2023 Resolved: 951653-13-0218BikdnbwRyiix disorders and dislocations; trauma-related (11 sources)Tear of meniscus of knee; Translations: [Unspecified tear of unspecified meniscus, current injury, unspecified knee, initial encounter]Onset: 03-16-2023 Resolved: 734518-60-6643IikmmhomDnsb disorders (11 sources)Depressive disorder; Translations: [Depressive disorder]Onset: 03-16-2023 Resolved: 647855-35-1521GrwvqwlAimpymeirzd deficiencies (12 sources)Vitamin D deficiency, unspecified; Translations: [Vitamin D deficiency]Onset: 01-02-2021 Resolved: 448686-04-1406DqvgxupMdcjm connective tissue disease (11 sources)Impingement syndrome of shoulder region; Translations: [Impingement syndrome of unspecified shoulder]Onset: 03-16-2023 Resolved: 802396-50-8563HvqqynbjNgzws connective tissue disease (11 sources)Muscle pain; Translations: [Myalgia, unspecified site]Onset: 03-16-2023 Resolved: 972308-72-9925BnhsrhduNjrya diseases of bladder and urethra (11 sources)Neurogenic bladder; Translations: [Neuromuscular dysfunction of bladder, unspecified]Onset: 05-28-2014 Resolved: 497172-99-9398NynbtgtRmcae fractures (11 sources)Closed fracture of one rib; Translations: [Fracture of one rib, unspecified side, initial encounterfor closed fracture]Onset: 03-16-2023 Resolved: 495043-94-8220BhrhyfdfKkimv fractures (11 sources)Closed fracture thoracic vertebra; Translations: [Unspecified fracture of unspecified thoracic vertebra, initial encounter for closed fracture]Onset: 05-06-2014 Resolved: 074173-15-1807DcugkwraQcwonvnlt heart disease (19 sources)Infarction of lung due to embolus; Translations: [Other pulmonary embolism without acute cor pulmonale]Onset: 03-01-2014 Resolved: 654306-36-7448RzjsxpzqTpkyxgaa codes; unclassified (1 source)Edema, unspecified; Translations: [EDEMA UNSPECIFIED]Onset: 01-02-2021 EpisodicResidual codes; unclassified (3 sources)History of total thyroidectomy; Translations: [Other specified postprocedural states]Onset: 03-16-2023 Resolved: 019784-87-0660ZmsljncvFiujgspoere; intervertebral disc disorders; other back problems (11 sources)Lumbar spondylosis with myelopathy; Translations: [Other spondylosis with myelopathy, lumbar region]Onset: 03-16-2023 Resolved: 578723-98-7371XqciuugWuiurrboqzx; intervertebral disc disorders; other back problems (11 sources)Sacroiliac joint pain; Translations: [Sacrococcygeal disorders, not elsewhere classified]Onset: 03-16-2023 Resolved: 501850-98-4576Bwujcljr Results Test NameValueInterpretationReference RangeFacilityReminderson 12-28-2024 RemindersReminders From: Barbara Sykes LPN To: GSN - Clinical; Sent: 12/28/2024 08:08:15 EDT Show up: 11/26/2034 07:00:00 EDT Subject: colonoscopy recall Due Date/Time: 12/26/2034 07:00:00 EDT Reminder/Recall Patient due for screening colonoscopy 12/26/2034.[facility] HospitalAmbulatory Visit Summaryon 97-57-8561Agqpuftgft Visit SummaryAmbulatory Visit Summary CONRAD AGUILAR :1970 Visit Date:12/05/2024 Ambulatory Visit Instructions Your Care Team Attending Physician - ELENA DOTY, Carter Man Primary Care Physician - Anh Granger MD [...] mcg/ hr transdermal film, extended release) Topical Everyweek Contact prescribing physician if questions or concerns [...] you for choosing us for your care. [facility] HospitalThyroid Stimulating Hormoneon 53-03-6512TGW Qn0.74 m[IU]/LNormal0.45-5.33[facility] Physician GroupComment on above:Order Comment: FASTING NON FASTINGResult Comment: PERFORMED BY: [place] [id number] PATHOLOGIST RUN BOAT OPERATOR MANAV ESPINAL M.D.Performed By: #### T3T, TSH3, T4T #### [place] [id number] USAThyrotropin [Units/volume] in Serum or PlasmaOrdered By: Onel Hatch on 97-72-7082MHW QnThyrotropin [Units/volume] in Serum or Plasma 0.45-5.33[facility] HospitalThyroxine (T4) Totalon 68-13-4246E4 [Mass/Vol]11.03 ug/dLNormal5.39-11.82[facility] Physician GroupComment on above:Order Comment: FASTING NON FASTINGPerformed By: #### T3T, TSH3, T4T #### [place] [id number] USAThyroxine (T4) [Mass/volume] in Serum or PlasmaOrdered By: Onel Hatch on 11-08-3186U2 [Mass/Vol]Thyroxine (T4) [Mass/volume] in Serum or Plasma5.39-11.82[facility] HospitalTriiodothyronine (T3) Total on 61-04-3616Vcupnaovihoynxvt (T3) Total1.05 ng/mLNormal0.87-1.78[facility] Physician GroupComment on above:Order Comment: FASTING NON FASTINGPerformed By: #### T3T, TSH3, T4T #### [place] [id number] USATriiodothyronine (T3) [Mass/volume] in Serum or Plasma Ordered By: Onel Hatch on 14-62-8027G0 [Mass/Vol]Triiodothyronine (T3) [Mass/volume] in Serum or Plasma0.87-1.78[facility] Thyroglobulinon 29-06-1692FSURSZQZYEHXBTHCN AB20.3High0.0 - 0.9[facility] Comment on above:Thyroglobulin Antibody measured by Dara Citra Methodology It should be noted that the presence of thyroglobulin antibodies may not be pathogenic nor diagnostic, especially at very low levels. The assay nuclear cardiology technologist has found that four percent of individuals without evidence of thyroid disease or autoimmunity will have positive TgAb levels up to 4 IU/mL. Interpretation and review of laboratory resultsAbnormBelmont Behavioral Hospital THYROGLOBULIN, TG-RIA4.2 ng/mL.[facility] RevinateComment on above:This test was developed and its performance characteristics determined by [employer]. It has not been cleared or approved [...] quantitation limit is 2.0 ng/mL. Performed at: [facility] [address] [id number] Medical Information Officer: Jl Weems PhD, Phone: [phone] Performed at: [facility] [address] [place] [id number] Medical Information Officer: Alvin Suazo MD, Phone: [phone] [facility] CenterThyroglobulin, Quant + Tg Abon 76-11-6430Fiqhanhqtgjoyjwbu Ab20.3 High0.0-0.9[facility] Physician GroupComment on above:Result Comment: Thyroglobulin Antibody measured by Dara NewHive Methodology It should be noted that the presence of thyroglobulin antibodies may not be pathogenic nor diagnostic, especially at very low levels. The assay nuclear cardiology technologist has found that four percent of individuals without evidence of thyroid disease or autoimmunity will have positive TgAb levels up to 4 IU/mL.Performed By: #### LC T4, THYGLOB #### [facility] ,Thyroglobulin, TG-RIA4.2 ng/mLNormal.[facility] Physician GroupComment on above:Result Comment: This test was developed and its performance characteristics determined by [employer]. It has not been cleared or approved [...] quantitation limit is 2.0 ng/mL. Performed at: [facility] [address] [id number] Medical Information Officer: Jl Weems PhD, Phone: [phone] Performed at: [facility] [address] [place] [id number] Medical Information Officer: Alvin Suazo MD, Phone: [phone] PERFORMED BY: [place] [address] PATHOLOGIST RUN BOAT OPERATOR ANDRE WATTS M.D.Performed By: #### LC T4, THYGLOB #### [facility] ,Thyrotropin [Units/volume] in Serum or PlasmaOrdered By: Abdoulaye Esqueda on 89-21-4737XEI Qn1.64 m[IU]/LNormal0.45-5.33[facility] Comment on above:Result Comment: PERFORMED BY: [place] [address] PATHOLOGIST RUN BOAT OPERATOR ANDRE WATTS M.D.Performed By: #### T4T, TSH3, T3T #### [place] [address] [place] #### THYGLOB #### [facility] ,Thyroxine (T4) [Mass/volume] in Serum or PlasmaOrdered By: Abdoulaye Esqueda on 57-99-4268J5 [Mass/Vol]11.41 ug/dLNormal5.39-11.82[facility] CenterComment on above:Performed By: #### T4T, TSH3, T3T #### [facility] [address] [place] [address] [place] #### THYGLOB #### [facility] ,Triiodothyronine (T3) Totalon 98-90-9628Mtljfopzfffddlgb (T3) Total0.71 ng/mL Low0.87-1.78[facility] Physician GroupComment on above:Performed By: #### T4T, TSH3, T3T #### [facility] [address] #### THYGLOB #### [facility] ,Triiodothyronine (T3) [Mass/volume] in Serum or PlasmaOrdered By: Abdoulaye Esqueda on 31-85-3003I5 [Mass/Vol]0.71 ng/mLLow0.87-1.78[facility] HospitalLab Laura Thyroxine (T4)on 88-62-3759H0 [Mass/Vol]11.5 ug/dLNormal 4.5-12.0[facility] GroupComment on above:Result Comment: Performed at: [facility] [employer] [id number] Medical Information Officer: Jl Weems PhD, Phone: [phone] By: #### LC T4, THYGLOB #### [facility] ,Thyroglobulin, Quant + Tg Abon 23-21-0576Jtmcfeneiwpolrohj Ab23.1High0.0-0.9[facility] GroupComment on above:Result Comment: Thyroglobulin Antibody measured by Dara Johann Methodology It should be noted that the presence of thyroglobulin antibodies may not be pathogenic nor diagnostic, especially at very low levels. The assay nuclear cardiology technologist has found that four percent of individuals without evidence of thyroid disease or autoimmunity will have positive TgAb levels up to 4 IU/mL.Performed By: #### LC T4, THYGLOB #### [facility] ,Thyroglobulin, TG-RIA2.5 ng/mLNormal.[facility] Physician GroupComment on above:Result Comment: This test was developed and its performance characteristics determined by [employer]. It has not been cleared or approved [...] quantitation limit is 2.0 ng/mL. Performed at: [facility] [address] [id number] Medical Information Officer: Jl Weems PhD, Phone: [phone] Performed at: [facility] [address] [place] [id number] Medical Information Officer: Alvin Suazo MD, Phone: [phone] PERFORMED BY: [address] [address] PATHOLOGIST RUN BOAT OPERATOR ANDRE WATTS M.D.Performed By: #### LC T4, THYGLOB #### [facility] ,Thyrotropin [Units/volume] in Serum or PlasmaOrdered By: Onel Hatch on 39-18-7114KFS Qn0.33 m[IU]/LLow0.45-5.33[facility] HospitalComment on above:Result Comment: PERFORMED BY: [address] [address] PATHOLOGIST RUN BOAT OPERATOR ANDRE WATTS M.D.Performed By: #### T3T, TSH3 #### [address] [address] USATriiodothyronine (T3) Totalon 06-77-3264Xwrihzbvwgttzqcy (T3) Total1.10 ng/mLNormal0.87-1.78[facility] Physician GroupComment on above:Performed By: #### T3T, TSH3 #### [address] [address] USATriiodothyronine (T3) [Mass/volume] in Serum or Plasma Ordered By: Onel Hatch on 82-89-7253O5 [Mass/Vol]1.10 ng/mL0.87-1.78 [facility] HospitalTSH Qnon 77-14-1555Gjofiqyzennyyg and review of laboratory resultsAbHenry Ford HospitalT4 [Mass/Vol]13.2 ug/dLHigh4.5 - 12.0 ug/dLNOAZ HealthcareComment on above:Performed at: [facility] [address] [id number] Medical Information Officer: Jl Weems PhD, Phone: [phone] [facility] HealthcareThyroglobulin Antibodyon 06-30-1233GPOBCGEULMXGTJANT AB24.3High 0.0 - 0.9NOAZ HealthcareComment on above:Thyroglobulin Antibody measured by Dara Johann Methodology It should be noted that the presence of thyroglobulin antibodies may not be pathogenic nor diagnostic, especially at very low levels. The assay nuclear cardiology technologist has found that four percent of individuals without evidence of thyroid disease or autoimmunity will have positive TgAb levels up to 4 IU/mL. Performed at: [facility] [address] [id number] Medical Information Officer: Jl Weems PhD, Phone: [phone] Interpretation and review of laboratory resultsAbnoPsychiatric hospital, demolished 2001No Panel InformationOrdered By: Abdoulaye Esqueda on 09-99-4358Degs Thyroxine (T4) Jujliq83.2 ug/dL4.5-12.0[facility] HospitalComment on above:Performed at: [facility] [address] [id number] Director: Jl Weems PhD, Phone: [phone] or plasma thyroglobulin antibody assay (units/volume)Ordered By: Abdoulaye Esqueda on 11-08-5563Xagesnxxwudpx Ab Qn24.3 [IU]/mL0.0-0.9[facility] HospitalComment on above:Thyroglobulin Antibody measured by Dara CoulterMethodologyIt should be noted that the presence of thyroglobulinantibodies may not be pathogenic nor diagnostic, especiallyat very low levels. The assay nuclear cardiology technologist has found thatfour percent of individuals without evidence of thyroiddisease or autoimmunity will have positive TgAb levels upto 4 IU/mL.Performed at: - [facility] [id number] [place], [place] [id number] Director: Jl Weems PhD, Phone: [phone] [Units/volume] in Serum or PlasmaOrdered By: Abdoulaye Esqueda on 30-42-4545INV Qn 0.02 m[IU]/L0.45-5.33[facility] HospitalTriiodothyronine (T3) [Mass/volume] in Serum or PlasmaOrdered By: Abdoulaye Esqueda on 82-01-7692F3 [Mass/Vol]0.71 ng/mL0.87-1.78[facility] HospitalThyrotropin [Units/volume] in Serum or PlasmaOrdered By: Onel Hatch on 38-94-7642QTY Qn 0.01 m[IU]/L0.45-5.33[facility] HospitalThyroxine (T4) [Mass/volume] in Serum or PlasmaOrdered By: Onel Hatch on 37-73-6206Z4 [Mass/Vol]13.03 ug/dL5.39-11.82[facility] HospitalTriiodothyronine (T3) [Mass/volume] in Serum or PlasmaOrdered By: Onel Hatch on 03-10-2023 T3 [Mass/Vol]1.08 ng/mL0.87-1.78[facility] HospitalNo Panel InformationOrdered By: Onel Hatch on 47-65-5286E[place]ua Triiodothyronine1.32 ng/mL0.87-1.78[facility] <= 0.005 mIU/L QnOrdered By: Onel Hatch on 23-88-2995EXT Qn0.01 m[IU]/L0.45-5.33[facility] HospitalThyroxine (T4) free [Mass/volume] in Serum or PlasmaOrdered By: Onel Hatch on 33-32-1259Qqfh T4 [Mass/Vol]1.32 ng/dL0.61-1.12[facility] HospitalCT [facility]K [facility] W CONon 93-63-0679FY NECK ST W CONEXAMINATION: CT NECK ST W CON HISTORY: Malignant [...] Electronically authenticated by: BRYAN ARTHUR Date: 2021-09-02 08:56[facility] THY[facility]IDon 52-46-5301GC THYROIDEXAMINATION: US THYROID HISTORY: Malignant tumor of thyroid gland ; [...] Electronically authenticated by: BRYAN ARTHUR Date: 2021-09-02 09:02[facility] CenterTHYROGLOBULINon 05-04-0374Zhbcxekvasnmq0.5 ng/mLNormalGalion Community HospitalComment on above:Result Comment: This test was developed and its performance characteristics determined by [employer]. It has not been cleared or approved [...] recommended. The assay quantitation limit is 2.0 ng/mL.Performed By: #### TGRIA #### [facility] [address] [place] [address] Ilana KarenFSHon 47-48-3033CPV4.8 mIU/mLNormalGalion Community HospitalComment on above:Result Comment: Adult Female: Follicular phase 3.5 - 12.5 Ovulation phase 4.7 - 21.5 Luteal phase 1.7 - 7.7 Postmenopausal 25.8 - 134.8Performed By: #### LBCFSH #### [facility] [address] [place] [address] Ilana KarenTHYROGLOBULIN ABon 06-61-4745Ftvpuluzflzev Apmkliye83.0 IU/mL Critically high0.0-0.9The [facility] Health SystemComment on above:Result Comment: Thyroglobulin Antibody measured by Dara Citra MethodologyPerformed By: #### THYGAB #### [facility] [address] [place] [address] Ilana KarenCBC AUTO DIFFon 61-40-2814QGMN #0.0 103/ulNormal0.0-0.1The [facility] Health SystemComment on above:Performed By: #### FT4 #### [facility] [address] [place], [place] [id number] Ilana KarenBasophils/100 WBC (Bld)0.4 %Normal0.2-2.0[facility] Comment on above:Performed By: #### FT4 #### [facility] [address] [place] [address] Ilana KarenEO #0.1 103/ulNormal0.0-0.7The [facility] SystemComment on above: Performed By: #### FT4 #### [facility] [address] [place] [address] Ilana KarenEosinophils/100 WBC (Bld)1.1 %Normal0.9-7.0[facility] Comment on above:Performed By: #### FT4 #### [facility] [address] [place] [address] Ilana KarenErythrocyte distribution width (RBC) [Ratio]12.0 %Lchefz72.0-15.0The [facility] SystemComment on above:Performed By: #### FT4 #### [facility] [address] [place] [address] Ilana KarenHematocrit (Bld) [Volume fraction]39.1 %Yzzpal82.0-48.0The [facility] SystemComment on above:Performed By: #### FT4 #### [facility] [address] [place] [address] Ilana KarenHemoglobin (Bld) [Mass/Vol]13.0 g/uZIuknxh09.0-16.0The Trinity Health SystemComment on above:Performed By: #### FT4 #### [facility] [address] [place] [address] Ilana KarenIG #0.03 10e3/ulNormal0.00-0.03The [facility] Health SystemComment on above:Performed By: #### FT4 #### [facility] [address] [place] [address] Ilana KarenIG %0.3 %Normal0.0-0.5The [facility] Health SystemComment on above: Performed By: #### FT4 #### [facility] [address] [place] [address] Ilana KarenLYMPH #2.2 103/ulNormal1.2-3.8The [facility] Health SystemComment on above: Performed By: #### FT4 #### [facility] [address] [place] [address] Ilana KarenLymphocytes/100 WBC (Bld)24.5 %Ctgyxz46.5-60.0[facility] Comment on above:Performed By: #### FT4 #### [facility] [address] [place] [address] Ilana LambertMANUAL DIFF REQNONormalThe Trinity Health SystemComment on above: Performed By: #### FT4 #### [facility] [address] [place] [address] Ilana LambertH (RBC) [Entitic mass]30.0 vvBaaksp63.7-34.0[facility] Comment on above:Performed By: #### FT4 #### [facility] [address] [place] [address] Ilana LambertMOHA[facility] (RBC) [Mass/Vol]33.2 g/hWHfdkdx94.9-35.2[facility] Comment on above:Performed By: #### FT4 #### [facility] [address] [place] [address] Ilana LambertV (RBC) [Entitic vol]90.3 aNIcbbbo56.0-99.0[facility] Comment on above:Performed By: #### FT4 #### [facility] [address] [place] [address] Ilana LambertJASMINO #0.6 103/ulNormal0.3-0.8The [facility] Health SystemComment on above: Performed By: #### FT4 #### [facility] [address] [place] [address] Ilana KarenMonocytes/100 WBC (Bld)7.2 %Normal1.7-12.0[facility] Comment on above:Performed By: #### FT4 #### [facility] [address] [place] [address] Ilana YeagerFreddieUT #5.9 103/ulNormal1.4-6.5The [facility] Health SystemComment on above: Performed By: #### FT4 #### [facility] [address] [place] [address] Ilana KarenNeutrophils/100 WBC (Bld)66.5 %Saztap51.0-75.0[facility] Comment on above:Performed By: #### FT4 #### [facility] [address] [place] [address] Ilana KarenPlatelet mean volume (Bld) [Entitic vol]9.7 fLNormal9.5-13.5The [facility] Health SystemComment on above:Performed By: #### FT4 #### [facility] [address] [place] [address] Ilana KebpfIQO947 103/htKgucfw953-292Nks [facility] Health SystemComment on above: Performed By: #### FT4 #### [facility] [address] [place] [address] Ilana KarenRBC4.33 106/ulNormal4.20-5.40The [facility] Health SystemComment on above: Performed By: #### FT4 #### [facility] [address] [place] [address] Ilana YeagerenWBC8.9 103/ulNormal4.0-11.0The [facility] Health SystemComment on above: Performed By: #### FT4 #### [facility] [address] [place] [address] Ilana KarenFREE T3on 45-44-7266UXNV T31.09 pg/mlLCritically low2.77-5.27The [facility] Health SystemComment on above:Performed By: #### FT4 #### [facility] [address] [place] [address] Ilana KarenFREE T4on 00-81-1905Umsp T4 [Mass/Vol]1.50 ng/dLNormal0.78-2.19The [facility] Health SystemComment on above:Performed By: #### FT4 #### [facility] [address] [place] [address] Ilana KarenIRONon 07-25-8827Uzsf [Mass/Vol]101.0 ug/sEOmfsoo48.0-170.0The [facility] Health SystemComment on above:Performed By: #### FT4 #### [facility] [address] [address] Ilana KarenPROF 14(COMP METB)on 89-21-0068Jdoakeb [Mass/Vol]3.3 g/dLCritically low3.5-5.0[facility] HospitalComment on above:Performed By: #### CMP #### [facility] [address] [place] [address] Ilana KarenAlbumin/Globulin [Mass ratio]0.9 {ratio}NormalGalion [facility] Hospital Comment on above:Performed By: #### CMP #### [facility] [address] [place] [address] Ilana KarenALP [Catalytic activity/Vol]55 U/RKzhcmf57-127AlhGal[facility] Hospital Comment on above:Performed By: #### CMP #### [facility] [address] [place] [address] Ilana KarenALT [Catalytic activity/Vol]18 U/LNormal9-52[facility] Comment on above:Performed By: #### CMP #### [facility] [address] [place] [address] Ilana KarenAnion gap [Moles/Vol]8.8 mmol/LNormalGalion Community HospitalComment on above:Performed By: #### CMP #### [facility] [address] [place] [address] Ilana KarenAST [Catalytic activity/Vol]13 U/LCritically gfq25-07Wks [facility] Health SystemComment on above:Performed By: #### CMP #### [facility] [address] [place] [address] Ilana KarenBilirubin [Mass/Vol]0.5 mg/dLNormal0.2-1.3TLake[facility] Comment on above:Performed By: #### CMP #### [facility] [address] [place] [address] Ilana KarenCalcium [Mass/Vol]8.4 mg/dLNormal8.4-10.2[facility] Comment on above:Performed By: #### CMP #### [facility] [address] [address] Ilana KarenChloride [Moles/Vol]104 mmol/NArszgz79-020Tyu [facility] Comment on above:Performed By: #### CMP #### [facility] [address] [place] [address] Ilana KarenCO2 [Moles/Vol]29.8 mmol/UMehcqi74.0-30.0[facility] Comment on above:Performed By: #### CMP #### [facility] [address] [place] [address] Ilana KarenCreatinine [Mass/Vol]0.88 mg/dLNormal0.52-1.04[facility] Comment on above:Performed By: #### CMP #### [facility] [address] [place] [address] Ilana KarenEGFR-AF TUNISIAN>60Normal>=60The [facility] Health SystemComment on above: Performed By: #### CMP #### [facility] [address] [place] [address] Ilana KarenEGFR-NON AF TUNISIAN>60Normal>=60[facility] HospitalComment on above:Performed By: #### CMP #### [facility] [address] [place] [address] Ilana KarenGlobulin (S) [Mass/Vol]3.8 g/dLNormalThe [facility] Health SystemComment on above:Performed By: #### CMP #### [facility] [address] [place] [address] Ilana KarenGlucose [Mass/Vol]90 mg/eCLfdivg88-437ZzbGalion Community HospitalComment on above:Performed By: #### CMP #### [facility] [address] [place] [address] Ilana KarenPotassium [Moles/Vol]3.6 mmol/LNormal3.4-5.0[facility] Comment on above:Performed By: #### CMP #### [facility] [address] [place] [address] Ilana KarenProtein [Mass/Vol]7.1 g/dLNormal6.1-8.2The [facility] Health SystemComment on above:Performed By: #### CMP #### [facility] [address] [place] [address] Ilana KarenSodium [Moles/Vol]139 mmol/VRlfxut659-474Ohy [facility] Comment on above:Performed By: #### CMP #### [facility] [address] [place] [address] Ilana KarenUrea nitrogen [Mass/Vol]11.0 mg/dLNormal7.0-17.0The [facility] Health SystemComment on above:Performed By: #### CMP #### [facility] [address] [place] [address] Ilana KarenUrea nitrogen/Creatinine [Mass ratio]12.5 mg/mgNoDayton VA Medical CenterComment on above:Performed By: #### CMP #### [facility] [address] [place] [address] Ilana KarenTSHon 88-15-6803JFT5.552 uIU/mLNormal0.470-4.680The [facility] Health SystemComment on above:Performed By: #### FT4 #### [facility] [address] [place] [address] Ilana KarenTSH RANGESEE BELOWUC Medical CenterComment on above:Result Comment: <0.34 UIU/ml HYPERTHYROID 0.34-5.60 UIU/ml EUTHYROID >5.60 UIU/ml HYPOTHYROIDPerformed By: #### FT4 #### [facility] [address] [place] [address] Ilana KarenVITAMIN D 25 OHon 36-84-8544MKR D 25-OH30.8 ng/mLNormalGalion Community HospitalComment on above:Performed By: #### FT4 #### [facility] [address] [place] [address] Ilana KarenVIT D RANGESSEE [facility] Health SystemComment on above: Result Comment: <20 ng/mL Vit D deficient 20 - <30 ng/mL Vit D insufficient 30 - 100 ng/mL Vit D sufficient >100 ng/mL Potential ToxicityPerformed By: #### FT4 #### [facility] [address] [place] [address] Ilana Alegre T3on 97-74-6106QDAZ T32.27 pg/mlLCritically low2.77-5.27[facility] HospitalComment on above:Performed By: #### FT3, TSH #### [facility] [address] [place] [address] Ilana Alegre T4on 84-47-4753Yddq T4 [Mass/Vol]1.27 ng/dLNormal0.78-2.19The [facility] Health SystemComment on above:Performed By: #### FT4 #### [facility] [address] [place] [address] Ilana DeanHon 81-80-7675DZR76.604 uIU/mLCritically high0.470-4.680The [facility] Health SystemComment on above:Performed By: #### FT3, TSH #### [facility] [address] [place] [address] Ilana Carrasco RANGESEE BELOWNormalThe [facility] Health SystemComtrinity health [facility] on above:Result Comment: <0.34 UIU/ml HYPERTHYROID 0.34-5.60 UIU/ml EUTHYROID >5.60 UIU/ml HYPOTHYROIDPerformed By: #### FT3, TSH #### [facility] [address] [place] [address] Ilana YeagerenLUMBAR SPINE 4 OR 5 [facility] 29-31-7348RPDJKR SPINE 4 OR 5 [facility] Department of Radiology [address] [place] [id number] Patient Name: CONRAD AGUILAR : 1970 Sex: F Age: Race: White Pt. Location: 82 Patient Status: D Ordered Date: 06/14/2018 1:35:00 [...] findings. Electronically signed by:Jeovanny Mercer. Transcribed by: [id number], User Resident: ONEL CINTRON Electronically Signed by: JEOVANNY MERCER @ 06/15/2018 05:58 PM I personally read this/these film(s) with this residentOhio State Harding HospitalComment on above:Order Comment: , Views (X-RAY, LUMBAR SPINE): AP, Lateral, L5-S1 Spot, Flexion, Extension , Views (X-RAY, LUMBAR SPINE): AP, Lateral, L5-S1 Spot, Flexion, Extension , , , Ordering Provider- WU CALLOWAY MD , Vital Signs Date TimeVital SignValuePerforming IyvrhxrbkIlyatfbi55-57-9657 09:06-0400Body wmoypm161.7 cmBekaela Ubiquity Global ServicestheodoraMoya Okruga DO Work Phone: [facility] CenterTtbmbfihwp30-84-1222 09:06-0400Body mass index (BMI) [Ratio]26.46 kg/q9Uyugqstv Murcek DO Work Phone: [facility] CenterHmqwrcnzkj97-42-0238 09:06-0400Body azjmko12.93 kgBenjagdish Smallcek DO Work Phone: [facility] CenterWoqiiucslh72-25-2075 09:07-0400Body fukfdh993.7 cmBekaela Smallcek DO Work Phone: [facility] CenterQdlmcirnvf71-92-0547 09:07-0400Body mass index (BMI) [Ratio]26.46 kg/u2Cahntwpl Murcek DO Work Phone: [facility] Eqliefxbjz07-46-3863 09:07-0400Body hujodo43.93 kgBenjagdish Murcek DO Work Phone: [facility] Encounters Encounter DateEncounter TypeCare ProviderFacilityStart: 12-26-2024 End: 42-42-8286xqjflabvusLvajund R NILLFacility:CD:[id number]: 12-05-2024 End: 19-10-3748ychzwvpuvwHyyxjzl HoyFacility: [place]vueStart: 11-20-2024 ambulatoryDoandrade GrangerFacility:SASHA BellevueStart: 11-13-2024 End: 44-17-8533Jkovlu flowsheetBenjamin W Murcek DO Work Phone: [facility] ENT SANDUSKYStart: 11-13-2024 End: 02-86-9883Lzkhzg flowsheetBenjamin W Murcek DO Work Phone: [facility] E[facility] SANDUSKYStart: 11-13-2024 End: 06-29-9431Buzjwx outpatient visit 25 minutesBenjamin W Murcek DO Work Phone: [facility] ENT SANDUSKYComment on above:Status post total thyroidectomy (Primary Dx); Malignant neoplasm of thyroid gland (CMS/HCC)Start: 11-13-2024 End: 60-74-0540zxgktejbroFMRBUSKU W MURCEKNot AvailableStart: 11-05-2024 End: 12-83-6016Btypsmb encounter Glen Granger MD Work Phone: [facility] [place] Work Phone: Start: 11-05-2024 End: 85-17-9951jydvgbcivrXstvwdj M Hoy MD Work Phone: [facility] Work Phone: Start: 05-08-2024 End: 46-06-5643Patmgi flowsheetBenjamin W Murcek DO Work Phone: [facility] E[facility] SANDUSKYStart: 05-08-2024 End: 96-69-9932Dmyyjo flowsheetBenjimenamin W Murcek DO Work Phone: [facility] E[facility] SANDUSKYStart: 05-08-2024 End: 55-10-4624Wfqjso outpatient visit 25 minutesBenjimenamin W Murcek DO Work Phone: [facility] ENT SANDUSKYComment on above:Malignant neoplasm of thyroid gland (CMS/HCC) (Primary Dx)Start: 05-08-2024 End: 75-32-6787lmnnokvspmTCQWTROI W REBECAot AvailableStart: 04-26-2024 End: 52-53-8873Dhompiin Result EncounterPaul S Biedenbach DO Work Phone: [facility] External Department UnsolicitedStart: 04-26-2024 End: 67-42-0403Pnlxyhif Result EncounterPaul S Biedenbach DO Work Phone: [facility] External Department UnsolicitedStart: 04-26-2024 End: 87-99-6768Cdtmaol encounter procedureMD Anh Hoy Work Phone: [facility] [place] Work Phone: Start: 04-26-2024 End: 05-13-7733zuhvhxinzbKR Anh M Hoy Work Phone: [facility] Work Phone: Start: 11-21-2023 End: 34-81-0295Jgjubhy encounter procedureMD Anh Hoy Work Phone: [facility] [place] Work Phone: Start: 11-21-2023 End: 05-61-1970znkmqcikyyNC Anh M Hoy Work Phone: [facility] Work Phone: Start: 44-54-3806Qzzqgcks Result EncounterPaul S Biedenbach DO Work Phone: [facility] External Department UnsolicitedStart: 09-13-2023 External Result EncounterPaul S Biedenbach DO Work Phone: [facility] External Department UnsolicitedStart: 09-13-2023 End: 13-24-3377cjykihaatvIS Anh M Hoy Work Phone: [facility] Work Phone: Start: 09-13-2023 End: 15-61-5277Ftchidx encounter procedureMD Anh Hoy Work Phone: [facility] [place] Work Phone: Start: 03-10-2023 End: 24-10-5828qwydvolstzHE Anh M Hoy Work Phone: [facility] Work Phone: Start: 03-10-2023 End: 97-28-8353Ajjouzv encounter procedureMD Anh Hoy Work Phone: [facility] [place] Work Phone: Start: 09-08-2022 End: 48-97-1852paqrtxxuoaUT Anh M Hoy Work Phone: [facility] Work Phone: Start: 09-08-2022 End: 55-27-0378Xfayxvs encounter procedureMD Anh Hoy Work Phone: [facility] [place] Work Phone: Start: 09-02-2021 End: 11-23-3641kbcpfvdzaqPX ANH HOYFacility:J7Rhpin: 01-01-2021 End: 51-87-5740txqvdszpftOO ANH HOYFacility:O8Dsiyh: 10-03-2020 End: 38-25-5199qfxrlksuguCGWJF SABTEMPE ST. LUKE'S HOSPITALFacility:H1 Procedures DateProcedureProcedure DetailPerforming ClinicianStart: 99-78-4100Vdxyj of thyroglobulinPaul S Biedenbach DO Work Phone: start: 45-81-4393Wjlxl of thyroxine totalPaul S Biedenbach DO Work Phone: start: 25-39-0174Dsbixiyaubxvu antibodyPaul S Biedenbach DO Work Phone: History of thyroidectomyStatus post total thyroidectomyBenjamin W Murcek DO Work Phone: Plan of Treatment DateCare ActivityDetailAuthorStart: 10-28-2025 End: 94-82-5605OgmpettaxsgjrCkddnhmenhmju Lab Routine Malignant neoplasm of thyroid gland (CMS/HCC) Expected: 10/28/2025 (Approximate), Expires: 11/13/2025 [facility] HealthcareComment on above:Expected: 10/28/2025 (Approximate), Expires: 11/13/2025Start: 10-28-2025 End: 04-21-2179Jbmoildkvyf [Units/volume] in Serum or PlasmaNOMS Healthcare Comment on above:Expected: 10/28/2025 (Approximate), Expires: 11/13/2025Start: 10-28-2025 End: 35-83-8018Qdskhqrdsezrvopw (T3) [Mass/volume] in Serum or PlasmaT3 Lab Routine Malignant neoplasm of thyroid gland (CMS/HCC) Expected: 10/28/2025 (Approximate), Expires: 11/13/2025NOM[facility] HealthcareComment on above:Expected: 10/28/2025 (Approximate), Expires: 11/13/2025Start: 05-15-2025 End: 34-88-3770HtbpabwtgiyxhTuyzdgipkcsws Lab Routine Malignant neoplasm of thyroid gland (CMS/HCC) Expected: 05/15/2025 (Approximate), Expires: 11/13/2025 [facility] HealthcareComment on above:Expected: 05/15/2025 (Approximate), Expires: 11/13/2025Start: 05-15-2025 End: 69-68-6876Khpqdpnlglx [Units/volume] in Serum or PlasmaNOMS Healthcare Work Phone: comment on above:Expected: 05/15/2025 (Approximate), Expires: 11/13/2025Start: 05-15-2025 End: 50-75-0727Ukcdfoumgicfpmxu (T3) [Mass/volume] in Serum or PlasmaT3 Lab Routine Malignant neoplasm of thyroid gland (CMS/HCC) Expected: 05/15/2025 (Approximate), Expires: 11/13/2025N[facility] HealthcareComment on above:Expected: 05/15/2025 (Approximate), Expires: 11/13/2025Start: 52-77-3843Pgutccyco vaccinationInfluenza Vaccine (Season Ended)[facility] HealthcareStart: 11-13-2024 End: 43-29-0988Gtltjde encounter procedureNOMS ENT SANDUSKYComment on above: ArrivedStart: 11-05-2024 End: 35-01-2749Ejxwfxqajnv [Units/volume] in Serum or PlasmaNOMS Healthcare Work Phone: comment on above:Expected: 11/05/2024 (Approximate), Expires: 05/08/2025Start: 11-05-2024 End: 36-42-3861Nocqbmhjymiihokg (T3) [Mass/volume] in Serum or PlasmaT3 Lab Routine Malignant neoplasm of thyroid gland (CMS/HCC) Expected: 11/05/2024 (Approximate), Expires: 05/08/2025N[facility] HealthcareComment on above:Expected: 11/05/2024 (Approximate), Expires: 05/08/2025Start: 05-08-2024 End: 75-04-6859Bazblyx encounter procedureNOMS ENT SANDUSKYComment on above: ArrivedStart: 30-23-0166XbsobswyaFairfield Medical Centertart: 04-01-2024 Influenza vaccinationInfluenza Vaccine (#1)[facility] HealthcareStart: 11-21-2023 Thyroxine measurementFairfield Medical Centertart: 09-20-2023 End: 43-89-4464Willjlo encounter xuumhqvnm48/20/2024 8:30 AM EST Office Visit [facility] [place] [address] [place] [phone] Onel Hatch DO [address] [place] [address] [facility] C[facility]ERYStart: 71-98-1623Jvxdppzun measurement [facility] Centertart: 13-05-0132Dzolzgdgo vaccinationInfluenza Vaccine (#1)[facility] HealthcareStart: 00-43-8151Jsppryoyt for malignant neoplasm of breastMammogramNOMS HealthcareStart: 36-06-3168Zvvkixcnd for malignant neoplasm of cervixNOMS HealthcareStart: 17-46-6869Mrdjxdaik for malignant neoplasm of cervixPap SmearNOMS HealthcareStart: 05-53-3248Lmopvlbva for malignant neoplasm of colonNOMS HealthcareThyroglobulin Ab [Units/volume] in Serum or Plasma [facility] HospitalThyroglobulin Ab [Units/volume] in Serum or PlasmaOhio State East HospitalThyroglobulin Ab [Units/volume] in Serum or PlasmaOhio State East HospitalThyroglobulin Ab [Units/volume] in Serum or PlasmaOhio State East HospitalThyrotropin [Units/volume] in Serum or PlasmaTSH Lab Routine 09/13/2023 9:13 AM [facility] Work Phone: Thyrotropin [Units/volume] in Serum or PlasmaTSH Lab Routine 04/26/2024 9:20 AM [facility] Work Phone: Triiodothyronine (T3) [Mass/volume] in Serum or Plasma T3 Lab Routine 09/13/2023 9:13 AM [facility] Payers DatePayer CategoryPayerPolicy [id number] 2015[employer]icaid[place] [employer] [place] [id number] 2014-Present [address] [place] [id number] 2015Medicaid (Managed Care)[employer] [employer] Member Subscriber Plan / Payer (Effective 2014-Present) Name: AguilarConrad Relation to Subscriber: Self Name: Conrad Aguilar Payer ID: Not on file Group ID: Not on file Type: Not on file Address: [facility] [address] [id number] 2..1.991353.3.57[id number] 2..1.750783.3.57[id number] 2..1.501434.3.57[id number] 2..1.179315.3.57[id number] 2..1.288774.3.57[id number] 2..1.376283.3.57[id number] 2..1.411466.3.57[id number] 2..1.206505.3.57[id number] 2..1.9[id number] 2..1.856996.3.579.2.531 [id number] 2.16.840.1.201661.3.579.2.531 Social History DateTypeDetailFacilityStart: 01-05-2021 End: 01-99-4072Ycpmjrd smoking status NHISNever smoked tobacco (finding) [facility] Centertart: 00-66-3996Yie Assigned At BirthFemalUniversity Hospitals Health Systemtart: 15-55-0892Epwdezd use and exposure Smokeless tobacco non-userNOMS HealthcareStart: 03-17-2023 End: 24-36-0272Knncxii intakeEx-drinker (finding)[facility] HealthcareStart: 03-17-2023 End: 72-88-3297Zidingt of Social functionNOMS HealthcareStart: 03-17-2023 End: 24-59-6377Wdrbpjp use panelNOMS HealthcareStart: 64-28-4726Snpwdjq Comment caffeine intake : 1-2 cups per dayNOAZ HealthcareStart: 04-14-5999Kyh Assigned At BirthNot on fileNOAZ HealthcareStart: 79-97-1559CkcNjcykg (finding)[facility] Clinical Note 12-05-2024 Note Date & ZlyrJfjcBrtrugjx23-30-4198 NoteGeneral Surgery Office/Clinic Note Chief Complaint consultation for anemia HPI [...] swallowing difficulties, no hearing loss, no ear infection(s),no nose bleeds. Cardiovascular: normal blood pressure, no [...] tab(s), Oral, Daily N (more content not included)...[facility] CenterComment on above: Result Comment: Electronically Signed By: ELENA DOTY, Carter Ornelas\Date and Time Signed: 12/05/24 16:14 EDT History of Present illness Narrative 11-13-2024 Note Date & LzsxRticBrfzbdyr35-52-7418 History of Present illness Narrative* Onel Hatch, - 11/13/2024 9:15 AM EDT Subjective Patient ID: HPI Patient presents today [...] - T4 - Thyroglobulin documented in this encounterNOAZ Healthcare History of Present illness Narrative 05-08-2024 Note Date & BmxiQcfsKgynzlam36-22-0075 History of Present illness Narrative* Onel Hatch DO - 05/08/2024 9:15 AM EDT Subjective Patient ID: HPI Patient presents today for follow-up. 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 Continues to do [...] ultrasound at that time. [facility] Evaluation note Note Date & TypeNoteFacilityEvaluation noteNo assessment information available [facility] Work Phone: Evaluation note Note Date & TypeNoteFacilityEvaluation note* Diagnosis Malignant neoplasm of thyroid gland (CMS/HCC)- Primary Malignant neoplasm of thyroid gland documented in this encounter [facility] Healthcare Evaluation note Note Date & TypeNoteFacilityEvaluation note* Diagnosis Status post total thyroidectomy- Primary Other postprocedural status Malignant neoplasm of thyroid gland (CMS/HCC) Malignant neoplasm of thyroid gland documented in this encounter [facility] Healthcare Summary Purpose Family History No Family [...] and content) DATE CREATED AUTHOR 05/09/[address] [facility] DATE CREATED AUTHOR AUTHOR'S ORGANIZ ATION 09/05/2021 [facility] DATE CREATED AUTHOR AUTHOR'S ORGANIZ ATION 11/06/2024 [facility] DATE CREATED AUTHOR AUTHOR'S ORGANIZ ATION 11/14/2024 [facility] DATE CREATED AUTHOR AUTHOR'S ORGANIZ ATION 01/22/2025 [facility] Care Teams (unrecognized sec tion and content) Team Status: Active Member Role Status Dates Anh Granger MD Primary Care Provider Active Team Status: Inactive Member Role Status Dates Anh Granger MD Primary Care Provider Active Onel Hatch DOAttending ProviderActiveTeam MemberRelationshipSpecialty Start DateEnd Date Anh Granger MD [address] [place] [address] PCP - [facility]03/16/23 Team Status: Inactive Member Role Status Dates Anh Granger MD Primary Care Provider Active Start: September 13, 2023 End: September 13auantonieta Esqueda , DOAttending ProviderActiveStart: September 13, 2023 End: September 13, 2023Team MemberRelationshipSpecialtyStart DateEnd Date Anh Granger MD [address] [place] [address] PCP - [facility]03/16/23 Team Status: Inactive Member Role Status Dates Anh Granger MD Primary Care Provider Active Start: November 21, 2023 End: November 20colt Hatch , DOAttending ProviderActiveStart: November 21, 2023 End: November 21, 2023 Team Status: Inactive Member Role Status Dates Anh Granger MD Primary Care Provider Active Start: April 26, 2024 End: April 26aul Dheeraj , DOAttending ProviderActiveStart: April 26, 2024 End: April 26, 2024Team MemberRelationshipSpecialtyStart DateEnd Date Anh Granger MD [address] [place] [address] [facility] MemberRelationshipSpecialtyStart DateEnd Date Anh Granger MD [address] [place] [address] [facility] - [facility]Team MemberRelationshipSpecialtyStart DateEnd Date Anh Granger MD [address] [place] [address] [facility] Team Status: Inactive Member Role Status Dates Anh Granger MD Primary Care Provider Active Start: November 05, 2024 End: November 05enjajacquie Hatch , DOAttending ProviderActiveStart: November 05, 2024 End: November 05, 2024Team MemberRelationshipSpecialtyStart DateEnd Date Anh Granger MD [address] [place] [phone] [facility] Goals (unrecognized section and content) Goals may be documented in a n alternate sectionGoals may be documented in an alternate sectionGoals may be documented in an alternate sectionGoals may be documented in an alternate sectionGoals may be documented in an alternate sectionGoals may be documented in an alternate section Reason for Visit (unrecogniz ed section and content) ReasonCommentsThyroid Cancer6 month patrice with labsReasonCommentsThyroid Cancer6 month US FOR RECORDS PERTAINING TO PATIENTS [...] BE BASED ON THE PRIMARY CLINICAL RECORDS. [facility]. provides no warranty or guarantee of the accuracy or completeness of information in this document.
--- OUTSIDE RECORDS SUMMARY | 2025-06-10 09:31 | XMS_ITS | Clinical Summary ---
Author Organization [facility] tem Address [id number] [place] [address] Care Team Providers Care Motor Boss Name Role Phone Unavailable Primary Care Provider Unavailabl e Social History Tobacco UseTypesPacks/DayYears UsedDateSmoking Tobacco: Never AssessedChildcare AnswerDate NthpuyxiOtfqcdejoEmfqopj93/12/2019EmploymentAnswerDate Recorded XzedkfrljsMvmlnzi23/12/2019CommentsUnknownSex and Gender Information ValueDate RecordedSex Assigned at BirthNot on fileLegal MreRloweq31/06/2015 11:29 AM EDTGender IdentityNot on fileSexual OrientationNot on file Plan of Treatment Health MaintenanceDue DateLast DoneCommentsDepression Dormciikg98/20/1981Tobacco Uweoeqfeq82/20/1981Adult BMI Rwamhehga29/20/1987DTaP,Tdap and Td Vaccines (1 - Tdap)1987Pap Smear1989Zoster (Shingles) Vaccine (1 of 2)2018 COVID-19 Vaccine (2 - season)507/Influenza Vaccine 04/01/2025 Medical Devices Not on file [place] [phone]
--- NOTE | 2025-06-10 09:44 | XR_ITS ---
The [address] [address] Patient Name: DIANE MARSHALL MRN: [id number] date: 1970 Sex: F Assigned Patient Location: LAB Current Patient Location: LAB Accession/Order Number: [id number] Exam Date: 06/10/2025 10:40 Report Date: 06/10/2025 11:40 At the request of: NAH CANO MD Procedure: XR chest 2V PA AND LATERAL CHEST: CLINICAL HISTORY: Shortness of breath and cough COMPARISON: 01/24/2020 There is no focal parenchymal consolidation, effusion or pneumothorax. The cardiac, hilar and mediastinal silhouettes are within normal limits. There is no vascular congestion. The visualized bony thorax is intact. There is dextroscoliotic curvature. Thoracolumbar spinal rods are present. XR/XR chest 2V IMPRESSION: NO ACUTE CARDIOPULMONARY ABNORMALITY. Impression dictated by: Petra Montesinos M.D. 06/10/2025 11:40 AM Dictation Location: [place] [address] Electronically authenticated by: [id number] Date: 06/10/2025 11:40
[2025-06-10 09:52] LABS: Hematocrit 37.0 % (36.0-48.0); Hemoglobin 11.7 g/dL (12.0-16.0); Immature Granulocytes Abs Auto 0.02 10^3/uL (0.00-0.03); Immature Granulocytes Pct Auto 0.3 % (0.0-0.5); Lymphocytes Absolute Auto 2.1 10^3/uL (1.2-3.8); Mean Corpuscular HGB Conc 31.6 g/dL (29.9-35.2); Mean Corpuscular Hemoglobin 26.5 pg (26.7-34.0); Mean Corpuscular Volume 83.7 fL (81.0-99.0); Platelet Count 297 10^3/uL (150-450); Red Blood Count 4.42 10^6/uL (4.20-5.40); White Blood Count 6.9 10^3/uL (4.0-11.0)
[2025-06-10 11:31] LABS: Iron 26.0 ug/dL (50.0-170.0)
[2025-06-10 11:43] LABS: Ferritin 13.0 ng/mL (8.0-252.0)
[2025-06-10 12:21] LABS: Alanine Aminotransferase 23 U/L (14-59); Albumin Globulin Ratio 0.9; Albumin Level 3.4 g/dL (3.4-5.0); Alkaline Phosphatase 61 U/L (46-116); Anion Gap 9.2; Aspartate Amino Transferase 17 U/L (15-37); Blood Urea Nitrogen 12.0 mg/dL (7.0-18.0); Calcium 8.7 mg/dL (8.5-10.1); Carbon Dioxide 28.7 mmol/L (21.0-32.0); Chloride 105 mmol/L (98-107); Estimated GFR (African America >60 (>=60 mL/min/1.73m^2); Estimated GFR (Non-African Ame >60 (>=60 mL/min/1.73m^2); Globulin 4.0 g/dL; Glucose 100 mg/dL (74-106); Potassium 3.9 mmol/L (3.5-5.1); Sodium 139 mmol/L (136-145); Total Protein 7.4 g/dL (6.4-8.2)
[2025-06-11 04:07] LABS: CA 19-9 <2 U/mL (0-35); CEA 2.7 ng/mL (0.0-4.7)
== END 2025-06-10 09:27 | disposition home or self-care (01) ==
LOC: LAB 09:28
PROVIDERS: PCP Family Medicine; Visit Provider Family Medicine
DX: R63.4 Abnormal weight loss (principal); I10 Essential (primary) hypertension; D50.9 Iron deficiency anemia, unspecified; D64.9 Anemia, unspecified; R06.00 Dyspnea, unspecified
CPT/HCPCS: 36415; 71046; 80053; 82378; 82728; 83540; 85025; 86301; 86304

== ENCOUNTER 2025-06-17 08:56 | Outpatient (OUT) | payer OTHER, SELFPAY ==
--- OUTSIDE RECORDS SUMMARY | 2025-06-17 09:01 | XMS_ITS | CCD ---
Author Organization [facility] Care Team Providers Care Irrigator Head Name Role Phone MAXIME, AHMAD Admitting Unavailable [...] Care Provider DO Abdoulaye Esqueda Attending Provider [phone] DO Onel Hatch Attending Provider [phone] MD Anh Granger Primary Care Provider DO Abdoulaye Esqueda Attending Provider Anh Granger MD Primary Care Provider [phone] Onel Hatch DO Attending Provider [phone] Anh Granger Primary Care Unavailable Onel Hatch [...] Allergen(s)Allergy TypeDate of OnsetReaction(s) Facility (1 source)fentaNYLDrug Zkqhliu63-27-0010YrzBucyrus [facility] (11 sources)fentaNYLDrug Goeczro50-81-1932EqlhgCWOT [facility] (11 sources)Povidone-IodineDrug Xhbvjnb48-97-5948ZwjfEEVZ Healthcare (1 source)No Known Medication Allergies; Translations: [No Known Medication Allergies]Propensity to adverse reactions (disorder)[facility] Repository Medications Current Medications MedicationDrug Class(es)DatesSig (Normalized)Sig (Original)amitriptyline hydrochloride 100 mg oral tablet (8 sources)Tricyclic Antidepressanttake 1 tablet by mouth at bedtime amitriptyline (Elavil) 100 MG tablet Take 100 mg by mouth at bedtime Active aspirin 81 mg chewable tablet (11 sources)Platelet Aggregation Inhibitor, Nonsteroidal Anti-inflammatory Drug aspirin 81 MG chewable tablet Qqrevo470 hr buprenorphine 0.01 mg/hr transdermal system (14 sources)Partial Opioid AgonistStart: 45-73-0764zdfrs 1 dose transdermal route every weekButrans 10 MCG/HR Place 1 patch on the skin 1 (one) time per week 09/07/2023 ActiveStart: 95-79-9799dccfd 15 ug transdermal route every week Buprenorphine 15 mcg/hour Patch Weekly Active 1 PATCH TRANSDERML every week December 30, 2020 12:00amdiclofenac sodium 75 mg delayed release oral tablet (2 sources)Nonsteroidal Anti-inflammatory DrugStart: 17-03-0386ezef 1 tablet by mouth twice daily as neededdiclofenac (Voltaren) 75 MG EC tablet Take 75 mg by mouth 2 (two) times a day as needed 08/30/2024 Activegabapentin 600 mg oral tablet (17 sources)Anti-epileptic AgentStart: 68-39-3786uxdd 2 tablets by mouth once daily at bedtimeGabapentin (Neurontin) 600 mg Tablet Active 600 MG PO Daily at bedtime December 30, 2020 12:00am 2 at HS for 30 daysgabapentin (Neurontin) 400 MG capsule Activelevothyroxine sodium 0.2 mg oral tablet (20 sources)l-ThyroxineStart: 12-07-2023 End: 50-06-7954uxug 1 tablet by mouth before mealtimelevothyroxine (Synthroid) 200 MCG tablet Indications: Status post total thyroidectomy Take 1 tablet(200 mcg) by mouth in the morning. Take before meals. 30 tablet 11 11/13/2024 11/13/2025 ActiveStart: 93-47-9146vrkg 1 tablet by mouth before mealtime levothyroxine (Synthroid) 200 MCG tablet Indications: History of total thyroidectomy (CMS/HCC) Take1 tablet (200 mcg) by mouth in the morning. Take before meals. 30 tablet 5 03/16/2023 ActiveStart: 77-74-6608fbwp 1 tablet by mouth before mealtimelevothyroxine (Synthroid) 75 MCG tablet Indications: History of total thyroidectomy (CMS/HCC) Take 1 tablet (75 mcg) by mouth in the morning. Take before meals. 30 tablet 5 03/16/2023 ActiveStart: 01-05-2021 Levothyroxine 200 mcg tablet Active 275 MCG PO Daily January 05, 2021 12:00am Start: 12-28-9291thce 275 ug by mouth once dailyLevothyroxine Active 275 MCG PO Daily January 05, 2021 12:00amStart: 12-30-2020 End: 42-86-6370ohda 1 tablet by mouth once dailyLevothyroxine (Synthroid) [...] oral tablet (8 sources)Angiotensin Converting Enzyme InhibitorStart: 76-11-7485cqks 1 tablet by mouth once dailylisinopril 10 MG tablet Take 10 mg by mouth Daily 09/05/2023 Ekwdgj25 hr scopolamine 0.0139 mg/hr transdermal system (11 sources)AnticholinergicStart: 47-84-8227lnghgmzbfgp (Transderm-Scop) 1 mg/72 hr patch 72 hour patch 02/09/2023 Active Completed/Discontinued Medications MedicationDrug Class(es)DatesSig (Normalized)Sig (Original)cholecalciferol 0.125 mg oral tablet (6 sources)Vitamin DStart: 12-30-2020 End: 47-01-0334xpvf 1 tablet by mouth once dailyCholecalciferol (Vitamin D3) 125 mcg (5,000 unit) Tablet Discontinued 125 MCG PO Daily December 30, 2020 12:00am January 05, 2021 3:39pmcitalopram 40 mg oral tablet (6 sources)Serotonin Reuptake InhibitorStart: 12-30-2020 End: 20-81-2136aioy 1 tablet by mouth once dailyCitalopram (Celexa) 40 mg Tablet Discontinued 40 MG PO Daily December 30, 2020 12:00am January 05, 2021 3:39pmferrous sulfate 325 mg oral tablet (6 sources)Start: 12-30-2020 End: 50-99-8265tpuk 1 tablet by mouth twice dailyFerrous Sulfate 325 mg (65 mg iron) Tablet Discontinued 325 MG PO Twice daily December 30, 2020 12:00am January 05, 2021 3:39pmfluocinonide 0.0005 mg/mg topical gel (6 sources)CorticosteroidStart: 12-30-2020 End: 59-95-1149Dimcfhklrehu 0.05 % Gel Discontinued 1 APPLIC TOPICAL Twice daily December 30, 2020 12:00am January 05, 2021 3:39pmibuprofen 800 mg oral tablet (6 sources)Nonsteroidal Anti-inflammatory DrugStart: 12-30-2020 End: 07-35-7351kjpq 1 tablet by mouth every six hoursIbuprofen 800 mg Tablet Discontinued 800 MG PO Q6H December 30, 2020 12:00am January 05, 2021 3:40pm ondansetron 4 mg oral tablet (6 sources)Serotonin-3 Receptor AntagonistStart: 12-30-2020 End: 19-27-4391lyjz 1 tablet by mouth every six hours as needed for nausea Ondansetron Hcl (Zofran) 4 mg Tablet Discontinued 4 MG PO Q6H as needed for Nausea December 30, 2020 12:00am January 05, 2021 3:40pm Problems Active Problems Problem ClassificationProblemDateDocumented DateEpisodic/ChronicCancer of thyroid (20 sources)Malignant neoplasm of thyroid gland; 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 EHR CmteComplications of surgical procedures or medical care (13 sources)Postprocedural hypothyroidism; Translations: [History of total thyroidectomy]Onset: 01-01-2021 Resolved: 18-46-5565LmqcjlhMgsfybnymq and other anemia (12 sources)Anemia; Translations: [Anemia, unspecified]78-57-2103EvafmqooYbqkwdl on above:Problem List clean-up per request of Phys. EHR CmteHeadache; including migraine (1 source)Migraine without aura, not intractable, without status migrainosus; Translations: [MIGRAINE W/O AURA NOT INTRCT W/O SE]Onset: 84-49-5065Vciptix Menstrual disorders (1 source)Excessive and frequent menstruation with irregular cycle; Translations: [EXCESS AND FREQ MEN W/IRREG CYCLE]Onset: 51-47-5867HnrqdynCvfjxmu disorders (20 sources)Hypothyroidism, unspecified; Translations: [Nontoxic multinodular goiter]Onset: 05-06-2014 Resolved: 04-24-8752Athfhfz Past or Other Problems Problem ClassificationProblemDateDocumented DateEpisodic/ChronicAbdominal pain (11 sources)Flank pain; Translations: [Unspecified abdominal pain]Onset: 03-16-2023 Resolved: 457075-22-8684YozakpwmTtizypze reactions (11 sources)Eczema; Translations: [Dermatitis, unspecified]Onset: 03-16-2023 Resolved: 784611-32-4471HjvskicqAsqropcbzj and other anemia (1 source)Anemia, unspecified; Translations: [ANEMIA UNSPECIFIED]Onset: 48-99-1399IvjqsjypOhvsslwh of upper limb (11 sources)Closed fracture of metacarpal bone; Translations: [Unspecified fracture of unspecified metacarpal bone, initial encounter for closed fracture] Onset: 04-09-2014 Resolved: 534494-12-6696OxbguindQumthrzkgzedh symptoms and ill-defined conditions (11 sources)Incontinence; Translations: [Unspecified urinary incontinence]Onset: 03-16-2023 Resolved: 075711-79-5427RumwkeuZprtj disorders and dislocations; trauma-related (11 sources)Tear of meniscus of knee; Translations: [Unspecified tear of unspecified meniscus, current injury, unspecified knee, initial encounter]Onset: 03-16-2023 Resolved: 552913-87-9368LnetnypmXwfg disorders (11 sources)Depressive disorder; Translations: [Depressive disorder]Onset: 03-16-2023 Resolved: 720071-40-5347VjrkrrtSmbzrarogax deficiencies (12 sources)Vitamin D deficiency, unspecified; Translations: [Vitamin D deficiency]Onset: 01-02-2021 Resolved: 876623-93-7447IbyicleCualh connective tissue disease (11 sources)Impingement syndrome of shoulder region; Translations: [Impingement syndrome of unspecified shoulder]Onset: 03-16-2023 Resolved: 612514-59-1839WrouomvnWtqzw connective tissue disease (11 sources)Muscle pain; Translations: [Myalgia, unspecified site]Onset: 03-16-2023 Resolved: 380351-84-8602PimtwjrbXwxyf diseases of bladder and urethra (11 sources)Neurogenic bladder; Translations: [Neuromuscular dysfunction of bladder, unspecified]Onset: 05-28-2014 Resolved: 609556-90-7530XvhnxhmAezjl fractures (11 sources)Closed fracture of one rib; Translations: [Fracture of one rib, unspecified side, initial encounterfor closed fracture]Onset: 03-16-2023 Resolved: 153735-24-0252BnblhmqiOtkpa fractures (11 sources)Closed fracture thoracic vertebra; Translations: [Unspecified fracture of unspecified thoracic vertebra, initial encounter for closed fracture]Onset: 05-06-2014 Resolved: 997120-76-8633EhxruomaOuubmjsqc heart disease (19 sources)Infarction of lung due to embolus; Translations: [Other pulmonary embolism without acute cor pulmonale]Onset: 03-01-2014 Resolved: 061899-49-1394ZawpikyrGpvmokyk codes; unclassified (1 source)Edema, unspecified; Translations: [EDEMA UNSPECIFIED]Onset: 01-02-2021 EpisodicResidual codes; unclassified (3 sources)History of total thyroidectomy; Translations: [Other specified postprocedural states]Onset: 03-16-2023 Resolved: 581269-89-0507BaxqjdaxYiutzpmmsyo; intervertebral disc disorders; other back problems (11 sources)Lumbar spondylosis with myelopathy; Translations: [Other spondylosis with myelopathy, lumbar region]Onset: 03-16-2023 Resolved: 087865-52-8467YzoslblUzbclffckjg; intervertebral disc disorders; other back problems (11 sources)Sacroiliac joint pain; Translations: [Sacrococcygeal disorders, not elsewhere classified]Onset: 03-16-2023 Resolved: 822878-29-5356Rvyjfgmt Results Test NameValueInterpretationReference RangeFacilityReminderson 12-28-2024 RemindersReminders From: Barbara Sykes LPN To: G[facility] - Clinical; Sent: 12/28/2024 08:08:15 EDT Show up: 11/26/2034 07:00:00 EDT Subject: colonoscopy recall Due Date/Time: 12/26/2034 07:00:00 EDT Reminder/Recall Patient due for screening colonoscopy 12/26/2034.[facility] CenterAmbulatory Visit Summaryon 14-37-2037Qstwtfaxhc Visit SummaryAmbulatory Visit Summary CONRAD AGUILAR :1970 [...] you for choosing us for your care. [facility] CenterThyroid Stimulating Hormoneon 02-22-1558LOC Qn0.74 m[IU]/LNormal0.45-5.33The [facility] Physician GroupComment on above:Order Comment: FASTING NON FASTINGResult Comment: PERFORMED BY: [place] [id number] PATHOLOGIST STUDIO ASSOCIATE MANAV ESPINAL M.D.Performed By: #### T3T, TSH3, T4T #### [place] [id number] USAThyrotropin [Units/volume] in Serum or PlasmaOrdered By: Onel Hatch on 38-16-2711EMC QnThyrotropin [Units/volume] in Serum or Plasma 0.45-5.33[facility] HospitalThyroxine (T4) Totalon 47-69-7829V0 [Mass/Vol]11.03 ug/dLNormal5.39-11.82The [facility] Physician GroupComment on above:Order Comment: FASTING NON FASTINGPerformed By: #### T3T, TSH3, T4T #### [place] [id number] USAThyroxine (T4) [Mass/volume] in Serum or PlasmaOrdered By: Onel Hatch on 02-76-0321Q5 [Mass/Vol]Thyroxine (T4) [Mass/volume] in Serum or Plasma5.39-11.82[facility] HospitalTriiodothyronine (T3) Total on 49-33-6376Cshxpatwuimhcwvd (T3) Total1.05 ng/mLNormal0.87-1.78The [facility] Physician GroupComment on above:Order Comment: FASTING NON FASTINGPerformed By: #### T3T, TSH3, T4T #### [place] [id number] USATriiodothyronine (T3) [Mass/volume] in Serum or Plasma Ordered By: Onel Hatch on 01-28-1715L2 [Mass/Vol]Triiodothyronine (T3) [Mass/volume] in Serum or Plasma0.87-1.78[facility] Thyroglobulinon 80-37-1979ESBVPJQXMVSMUXCCK AB20.3High0.0 - 0.9[facility] Comment on above:Thyroglobulin Antibody measured by Dara Hudson Methodology It should be noted that the presence of thyroglobulin antibodies may not be pathogenic nor diagnostic, especially at very low levels. The assay pulley man has found that four percent of individuals without evidence of thyroid disease or autoimmunity will have positive TgAb levels up to 4 IU/mL. Interpretation and review of laboratory resultsAbnormRoxborough Memorial Hospital THYROGLOBULIN, TG-RIA4.2 ng/mL.[facility] Sol[employer] NaturalsComment on above:This test was developed and its performance characteristics determined by [facility]. It has not been cleared or approved [...] quantitation limit is 2.0 ng/mL. Performed at: [employer] [facility] [address] [id number] [employer] Installer: Jl Weems PhD, Phone: [phone] Performed at: [employer] [address] [place] [id number] [employer] Installer: Alvin Suazo MD, Phone: [phone] [facility] HospitalThyroglobulin, Quant + Tg Abon 83-13-9957Lohfzhyihurbrhrib Ab20.3 High0.0-0.9[facility] Physician GroupComment on above:Result Comment: Thyroglobulin Antibody measured by Dara [employer] Methodology It should be noted that the presence of thyroglobulin antibodies may not be pathogenic nor diagnostic, especially at very low levels. The assay pulley man has found that four percent of individuals without evidence of thyroid disease or autoimmunity will have positive TgAb levels up to 4 IU/mL.Performed By: #### LC T4, THYGLOB #### [facility] ,Thyroglobulin, TG-RIA4.2 ng/mLNormal.The [facility] Physician GroupComment on above:Result Comment: This test was developed and its performance characteristics determined by [facility]. It has not been cleared or approved [...] quantitation limit is 2.0 ng/mL. Performed at: [employer] [facility] [address] [id number] [employer] Installer: Jl Weems PhD, Phone: [phone] Performed at: [employer] [address] [place] [id number] [employer] Installer: Alvin Suazo MD, Phone: [phone] PERFORMED BY: [place] [address] PATHOLOGIST STUDIO ASSOCIATE ANDRE WATTS M.D.Performed By: #### LC T4, THYGLOB #### [facility] ,Thyrotropin [Units/volume] in Serum or PlasmaOrdered By: Abdoulaye Esqueda on 83-84-5789HLI Qn1.64 m[IU]/LNormal0.45-5.33[facility] Comment on above:Result Comment: PERFORMED BY: [place] [address] PATHOLOGIST STUDIO ASSOCIATE ANDRE WATTS M.D.Performed By: #### T4T, TSH3, T3T #### [place] [address] [place] #### THYGLOB #### [facility] ,Thyroxine (T4) [Mass/volume] in Serum or PlasmaOrdered By: Abdoulaye Esqueda on 46-41-7166D7 [Mass/Vol]11.41 ug/dLNormal5.39-11.82[facility] CenterComment on above:Performed By: #### T4T, TSH3, T3T #### [facility] [address] [place] [address] [place] #### THYGLOB #### [facility] ,Triiodothyronine (T3) Totalon 09-33-2125Qzhpeqjrjnwtqexi (T3) Total0.71 ng/mL Low0.87-1.78The [facility] Physician GroupComment on above:Performed By: #### T4T, TSH3, T3T #### [facility] [address] #### THYGLOB #### [facility] ,Triiodothyronine (T3) [Mass/volume] in Serum or PlasmaOrdered By: Abdoulaye Esqueda on 29-87-5019A8 [Mass/Vol]0.71 ng/mLLow0.87-1.78[facility] HospitalLab Laura Thyroxine (T4)on 07-34-4503C3 [Mass/Vol]11.5 ug/dLNormal 4.5-12.0The [facility] GroupComment on above:Result Comment: Performed at: [facility] [employer] [id number] Solar Hot Water Installer: Jl Weems PhD, Phone: [phone] By: #### LC T4, THYGLOB #### [facility] ,Thyroglobulin, Quant + Tg Abon 26-94-5323Lllyfyiovfspcvcvp Ab23.1High0.0-0.9The [facility] GroupComment on above:Result Comment: Thyroglobulin Antibody measured by Dara Johann Methodology It should be noted that the presence of thyroglobulin antibodies may not be pathogenic nor diagnostic, especially at very low levels. The assay pulley man has found that four percent of individuals without evidence of thyroid disease or autoimmunity will have positive TgAb levels up to 4 IU/mL.Performed By: #### LC T4, THYGLOB #### [facility] ,Thyroglobulin, TG-RIA2.5 ng/mLNormal.The [facility] Physician GroupComment on above:Result Comment: This test was developed and its performance characteristics determined by [employer]. It has not been cleared or approved [...] quantitation limit is 2.0 ng/mL. Performed at: [employer] [address] [id number] Solar [employer] Installer: Jl Weems PhD, Phone: [phone] Performed at: [employer] [address] [place] [id number] [employer] Installer: Alvin Suazo MD, Phone: [phone] PERFORMED BY: [address] [address] PATHOLOGIST STUDIO ASSOCIATE ANDRE WATTS M.D.Performed By: #### LC T4, THYGLOB #### [facility] ,Thyrotropin [Units/volume] in Serum or PlasmaOrdered By: Onel Hatch on 63-44-0399QEP Qn0.33 m[IU]/LLow0.45-5.33[facility] HospitalComment on above:Result Comment: PERFORMED BY: [address] [address] PATHOLOGIST STUDIO ASSOCIATE ANDRE WATTS M.D.Performed By: #### T3T, TSH3 #### [address] [address] USATriiodothyronine (T3) Totalon 29-15-7804Bsqftwlbhddrafzl (T3) Total1.10 ng/mLNormal0.87-1.78The [facility] Physician GroupComment on above:Performed By: #### T3T, TSH3 #### [address] [address] USATriiodothyronine (T3) [Mass/volume] in Serum or Plasma Ordered By: Onel Hatch on 67-90-0112U7 [Mass/Vol]1.10 ng/mL0.87-1.78 [facility] HospitalTSH Qnon 09-80-6627Dsivyxgjalhoxt and review of laboratory resultsAbTrinity Health Muskegon HospitalT4 [Mass/Vol]13.2 ug/dLHigh4.5 - 12.0 ug/dLNOVA HealthcareComment on above:Performed at: [facility] [address] [id number] Solar [employer] Installer: Jl Weems PhD, Phone: [phone] [facility] HealthcareThyroglobulin Antibodyon 28-17-6708NEWOVUHNVYSUDVOON AB24.3High 0.0 - 0.9[facility] HealthcareComment on above:Thyroglobulin Antibody measured by Dara Johann Methodology It should be noted that the presence of thyroglobulin antibodies may not be pathogenic nor diagnostic, especially at very low levels. The assay pulley man has found that four percent of individuals without evidence of thyroid disease or autoimmunity will have positive TgAb levels up to 4 IU/mL. Performed at: [employer] [address] [id number] Solar [employer] Installer: Jl Weems PhD, Phone: [phone] Interpretation and review of laboratory resultsAbnoWatertown Regional Medical CenterNo Panel InformationOrdered By: Abdoulaye Esqueda on 44-11-3309Pcrq Thyroxine (T4) Ynnnhk39.2 ug/dL4.5-12.0[facility] HospitalComment on above:Performed at: [employer] [address] [id number] Director: Jl Weems PhD, Phone: [phone] or plasma thyroglobulin antibody assay (units/volume)Ordered By: Abdoulaye Esqueda on 83-46-4035Vbhnymhpwjwtx Ab Qn24.3 [IU]/mL0.0-0.9[facility] HospitalComment on above:Thyroglobulin Antibody measured by Dara CoulterMethodologyIt should be noted that the presence of thyroglobulinantibodies may not be pathogenic nor diagnostic, especiallyat very low levels. The assay pulley man has found thatfour percent of individuals without evidence of thyroiddisease or autoimmunity will have positive TgAb levels upto 4 IU/mL.Performed at: - [place] [id number] [place], [place] [id number] Director: Jl Weems PhD, Phone: [phone] [Units/volume] in Serum or PlasmaOrdered By: Abdoulaye Esqueda on 52-04-7808JWH Qn 0.02 m[IU]/L0.45-5.33[facility] HospitalTriiodothyronine (T3) [Mass/volume] in Serum or PlasmaOrdered By: Abdoulaye Esqueda on 11-12-5198K1 [Mass/Vol]0.71 ng/mL0.87-1.78[facility] HospitalThyrotropin [Units/volume] in Serum or PlasmaOrdered By: Onel Hatch on 86-57-6578EIG Qn 0.01 m[IU]/L0.45-5.33[facility] HospitalThyroxine (T4) [Mass/volume] in Serum or PlasmaOrdered By: Onel Hatch on 03-70-6888L3 [Mass/Vol]13.03 ug/dL5.39-11.82[facility] HospitalTriiodothyronine (T3) [Mass/volume] in Serum or PlasmaOrdered By: Onel Hatch on 03-10-2023 T3 [Mass/Vol]1.08 ng/mL0.87-1.78[facility] HospitalNo Panel InformationOrdered By: Onel Hatch on 02-21-0106Nqilg Triiodothyronine1.32 ng/mL0.87-1.78[facility] <= 0.005 mIU/L QnOrdered By: Onel Hatch on 15-92-1265YHG Qn0.01 m[IU]/L0.45-5.33[facility] HospitalThyroxine (T4) free [Mass/volume] in Serum or PlasmaOrdered By: Onel Hatch on 10-79-5324Fkpn T4 [Mass/Vol]1.32 ng/dL0.61-1.12[facility] HospitalCT [facility]K [facility] W CONon 80-02-1869RK NECK ST W CONEXAMINATION: CT NECK ST [...] Electronically authenticated by: BRYAN ARTHUR Date: 2021-09-02 08:56[facility]US THYROIDon 76-32-8291OX THYROIDEXAMINATION: US THYROID HISTORY: Malignant tumor of [...] Electronically authenticated by: BRYAN ARTHUR Date: 2021-09-02 09:02[facility] ClinicTHYROGLOBULINon 46-92-9525Vzesndtezdjlf8.5 ng/mLNormalBucyrus Community HospitalComment on above:Result Comment: This test was developed and its performance characteristics determined by [employer]. It has not been cleared or approved [...] is 2.0 ng/mL.Performed By: #### TGRIA #### [facility] [address] [place] [address] Ilana KarenFSHon 35-03-8780JLX6.8 mIU/mLNormalBucyrus Community HospitalComment on above:Result Comment: Adult Female: Follicular phase 3.5 - 12.5 Ovulation phase 4.7 - 21.5 Luteal phase 1.7 - 7.7 Postmenopausal 25.8 - 134.8Performed By: #### LBCFSH #### [facility] [address] [place] [address] Ilana KarenTHYROGLOBULIN ABon 92-52-7973Evljbnquhclzg Gxbsivix11.0 IU/mL Critically high0.0-0.9The [facility]y HospitalComment on above:Result Comment: Thyroglobulin Antibody measured by Dara Hudson MethodologyPerformed By: #### THYGAB #### [facility] [address] [place] [address] Ilana KarenCBC AUTO DIFFon 30-04-8084CIKK #0.0 103/ulNormal0.0-0.1The [facility]y HospitalComment on above:Performed By: #### FT4 #### [facility] [address] [place], [place] [id number] Ilana KarenBasophils/100 WBC (Bld)0.4 %Normal0.2-2.0[facility] Comment on above:Performed By: #### FT4 #### [facility] [address] [place] [address] Ilana KarenEO #0.1 103/ulNormal0.0-0.7The [facility]y HospitalComment on above: Performed By: #### FT4 #### [facility] [address] [place] [address] Ilana KarenEosinophils/100 WBC (Bld)1.1 %Normal0.9-7.0[facility] Comment on above:Performed By: #### FT4 #### [facility] [address] [place] [address] Ilana KarenErythrocyte distribution width (RBC) [Ratio]12.0 %Ekxlmf31.0-15.0The [facility]y HospitalComment on above:Performed By: #### FT4 #### [facility] [address] [place] [address] Ilana KarenHematocrit (Bld) [Volume fraction]39.1 %Acimav47.0-48.0The [facility]y HospitalComment on above:Performed By: #### FT4 #### [facility] [address] [place] [address] Ilana KarenHemoglobin (Bld) [Mass/Vol]13.0 g/sSJoweyp42.0-16.0The [facility] HospitalComment on above:Performed By: #### FT4 #### [facility] [address] [place] [address] Ilana KarenIG #0.03 10e3/ulNormal0.00-0.03The [facility]y HospitalComment on above:Performed By: #### FT4 #### [facility] [address] [place] [address] Ilnaa KarenIG %0.3 %Normal0.0-0.5The [facility]y HospitalComment on above: Performed By: #### FT4 #### [facility] [address] [place] [address] Ilana KarenLYMPH #2.2 103/ulNormal1.2-3.8The [facility] HospitalComment on above: Performed By: #### FT4 #### [facility] [address] [place] [address] Ilana KarenLymphocytes/100 WBC (Bld)24.5 %Twginv07.5-60.0[facility] Comment on above:Performed By: #### FT4 #### [facility] [address] [place] [address] Ilana LambertMANUAL DIFF REQNONormalThe Corey HospitalComment on above: Performed By: #### FT4 #### [facility] [address] [place] [address] Ilana LambertH (RBC) [Entitic mass]30.0 yqDnjkzv01.7-34.0[facility] Comment on above:Performed By: #### FT4 #### [facility] [address] [place] [address] Il[facility] (RBC) [Mass/Vol]33.2 g/lJBnzwrr42.9-35.2[facility] Comment on above:Performed By: #### FT4 #### [facility] [address] [place] [address] Ilana LambertV (RBC) [Entitic vol]90.3 jYPfecqd22.0-99.0[facility] Comment on above:Performed By: #### FT4 #### [facility] [address] [place] [address] Ilana LambertJASMINO #0.6 103/ulNormal0.3-0.8The Corey HospitalComment on above: Performed By: #### FT4 #### [facility] [address] [place] [address] Ilana KarenMonocytes/100 WBC (Bld)7.2 %Normal1.7-12.0[facility] Comment on above:Performed By: #### FT4 #### [facility] [address] [place] [address] Ilana YeagerFreddieUT #5.9 103/ulNormal1.4-6.5The [facility]y HospitalComment on above: Performed By: #### FT4 #### [facility] [address] [place] [address] Ilana KarenNeutrophils/100 WBC (Bld)66.5 %Dwirmu19.0-75.0[facility] Comment on above:Performed By: #### FT4 #### [facility] [address] [place] [address] Ilana KarenPlatelet mean volume (Bld) [Entitic vol]9.7 fLNormal9.5-13.5The [facility]y HospitalComment on above:Performed By: #### FT4 #### [facility] [address] [place] [address] Ilana QhbpsRSR459 103/mlOnejnn675-405Wgd [facility] HospitalComment on above: Performed By: #### FT4 #### [facility] [address] [place] [address] Ilana KarenRBC4.33 106/ulNormal4.20-5.40The [facility] HospitalComment on above: Performed By: #### FT4 #### [facility] [address] [place] [address] Ilana YeagerenWBC8.9 103/ulNormal4.0-11.0The [facility] HospitalComment on above: Performed By: #### FT4 #### [facility] [address] [place] [address] Ilana KarenFREE T3on 68-07-8898WQIN T31.09 pg/mlLCritically low2.77-5.27The [facility]y HospitalComment on above:Performed By: #### FT4 #### [facility] [address] [place] [address] Ilana KarenFREE T4on 44-33-2053Yhmg T4 [Mass/Vol]1.50 ng/dLNormal0.78-2.19The [facility]y HospitalComment on above:Performed By: #### FT4 #### [facility] [address] [place] [address] Ilana KarenIRONon 85-70-9523Cfbt [Mass/Vol]101.0 ug/wYTmbyus48.0-170.0The [facility] HospitalComment on above:Performed By: #### FT4 #### [facility] [address] [address] Ilana KarenPROF 14(COMP METB)on 39-20-6625Smiwend [Mass/Vol]3.3 g/dLCritically low3.5-5.0[facility] HospitalComment on above:Performed By: #### CMP #### [facility] [address] [place] [address] Ilana KarenAlbumin/Globulin [Mass ratio]0.9 {ratio}NormalBucyrus Community Hospital Comment on above:Performed By: #### CMP #### [facility] [address] [place] [address] Ilana KarenALP [Catalytic activity/Vol]55 U/YNwctwv25-549EerBucyrus Community Hospital Comment on above:Performed By: #### CMP #### [facility] [address] [place] [address] Ilana KarenALT [Catalytic activity/Vol]18 U/LNormal9-52[facility] Comment on above:Performed By: #### CMP #### [facility] [address] [place] [address] Ilana KarenAnion gap [Moles/Vol]8.8 mmol/LNormalBucyrus Community HospitalComment on above:Performed By: #### CMP #### [facility] [address] [place] [address] Ilana KarenAST [Catalytic activity/Vol]13 U/LCritically njo42-39Sxd [facility] HospitalComment on above:Performed By: #### CMP #### [facility] [address] [place] [address] Ilana KarenBilirubin [Mass/Vol]0.5 mg/dLNormal0.2-1.3T[facility] Comment on above:Performed By: #### CMP #### [facility] [address] [place] [address] Ilana KarenCalcium [Mass/Vol]8.4 mg/dLNormal8.4-10.2[facility] Comment on above:Performed By: #### CMP #### [facility] [address] [address] Ilana KarenChloride [Moles/Vol]104 mmol/VWsqghn10-293Reh [facility] Comment on above:Performed By: #### CMP #### [facility] [address] [place] [address] Ilana KarenCO2 [Moles/Vol]29.8 mmol/EAsbakr18.0-30.0[facility] Comment on above:Performed By: #### CMP #### [facility] [address] [place] [address] Ilana KarenCreatinine [Mass/Vol]0.88 mg/dLNormal0.52-1.04[facility] Comment on above:Performed By: #### CMP #### [facility] [address] [place] [address] Ilana KarenEGFR-AF MACANESE>60Normal>=60The [facility] HospitalComment on above: Performed By: #### CMP #### [facility] [address] [place] [address] Ilana KarenEGFR-NON AF MACANESE>60Normal>=60[facility] HospitalComment on above:Performed By: #### CMP #### [facility] [address] [place] [address] Ilana KarenGlobulin (S) [Mass/Vol]3.8 g/dLNormalThe [facility]y HospitalComment on above:Performed By: #### CMP #### [facility] [address] [place] [address] Ilana KarenGlucose [Mass/Vol]90 mg/oXJwebhm55-589TwqBucyrus Community HospitalComment on above:Performed By: #### CMP #### [facility] [address] [place] [address] Ilana KarenPotassium [Moles/Vol]3.6 mmol/LNormal3.4-5.0[facility] Comment on above:Performed By: #### CMP #### [facility] [address] [place] [address] Ilana KarenProtein [Mass/Vol]7.1 g/dLNormal6.1-8.2The [facility] HospitalComment on above:Performed By: #### CMP #### [facility] [address] [place] [address] Ilana KarenSodium [Moles/Vol]139 mmol/YIavoin465-343Rfk [facility] Comment on above:Performed By: #### CMP #### [facility] [address] [place] [address] Ilana KarenUrea nitrogen [Mass/Vol]11.0 mg/dLNormal7.0-17.0The [facility] HospitalComment on above:Performed By: #### CMP #### [facility] [address] [place] [address] Ilana KarenUrea nitrogen/Creatinine [Mass ratio]12.5 mg/mgNoLancaster Municipal HospitalComment on above:Performed By: #### CMP #### [facility] [address] [place] [address] Ilana KarenTSHon 74-01-9664YSN1.552 uIU/mLNormal0.470-4.680The [facility] HospitalComment on above:Performed By: #### FT4 #### [facility] [address] [place] [address] Ilana KarenTSH RANGESEE BELOWMarietta Osteopathic ClinicComment on above:Result Comment: <0.34 UIU/ml HYPERTHYROID 0.34-5.60 UIU/ml EUTHYROID >5.60 UIU/ml HYPOTHYROIDPerformed By: #### FT4 #### [facility] [address] [place] [address] Ilana KarenVITAMIN D 25 OHon 28-39-8478CED D 25-OH30.8 ng/mLNormalBucyrus Community HospitalComment on above:Performed By: #### FT4 #### [facility] [address] [place] [address] [address] Anthony's HospitalComment on above: Result Comment: <20 ng/mL Vit D deficient 20 - <30 ng/mL Vit D insufficient 30 - 100 ng/mL Vit D sufficient >100 ng/mL Potential ToxicityPerformed By: #### FT4 #### [facility] [address] [place] [address] Ilana Alegre T3on 35-75-4352EEFT T32.27 pg/mlLCritically low2.77-5.27[facility] HospitalComment on above:Performed By: #### FT3, TSH #### [facility] [address] [place] [address] Ilana Alegre T4on 94-35-1587Vtka T4 [Mass/Vol]1.27 ng/dLNormal0.78-2.19The [facility] HospitalComment on above:Performed By: #### FT4 #### [facility] [address] [place] [address] Ilana DeanHon 33-75-9742NZP14.604 uIU/mLCritically high0.470-4.680The [facility] HospitalComment on above:Performed By: #### FT3, TSH #### [facility] [address] [place] [address] Ilana Carrasco RANGESEE BELOWNormalThe [facility] HospitalComselect [facility] on above:Result Comment: <0.34 UIU/ml HYPERTHYROID 0.34-5.60 UIU/ml EUTHYROID >5.60 UIU/ml HYPOTHYROIDPerformed By: #### FT3, TSH #### [facility] [address] [place] [address] Ilana YeagerenLUMBAR SPINE 4 OR 5 [facility] 84-23-1689LJOZIT SPINE 4 OR 5 [facility] Department of Radiology [address] [place] [phone] Patient Name: CONRAD AGUILAR : 1970 [...] findings. Electronically signed by:Jeovanny Mercer. Transcribed by: [email or web address], User Resident: ONEL CINTRON Electronically Signed by: JEOVANNY MERCER @ 06/15/2018 05:58 PM I personally read this/these film(s) with this residentTwin City HospitalComment on above:Order Comment: , Views (X-RAY, LUMBAR SPINE): AP, Lateral, L5-S1 Spot, Flexion, Extension , Views (X-RAY, LUMBAR SPINE): AP, Lateral, L5-S1 Spot, Flexion, Extension , , , Ordering Provider- WU CALLOWAY MD , Vital Signs Date TimeVital SignValuePerforming OxxraxkroTpkypjnt69-50-8872 09:06-0400Body ahpgps613.7 cmBekaela Tele[employer] HoldingstheodoraContinuum Managed Services DO Work Phone: [facility] HospitalSxkghdlygn20-15-8564 09:06-0400Body mass index (BMI) [Ratio]26.46 kg/q0Gjorkawu Murcek DO Work Phone: [facility] HospitalHuobhgglnt70-52-5129 09:06-0400Body tnwecv58.93 kgBenjagdish Smallcek DO Work Phone: [facility] HospitalNzxsgooxnw66-80-1666 09:07-0400Body kacbzm385.7 cmBekaela Smallcek DO Work Phone: [facility] HospitalGkrkwumksn34-92-6237 09:07-0400Body mass index (BMI) [Ratio]26.46 kg/l2Hunehtxs Murcek DO Work Phone: [facility] Isimzwrtcc45-39-9865 09:07-0400Body arzjwq43.93 kgBenjagdish Murcek DO Work Phone: [facility] Encounters Encounter DateEncounter TypeCare ProviderFacilityStart: 12-26-2024 End: 59-58-1832qnykczfagpZijgrhx R NILLFacility:CD:[id number]: 12-05-2024 End: 12-56-7150duxbhoqqioDrelqyy HoyFacility: [place]vueStart: 11-20-2024 ambulatoryDoandrade GrangerFacility:SASHA BellevueStart: 11-13-2024 End: 22-80-8503Gmvafr flowsheetBenjamin W Murcek DO Work Phone: [facility] E[facility] SANDUSKYStart: 11-13-2024 End: 39-30-5376Xlwjxx flowsheetBenjamin W Murcek DO Work Phone: [facility] SANDUSKYStart: 11-13-2024 End: 62-49-1033Yrgocq outpatient visit 25 minutesBenjamin W Murcek DO Work Phone: [facility] E[facility] SANDUSKYComment on above:Status post total thyroidectomy (Primary Dx); Malignant neoplasm of thyroid gland (CMS/HCC)Start: 11-13-2024 End: 31-23-7232edjlgxohplJWOXXLXC W MURCEKNot AvailableStart: 11-05-2024 End: 58-88-0945Hursndc encounter Glen Granger MD Work Phone: [facility] [place] Work Phone: Start: 11-05-2024 End: 32-35-2072ekssrdlucrTpobiqr M Hoy MD Work Phone: [facility] Work Phone: Start: 05-08-2024 End: 71-22-9811Lllwkj flowsheetBenjamin W Murcek DO Work Phone: [facility] SANDUSKYStart: 05-08-2024 End: 02-17-2370Kuwius flowsheetBenjimenamin W Murcek DO Work Phone: [facility] SANDUSKYStart: 05-08-2024 End: 81-98-6149Tjblvj outpatient visit 25 minutesBenjimenamin W Murcek DO Work Phone: [facility] E[facility] SANDUSKYComment on above:Malignant neoplasm of thyroid gland (CMS/HCC) (Primary Dx)Start: 05-08-2024 End: 37-40-3667rfzerpibboOUZPANIV W REBECAot AvailableStart: 04-26-2024 End: 60-90-5800Frymvypt Result EncounterPaul S Biedenbach DO Work Phone: [facility] External Department UnsolicitedStart: 04-26-2024 End: 37-77-7306Azrjmqkt Result EncounterPaul S Biedenbach DO Work Phone: [facility] External Department UnsolicitedStart: 04-26-2024 End: 79-43-7729Tpwqihi encounter procedureMD Anh Hoy Work Phone: [facility] [place] Work Phone: Start: 04-26-2024 End: 33-07-5505lcdkhecinhVM Anh M Hoy Work Phone: [facility] Work Phone: Start: 11-21-2023 End: 29-90-9301Zxkzarf encounter procedureMD Anh Hoy Work Phone: [facility] [place] Work Phone: Start: 11-21-2023 End: 25-14-4622esqgaquwszQK Anh M Hoy Work Phone: [facility] Work Phone: Start: 87-45-7316Rwafnegy Result EncounterPaul S Biedenbach DO Work Phone: [facility] External Department UnsolicitedStart: 09-13-2023 External Result EncounterPaul S Biedenbach DO Work Phone: [facility] External Department UnsolicitedStart: 09-13-2023 End: 10-55-5485hzevdqmzwoCB Anh M Hoy Work Phone: [facility] Work Phone: Start: 09-13-2023 End: 23-10-8011Aiwbapr encounter procedureMD Anh Hoy Work Phone: [facility] [place] Work Phone: Start: 03-10-2023 End: 29-50-1165jvhdizxohzGR Anh M Hoy Work Phone: [facility] Work Phone: Start: 03-10-2023 End: 29-50-9047Gxbfopl encounter procedureMD Anh Hoy Work Phone: [facility] [place] Work Phone: Start: 09-08-2022 End: 54-73-5463ctmrloupgqBR Anh M Hoy Work Phone: [facility] Work Phone: Start: 09-08-2022 End: 98-72-2757Xdhoqaw encounter procedureMD Anh Hoy Work Phone: [facility] [place] Work Phone: Start: 09-02-2021 End: 18-08-6048mupmqeanpoQI ANH HOYFacility:U7Csojy: 01-01-2021 End: 54-17-9801nvuqznzkjhMR ANH HOYFacility:F9Hsynl: 10-03-2020 End: 69-37-1114victwffdilMPEFH SABBANNERFacility:H1 Procedures DateProcedureProcedure DetailPerforming ClinicianStart: 81-92-7724Cgzjx of thyroglobulinPaul S Biedenbach DO Work Phone: start: 68-57-4537Telxd of thyroxine totalPaul S Biedenbach DO Work Phone: start: 43-14-1162Wizyyfverptjh antibodyPaul S Biedenbach DO Work Phone: History of thyroidectomyStatus post total thyroidectomyBenjamin W Murcek DO Work Phone: Plan of Treatment DateCare ActivityDetailAuthorStart: 10-28-2025 End: 84-74-0477CfnxqwehatjpqOgwigprtilugy Lab Routine Malignant neoplasm of thyroid gland (CMS/HCC) Expected: 10/28/2025 (Approximate), Expires: 11/13/2025 [facility] HealthcareComment on above:Expected: 10/28/2025 (Approximate), Expires: 11/13/2025Start: 10-28-2025 End: 84-71-3119Jvcrlrzutdb [Units/volume] in Serum or PlasmaNOMS Healthcare Comment on above:Expected: 10/28/2025 (Approximate), Expires: 11/13/2025Start: 10-28-2025 End: 74-68-2703Safkvkqvvborrvuq (T3) [Mass/volume] in Serum or PlasmaT3 Lab Routine Malignant neoplasm of thyroid gland (CMS/HCC) Expected: 10/28/2025 (Approximate), Expires: 11/13/2025NOM[facility] HealthcareComment on above:Expected: 10/28/2025 (Approximate), Expires: 11/13/2025Start: 05-15-2025 End: 19-12-1425UrqsldxhchqyqVshrhgxjcuanz Lab Routine Malignant neoplasm of thyroid gland (CMS/HCC) Expected: 05/15/2025 (Approximate), Expires: 11/13/2025 [facility] HealthcareComment on above:Expected: 05/15/2025 (Approximate), Expires: 11/13/2025Start: 05-15-2025 End: 92-23-0010Ibionldxgsl [Units/volume] in Serum or PlasmaNOMS Healthcare Work Phone: comment on above:Expected: 05/15/2025 (Approximate), Expires: 11/13/2025Start: 05-15-2025 End: 69-33-9851Rfxxrmkblzostvfs (T3) [Mass/volume] in Serum or PlasmaT3 Lab Routine Malignant neoplasm of thyroid gland (CMS/HCC) Expected: 05/15/2025 (Approximate), Expires: 11/13/2025N[facility] HealthcareComment on above:Expected: 05/15/2025 (Approximate), Expires: 11/13/2025Start: 87-94-2972Baiqzgoyp vaccinationInfluenza Vaccine (Season Ended)[facility] HealthcareStart: 11-13-2024 End: 50-12-8099Fsxwdey encounter procedureNOMS ENT SANDUSKYComment on above: ArrivedStart: 11-05-2024 End: 52-26-5207Awecwfiatyo [Units/volume] in Serum or PlasmaNOMS Healthcare Work Phone: comment on above:Expected: 11/05/2024 (Approximate), Expires: 05/08/2025Start: 11-05-2024 End: 13-74-3014Niohscgjtsuqpbqs (T3) [Mass/volume] in Serum or PlasmaT3 Lab Routine Malignant neoplasm of thyroid gland (CMS/HCC) Expected: 11/05/2024 (Approximate), Expires: 05/08/2025N[facility] HealthcareComment on above:Expected: 11/05/2024 (Approximate), Expires: 05/08/2025Start: 05-08-2024 End: 10-39-8835Kmphwin encounter procedureNOMS ENT SANDUSKYComment on above: ArrivedStart: 55-30-9690NrtumnzeeLima Memorial Hospitaltart: 04-01-2024 Influenza vaccinationInfluenza Vaccine (#1)[facility] HealthcareStart: 11-21-2023 Thyroxine measurementLima Memorial Hospitaltart: 09-20-2023 End: 80-67-1937Ltsjmcq encounter ravwbsbxz05/20/2024 8:30 AM EST Office Visit [facility] [place] [address] [place] [phone] Onel Hatch DO [address] [place] [address] [facility]ITAL[facility]Start: 01-27-7294Zshfrazaj measurement [facility] Hospitaltart: 94-54-4938Wwzzouhmz vaccinationInfluenza Vaccine (#1)[facility] HealthcareStart: 47-48-0383Jeaeqdryx for malignant neoplasm of breastMammogramNOMS HealthcareStart: 34-16-1698Gaixkdbnv for malignant neoplasm of cervixNOMS HealthcareStart: 50-84-4766Nwamvdhjr for malignant neoplasm of cervixPap SmearNOMS HealthcareStart: 15-33-2459Tfamzgafd for malignant neoplasm of colonNOMS HealthcareThyroglobulin Ab [Units/volume] in Serum or Plasma [facility] HospitalThyroglobulin Ab [Units/volume] in Serum or PlasmaPomerene HospitalThyroglobulin Ab [Units/volume] in Serum or PlasmaPomerene HospitalThyroglobulin Ab [Units/volume] in Serum or PlasmaPomerene HospitalThyrotropin [Units/volume] in Serum or PlasmaTSH Lab Routine 09/13/2023 9:13 AM [facility] Work Phone: Thyrotropin [Units/volume] in Serum or PlasmaTSH Lab Routine 04/26/2024 9:20 AM [facility] Work Phone: Triiodothyronine (T3) [Mass/volume] in Serum or Plasma T3 Lab Routine 09/13/2023 9:13 AM [facility] Payers DatePayer CategoryPayerPolicy [id number] 2015[employer]icaid[place] [employer] [place] [id number] 2014-Present [address] [place] [id number] 2015Medicaid (Managed Care)[employer] [employer] Member Subscriber Plan / Payer (Effective 2014-Present) Name: AguilarConrad Relation to Subscriber: Self Name: Conrad Aguilar Payer ID: Not on file Group ID: Not on file Type: Not on file Address: [facility] [address] [id number] 2..1.724358.3.57[id number] 2..1.141250.3.57[id number] 2..1.787311.3.57[id number] 2..1.472541.3.57[id number] 2..1.840506.3.57[id number] 2..1.937775.3.57[id number] 2..1.916082.3.57[id number] 2..1.648241.3.57[id number] 2..1.2[id number] 2..1.389687.3.579.2.531 [id number] 2.16.840.1.055374.3.579.2.531 Social History DateTypeDetailFacilityStart: 01-05-2021 End: 38-29-5151Wfosdkp smoking status NHISNever smoked tobacco (finding) [facility] Hospitaltart: 24-40-5443Gcg Assigned At BirthFemalTriHealthtart: 27-69-0611Uyovpnl use and exposure Smokeless tobacco non-userNOMS HealthcareStart: 03-17-2023 End: 72-37-0754Knnrqtp intakeEx-drinker (finding)[facility] HealthcareStart: 03-17-2023 End: 25-26-5939Yxhcewh of Social functionNOMS HealthcareStart: 03-17-2023 End: 48-69-3837Hxelibk use panelNOMS HealthcareStart: 44-74-3206Zbyarue Comment caffeine intake : 1-2 cups per dayNOVA HealthcareStart: 32-87-2473Ekj Assigned At BirthNot on fileNOVA HealthcareStart: 66-32-6811VjtQtirue (finding)[facility] Clinical Note 12-05-2024 Note Date & QhftAvrfMrkxqeed57-32-3420 NoteGeneral Surgery Office/Clinic Note Chief Complaint consultation [...] tab(s), Oral, Daily N (more content not included)...[facility] HospitalComment on above: Result Comment: Electronically Signed By: ELENA DOTY, Carter Ornelas\Date and Time Signed: 12/05/24 16:14 EDT History of Present illness Narrative 11-13-2024 Note Date & UtmlVrqxAbcjuybc80-86-7220 History of Present illness Narrative* Onel Hatch, [...] - T4 - Thyroglobulin documented in this encounterNOVA Healthcare History of Present illness Narrative 05-08-2024 Note Date & RleeAaklVzrbfobd13-62-9377 History of Present illness Narrative* Onel Hatch [...] ultrasound at that time. [facility] Evaluation note Note Date & TypeNoteFacilityEvaluation noteNo assessment information available [facility] Work Phone: Evaluation note Note Date & TypeNoteFacilityEvaluation note* Diagnosis Malignant neoplasm of thyroid gland (CMS/HCC)- Primary Malignant neoplasm of thyroid gland documented in this encounter [facility] Healthcare Evaluation note Note Date & TypeNoteFacilityEvaluation note* Diagnosis Status post total thyroidectomy- Primary Other postprocedural status Malignant neoplasm of thyroid gland (CMS/HCC) Malignant neoplasm of thyroid gland documented in this encounter [facility] Healthcare Summary Purpose Family History No Family [...] and content) DATE CREATED AUTHOR 05/09/2019 [facility] DATE CREATED AUTHOR AUTHOR'S ORGANIZ ATION 09/05/2021 [facility] DATE CREATED AUTHOR AUTHOR'S ORGANIZ ATION 11/06/2024 [facility] DATE CREATED AUTHOR AUTHOR'S ORGANIZ ATION 11/14/2024 [facility] DATE CREATED AUTHOR AUTHOR'S ORGANIZ ATION 01/22/2025 [facility] Care Teams (unrecognized sec tion and content) Team Status: Active Member Role Status Dates Anh Granger MD Primary Care Provider Active Team Status: Inactive Member Role Status Dates Anh Granger MD Primary Care Provider Active Onel Hatch DOAttending ProviderActiveTeam MemberRelationshipSpecialty Start DateEnd Date Anh Granger MD [address] [place] [address] PCP - [facility]03/16/23 Team Status: Inactive Member Role Status Dates Anh Granger MD Primary Care Provider Active Start: September 13, 2023 End: September 13auantonieta Esqueda , DOAttending ProviderActiveStart: September 13, 2023 End: September 13, 2023Team MemberRelationshipSpecialtyStart DateEnd Date Anh Granger MD [address] [place] [address] PCP - [facility]03/16/23 Team Status: Inactive Member Role Status [...] MemberRelationshipSpecialtyStart DateEnd Date Anh Granger MD [address] [place] [address] [facility]/23Team MemberRelationshipSpecialtyStart DateEnd Date Anh Granger MD [address] [place] [address] [facility] - [facility]/16/23Team MemberRelationshipSpecialtyStart DateEnd Date Anh Granger MD [address] [place] [address] PCP - [facility]03/16/23 Team Status: Inactive Member Role Status Dates Anh Granger MD Primary Care Provider Active Start: November 05, 2024 End: November 05enjajacquie Hatch , DOAttending ProviderActiveStart: November 05, 2024 End: November 05, 2024Team MemberRelationshipSpecialtyStart DateEnd Date Anh Granger MD [address] [place] [phone] [facility] - [facility]03/16/23 Goals (unrecognized section and content) Goals may [...] BE BASED ON THE PRIMARY CLINICAL RECORDS. [facility] [employer] [facility]. provides no warranty or guarantee of the accuracy or completeness of information in this document.
--- NOTE | 2025-06-17 09:05 | US_ITS ---
The [address] [address] Patient Name: DIANE MARSHALL MRN: [id number] date: 1970 Sex: F Assigned Patient Location: Current Patient Location: Accession/Order Number: [id number] Exam Date: 06/17/2025 09:06 Report Date: 06/17/2025 10:02 At the request of: ANH CANO MD Procedure: US pelvis w/ transvaginal ULTRASOUND PELVIS WITH TRANSVAGINAL CLINICAL DATA: Unintentional weight loss. Frequent menstruation. COMPARISON: CT 10/05/2019 Real-time ultrasound evaluation of the pelvis was performed utilizing both a transabdominal and transvaginal approach. TRANSABDOMINAL: The urinary bladder is poorly distended. Estimated uterine size is approximately 9.9 x 5.9 x 8.9 cm. No focal myometrial abnormalities are seen. The endometrial lining is estimated at 12 mm. The right ovary is not identified. The left is seen and measures 8.7 x 4.4 x 5.7 cm in size. It contains 2 cystic structures. The larger measures 5.5 x 3.8 x 4.8 cm in size. TRANSVAGINAL: Transvaginal scans were performed to better evaluate the uterus and adnexa. By this approach, there are no focal myometrial abnormalities. The endometrial lining is estimated at 7 mm. The right ovary is identified. It measures 4.0 x 3.1 x 3.4 cm and consent a couple cystic areas, the larger measuring 2.6 x 2.4 x 3.3 cm. The left ovary was better seen transabdominally. The dominant left adnexal cyst is visualized. There is no free fluid. US/US pelvis w/ transvaginal IMPRESSION: BILATERAL ADNEXAL CYSTS, LARGER ON THE LEFT Impression dictated by: Petra Montesinos M.D. 06/17/2025 10:02 AM Dictation Location: [place] [address] Electronically authenticated by: [id number] Y Date: 06/17/2025 10:02
== END 2025-06-17 08:57 | disposition home or self-care (01) ==
LOC: US 08:56
PROVIDERS: PCP Family Medicine; Visit Provider Family Medicine
DX: R63.4 Abnormal weight loss (principal); R06.00 Dyspnea, unspecified; I10 Essential (primary) hypertension; N83.291 Other ovarian cyst, right side; N83.292 Other ovarian cyst, left side
CPT/HCPCS: 76830; 76856

== ENCOUNTER 2025-06-21 08:53 | Outpatient (RCR) | payer OTHER, SELFPAY ==
[2025-06-21] MEDS: IRON SUCROSE COMPLEX 200 MG in 0.9 % SODIUM CHLORIDE 100 ML 220 MG IV (09:13)
[2025-06-21 09:16] VITALS: BP 169/92; PULSE 59; TEMP 36.5; O2SAT 92
== END 2025-06-30 23:59 | disposition home or self-care (01) ==
LOC: INF 08:53
PROVIDERS: PCP Family Medicine; Visit Provider Family Medicine
DX: D50.9 Iron deficiency anemia, unspecified (principal)
CPT/HCPCS: 96365; J1756